=== PATIENT | female | born 1945 | race Caucasian/White ===

== ENCOUNTER 2018-07-22 18:00 | Inpatient (IN) | payer MEDICARE, OTHER, SELFPAY ==
[2018-07-22 18:18] VITALS: BP 175/69; PULSE 80; RESP 18; TEMP 36.9; O2SAT 99
--- NOTE | 2018-07-22 18:21 | DI.RAD.S_ITS ---
PROCEDURE: XR HUMERUS RT 2V INDICATIONS: pain with palpation, swelling. Headache, nausea, right arm swollen from elbow to hand. TECHNIQUE: 2 views of the humerus were acquired. COMPARISON: None. FINDINGS: Bones: No fractures or dislocations. No suspicious bony lesions. Soft tissues: No suspicious soft tissue calcifications. IMPRESSION: No acute osseous abnormality of the right humerus. Dictated by: Lincoln Fraire M.D. on 07/22/2018 at 19:42 Approved by: Lincoln Fraire M.D. on 07/22/2018 at 19:45
--- NOTE | 2018-07-22 18:22 | DI.RAD.S_ITS ---
PROCEDURE: XR WRIST RT MIN 3V INDICATIONS: limited range of motion due to pain, swelling. Headache, nausea, right arm swollen from elbow to hand. TECHNIQUE: 3 views of the wrist were acquired. COMPARISON: None. FINDINGS: Bones: No fractures or dislocations. Moderate degenerative changes of the first carpometacarpal joint and first metacarpophalangeal joint. There are mild degenerative changes of the first interphalangeal joint and second through fifth metacarpophalangeal joints. Soft tissues: There is diffuse soft tissue swelling surrounding the right wrist. IMPRESSION: Diffuse soft tissue swelling of the right wrist, without underlying acute fracture or dislocation. Consider followup radiographs if there is continued clinical concern. Dictated by: Lincoln Fraire M.D. on 07/22/2018 at 19:40 Approved by: Lincoln Fraire M.D. on 07/22/2018 at 19:42
--- NOTE | 2018-07-22 18:23 | PC.NURSE ---
report, right arm swelling for one week, denies injuries. right arm swelling, no redness noted. tenderness humerus, limited range of motion due to pain and swelling, right wrist pain with palpation, limited rom due to pain and swelling , distal pulses present. denies fever and vomiting.
--- NOTE | 2018-07-22 19:02 | DI.US.S_ITS ---
PROCEDURE: US PERIPH VENOUS UP EXTREM RT INDICATIONS: RIGHT ARM EDEMA, PAIN TECHNIQUE: Real-time imaging, as well as color and pulse Doppler interrogation, was performed of the right upper extremity deep veins from the inferior neck to the antecubital fossa. COMPARISON: [facility], PVE UNILATERAL RIGHT, 05/20/2016, 15:02. [facility], ARTERIAL LOW.EXTREM.BILATERAL, 08/13/2012, 14:53. [facility], BREAST RIGHT, 01/02/2011, 9:08. [facility], BREAST RIGHT, 06/20/2010, 13:26. FINDINGS: The internal jugular vein, visualized portions of the subclavian vein, axillary, and brachial veins are free of intraluminal thrombus. Where physically possible, the veins are normally compressible. Color and pulse Doppler demonstrate normal intraluminal flow. IMPRESSION: No ultrasound evidence of deep venous thrombosis of the proximal right upper extremity. Dictated by: Lincoln Fraire M.D. on 07/22/2018 at 21:38 Approved by: Lincoln Fraire M.D. on 07/22/2018 at 21:41
--- NOTE | 2018-07-22 19:07 | ED.EXTPRO ---
HPI - Extremity Problem General Chief complaint: Extremity Problem,Nontraumatic Stated complaint: headache, nausea, rt arm swollen from elbow to moreno Time Seen by Provider: 07/22/18 18:26 Source: patient and family Mode of arrival: ambulatory Limitations: no limitations History of Present Illness HPI Narrative: Patient is a 73-year-old female who presents with right shoulder and wrist pain. It has been ongoing for about 1 week. She is currently on Keflex for a sinusitis problem. She has significant swelling in her right wrist. She denies any fall. She is unable to lift her arm due to pain. She has no chest pain no heart palpitations no shortness of breath. She has not had any sweats fevers chills or shakes. She has not had any recent IV, no recent hospitalization. She has not taken anything for pain. MD Complaint: extremity pain and extremity swelling Onset (ago): week(s) Pain Consistency: constant Location: right and upper extremity Related Data Home Medications Medication Instructions Recorded Confirmed aspirin 81 mg PO QDAY #0 03/11/13 07/22/18 hydrochlorothiazide 50 mg PO QDAY #0 tab 03/11/13 07/22/18 simvastatin 10 mg PO HS #0 tab 03/11/13 07/22/18 fexofenadine 180 mg PO QDAY #0 tab 03/12/13 07/22/18 losartan 50 mg PO QDAY #0 tab 03/12/13 07/22/18 sertraline 50 mg PO QDAY #0 tab 03/12/13 07/22/18 Previous Rx's Medication Instructions Recorded triamcinolone acetonide 0 gm TOPICAL BID #1 tube 08/07/17 potassium chloride ER 10 mEq See Label Instructions PO BID #90 04/14/18 tablet,extended release tab hydroxyzine HCl 0 mg PO Q6HP PRN #60 tab 05/25/18 levetiracetam 750 mg tablet 750 mg PO BID #60 tab 07/03/18 metformin ER 500 mg 500 mg PO QDAY #30 tab 07/03/18 tablet,extended release 24 hr omeprazole 20 mg capsule,delayed 20 mg PO QDAY #30 cap 07/03/18 release cefuroxime axetil 500 mg tablet 500 mg PO Q12H 14 Days #28 tab 07/14/18 Allergies Allergy/AdvReac Type Severity Reaction Status Date / Time fexofenadine [FEXOFENADINE] Allergy Unknown Verified 07/22/18 21:15 hydroxyzine [HYDROXYZINE] Allergy Unknown Verified 07/22/18 21:15 Review of Systems Review of Systems ROS Unobtainable: All systems reviewed & are unremarkable except as noted in HPI and below Constitutional Denies chills, Denies fever(s), Denies lethargy and Denies weakness Cardiovascular Denies chest pain, Denies irregular heart rhythm, Denies lightheadedness, Denies palpitations, Denies dyspnea, Denies dyspnea on exertion and Denies orthopnea Respiratory Denies cough, Denies dyspnea, Denies dyspnea on exertion and Denies wheezing Gastrointestinal Gastrointestinal: Denies abdominal pain, Denies change in bowel habits, Denies diarrhea, Denies nausea and Denies vomiting Genitourinary Denies hematuria, Denies flank pain, Denies urinary incontinence and Denies urinary urgency Musculoskeletal Reports as per HPI and Reports joint swelling Integumentary/Breasts Denies pruritus, Denies erythema, Denies rash and Denies wounds Neurologic Denies weakness Endocrine Denies palpitations Hematologic/Lymphatic Denies easy bruising Allergic/Immunologic Denies wheezing [facility] Medical History Alopecia (Chronic) Anxiety (Chronic) Asthma (Chronic) Back pain (Chronic) Carpal tunnel syndrome (Chronic) Chronic back pain (Chronic) Foot pain (Chronic) Headache (Chronic) Hearing loss (Chronic) History of recurrent ear infection (Chronic) Hypertension (Chronic) Recurrent sinusitis (Chronic) Seasonal allergies (Chronic) Shoulder pain (Chronic) Sleep apnea (Chronic) Vision disorder (Chronic) Chicken pox (Resolved) Measles (Resolved) Mumps (Resolved) Vertigo (Resolved) Family History Child Age: 46 Cancer Heart disease Hypertension High cholesterol Diabetes mellitus Father Stroke Mother Heart disease Hypertension High cholesterol Diabetes mellitus Brother No problems noted. Brother No problems noted. Social History household members: family Smoking Status: Former smoker Exam Initial Vital Signs Initial Vital Signs: Vital Signs Temperature 98.5 F 07/22/18 18:18 Pulse Rate 80 07/22/18 18:18 Respiratory Rate 18 07/22/18 18:18 Blood Pressure 175/69 H 07/22/18 18:18 Pulse Oximetry 99 07/22/18 18:18 Const General: cooperative and acute distress (In pain holding right arm) Nutritional Appearance: average body habitus Orientation: alert, awake and oriented x3 Eyes General: appearance normal, both eyes and all related structures Neck Neck: normal visual inspection and full ROM Chest Chest: normal inspection of the chest Resp Effort & Inspection: normal respiratory effort and able to speak in complete sentences Auscultation: clear to auscultation bilaterally, no rales, no rhonchi and no wheezes Cardio Rate: regular rate Rhythm: regular rhythm Heart Sounds: S1 normal and S2 normal GI Palpation: soft, No firm, No guarding and No tender Percussion: normal to percussion Skin Other: She does have 1 small scab on right wrist area minimal erythema no streaking no gross pus no induration no fluctuation Neuro General: alert, oriented x3, gait normal and no focal motor deficits Speech: speech normal Extrem Right upper extremity: shoulder/upper arm Details: tenderness; no abrasions, no lacerations and no unusual warmth and wrist Details: swelling Location: of the dorsal wrist and of the volar wrist and abrasion; no unusual warmth and no ecchymosis Course Orders Ordered: ED Orders 07/22/18 18:21 XR humerus RT 2V Stat 07/22/18 18:22 XR wrist RT min 3V Stat 07/22/18 19:02 US periph venous up extrem rt Stat 07/22/18 19:20 C-Reactive Protein Quant Stat Complete Blood Count AUTO DIFF Stat Comprehensive Metabolic Panel Stat Erythrocyte Sedimentation Rate Stat Iron Profile (w/ % Saturation) Stat Lactate (Lactic Acid) Stat Procalcitonin Stat 07/22/18 20:02 Packed Cells Stat Type and Screen Stat 07/22/18 20:53 Blood Culture Stat 07/23/18 05:00 BMP [Basic Metabolic Panel] Routine CBC [Complete Blood Count AUTO DIFF] Routine Hemoglobin A1C % Routine Acetaminophen (Tylenol) 650 mg PO Q6HR PRN PRN Reason: As Needed for Fever/Mild Pain Dextrose (D50w) 25 gm IV PRN PRN; Protocol PRN Reason: Hypoglycemia Sodium Chloride (Normal Saline 0.9%) 1,000 mls @ 75 mls/hr IV CONT ELDER Last Admin: 07/22/18 22:35 Dose: 75 mls/hr Insulin Aspart (Novolog Flexpen) 0 unit SUBCUT ACHS ELDER; Protocol Losartan Potassium (Cozaar) 50 mg PO DAILY ELDER Metformin HCl (Glucophage Xr) 500 mg PO 1700 ELDER Oxycodone HCl (Percolone) 5 mg PO Q4HR PRN PRN Reason: Pain, Moderate (4-6) Last Admin: 07/22/18 22:35 Dose: 5 mg Oxycodone HCl (Percolone) 10 mg PO Q4HR PRN PRN Reason: Pain, Severe (7-10) Simvastatin (Zocor) 10 mg PO BEDTIME ELDER Discontinued Medications Acetaminophen (Tylenol) 975 mg PO NOW ONE Stop: 07/22/18 19:05 Last Admin: 07/22/18 19:28 Dose: 975 mg Levofloxacin (Levaquin) 750 mg in 150 mls @ 100 mls/hr IV NOW ONE Stop: 07/22/18 21:58 Last Infusion: 07/22/18 21:18 Dose: 100 mls/hr Admin: 07/22/18 20:39 Dose: 100 mls/hr Permethrin (Elimite) 1 applic TOP NOW ONE Stop: 07/22/18 21:54 Vital Signs - 8 hr 07/22/18 18:18 07/22/18 19:50 07/22/18 20:30 Temperature 98.5 F Pulse Rate 80 88 95 H Respiratory Rate 18 18 Blood Pressure 175/69 H Blood Pressure [Left Arm] 164/75 H 166/71 H Pulse Oximetry 99 94 93 MDM - Extremity (Nontraumatic) Lab Data Result diagrams: 07/22/18 19:20 07/22/18 19:20 Lab Results 07/22/18 07/22/18 07/22/18 Range/Units 19:20 19:20 19:20 WBC 12.6 H (4.5-11.0) X10^3/uL RBC 4.52 (4.0-5.2) X10^6/uL Hgb 6.2 L* (12.0-16.0) g/dL Hct 23.2 L (36-46) % MCV 51.4 L (80-100) fL MCH 13.8 L (26-34) PG MCHC 26.8 L (30-36) % RDW 20.4 H (11.6-14.8) % Plt Count 200 (150-400) X10^3/uL Neut % (Auto) Not Reportable Lymph % (Auto) Not Reportable [place] % (Auto) Not Reportable Eos % (Auto) Not Reportable Baso % (Auto) Not Reportable Lymph # (Auto) Not Reportable [place] # (Auto) Not Reportable Baso # (Auto) Not Reportable Total Counted 100 Seg Neutrophils % 70.0 (38-70) % Lymphocytes % (Manual) 12.0 L (25-45) % Atypical Lymphs % 4.0 H ( - 0) % Monocytes % (Manual) 7.0 (2-11) % Eosinophils % (Manual) 7.0 H (2-4) % Neutrophils # (Manual) 8820 H (8326-8228) /uL RBC Morphology Not Reportable Hypochromasia 3+ H Microcytosis 4+ H Target Cells 1+ H Ovalocytes 1+ H ESR 66 H (0-20) MM/HR Sodium 136 L (137-145) mmol/L Potassium 4.8 (3.4-5.1) mmol/L Chloride 98 (98-107) mmol/L Carbon Dioxide 28 (22-32) mmol/L BUN 17 (7-17) mg/dL Creatinine 0.60 (0.52-1.04) mg/dL Estimated GFR > 60.0 (>60) mL/min BUN/Creatinine Ratio 28.3 H (6-22) Glucose 102 (80-110) mg/dL Lactate (0.7-2.1) mmol/L Calcium 9.4 (8.4-10.2) mg/dL Iron (37-170) ug/dL TIBC (265-497) ug/dL % Saturation (15-50) % Transferrin (206-381) mg/dL Total Bilirubin 0.6 (0.2-1.3) mg/dL AST 19 (14-36) IU/L ALT 14 (9-52) IU/L Alkaline Phosphatase 83 (38-126) U/L C-Reactive Protein 5.6 H (<1.0) mg/dL Total Protein 8.1 (6.3-8.2) g/dL Albumin 4.0 (3.5-5.0) g/dL Globulin 4.1 (1.7-4.1) g/dL Albumin/Globulin Ratio 1.0 (1.0-2.8) Procalcitonin 0.12 (<0.5) ng/mL Blood Type Antibody Screen Crossmatch 07/22/18 07/22/18 07/22/18 Range/Units 19:20 19:20 20:02 WBC (4.5-11.0) X10^3/uL RBC (4.0-5.2) X10^6/uL Hgb (12.0-16.0) g/dL Hct (36-46) % MCV (80-100) fL MCH (26-34) PG MCHC (30-36) % RDW (11.6-14.8) % Plt Count (150-400) X10^3/uL Neut % (Auto) Lymph % (Auto) [place] % (Auto) Eos % (Auto) Baso % (Auto) Lymph # (Auto) [place] # (Auto) Baso # (Auto) Total Counted Seg Neutrophils % (38-70) % Lymphocytes % (Manual) (25-45) % Atypical Lymphs % ( - 0) % Monocytes % (Manual) (2-11) % Eosinophils % (Manual) (2-4) % Neutrophils # (Manual) (3628-6572) /uL RBC Morphology Hypochromasia Microcytosis Target Cells Ovalocytes ESR (0-20) MM/HR Sodium (137-145) mmol/L Potassium (3.4-5.1) mmol/L Chloride (98-107) mmol/L Carbon Dioxide (22-32) mmol/L BUN (7-17) mg/dL Creatinine (0.52-1.04) mg/dL Estimated GFR (>60) mL/min BUN/Creatinine Ratio (6-22) Glucose (80-110) mg/dL Lactate 1.4 (0.7-2.1) mmol/L Calcium (8.4-10.2) mg/dL Iron 22 L (37-170) ug/dL TIBC 411 (265-497) ug/dL % Saturation 5 L (15-50) % Transferrin 374 (206-381) mg/dL Total Bilirubin (0.2-1.3) mg/dL AST (14-36) IU/L ALT (9-52) IU/L Alkaline Phosphatase (38-126) U/L C-Reactive Protein (<1.0) mg/dL Total Protein (6.3-8.2) g/dL Albumin (3.5-5.0) g/dL Globulin (1.7-4.1) g/dL Albumin/Globulin Ratio (1.0-2.8) Procalcitonin (<0.5) ng/mL Blood Type A Positive Antibody Screen Negative Crossmatch See Detail Imaging Data right humerus: Radiologist's impression: PROCEDURE: XR HUMERUS RT 2V INDICATIONS: pain with palpation, swelling. Headache, nausea, right arm swollen from elbow to hand. TECHNIQUE: 2 views of the humerus were acquired. COMPARISON: None. FINDINGS: Bones: No fractures or dislocations. No suspicious bony lesions. Soft tissues: No suspicious soft tissue calcifications. IMPRESSION: No acute osseous abnormality of the right humerus. Dictated by: Lincoln Fraire M.D. on 07/22/2018 at 19:42 right wrist: Radiologist's impression: PROCEDURE: XR WRIST RT MIN 3V INDICATIONS: limited range of motion due to pain, swelling. Headache, nausea, right arm swollen from elbow to hand. TECHNIQUE: 3 views of the wrist were acquired. COMPARISON: None. FINDINGS: Bones: No fractures or dislocations. Moderate degenerative changes of the first carpometacarpal joint and first metacarpophalangeal joint. There are mild degenerative changes of the first interphalangeal joint and second through fifth metacarpophalangeal joints. Soft tissues: There is diffuse soft tissue swelling surrounding the right wrist. IMPRESSION: Diffuse soft tissue swelling of the right wrist, without underlying acute fracture or dislocation. Consider followup radiographs if there is continued clinical concern. Dictated by: Lincoln Fraire M.D. on 07/22/2018 at 19:40 right upper ex dopper: Radiologist's impression: PROCEDURE: US PERIPH VENOUS UP EXTREM RT INDICATIONS: RIGHT ARM EDEMA, PAIN TECHNIQUE: Real-time imaging, as well as color and pulse Doppler interrogation, was performed of the right upper extremity deep veins from the inferior neck to the antecubital fossa. COMPARISON: [facility], PVE UNILATERAL RIGHT, 05/20/2016, 15:02. [facility], ARTERIAL LOW.EXTREM.BILATERAL, 08/13/2012, 14:53. [facility], BREAST RIGHT, 01/02/2011, 9:08. [facility], , BREAST RIGHT, 06/20/2010, 13:26. FINDINGS: The internal jugular vein, visualized portions of the subclavian vein, axillary, and brachial veins are free of intraluminal thrombus. Where physically possible, the veins are normally compressible. Color and pulse Doppler demonstrate normal intraluminal flow. IMPRESSION: No ultrasound evidence of deep venous thrombosis of the proximal right upper extremity. Dictated by: Lincoln Farire M.D. on 07/22/2018 at 21:38 MDM Narrative Medical decision making narrative: The patient does have extreme pain in her right arm worse with movement. She has very minimal erythema of from a very small scab. Possible cellulitis versus arthritis she has obvious swelling of her right wrist. I do not suspect septic joint she is afebrile no leukocytosis lactic acid is normal. She does have elevated ESR and CRP possibly reactive. She was also found to be quite anemic. No obvious source of blood loss. Guaiac was negative. Dr. Ervin updated patient's symptoms and test results. Agrees with admission and blood transfusion. Discharge Plan Departure Patient Disposition: Admitted As Inpatient Clinical Impression: Cellulitis of arm, right, Anemia Discharge Date/Time: 07/22/18 21:19 Interventions: ED Discharge Assessment Last Done: 07/22/18 21:18 Admit Date/Time: 07/22/18 21:06 Admit Provider: Graham Ervin
[2018-07-22] MEDS: ACETAMINOPHEN 325 MG TABLET 975 MG PO (19:28)
[2018-07-22 19:32] LABS: Hematocrit 23.2 % (36-46); Mean Corpuscular HGB Conc 26.8 % (30-36); Mean Corpuscular Hemoglobin 13.8 PG (26-34); Mean Corpuscular Volume 51.4 fL (80-100); Platelet Count 200 X10^3/uL (150-400); Red Blood Cell Count 4.52 X10^6/uL (4.0-5.2); Red Cell Distribution Width 20.4 % (11.6-14.8); White Blood Cell Count 12.6 X10^3/uL (4.5-11.0)
[2018-07-22 19:35] LABS: Hemoglobin 6.2 g/dL (12.0-16.0)
[2018-07-22 19:36] LABS: Add Manual Diff / Slide Review YES
[2018-07-22 19:43] LABS: Neutrophils Absolute Manual 8820 /uL (3000-5900); Total Cells Counted 100
[2018-07-22 19:44] LABS: Hypochromasia 3+; Microcytosis 4+; Ovalocytes 1+; Target Cells 1+
[2018-07-22 19:47] LABS: Alanine Aminotransferase 14 IU/L (9-52); Alkaline Phosphatase 83 U/L (38-126); Aspartate Aminotransferase 19 IU/L (14-36); BUN Creatinine Ratio 28.3 (6-22); Bilirubin Total 0.6 mg/dL (0.2-1.3); Blood Urea Nitrogen 17 mg/dL (7-17); C-Reactive Protein Quant 5.6 mg/dL (<1.0); Calcium 9.4 mg/dL (8.4-10.2); Carbon Dioxide 28 mmol/L (22-32); Chloride 98 mmol/L (98-107); Estimated Glomerular Filt Rate > 60.0 mL/min (>60); Globulin 4.1 g/dL (1.7-4.1); Glucose 102 mg/dL (80-110); HEMOLYSIS < 15 (0-50); Potassium 4.8 mmol/L (3.4-5.1); Sodium 136 mmol/L (137-145); Total Protein 8.1 g/dL (6.3-8.2)
[2018-07-22 19:50] VITALS: BP 164/75; PULSE 88; RESP 18; O2SAT 94
[2018-07-22 19:59] LABS: Lactate (Lactic Acid) 1.4 mmol/L (0.7-2.1); Procalcitonin 0.12 ng/mL (<0.5)
[2018-07-22 20:10] LABS: Erythrocyte Sedimentation Rate 66 MM/HR (0-20)
[2018-07-22 20:30] VITALS: BP 166/71; PULSE 95; O2SAT 93
[2018-07-22] MEDS: levoFLOXacin 750 MG/150 ML PIGGYBACK 100 MG IV (20:39)
[2018-07-22 21:02] LABS: HEMOLYSIS < 15 (0-50); Iron 22 ug/dL (37-170)
[2018-07-22 21:13] LABS: Percent Iron Saturation 5 % (15-50); Total Iron Binding Capacity 411 ug/dL (265-497); Transferrin 374 mg/dL (206-381)
[2018-07-22 22:09] VITALS: BMI 25.8
[2018-07-22 22:21] VITALS: BMI 25.8
[2018-07-22] MEDS: OXYCODONE IR 5 MG TABLET PO (22:35)
[2018-07-22] MEDS: SODIUM CHLORIDE 0.9% 1,000 ML 75 ML IV (22:35)
--- NOTE | 2018-07-22 22:50 | PC.NURSE ---
2130- Admit from emergency. Patient is alert and oriented elderly lady. Patient noted to have head lice. Emergency notified. Dr. Ervin notified and orders recieved. Patient is in contact isolation.
[2018-07-23] VITALS (17 sets, daily range): BP systolic 116–153; BP diastolic 47–89; PULSE 75–96; RESP 16–24; TEMP 36.5–37.3; O2SAT 90–97
[2018-07-23] MEDS: PERMETHRIN 5% CREAM 60 GM 1 APPLIC TOP (00:30)
--- NOTE | 2018-07-23 01:36 | PC.NURSE ---
Pt trans to ICU shower room at approx 0030 via w/c. Gen weakness and RUE weakness noted. Denies dizziness with transfer. NIX treatment for head lice completed; hair combed with NIX comb. Complete shower. Pt tolerated well. Calm and cooperative. Bed linens completely changed. Pt returned to bed. IVF reconnected. Bed alarm placed on. Call light within reach. Contact Isolation remains in effect.
--- NOTE | 2018-07-23 07:59 | PM.HP.1 ---
History of Present Illness Date Patient Seen: 07/23/18 Time Patient Seen: 07:59 Chief complaint: headache, nausea, rt arm swollen from elbow to moreno Narrative: Swollen right arm. Patient admitted through the ER last night. Patient apparently went to the ER discuss she did not feel very well. Denies fever chills has had some headache. She is being currently treated with cefuroxime for sinusitis. She lives with her daughter and son-in-law and grandchildren most of whom are on antibiotics for presumed sinusitis. Patient has noted right arm has slightly swollen and painful at the wrist. Denies any trauma. She does have animals in perhaps there is been some scratches to the right arm. Pain is of the wrist primarily has difficult time moving her fingers and pain in the elbow. Also experience wrist pain when she lifts her arm up. No nausea she did have some diarrhea couple days ago all of which resolved. Denies any melena or hematochezia. No abdominal pain no vomiting. At does not believe she is taking any nonsteroidal anti-inflammatories but she is unclear what she takes. Patient currently is being treated multiple times for head lice. The entire family has had lice. The patient was admitted through the ER for evaluation right arm swelling. Additionally was found to have a decreased hemoglobin at presumed GI bleed and will be transfused and will obtain surgical consult. Patient History Medical History Alopecia (Chronic) Anxiety (Chronic) Asthma (Chronic) Back pain (Chronic) Carpal tunnel syndrome (Chronic) Chronic back pain (Chronic) Foot pain (Chronic) Headache (Chronic) Hearing loss (Chronic) History of recurrent ear infection (Chronic) Hypertension (Chronic) Recurrent sinusitis (Chronic) Seasonal allergies (Chronic) Shoulder pain (Chronic) Sleep apnea (Chronic) Vision disorder (Chronic) Chicken pox (Resolved) Measles (Resolved) Mumps (Resolved) Vertigo (Resolved) Family & Social History Family History: Reviewed 07/23/18 by Graham Ervin MD Social History: household members family Prior Living Arrangements House Safety & Behavioral: Feels Safe in Current Yes Environment Been Physically Hurt or No Threatened By a Person Suicidal Ideation Description None Suicide Plan Description No Plan Tobacco & Substance use: Smoking Status Former smoker Substance Use Type does not use Meds Home Medications Medication Instructions Recorded Confirmed Type aspirin 81 mg PO QDAY #0 03/11/13 07/22/18 History hydrochlorothiazide 50 mg PO QDAY #0 tab 03/11/13 07/22/18 History simvastatin 10 mg PO HS #0 tab 03/11/13 07/22/18 History fexofenadine 180 mg PO QDAY #0 tab 03/12/13 07/22/18 History losartan 50 mg PO QDAY #0 tab 03/12/13 07/22/18 History sertraline 50 mg PO QDAY #0 tab 03/12/13 07/22/18 History triamcinolone acetonide 0 gm TOPICAL BID #1 tube 08/07/17 07/22/18 Rx potassium chloride ER 10 mEq See Label Instructions PO BID #90 04/14/18 07/22/18 Rx tablet,extended release tab hydroxyzine HCl 0 mg PO Q6HP PRN #60 tab 05/25/18 07/22/18 Rx levetiracetam 750 mg tablet 750 mg PO BID #60 tab 07/03/18 07/22/18 Rx metformin ER 500 mg 500 mg PO QDAY #30 tab 07/03/18 07/22/18 Rx tablet,extended release 24 hr omeprazole 20 mg capsule,delayed 20 mg PO QDAY #30 cap 07/03/18 07/22/18 Rx release cefuroxime axetil 500 mg tablet 500 mg PO Q12H 14 Days #28 tab 07/14/18 07/22/18 Rx Allergies Allergy/AdvReac Type Severity Reaction Status Date / Time fexofenadine [FEXOFENADINE] Allergy Unknown Verified 07/22/18 21:15 hydroxyzine [HYDROXYZINE] Allergy Unknown Verified 07/22/18 21:15 Review of Systems Review of Systems All systems reviewed & are unremarkable except as noted in HPI and below Exam Vital Signs (past 8 hours): - 07/23/18 00:30 07/23/18 02:07 07/23/18 02:10 Temperature 99.2 F 99.2 F Pulse Rate 96 H 93 H 93 H Respiratory Rate 16 16 16 Blood Pressure 126/47 L 126/47 L Pulse Oximetry 92 90 L 07/23/18 02:30 07/23/18 02:35 07/23/18 03:30 Temperature 98.7 F Pulse Rate 93 H 96 H Respiratory Rate 16 20 Blood Pressure 145/69 H 145/69 H 152/68 H Pulse Oximetry 91 07/23/18 05:13 07/23/18 05:55 07/23/18 06:15 Temperature 97.8 F 97.7 F 97.7 F Pulse Rate 95 H 92 H 90 Respiratory Rate 18 16 18 Blood Pressure 121/61 116/70 123/65 Pulse Oximetry Oxygen Delivery Method Room Air Oxygen Flow Rate 0 Narrative Exam Narrative: Gen.: Skin: Warm well perfused. No prominent lesions. Nonicteric. HEENT: PERRL., normal EOM, external ears canals TMs normal, nasal mucosa normal and midline septum, oropharynx without lesions. Neck: Trachea midline. Thyroid nontender and not enlarged. Carotids without bruits. No lymphadenopathy Back: No obvious deformity or tenderness. Chest: Clear to P&A. Symmetric. CV: RRR no murmur or gallop. No JVD. Abdomen: No masses bruits tenderness or visceromegaly]. Neuro: Cranial nerves II through XII grossly intact. Sensory and motor exams intact. Gait normal. Mental status: Intact for screening Extremities: No cyanosis clubbing or edema Musculoskeletal: No gross deformities Lymphatics: Negative for lymphadenopathy, supraclavicular axillary or inguinal Patient has poor dentition missing several teeth and has again device. Right arm shows a 2 small superficial abrasions 1 of the top of her wrist 11 the top for her hand. There is no redness there is no warmth the hand is edematous things are edematous and she has no tenderness of the elbow or the forearm she has full range of motion passively of the wrist. Here shows evidence of head lice. Abdominal exam still masses no tenderness Objective Labs Result Diagrams: 07/22/18 19:20 07/22/18 19:20 Labs: Laboratory Results - last 24 hr 07/22/18 07/22/18 07/22/18 19:20 19:20 19:20 WBC 12.6 H RBC 4.52 Hgb 6.2 L* Hct 23.2 L MCV 51.4 L MCH 13.8 L MCHC 26.8 L RDW 20.4 H Plt Count 200 Neut % (Auto) Not Reportable Lymph % (Auto) Not Reportable [place] % (Auto) Not Reportable Eos % (Auto) Not Reportable Baso % (Auto) Not Reportable Lymph # (Auto) Not Reportable [place] # (Auto) Not Reportable Baso # (Auto) Not Reportable Total Counted 100 Seg Neutrophils % 70.0 Lymphocytes % (Manual) 12.0 L Atypical Lymphs % 4.0 H Monocytes % (Manual) 7.0 Eosinophils % (Manual) 7.0 H Neutrophils # (Manual) 8820 H RBC Morphology Not Reportable Hypochromasia 3+ H Microcytosis 4+ H Target Cells 1+ H Ovalocytes 1+ H ESR 66 H Sodium 136 L Potassium 4.8 Chloride 98 Carbon Dioxide 28 BUN 17 Creatinine 0.60 Estimated GFR > 60.0 BUN/Creatinine Ratio 28.3 H Glucose 102 Lactate Calcium 9.4 Iron TIBC % Saturation Transferrin Total Bilirubin 0.6 AST 19 ALT 14 Alkaline Phosphatase 83 C-Reactive Protein 5.6 H Total Protein 8.1 Albumin 4.0 Globulin 4.1 Albumin/Globulin Ratio 1.0 Procalcitonin 0.12 Nasal Screen MRSA (PCR) Blood Type Antibody Screen Crossmatch 07/22/18 07/22/18 07/22/18 19:20 19:20 20:02 WBC RBC Hgb Hct MCV MCH MCHC RDW Plt Count Neut % (Auto) Lymph % (Auto) [place] % (Auto) Eos % (Auto) Baso % (Auto) Lymph # (Auto) [place] # (Auto) Baso # (Auto) Total Counted Seg Neutrophils % Lymphocytes % (Manual) Atypical Lymphs % Monocytes % (Manual) Eosinophils % (Manual) Neutrophils # (Manual) RBC Morphology Hypochromasia Microcytosis Target Cells Ovalocytes ESR Sodium Potassium Chloride Carbon Dioxide BUN Creatinine Estimated GFR BUN/Creatinine Ratio Glucose Lactate 1.4 Calcium Iron 22 L TIBC 411 % Saturation 5 L Transferrin 374 Total Bilirubin AST ALT Alkaline Phosphatase C-Reactive Protein Total Protein Albumin Globulin Albumin/Globulin Ratio Procalcitonin Nasal Screen MRSA (PCR) Blood Type A Positive Antibody Screen Negative Crossmatch See Detail 07/23/18 Unknown WBC RBC Hgb Hct MCV MCH MCHC RDW Plt Count Neut % (Auto) Lymph % (Auto) [place] % (Auto) Eos % (Auto) Baso % (Auto) Lymph # (Auto) [place] # (Auto) Baso # (Auto) Total Counted Seg Neutrophils % Lymphocytes % (Manual) Atypical Lymphs % Monocytes % (Manual) Eosinophils % (Manual) Neutrophils # (Manual) RBC Morphology Hypochromasia Microcytosis Target Cells Ovalocytes ESR Sodium Potassium Chloride Carbon Dioxide BUN Creatinine Estimated GFR BUN/Creatinine Ratio Glucose Lactate Calcium Iron TIBC % Saturation Transferrin Total Bilirubin AST ALT Alkaline Phosphatase C-Reactive Protein Total Protein Albumin Globulin Albumin/Globulin Ratio Procalcitonin Nasal Screen MRSA (PCR) Negative for mrsa Blood Type Antibody Screen Crossmatch labs reviewed as above Assessment & Plan Plan: Assessment/Plan Narrative: 1. Patient was swollen right arm. Ultrasound negative for DVT. She has elevated sed rate elevated CRP. White count normal. Lactate normal. Procalcitonin normal. Unclear etiology unclear diagnosis presumably cellulitis secondary from the scratches. However other than edema there is not lot of clinical findings for same. Keep patient is on big dose of hydrochlorothiazide and may well have developed gout. Uric acid pending. Will continue antibiotics for the time being. 2. Decrease in hemoglobin seem significant. Likely to be GI blood loss that she is iron deficient. Will obtain surgical consult for evaluation for endoscopy. 3. Diabetes mellitus and on medication for same needs updated evaluation. 4. Head lice continues to be a problem. 5. Patient had been cefuroxime for her sinusitis per this to be discontinued again makes diagnosis cellulitis sketchy yet to be determined.
[2018-07-23] MEDS: LOSARTAN 50 MG TABLET PO (09:40)
[2018-07-23 09:58] LABS: Add Manual Diff / Slide Review NO; Basophils Absolute Auto 100 /uL (0-100); Basophils Percent Auto 0.5 % (0-2); Eosinophils Absolute Auto 500 /uL (0-450); Eosinophils Percent Auto 4.7 % (2-4); Hematocrit 26.3 % (36-46); Lymphocytes Absolute Auto 2100 /uL (1100-4500); Lymphocytes Percent Auto 18.2 % (25-40); Mean Corpuscular HGB Conc 30.2 % (30-36); Mean Corpuscular Volume 59.4 fL (80-100); Monocytes Absolute Auto 1300 /uL (0-900); Monocytes Percent Auto 11.1 % (3-14); Neutrophils Absolute Auto 7700 /uL (1500-7000); Neutrophils Percent Auto 65.5 % (50-75); Platelet Count 124 X10^3/uL (150-400); Red Blood Cell Count 4.43 X10^6/uL (4.0-5.2); Red Cell Distribution Width 32.9 % (11.6-14.8); White Blood Cell Count 11.7 X10^3/uL (4.5-11.0)
[2018-07-23 10:06] LABS: INR 1.3 (0.9-1.3); Prothrombin Time 15.3 SECONDS (10.1-12.7)
[2018-07-23 10:20] LABS: Blood Urea Nitrogen 21 mg/dL (7-17); Calcium 8.7 mg/dL (8.4-10.2); Carbon Dioxide 23 mmol/L (22-32); Chloride 103 mmol/L (98-107); Estimated Glomerular Filt Rate > 60.0 mL/min (>60); Glucose 115 mg/dL (80-110); HEMOLYSIS < 15 (0-50); Potassium 4.5 mmol/L (3.4-5.1); Sodium 134 mmol/L (137-145); Uric Acid 2.8 mg/dL (2.5-6.2)
[2018-07-23 10:21] LABS: Hypochromasia 2+; Microcytosis 3+; Ovalocytes 1+
[2018-07-23] MEDS: ACETAMINOPHEN 325 MG TABLET 650 MG PO (10:23)
[2018-07-23 10:25] LABS: Hemoglobin A1C% w Est Avg Glu 5.9 % (4.0-6.0)
--- NOTE | 2018-07-23 12:56 | PC.NURSE ---
Dayshift Note: Pt received laying in bed, on RA, SPO2 94% initially, down to 91% at times when laying in bed. Pt with 2nd unit of PRBCs finishing up on this shift. Pt with significant swelling in R hand, wrist and forearm. Skin is intact, small scabbed over area on dorsal surface of wrist. Area of swelling is erythematous, and only slightly warm. Pt with mild pain at rest, but unable to use RUE without limiting pain. This inhibits pt's mobility, d/t inability to push off of surfaces to stand. Pt is L handed and therefore is able to use L hand for eating and other ADLs. Pt given tylenol with pain improving from 8/10 to 3/10. Pt with BG 117 and 88 for pre-meal breakfast and lunch. Urine is dark elzbieta, adequate volume. Pt continues with clear liquid diet, also on NS at 75 ml/hr. Pt with active lice infestation, given nix treatment and shower on night nurse, live lice seen on pt's sheets. Will continue to monitor, notify MD with changes.
--- NOTE | 2018-07-23 13:22 | CM.DANOTE ---
Addendum entered by TONYA Baker 07/23/18 16:12: DCP/cont Patient's pending GI consult at this time and is in OBS status. Per RN there are concerns regarding her cognition. Attempted assessment with patient and patient was able to verify she resides with her daughter/Lacey and her family. Patient stated she is independent without the use of DME. Patient is able to drive but does not drive. While there patient's daughter/Jaelyn arrived. Patient gave permission to speak with daughter. Jaelyn stated she does not have a good relationship with sister/Lacey. Few reasons listed but none that would affect the care of patient. Jaelyn stated that patient resides with Lacey, Lacey's , their two boys (age 22 and 17) and the 22 years old's son and possible his girlfriend. Jaelyn stated at last admission at [facility] she had concerns about hygiene but admits she has not been to the house since that time ( roughly a year). Asked Jaelyn if she had any concerns regarding patient's care and she said no. Discussed HH at time of discharge should patient be eligible and Jaelyn was agreeable. RN follow up with MD regarding PT/OT eval. Plan: Depending on surg eval and possible PT/OT eval patient is likey to discharge home. CM team to follow to rule out any HH needs. 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 Yes History Provided By Medical Record Has Patient been admitted in last 30 No days? Prior Living Arrangements House Household Members family Is patient alert and oriented? Yes Comment Patient currently on isolation due to head lice. Bed side assessment not completed. Comment Chart review: Patient is admitted for swollen right arm with unclear etiology unclear diagnosis presumably cellulites secondary from the scratches and possible GI bleed. Patient to receive transfusion and is pending surg consult. Patient resides with son/dil/ and grandchildren. All whom have had difficulties with lice in the home. Comment DCP is unclear at this time. CM team to follow up for bedside assessment to better assess discharge needs. Discharge Plan Home Whiteboard Updated in Patient Room with No name and ext. # of Gas Meter Installer Helper Review Status In Process Please Provide Date Initial DC 07/23/18 Assessment Was Performed Next Review Type Continued Stay Review
[2018-07-23] MEDS: PANTOPRAZOLE 40 MG VIAL IV (13:23)
[2018-07-23 15:30] LABS: Add Manual Diff / Slide Review NO; Basophils Absolute Auto 100 /uL (0-100); Eosinophils Absolute Auto 700 /uL (0-450); Eosinophils Percent Auto 5.9 % (2-4); Hematocrit 27.1 % (36-46); Hemoglobin 8.2 g/dL (12.0-16.0); Lymphocytes Absolute Auto 2300 /uL (1100-4500); Lymphocytes Percent Auto 20.2 % (25-40); Mean Corpuscular HGB Conc 30.1 % (30-36); Mean Corpuscular Hemoglobin 17.9 PG (26-34); Mean Corpuscular Volume 59.3 fL (80-100); Monocytes Absolute Auto 1300 /uL (0-900); Monocytes Percent Auto 11.2 % (3-14); Neutrophils Absolute Auto 7000 /uL (1500-7000); Neutrophils Percent Auto 61.7 % (50-75); Platelet Count 125 X10^3/uL (150-400); Red Blood Cell Count 4.58 X10^6/uL (4.0-5.2); Red Cell Distribution Width 32.4 % (11.6-14.8); White Blood Cell Count 11.3 X10^3/uL (4.5-11.0)
[2018-07-23 15:49] LABS: Hypochromasia 3+; Microcytosis 3+; Polychromasia 1+
[2018-07-23] MEDS: METFORMIN XR 500 MG TABLET PO (17:49)
[2018-07-23] MEDS: OXYCODONE IR 5 MG TABLET PO (19:11)
[2018-07-23] MEDS: PEG3350/SOD SULF,BICARB,CL/KCL 4,000 ML SOLUTION 2000 ML PO (21:06)
[2018-07-23] MEDS: levoFLOXacin 750 MG/150 ML PIGGYBACK 100 MG IV (21:08)
[2018-07-23] MEDS: SODIUM CHLORIDE 0.9% 1,000 ML 75 ML IV (21:09)
--- NOTE | 2018-07-23 21:42 | PM.CN ---
History of Present Illness Date Patient Seen: 07/23/18 Time Patient Seen: 20:01 Chief complaint: headache, nausea, rt arm swollen from elbow to moreno Reason for consult: Anemia Requesting provider: Graham Ervin Narrative: The patient is a woman admitted with profound anemia hemoglobin of 6. She says that she occasionally sees blood in his stool but is not of any black bowel movements and no recent large bloody bowel movements. She has been feeling weak and tired. Additionally her right arm is painful and swollen. She lives with family but there seemed to be some issues with hygiene. She does have 2 cats. [facility] Medical History Alopecia (Chronic) Anxiety (Chronic) Asthma (Chronic) Back pain (Chronic) Carpal tunnel syndrome (Chronic) Chronic back pain (Chronic) Foot pain (Chronic) Headache (Chronic) Hearing loss (Chronic) History of recurrent ear infection (Chronic) Hypertension (Chronic) Recurrent sinusitis (Chronic) Seasonal allergies (Chronic) Shoulder pain (Chronic) Sleep apnea (Chronic) Vision disorder (Chronic) Chicken pox (Resolved) Measles (Resolved) Mumps (Resolved) Vertigo (Resolved) Family History Child Age: 46 Cancer Heart disease Hypertension High cholesterol Diabetes mellitus Father Stroke Mother Heart disease Hypertension High cholesterol Diabetes mellitus Brother No problems noted. Brother No problems noted. Social History household members: family Smoking Status: Former smoker Meds Home Medications Medication Instructions Recorded Confirmed Type aspirin 81 mg PO QDAY #0 03/11/13 07/22/18 History hydrochlorothiazide 50 mg PO QDAY #0 tab 03/11/13 07/22/18 History simvastatin 10 mg PO HS #0 tab 03/11/13 07/22/18 History fexofenadine 180 mg PO QDAY #0 tab 03/12/13 07/22/18 History losartan 50 mg PO QDAY #0 tab 03/12/13 07/22/18 History sertraline 50 mg PO QDAY #0 tab 03/12/13 07/22/18 History triamcinolone acetonide 0 gm TOPICAL BID #1 tube 08/07/17 07/22/18 Rx potassium chloride ER 10 mEq See Label Instructions PO BID #90 04/14/18 07/22/18 Rx tablet,extended release tab hydroxyzine HCl 0 mg PO Q6HP PRN #60 tab 05/25/18 07/22/18 Rx levetiracetam 750 mg tablet 750 mg PO BID #60 tab 07/03/18 07/22/18 Rx metformin ER 500 mg 500 mg PO QDAY #30 tab 07/03/18 07/22/18 Rx tablet,extended release 24 hr omeprazole 20 mg capsule,delayed 20 mg PO QDAY #30 cap 07/03/18 07/22/18 Rx release cefuroxime axetil 500 mg tablet 500 mg PO Q12H 14 Days #28 tab 07/14/18 07/22/18 Rx Allergies Allergy/AdvReac Type Severity Reaction Status Date / Time fexofenadine [FEXOFENADINE] Allergy Unknown Verified 07/22/18 21:15 hydroxyzine [HYDROXYZINE] Allergy Unknown Verified 07/22/18 21:15 Review of Systems Review of Systems No chest pain or heart problems he is aware of. Occasionally smoked years ago. No heart problems she is aware of. No black bowel movements no vomiting. No abdominal pain at this time. No seizures or blackouts. Is missing some teeth. Exam Vital Signs (past 8 hours): - 07/23/18 16:00 07/23/18 20:52 Temperature 99.2 F 98.9 F Pulse Rate 77 80 Respiratory Rate 22 20 Blood Pressure 153/89 H 139/71 Pulse Oximetry 94 Oxygen Delivery Method Room Air Oxygen Flow Rate 0 Narrative Exam Narrative: Co operative overweight woman in no apparent distress. Her eyes are nonicteric. Pupils equal round reactive to light. Lungs are clear to auscultation without rales or rhonchi. Heart regular rate and rhythm without murmur or gallop. Abdomen is protuberant soft nontender without mass. No obvious hernias. Objective Labs Result Diagrams: 07/23/18 15:15 07/23/18 09:49 Labs: Laboratory Results - last 24 hr 07/22/18 07/23/18 07/23/18 20:02 09:49 09:49 WBC 11.7 H RBC 4.43 Hgb 8.0 L Hct 26.3 L MCV 59.4 L D MCH 18.0 L MCHC 30.2 D RDW 32.9 H Plt Count 124 L Neut % (Auto) 65.5 Lymph % (Auto) 18.2 L [place] % (Auto) 11.1 Eos % (Auto) 4.7 H Baso % (Auto) 0.5 Neut # (Auto) 7700 H Lymph # (Auto) 2100 [place] # (Auto) 1300 H Eos # (Auto) 500 H Baso # (Auto) 100 RBC Morphology Not Reportable Polychromasia Hypochromasia 2+ H Microcytosis 3+ H Ovalocytes 1+ H PT INR Sodium 134 L Potassium 4.5 Chloride 103 Carbon Dioxide 23 BUN 21 H Creatinine 0.60 Estimated GFR > 60.0 BUN/Creatinine Ratio 35.0 H Glucose 115 H Hemoglobin A1c Uric Acid 2.8 Calcium 8.7 Nasal Screen MRSA (PCR) Blood Type A Positive Antibody Screen Negative Crossmatch See Detail 07/23/18 07/23/18 07/23/18 09:49 09:49 15:15 WBC 11.3 H RBC 4.58 Hgb 8.2 L Hct 27.1 L MCV 59.3 L MCH 17.9 L MCHC 30.1 RDW 32.4 H Plt Count 125 L Neut % (Auto) 61.7 Lymph % (Auto) 20.2 L [place] % (Auto) 11.2 Eos % (Auto) 5.9 H Baso % (Auto) 1.0 Neut # (Auto) 7000 Lymph # (Auto) 2300 [place] # (Auto) 1300 H Eos # (Auto) 700 H Baso # (Auto) 100 RBC Morphology Not Reportable Polychromasia 1+ H Hypochromasia 3+ H Microcytosis 3+ H Ovalocytes PT 15.3 H INR 1.3 Sodium Potassium Chloride Carbon Dioxide BUN Creatinine Estimated GFR BUN/Creatinine Ratio Glucose Hemoglobin A1c 5.9 Uric Acid Calcium Nasal Screen MRSA (PCR) Blood Type Antibody Screen Crossmatch 07/23/18 Unknown WBC RBC Hgb Hct MCV MCH MCHC RDW Plt Count Neut % (Auto) Lymph % (Auto) [place] % (Auto) Eos % (Auto) Baso % (Auto) Neut # (Auto) Lymph # (Auto) [place] # (Auto) Eos # (Auto) Baso # (Auto) RBC Morphology Polychromasia Hypochromasia Microcytosis Ovalocytes PT INR Sodium Potassium Chloride Carbon Dioxide BUN Creatinine Estimated GFR BUN/Creatinine Ratio Glucose Hemoglobin A1c Uric Acid Calcium Nasal Screen MRSA (PCR) Negative for mrsa Blood Type Antibody Screen Crossmatch Assessment & Plan Plan: Assessment/Plan Narrative: Patient has been transfused. I recommended an EGD and colonoscopy. Talked to her about the prep. Risks of bleeding infection perforation. It is possible we could miss something. All questions answered. She wishes to proceed. Scheduled for tomorrow midday.
[2018-07-24] VITALS (10 sets, daily range): BP systolic 114–160; BP diastolic 52–82; PULSE 61–84; RESP 12–24; TEMP 36.2–37.1; O2SAT 93–100
--- NOTE | 2018-07-24 03:34 | PC.NURSE ---
Addendum entered by Dona Saenz R.N. 07/24/18 06:27: Unable to begin the next portion of golytely, pt still working on last nights dose. Taking sips with encouragement. Multiple loose stools overnight. Original Note: Pt continues to drink goLytely, but very slowly. She has not completed the first portion that was started last night. Pt states I just can't do anymore of that. Encouraged to continue and educated on reasons. Pt still taking in very little.
[2018-07-24 05:27] LABS: Blood Urea Nitrogen 12 mg/dL (7-17); Calcium 8.7 mg/dL (8.4-10.2); Carbon Dioxide 25 mmol/L (22-32); Chloride 102 mmol/L (98-107); Estimated Glomerular Filt Rate > 60.0 mL/min (>60); Glucose 91 mg/dL (80-110); HEMOLYSIS < 15 (0-50); Potassium 4.4 mmol/L (3.4-5.1); Sodium 135 mmol/L (137-145)
[2018-07-24 05:31] LABS: Hematocrit 26.9 % (36-46); Hemoglobin 8.4 g/dL (12.0-16.0); Mean Corpuscular HGB Conc 31.2 % (30-36); Mean Corpuscular Hemoglobin 18.4 PG (26-34); Mean Corpuscular Volume 58.8 fL (80-100); Platelet Count 144 X10^3/uL (150-400); Red Blood Cell Count 4.58 X10^6/uL (4.0-5.2); Red Cell Distribution Width 32.4 % (11.6-14.8); White Blood Cell Count 12.2 X10^3/uL (4.5-11.0)
[2018-07-24 05:35] LABS: Add Manual Diff / Slide Review YES
[2018-07-24 06:54] LABS: Neutrophils Absolute Manual 8784 /uL (3000-5900); Total Cells Counted 100
[2018-07-24 06:55] LABS: Hypochromasia 3+; Microcytosis 3+
[2018-07-24 06:57] LABS: Anisocytosis 3+; Ovalocytes 1+
[2018-07-24] MEDS: LOSARTAN 50 MG TABLET PO (09:01)
[2018-07-24] MEDS: PEG3350/SOD SULF,BICARB,CL/KCL 4,000 ML SOLUTION 2000 ML PO (09:01)
[2018-07-24] MEDS: PANTOPRAZOLE 40 MG VIAL IV (09:03)
[2018-07-24] MEDS: ACETAMINOPHEN 325 MG TABLET 650 MG PO (09:05)
--- NOTE | 2018-07-24 10:24 | PT.IPTN ---
Current Diagnoses Cellulitis of right upper limb (07/22/18) Surgery Performed Operation Date: 07/24/18 13:45 <No data on this case meets the specified criteria> Physical Therapy Treatment Note M3 PT-IP Subjective Start: 07/24/18 10:22 Freq: NEEDED Status: Active Protocol: Document 07/24/18 10:22 (Rec: 07/24/18 10:24 [id number]) Subjective Physical Therapy Visit Type Type Administrative Note Visit Start Time 10:20 Notes Per RN, pt is going to have EGD and colonoscopy at 1:45 pm for suspect internal bleeding . Attempt PT this pm.
--- NOTE | 2018-07-24 13:24 | OT.IP.TRT ---
Current Diagnoses Cellulitis of right upper limb (07/22/18) Surgery Performed Operation Date: 07/24/18 14:30 <No data on this case meets the specified criteria> Occupational Therapy Treatment Note M3 OT- IP Subjective and Pain Start: 07/24/18 13:22 Freq: Status: Active Protocol: Document 07/24/18 13:22 [facility] (Rec: 07/24/18 13:24 [facility] [id number]) OT- Subjective Occupational Therapy Visit Type Type Administrative Note Notes Pt having colonoscopy at 1: 45pm today, therefore to check on pt tomorrow for OT eval.
--- NOTE | 2018-07-24 13:27 | ST.IP.CME ---
Current Diagnoses Cellulitis of right upper limb (07/22/18) Past Medical History (Last Reviewed 07/23/18 @ 21:44 by Carlitos Shoemaker MD) Alopecia (Chronic Medical) Anxiety (Chronic Medical) Asthma (Chronic Medical) Back pain (Chronic Medical) Lumbar spine disease Carpal tunnel syndrome (Chronic Medical) Chronic back pain (Chronic Medical) Foot pain (Chronic Medical) Headache (Chronic Medical) Hearing loss (Chronic Medical) History of recurrent ear infection (Chronic Medical) Hypertension (Chronic Medical) Recurrent sinusitis (Chronic Medical) Seasonal allergies (Chronic Medical) Shoulder pain (Chronic Medical) Sleep apnea (Chronic Medical) Vision disorder (Chronic Medical) Chicken pox (Resolved Medical) Measles (Resolved Medical) Mumps (Resolved Medical) Vertigo (Resolved Medical) 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 Grace Reason for Referral Nursing observed coughing and cognitive impairment Educational Status Education Level Highschool Previous Therapy Previous Speech-Language Therapy No Oral Motor Examination Oral Motor Exam Completed Yes Results Left tongue deviation, lower dentures, missing upper teeth in poor condition. Note: patient consumed multiple controlled up sips of thin liquids without signs or symptoms of aspiration. Suspect coughing may be related to some impulsivity. Patient is NPO for colonoscopy ; therefore, no textures were trialed. Recommend supervision during meals with reminders to use slow rate and small bites/sips as needed. Subjective Subjective Patient sitting up in chair in room. Agreed to participate in evaluation. Reports some recent coughing with liquids. No family present in room. - Informal Assessment Receptive Language Normal Yes Formal Assessment Results [place] Cognitive Assessment was completed. Patient scored 12/30 indicating below normal cognitive function. She scored 2/5 on visuospatial, 2/3 on naming, 3/6 on attention, 0/3 on language,1/2 on abstraction, 0/5 on delayed recall and 4/6 on orientation. Patient lives at home with her daughter and grandsons. She does not drive , but says she does some cooking and manages her own medication. She doesn't use a pill box and admitted to sometimes forgetting to take doses. She said her daughter manages finances for the home. She enjoys watching tv and playing with her great grandson. - Cognition Orientation Skill Level Mildly Impaired Attention Skill Level Moderately Impaired Divergent Naming Skill Level Moderately Impaired Auditory Math Skill Level Moderately Impaired Clock Drawing Skill Level Moderately Impaired - Memory Immediate Recall Skill Level Mildly Impaired Word Recall Skill Level Moderately Impaired - Findings Cognitive/Memory Impressions Patient presents with a mild- moderate cognitive impairment. Her baseline level is unknown . Based on performance on cognitive assessment, she exhibits impairments in memory , executive functions, naming, orientation and attention which have a negative affect on her safety. 24 hour supervision is recommended including medication management. Education was provided to the patient regarding use external memory aids such as a pill box. Patient states she has one at home but doesn't use it. Recommendations Recommendations Ongoing patient education and family education when able to. Treatment Goals Short Term Goals Patient and her family will receive ongoing education regarding current cognitive impairments and recommendations for safety at home.
--- NOTE | 2018-07-24 14:09 | PM.PN.1 ---
Subjective Date Patient Seen: 07/24/18 Time Patient Seen: 08:09 Interval history: Patient is lying comfortably in bed this morning. No complaints except for some pain in her right arm. No nausea, vomiting, problems with constipation, cough or shortness of breath. Is happy to have been treated for the lice. Exam Vital Signs (past 8 hours): - 07/24/18 08:00 07/24/18 11:30 Temperature 98.4 F Pulse Rate 84 73 Respiratory Rate 16 24 Blood Pressure 160/80 H 154/81 H Pulse Oximetry 93 95 Oxygen Delivery Method Room Air Oxygen Flow Rate 0 Narrative Exam Narrative: General: Well-developed, well-nourished, female, no acute distress. Heart: Regular rate and rhythm, no murmurs appreciated Lungs: Clear to auscultation bilaterally, no wheezes, rales or rhonchi Abd: BS+, soft, nontender, nondistended, no rebound, no guarding Extremities: Warm and well perfused, no edema Objective Labs Result Diagrams: 07/24/18 04:50 07/24/18 04:50 Labs: Laboratory Results - last 24 hr 07/23/18 07/24/18 07/24/18 15:15 04:50 04:50 WBC 11.3 H 12.2 H RBC 4.58 4.58 Hgb 8.2 L 8.4 L Hct 27.1 L 26.9 L MCV 59.3 L 58.8 L MCH 17.9 L 18.4 L MCHC 30.1 31.2 RDW 32.4 H 32.4 H Plt Count 125 L 144 L Neut % (Auto) 61.7 Not Reportable Lymph % (Auto) 20.2 L Not Reportable [place] % (Auto) 11.2 Not Reportable Eos % (Auto) 5.9 H Not Reportable Baso % (Auto) 1.0 Not Reportable Neut # (Auto) 7000 Lymph # (Auto) 2300 Not Reportable [place] # (Auto) 1300 H Not Reportable Eos # (Auto) 700 H Baso # (Auto) 100 Not Reportable Total Counted 100 Seg Neutrophils % 72.0 H Lymphocytes % (Manual) 14.0 L Monocytes % (Manual) 8.0 Eosinophils % (Manual) 6.0 H Neutrophils # (Manual) 8784 H RBC Morphology Not Reportable See below Polychromasia 1+ H Hypochromasia 3+ H 3+ H Anisocytosis 3+ H Microcytosis 3+ H 3+ H Ovalocytes 1+ H Sodium 135 L Potassium 4.4 Chloride 102 Carbon Dioxide 25 BUN 12 Creatinine 0.60 Estimated GFR > 60.0 BUN/Creatinine Ratio 20.0 Glucose 91 Calcium 8.7 Assessment & Plan Plan: Assessment/Plan Narrative: 1. 73-year-old female with swollen right arm. Ultrasound negative for DVT. She has elevated sed rate elevated CRP. White count elevated. Lactate normal. Procalcitonin normal. Unclear etiology unclear diagnosis presumably cellulitis secondary from the scratches. Has been on big dose of hydrochlorothiazide and may well have developed gout uric acid very low in the 2s. Will continue patient on levofloxacin. 2. Decrease in hemoglobin seems significant. Likely slow loses given her lack of symptoms and iron deficiency. Stable today after transfusion. Colonoscopy scheduled for today. 3. Diabetes mellitus and on medication. Hgba1c 5.9 so well controlled. 4. Head lice continues to be a problem. Has had one treatment of premethrin. Will monitor and possibly retreat tomorrow. 5. Nursing reporting coughing with swallowing. will have speech eval today. DVT prophylaxis: SCD's given acute bleed. Code status: full code Disposition: Dependent on colonoscopy results patient will require another 24-48 hours of care. Care management working on assessing home situation to determine if suitable for discharge. PT/OT evaluation today.
[2018-07-24] MEDS: SODIUM CHLORIDE 0.9% 1,000 ML 75 ML IV (14:20)
--- NOTE | 2018-07-24 14:53 | PC.NURSE ---
Dayshift Note: Pt with uneventful shift. Pt continues with golytely prep, continues to have liquid stools, yellow. Pt with long shower this shift, hair was thoroughly combed through by RECOVERY OPERATOR. Pt with cognitive test with speech pathology, memory deficits were identified. Please see speech pathology note for details. Pt is grossly oriented and appropriate in speech. Pt with mild confusion at times about time and memory deficit. R arm continues to be swollen, but less than yesterday, pain in shoulder, relieved with tylenol. Pt is currently awaiting colonoscopy.
[2018-07-24] MEDS: LIDOCAINE 4% SOLN 50 ML 20 ML TOP (16:07)
[2018-07-24] MEDS: TETRACAINE/BENZOCAINE/BUTAMBEN (CETACAINE) BOTTLE 1 SPRAY TOP (16:08)
--- NOTE | 2018-07-24 16:10 | PM.PREOP ---
Pre-operative Note Interval Note History & Physical reviewed/Exam performed by Physician: Yes Changes to H&P: No ASA Class (for procedural sedation): III
[2018-07-24] MEDS: MIDAZOLAM 5 MG/5 ML VIAL IV (16:46)
[2018-07-24] MEDS: fentaNYL 250 MCG/5 ML INJ IV (16:48)
--- NOTE | 2018-07-24 17:06 | PM.OP.ENDO ---
Operative Date/Time/Diagnoses Date of procedure: 07/24/18 Time of procedure: 17:00 Pre-op diagnosis: Anemia Post-op diagnosis: same (Anemia uncertain cause) Procedure & Clinicians Study performed: EGD and colonoscopy Same procedure as scheduled: Yes Indications: Anemia evaluation Surgeon: Carlitos Shoemaker Procedure Notes Procedure in detail: The patient had topical anesthetic applied to oropharynx. She was placed in left lateral decubitus position and underwent IV sedation directed by the surgeon consisting of fentanyl and Versed. A bite block was inserted and the scope was advanced through it into the esophagus. The esophagus was unremarkable. GE junction was noted at 40 cm from the incisors. The stomach insufflated well. There were no lesions seen in the body, antrum or at the incisura. The pyloric channel was patent. The duodenum was unremarkable to the 4th part. The scope was brought back into the stomach and retroflexed. The proximal stomach had fairly thick rugal folds but no lesions that would be the source of bleeding were seen. The scope was straightened and brought out through the esophagus again. No lesions were seen. The scope was removed and the patient tolerated the procedure well. The patient was repositioned. Digital exam was unremarkable. The scope was inserted and advanced through the rectum into the sigmoid, descending, transverse, and ascending colon. Stiffener was inserted and the patient was repositioned and we advance into the cecum.. The cecum was reached identified by the ileocecal valve and the appendiceal opening. The ileocecal valve was unable to be cannulated. The scope was gradually brought out. No Polyps were found. The scope ultimately was retroflexed in the rectum. The appearance was remarkable for some rather large scars on old hemorrhoidal disease but otherwise no polyps or other lesions were seen. The scope was removed and the patient tolerated the procedure well. The prep was very good. Scope withdrawal time: 8 Sedation minutes: 38 Findings: diverticulosis, internal hemorrhoids and other findings (Prominent rugal folds but no lesion as a source of bleeding. No blood in her upper tract.) Specimen(s): none sent Complications: none Recommendations: Other recommendation (Evaluate anemia) Plan for aftercare: As needed Follow up: as needed Disposition: PACU
--- NOTE | 2018-07-24 17:06 | SUR.PHASEI ---
arrouses easily to verbal stimuli, independently awake at times. dinies pain, swallows on command. Care transferred to [facility]U RN,
[2018-07-24] MEDS: levoFLOXacin 750 MG/150 ML PIGGYBACK 100 MG IV (21:50)
[2018-07-24] MEDS: SIMVASTATIN 10 MG TABLET PO (21:51)
[2018-07-24] MEDS: METFORMIN XR 500 MG TABLET PO (21:52)
[2018-07-25] VITALS (11 sets, daily range): BP systolic 136–187; BP diastolic 63–95; PULSE 67–88; RESP 16–20; TEMP 35.8–36.8; O2SAT 94–100
[2018-07-25] MEDS: SODIUM CHLORIDE 0.9% 1,000 ML 75 ML IV (06:03)
[2018-07-25] MEDS: PANTOPRAZOLE 40 MG VIAL IV (08:54)
[2018-07-25] MEDS: LOSARTAN 50 MG TABLET PO (08:54)
--- NOTE | 2018-07-25 09:58 | PT.IIE ---
Current Diagnoses Cellulitis of right upper limb (07/22/18) Surgery Performed Operation Date: 07/24/18 14:30 Actual Procedures p Esophagogastroduodenoscopy(Not Applicable) - Carlitos Shoemaker MD s Colonoscopy(Not Applicable) - Carlitos Shoemaker MD Medical History (Last Reviewed 07/23/18 @ 21:44 by Carlitos Shoemaker MD) Alopecia (Chronic) Anxiety (Chronic) Asthma (Chronic) Back pain (Chronic) Carpal tunnel syndrome (Chronic) Chronic back pain (Chronic) Foot pain (Chronic) Headache (Chronic) Hearing loss (Chronic) History of recurrent ear infection (Chronic) Hypertension (Chronic) Recurrent sinusitis (Chronic) Seasonal allergies (Chronic) Shoulder pain (Chronic) Sleep apnea (Chronic) Vision disorder (Chronic) Chicken pox (Resolved) Measles (Resolved) Mumps (Resolved) Vertigo (Resolved) Physical Therapy Inpatient Evaluation/Re-Eval M1 PT/OT-IP Prior Functional Status Start: 07/24/18 10:22 Freq: NEEDED Status: Active Protocol: Document 07/25/18 09:58 [facility] ([facility]/18 10:[id number] Review Prior Functional Status Medical History Reviewed Yes Mobility and Gait no AD for gait indoors and short ambulation outdoors Activities of Daily Living and IADL's modified indep. I/ADLs, pt not driving recently but can drive in emergency situations. Social History Household Members family Living Arrangements House Number of Floors (Floors) One Floor Number of Stairs To Enter/Railing? 2 SE no rails Home Environment Standard Height Toilet Tub/Shower Home Equipment Front Wheel Walker Shower Seat without Backrest Additional Social History Comment Pt states someone is always home. She has a walker that was her husbands, she does not use it. Pt presented to ER with c/o JACKSON , nausea and RUE swelling of unknown cause. Pt found to also have head lice. EGD and colonoscopy done on 07/24/18- no source of bleed found ( anemic on admission). Pt is L hand dominant. M2 PT-IP Current Condition Start: 07/24/18 10:22 Freq: NEEDED Status: Active Protocol: Document 07/25/18 09:58 [facility] (Rec: 07/25/18 10:55 [facility] [id number]) Physical Therapy Current Condition Current Condition Evaluation Date 07/25/18 Treatment Diagnosis JACKSON, nausea, RUE swelling, impaired activity tolerance Precautions Other Precautions contact precautions- hair net due lice; R arm swelling and painful M3 PT-IP Subjective Start: 07/24/18 10:22 Freq: NEEDED Status: Active Protocol: Document 07/25/18 09:58 [facility] (Rec: 07/25/18 10:55 [facility] [id number]) Subjective Physical Therapy Visit Type Type Initial Evaluation Visit Start Time 09:30 Visit Stop Time 09:58 Total Visit Minutes 28 Number of EXPRESSIVE MUSIC THERAPIST Visits 0 Physical Therapy Visit Comments Patient Comments pt states that she is having bouts of diarrhea today Patient Goals she wants to go home after d/c M4 PT-IP Mobility and Gait Start: 07/24/18 10:22 Freq: NEEDED Status: Active Protocol: Document 07/25/18 09:58 [facility] (Rec: 07/25/18 10:55 [facility] [id number]) PT-Transfer Assessment Sit to and From Stand Sit to and from Stand Contact Guard Assistance Equipment Transfer Assistive Device None Gait Belt Transfers Transfer Destination Bedside Commode Transfer Technique Stand Step Pivot Transfer Ability Level of Assist Contact Guard Assistance Comments Mobility Comments chair to BSC transfer without AD; gait performed with FWW due to fatigue. Gait Assessment Gait Gait Assistance Required: Standby Assistance Distance (Feet) 100 Assistive Devices Assistive Device Gait Belt Front Wheeled Walker Gait Deviations General Gait Pattern Decreased Stride Length Factors Limiting Gait Function Factors Limiting Gait Function Decreased Activity Tolerance Decreased Strength Poor Balance Stair Climbing Assessment Comments Stair Climbing Comments unable to assess- attempted step up/down from stool but pt reported needing BSC again, returned to room and assisted to BSC SBA. PT-Balance Assessment Sitting Balance and Reactions Static Sitting Balance Ability Good Dynamic Sitting Balance Ability Good Standing Balance and Reactions Static Standing Balance Ability Fair Dynamic Standing Balance Ability Fair Device Used FWW M5 PT-IP Objective Assessments Start: 07/24/18 10:22 Freq: NEEDED Status: Active Protocol: Document 07/25/18 09:58 [facility] (Rec: 07/25/18 10:55 [facility] [id number]) Orientation Orientation/Cognition Level of Alertness Alert Gross Range of Motion Lower Extremity ROM Assessment Within Functional Limits Strength Lower Extremity Strength Hip flexion 3+/5 B Knee flexion and extension 4/5 B M6 PT-IP Treatment Start: 07/24/18 10:22 Freq: NEEDED Status: Active Protocol: Document 07/25/18 09:58 [facility] (Rec: 07/25/18 10:55 [facility] [id number]) Physical Therapy Treatment Education Education Provided Safety M7 PT-IP Assessment and Plan Start: 07/24/18 10:22 Freq: NEEDED Status: Active Protocol: Document 07/25/18 09:58 [facility] (Rec: 07/25/18 10:55 [facility] [id number]) PT Summary Assessment and Plan Potential Rehabilitation Potential Good Status of Condition at Evaluation Stable Summary Impairments Strength Balance Gait Activity Tolerance Assessment Summary Pt initially transferred to BS without an assistive device, but due to fatigue and very short steps with decreased foot clearance, a FWW was used for gait which she was able to tolerate 100 ft without c/o fatigue. Stair/ step up training placed on hold due to pt needing to use the BSC again. Pt did require assistance with pericare after use of initial BSC, as well as the use of the FWW is below her prior level of function. Further clarification will be needed at this time to ensure that the pt will be able to have assistance with mobility and function at home, as she is not cleared to d/c from a mobility stand-point today from physical therapy. If pt is unable to have the assistance required at home, she may benefit from SNF rehabilitation upon d/c. Further assessment is required as pt improves medically. Goals Bed Mobility Goal Independent Transfer Goal Independent Gait Goal Standby Assistance Front Wheel Walker Gait Distance 150 Other Goals up/down 2 steps without rails and CGA Days to Meet Goals 4 Frequency of Treatment Frequency Of Treatment Once a Day Treatment Plan Physical Therapy Treatment Plan Gait Training Therapeutic Exercise Balance Retraining Discharge Planning Neuromuscular Re-ed Other Recommendations and Next Treatment progress gait as tolerated, Focus stair training prior to d/c. Recommendations To Nursing Amount of Assist Needed 1 Person Assist Discharge Recommendations PT Discharge Recommendations Home with Assistance Home Health SNF Rehab Other Discharge Recommendations home with assistance and HH vs . SNF, requires further assessment.
--- NOTE | 2018-07-25 11:18 | CM.DPC ---
Addendum entered by Pretty Ryan R.N. 07/25/18 11:28: Jaelyn, daughter, gave new phone number. It is: [phone]. Will have information updated on her face sheet with change [employer]. Original Note: DCP Cont: Met with daughter, Jaelyn, and CEMETERY LABORER, Tonja, met with her as well. Discussed patient's current care at home. Jaelyn lives in [facility], and reiterated that patient lives with her sister, Lacey. Stated that they live a simple life. Stated, her and her sister really don't get along, her kids live with her, can't seem to hold a job, and my sister isn't very motivated. Asked her if she felt that patient was receiving adequate care in the home, emphasizing on hygiene issues. Stated, the times that I have been in the home, it didn't seem dirty, but I have concerns that the Lice incident has been going on for a while. Jaelyn stated that other individuals in household include her sister's , son, and grandson. Asked Jaelyn if patient was receiving showers. Stated, my sister says that my mom takes her showers, but doesn't wash her hair every day. Asked her about her medications, and she stated that her sister reminds patient to take her medications. Asked her about safety in the home. Jaelyn stated, I think my mom is safe, I just feel that my sister and her can be more motivated, and get a better job. She stated that her sister does take her mother to her doctor appts. Discussed long term as a possibility at discharge, and daughter stated, there's no way she will go to a nursing facility, even if it's temporary. Patient has been able to ambulate with physical therapy. Discussed possibility of home health as an option, including nursing, bath aide, and CEMETERY LABORER. She felt that this would be a good idea. Discussed case with Dr. Laura, who is aware of social challenges. Discussed home health with him as an option, and he went ahead and signed a face to face. Let him know that CEMETERY LABORER was assessing patient in room as well. P: DCP to continue to follow closely. Will be continuing with IV antibiotics for Cellulitis, may change to oral tomorrow. Will need another shampoo/treatment, for her lice. May be here for a couple more days. Home Health can be ordered as well. Pretty Ryan RN/Product Manager
--- NOTE | 2018-07-25 11:36 | PM.PN.1 ---
Subjective Date Patient Seen: 07/25/18 Time Patient Seen: 10:45 Interval history: Patient lying in bed without particular complaints or issues Says her arm does feel somewhat better Does not really have much recollection of the events of yesterday with her endoscopies etc. Endoscopies failed to show any source of GI bleeding either upper or lower endoscopy Exam Vital Signs (past 8 hours): - 07/25/18 04:31 07/25/18 05:00 07/25/18 07:00 Temperature 96.5 F L Pulse Rate 68 Respiratory Rate 20 Blood Pressure 162/79 H Pulse Oximetry 97 99 97 07/25/18 07:52 Temperature 98.3 F Pulse Rate 71 Respiratory Rate 20 Blood Pressure 161/91 H Pulse Oximetry 97 Oxygen Delivery Method Room Air Oxygen Flow Rate 0 Objective Labs Result Diagrams: 07/24/18 04:50 07/24/18 04:50 Assessment & Plan Plan: Assessment/Plan Narrative: 1. Anemia-no evidence of active GI bleeding or source of GI bleeding at all. Patient clearly iron deficient with severe microcytosis and low iron levels. Perhaps this is all dietary and/or lack of absorption. She needs to be on iron replacement therapy which I have initiated this morning. Continue to follow her blood counts for evidence of ongoing blood loss while keeping her here in the hospital. 2. Painful/swollen right arm-unclear whether this is truly an infectious etiology or more of an injury. No evidence of blood clot or circulatory issues. Does seem improved with current therapies. Continue with IV antibiotics for now. Presumed to be cellulitis based on all available evidence even though some of the objective evidence would argue against that. 3. Diabetes-continue with current medications. Most recent hemoglobin A1c was actually fantastic 4. Head lice-I think another treatment today makes sense. This will give her to treatments in a controlled environment here in the hospital which hopefully will be effective in eradicating these tiny critters 5. Speech therapy/physical therapy-patient felt to have more cognitive issues than anything else with speech issues. No evidence of swallowing difficulty per se. No evidence of physical impairment with physical therapy. Working with the care management team to try and arrange for appropriate discharge. Patient would benefit from additional assistance at home specially in evaluation of her home living environment there is some question about that as well. Patient clearly does have some degree of cognitive impairment that would be helpful to have assessment of her home situation as well via home health services when she is ready for discharge Overall I believe patient requires continued hospitalization because of her anemia with lack of source of blood loss still a bit of a mystery as well as her issue with her right arm which is still unclear exactly what is going on there although she is improved as well as assessment of her home environment prior to discharging her back to that environment. It would be inappropriate to discharge her back to an unsafe home environment obviously. Note: Greater than 30 minutes was spent evaluating the patient on the floor, including examining the patient, discussing clinical course with clinical and nursing staff, reviewing clinical course in the computer, preparing documentation and writing orders for continued management of care, discussing status with family as appropriate, reviewing plans for the next 24 hours with both patient/family and nursing staff as appropriate.
[2018-07-25] MEDS: PERMETHRIN 1 APPLIC TOP (12:12)
[2018-07-25] MEDS: FERROUS SULFATE 325 MG TABLET PO (12:12)
--- NOTE | 2018-07-25 13:25 | CM.SWNOTE ---
Social Work Consult Note: Reviewed case w/ Cecy Cheema on 07.23.18; been following along and today joined MARY ALICE Calderón to speak w/dtr Jaelyn together; then met w/pt alone. According to nurse report, pt arrived to [facility] w/lice, scalp looked as though it hadn't been washed in awhile, also mouth looked as though there also had not been cleaning or care for months. Dr Ervin has indicated pt and family have had active lice problem since May 2018 and it has not been eradicated. MARY ALICE Austin asked this PREPARATION ROOM WORKER if pt is approp. for APS report? According to the conversation w/dtr Jaelyn: Her sister Guerda and family live w/pt, which is Guerda, her , and Guerda's two grown children, one w/3 yo son. Jaelyn feels she couldn't be more different than her sister and mother in terms of standards of hygiene, Jaelyn and Guerda often do not get along. Jaelyn drives her mom to Dr tapia occasionally but pt relies on Guerda for most transportation. Jaelyn has been in the home and has no concerns for pt's safety. The house is kept clean and Jaelyn does not suspect drug use from anyone in the house. Jaelyn feels overwhelmed at times re: how to best help her mom. Pt has told Jaelyn she is happy living w/ Guerda and does not want to move. Reviewed SNF vs Home Health? Jaelyn doesn't think pt will agree to SNF but Home Health is a good option. Jaelyn has encouraged her sister to eliminate the lice and risk for lice many times. Jaelyn feels pt going home w/sister Guerda is still a safe option at this time and plans to continue to encourage her mom to shower regularly, get dental f/u junior, and ask Guerda for addtl. help w/medications. Then met w/pt at bedside, explained SW role. Pt states her two dtrs, Jaelyn and Guerda, have joint DPOA. Encouraged pt to consider naming one DPOA and pt states it seems to be working out okay. Pt gives staff permission to speak with anyone who wants to know something. Pt feels its working okay living with her dtr Guerda and feels safe to return there. She denies abuse of any kind. Pt's income, approx. $800 monthly gets lumped w/dtr Guerda's disability check to go towards rent every month. Pt states her biggest concerns is being disgusted with her great grand baby's mom leaving sporadically and the family needing to raise the 3 yo in her absence. Discussed the state of pt's scalp and mouth upon arrival to . Pt denies having a hard time w/ ADLs and/or needing addtl assist w/ bathing stating I shower everyday and I was just about to go to the dentist before I had to come in here. Pt denies all allegations that she hasn't washed her hair or tooth and gums in months. She feels she has what she needs and will consider home health if recommended. Pt states she manages her medications and manages her own finances. After conversation w/pt; it seems she lacks insight into the severity of her presentation to . APS report for suspicion of self neglect is appropriate at this time. Updated RN DC [employer] Kaitlynn. Kaitlynn planning to discuss Home Health (RN/PT/OT/PRACTICING MD ANESTHESIOLOGIST/PREPARATION ROOM WORKER) w/pt and dtr Guerda before pt's DC. Pt doing well w/ PT and walking around the unit w/walker. Submitted APS report via online submission, included information gathered above. P: Likely DC back home w/dtr Guerda and hopefully Home Health. PREPARATION ROOM WORKER will continue to be available to RN DC [employer] in case other questions or concerns arise. TONYA Bergman
--- NOTE | 2018-07-25 14:16 | PC.NURSE ---
pt showered after NIX applied to hair and scalp and left on x7 minutes. Many, many nits noted on hair mainly on left and back of head. pt consented to hair cut plus pt's daughter, Jaelyn consented. pt sitting on chair, drinking coffee. pt has difficulty using right arm. will use left hand to reposition right arm. pt ambulated with walker into santana shower. moderate assist given.
--- NOTE | 2018-07-25 16:58 | OT.IP.EVAL ---
Current Diagnoses Cellulitis of right upper limb (07/22/18) Surgery Performed Operation Date: 07/24/18 14:30 Actual Procedures p Esophagogastroduodenoscopy(Not Applicable) - Carlitos Shoemaker MD s Colonoscopy(Not Applicable) - Carlitos Shoemaker MD Past Medical History (Last Reviewed 07/23/18 @ 21:44 by Carlitos Shoemaker MD) Alopecia (Chronic) Anxiety (Chronic) Asthma (Chronic) Back pain (Chronic) Carpal tunnel syndrome (Chronic) Chronic back pain (Chronic) Foot pain (Chronic) Headache (Chronic) Hearing loss (Chronic) History of recurrent ear infection (Chronic) Hypertension (Chronic) Recurrent sinusitis (Chronic) Seasonal allergies (Chronic) Shoulder pain (Chronic) Sleep apnea (Chronic) Vision disorder (Chronic) Chicken pox (Resolved) Measles (Resolved) Mumps (Resolved) Vertigo (Resolved) Occupational Therapy Inpatient Evaluation/Re-Eval M1 PT/OT-IP Prior Functional Status Start: 07/24/18 10:22 Freq: NEEDED Status: Active Protocol: Document 07/25/18 09:58 [facility] (Rec: 07/25/18 10:55 [facility] [id number]) Medical Review Prior Functional Status Medical History Reviewed Yes Mobility and Gait no AD for gait indoors and short ambulation outdoors Activities of Daily Living and IADL's modified indep. I/ADLs, pt not driving recently but can drive in emergency situations. Social History Household Members family Living Arrangements House Number of Floors (Floors) One Floor Number of Stairs To Enter/Railing? 2 SE no rails Home Environment Standard Height Toilet Tub/Shower Home Equipment Front Wheel Walker Shower Seat without Backrest Additional Social History Comment Pt states someone is always home. She has a walker that was her husbands, she does not use it. Pt presented to ER with c/o JACKSON , nausea and RUE swelling of unknown cause. Pt found to also have head lice. EGD and colonoscopy done on 07/24/18- no source of bleed found ( anemic on admission). Pt is L hand dominant. M1 PT/OT-IP Prior Functional Status Start: 07/24/18 13:22 Freq: NEEDED Status: Active Protocol: Document 07/25/18 16:42 [facility] (Rec: 07/25/18 16:57 [facility] [id number]) Medical Review Prior Functional Status Medical History Reviewed Yes Mobility and Gait no AD for gait indoors and short ambulation outdoors Activities of Daily Living and IADL's modified indep. I/ADLs, pt not driving recently but can drive in emergency situations. Pt states does not eat breakfast and mainly just sandwich for lunch and whatever family eats for dinner. Social History Household Members family Living Arrangements House Number of Floors (Floors) One Floor Number of Stairs To Enter/Railing? 2 SE no rails Home Environment Standard Height Toilet Tub/Shower Home Equipment Front Wheel Walker Shower Seat without Backrest Additional Social History Comment Pt states someone is always home. She has a walker that was her husbands, she does not use it. Pt presented to ER with c/o JACKSON , nausea and RUE swelling of unknown cause. Pt found to also have head lice. EGD and colonoscopy done on 07/24/18- no source of bleed found ( anemic on admission). Pt is L hand dominant. M2 OT-IP Current Condition Start: 07/24/18 13:22 Freq: Status: Active Protocol: Document 07/25/18 16:42 [facility] (Rec: 07/25/18 16:57 [facility] [id number]) Occupational Therapy Current Condition Current Condition Evaluation Date 07/25/18 Treatment Diagnosis Right swollen arm, weakness Diagnosis Onset Date 07/22/18 M3 OT- IP Subjective and Pain Start: 07/24/18 13:22 Freq: Status: Active Protocol: Document 07/25/18 16:42 [facility] (Rec: 07/25/18 16:57 [facility] [id number]) OT- Subjective Occupational Therapy Visit Type Type Initial Evaluation Visit Start Time 14:15 Visit Stop Time 14:40 Total Visit Minutes 25 Occupational Therapy Visit Comments Patient Comments Pt just completed shower with nursing but agreeable to get up with OT for OT eval. OT Pain Assessment Pain When Pain Assessed At Rest Pain Present Pain Present Denied Pain M4 OT- IP ADL's Start: 07/24/18 13:22 Freq: Status: Active Protocol: Document 07/25/18 16:42 [facility] (Rec: 07/25/18 16:57 [facility] [id number]) OT ADL-Grooming General Evaluation Grooming Ability Standby Assistance Comments OT Grooming Comments SBA for FWW use, pt needing cues to keep FWW in front of her. OT ADL-Oral Care General Eval Oral Care Ability Independent OT ADL-Dressing General Eval Lower Body Dressing Ability Independent Comments OT Dressing Comments Pt able to alvarez/doff socks while sitting at edge of chair . OT ADL-Toileting General Evaluation Toileting Ability Standby Assistance Comments OT Toileting Comments SBA for toileting needs, VC to give her toilet paper and reminders to pull up brief before walking back to recliner. M6 OT- IP Functional Cognition Start: 07/24/18 13:22 Freq: Status: Active Protocol: Document 07/25/18 16:42 [facility] (Rec: 07/25/18 16:57 [facility] [id number]) Cognitive Factors Limiting Selfcare Function Cognitive Ability Level of Alertness Alert Patient Orientation Name Place Situation Attention Span Ability Capable of Focused Attention Capable of Sustained Attention Ability to Follow Commands Able to Follow One Step Commands Memory Description Short Term Impaired Safety Awareness Underestimates Need for Assistance Problem Solving Ability Needs Assist to Identify Solutions Cognitive Comments Cognitive Assessment Comments Pt able to follow one step commands. Needing vc for safety to be sure to use LUE to help push up from the recliner, in addition to use RUE to push on her right knee to help come to stand. Pt states to painful for right arm to reach to right armrest to assist to stand to FWW. OT- Vision and Hearing OT- Hearing Assessment OT- Hearing Assessment WFL M7 OT- IP Mobility and Balance Start: 07/24/18 13:22 Freq: Status: Active Protocol: Document 07/25/18 16:42 [facility] (Rec: 07/25/18 16:57 [facility] [id number]) OT-Transfer Assessment Sit to and From Stand Sit to and from Stand Standby Assistance Transfers Transfer Ability Standby Assistance Contact Guard Assistance Technique Transfer Destination Chair Devices Transfer Assistive Devices None Gait Belt Front Wheeled Walker Comments Mobility Comments Pt able to walk with FWW to the sink and vc how to maneuver for tight spaces. Pt needing use of surface for occasional balance for level surface to walk back to the recliner with out FWW and CGA for tight spaces. OT- Balance Assessment Sitting Balance and Reactions Static Sitting Balance Ability Normal Dynamic Sitting Balance Ability Normal Standing Balance and Reactions Static Standing Balance Ability Good Dynamic Standing Balance Ability Fair Comments Other Balance Tests/Deviations/Treatment Pt able to withstand MIN : pertubations while standing. M8 OT- IP Objective Assessments Start: 07/24/18 13:22 Freq: Status: Active Protocol: Document 07/25/18 16:42 [facility] (Rec: 07/25/18 16:57 [facility] [id number]) OT Gross Range of Motion Upper Extremity Range of Motion Assessment Right Impaired ROM Impairments Pt not able to raise RUE at shoulder due to pain and able to do from elbow to distal. LUE grossly WFL. OT Strength Comments Strength Comments LUE 4-/5, RUE NT due to pain. OT- Coordination Assessment Comments Coordination Comments Increased time to use right hand as swollen for grooming set-up. OT Sensation Assessment Comments Summary Comments WFL for light touch. Edema Edema Present Edema Comments MOD swelling dorsal side of right hand. M9 OT- IP Assessment and Plan Start: 07/24/18 13:22 Freq: Status: Active Protocol: Document 07/25/18 16:42 [facility] (Rec: 07/25/18 16:57 [facility] [id number]) OT Summary Assessment and Plan Potential Rehabilitation Potential Good Analytic Complexity at Evaluation Low Summary OT Impairments Range of Motion Strength Balance Functional Cognition Functional Mobility Dressing Toileting Bathing Toilet Transfers Shower Transfers Progress Towards Goals Progressing Toward Goals Assessment Summary Pt low complexity and main barriers are steps, functional cognition, memory and safety awareness. Pt states there is always someone at home to assist with her needs. Pt would benefit from home health at this time to continue to work on safety for ADL's and assessing environmental safety set-up. Goals Grooming Goal Independent Dressing Goal Independent Toileting Goal Standby Assistance Bathing Goal Standby Assistance Toilet Transfer Goal Independent Shower Transfer Goal Standby Assistance Patient/Caregiver Education Goal Caregiver Independent Assisting Patient Days to Meet Goals 3 Frequency of Treatment Frequency Of Treatment Once a Day Treatment Plan OT Treatment Plan ADL Training Functional Cognition Training Functional Mobility Patient/Family Education Discharge Planning Other Treatment Recommendations and Next Shower safety and functional Treatment Focus cognitive assessment. Discharge Recommendations OT Discharge Recommendations Home with 27/01 Assist Home Health Home Equipment Needs [facility]
[2018-07-25] MEDS: METFORMIN XR 500 MG TABLET PO (18:01)
[2018-07-25] MEDS: SIMVASTATIN 10 MG TABLET PO (21:36)
--- NOTE | 2018-07-25 22:30 | PC.NURSE ---
james mock called Dr. Laura to report 2 consecutive high blood pressures. Per Dr. Laura, Call provider if SBP>200.
[2018-07-26] VITALS: O2SAT 98
[2018-07-26 00:30] VITALS: BP 181/92; PULSE 83; RESP 17; TEMP 36.7; O2SAT 98
[2018-07-26] MEDS: OXYCODONE IR 5 MG TABLET PO (00:41)
[2018-07-26 03:22] VITALS: O2SAT 96
[2018-07-26 05:48] LABS: Hematocrit 27.1 % (36-46); Hemoglobin 8.3 g/dL (12.0-16.0)
[2018-07-26 07:00] VITALS: O2SAT 96
[2018-07-26] MEDS: LOSARTAN 50 MG TABLET PO ×2 (08:59→09:44)
[2018-07-26] MEDS: FERROUS SULFATE 325 MG TABLET PO (08:59)
[2018-07-26 09:00] VITALS: BP 153/87; PULSE 86; RESP 18; TEMP 36.8; O2SAT 96
[2018-07-26] MEDS: SODIUM CHLORIDE 0.9% FLUSH 10 ML IV (09:00)
--- NOTE | 2018-07-26 09:47 | PM.DS.1 ---
History of Present Illness Date Patient Seen: 07/26/18 Time Patient Seen: 09:48 Chief complaint: headache, nausea, rt arm swollen from elbow to moreno Narrative: Patient admitted through the ER last night. Patient apparently went to the ER discuss she did not feel very well. Denies fever chills has had some headache. She is being currently treated with cefuroxime for sinusitis. She lives with her daughter and son-in-law and grandchildren most of whom are on antibiotics for presumed sinusitis. Patient has noted right arm has slightly swollen and painful at the wrist. Denies any trauma. She does have animals in perhaps there is been some scratches to the right arm. Pain is of the wrist primarily has difficult time moving her fingers and pain in the elbow. Also experience wrist pain when she lifts her arm up. No nausea she did have some diarrhea couple days ago all of which resolved. Denies any melena or hematochezia. No abdominal pain no vomiting. At does not believe she is taking any nonsteroidal anti-inflammatories but she is unclear what she takes. Patient currently is being treated multiple times for head lice. The entire family has had lice. The patient was admitted through the ER for evaluation right arm swelling. Additionally was found to have a decreased hemoglobin at presumed GI bleed and will be transfused and will obtain surgical consult. {from Dr. Ervin's history and physical dated July 23, 2018} Discharge Providers Date of admission: 07/22/18 21:06 Primary care physician: Graham Ervin MD Consults: 07/24/18 08:54 Consult to Speech Therapy Evaluate & Treat Comment: cough with eating Physician Instructions: Evaluate and treat 07/24/18 08:55 Consult to Occupational Therapy Evaluate & Treat Comment: adls Physician Instructions: Evaluate and treat Consult to Physical Therapy Evaluate & Treat Comment: mobility Physician Instructions: Evaluate and Treat Discharge provider: Owen Laura MD Discharge Date: 07/26/18 Summary Discharge Diagnosis: 1. Iron deficiency anemia 2. Iron deficiency likely secondary to dietary sources 3. Cellulitis right arm 4. Scalp infection with lice 5. Generalized weakness 6. Hypertension 7. Anxiety 9. Alopecia Hospital Course: Patient was admitted to the hospital floor. She was evaluated by General surgery who readily agreed she would benefit from upper and lower endoscopy. This was performed prior to discharge and no source of blood loss was found either in her upper or lower GI tract. She was proven to be iron deficient and therefore felt as though her anemia was due to iron deficiency which given lack of evidence of active bleeding or source of bleeding was felt to be due to poor absorption and/or lack of appropriate dietary iron source. She was placed on oral iron replacement therapy. She did receive 2 units of packed red cells prior to her endoscopic evaluation but showed no evidence of any bleeding and blood counts remained stable following that Patient's right arm was also painful. Was felt as though there was a likely cellulitis there although this was not confirmed with culture etc. Patient seemed to do better with antibiotic therapy. She will continue this and finished a course as an outpatient Patient was also diagnosed with lice on her scalp. This was treated twice with permethrin and hopefully patient will continue with appropriate hygiene maneuvers at home to keep this from recurring Patient was hypertensive during this hospitalization and her dose of losartan was doubled in an effort to better control her hypertension Patient's home situation is challenging clearly. Multiple discussions were held with patient with social work and with nursing staff. In the end it was felt as though the most reasonable option would be to send her home with home health services to include physical therapy visiting nurse and a MEDICAL UNIT SECRETARY for evaluation of resources available. A referral to APS was made by social service staff here based on discussion with patient and family and her clinical presentation upon admission. Further outcomes regarding that to be determined Patient refused any consideration of placement in correction and therefore discharged home with close follow-up by home health services of felt to be the next most appropriate option Status at Discharge Cognitive/behavioral status at discharge: Back to baseline Functional status at discharge: uses cane/walker Overall status at discharge: patient is progressing back to baseline Time Spent with Patient Greater than 30 minutes Exam Vital Signs (past 8 hours): - 07/26/18 03:22 07/26/18 09:00 Temperature 98.2 F Pulse Rate 86 Respiratory Rate 18 Blood Pressure 153/87 H Pulse Oximetry 96 96 Oxygen Delivery Method Room Air Oxygen Flow Rate 0 Objective Labs Result Diagrams: 07/26/18 04:58 07/24/18 04:50 Labs: Laboratory Results - last 24 hr 07/26/18 04:58 Hgb 8.3 L Hct 27.1 L Discharge Plan Discharge Plan Patient Disposition: Home Health Service Discharge Med Rec/Prescriptions Prescriptions: New ferrous sulfate 325 mg (65 mg iron) Tablet 325 mg PO BIDWM Qty: 60 RF: 8 levofloxacin 500 mg Tablet 500 mg PO Q24H Qty: 7 RF: 0 oxycodone 5 mg Tablet 5 mg PO Q4HR PRN (Reason: Pain, Moderate (4-6)) Qty: 14 RF: 0 losartan 100 mg tablet 100 mg PO DAILY Qty: 30 RF: 6 Continue hydrochlorothiazide 50 MG tablet 50 mg PO QDAY Qty: 0 RF: 0 aspirin 81 MG tablet,delayed release (DR/EC) 81 mg PO QDAY Qty: 0 RF: 0 simvastatin 10 MG tablet 10 mg PO HS Qty: 0 RF: 0 fexofenadine 180 MG tablet 180 mg PO QDAY Qty: 0 RF: 0 sertraline 50 MG tablet 50 mg PO QDAY Qty: 0 RF: 0 triamcinolone acetonide 0.1 % cream Topical BID Qty: 1 RF: 5 potassium chloride 10 mEq tablet extended release See Label Instructions PO BID Qty: 90 RF: 3 hydroxyzine HCl 25 mg tablet PO Q6HP PRNQty: 60 RF: 5 omeprazole 20 mg capsule,delayed release(DR/EC) 20 mg PO QDAY Qty: 30 RF: 0 levetiracetam [Keppra] 750 mg tablet 750 mg PO BID Qty: 60 RF: 0 metformin [Glucophage XR] 500 mg tablet extended release 24 hr 500 mg PO QDAY Qty: 30 RF: 0 Discontinued losartan 50 MG tablet 50 mg PO QDAY Qty: 0 RF: 0 cefuroxime axetil 500 mg tablet 500 mg PO Q12H 14 Days Qty: 28 RF: 0 Follow up/Referrals: Graham Ervin MD [Primary Care Provider] - 1 Week Provider Discharge Instructions Diet: Diet as Tolerated Visit Report/Discharge Packet Instructions: DI for Cellulitis -- Adult, Treating Head Lice, DI for Head Lice Visit Report Forms: Stroke Signs & Symptoms Discharge Data Primary Care Provider: Graham Ervin Attending Provider: Graham Ervin Admit Date/Time: 07/22/18 21:06
[2018-07-26 09:53] VITALS: O2SAT 96
--- NOTE | 2018-07-26 10:35 | CM.DPC ---
DCP Cont: Dr. Laura has put in discharge orders for patient. Confirmed with him that she will be getting home health. He stated that she is stable, and there is no other reason for her to be here. Called Lacey at the house, did not answer, so reached out to Jaelyn, other daughter. She stated that he sister may be sleeping, because of her paper route, but will still try and get in touch with her. She confirmed that she and the family have been doing treatments for Lice in the home, and laundry as well. Called [facility], spoke to Lacey. Explained situation to her, and let her know that nursing, O.t, CARE AID would be needed. She stated that they could see her as soon as tomorrow if they have crewman armoured personnel carrier [id number]. Will go ahead and send orders and notes to her. P: Patient is to be discharged home today with home health. Pretty Ryan RN/[employer]
== END 2018-07-26 11:00 | disposition home health service (06) | DRG 812 ==
LOC: ED 20:41 → ICU 07-23 06:45
PROVIDERS: Internal Medicine; Specialist; Admitting Provider Family Medicine; Emergency Provider Emergency Medicine; PCP Family Medicine; Visit Provider Family Medicine
PROC: 0DJ08ZZ Inspection of Upper Intestinal Tract, Via Natural or Artificial Opening Endoscopic (ICD-10-PCS; CPT 43235; principal; 2018-07-24 14:30)
PROC: 0DJD8ZZ Inspection of Lower Intestinal Tract, Via Natural or Artificial Opening Endoscopic (ICD-10-PCS; CPT 45378; 2018-07-24 14:30)
DX: D50.9 Iron deficiency anemia, unspecified (principal); L03.113 Cellulitis of right upper limb; M79.89 Other specified soft tissue disorders; B85.0 Pediculosis due to Pediculus humanus capitis; E11.9 Type 2 diabetes mellitus without complications; Z79.84 Long term (current) use of oral hypoglycemic drugs; Z87.891 Personal history of nicotine dependence; I10 Essential (primary) hypertension; F41.9 Anxiety disorder, unspecified
CPT/HCPCS: 36415; 36430; 36591; 43235; 45378; 73060; 73110; 80048; 80053; 82962; 83036; 83540; 83550; 83605; 84145; 84550; 85014; 85018; 85025; 85610; 85651; 86140; 86850; 86900; 86901; 87040; 87797; 93971; 96125; 96365; 97161; 97165; 99221; 99222; 99232; 99238; 99283; 99284; P9016; C9113; J1956; J2250; J3010

== ENCOUNTER → 2018-09-03 15:45 | Outpatient (CLI) | payer MEDICARE, OTHER, SELFPAY ==
--- NOTE | 2018-09-03 15:48 | DI.RAD.S_ITS ---
PROCEDURE: XR ANKLE LT MIN 3V INDICATIONS: pain TECHNIQUE: 3 views of the ankle were acquired. COMPARISON: None. FINDINGS: Bones: No fractures or dislocations. Ankle mortise is normally aligned. No suspicious bony lesions. Moderate osteoarthritic changes are present involving the intertarsal joints and tarsometatarsal joints. Soft tissues: Small tibiotalar joint effusion. Achilles tendon appears normal. Soft tissue swelling. IMPRESSION: 1. Moderate osteoarthritis. 2. Small tibiotalar joint effusion. Dictated by: Sofia Jones M.D. on 09/03/2018 at 17:31 Approved by: Sofia Jones M.D. on 09/03/2018 at 17:33
--- NOTE | 2018-09-03 15:48 | DI.RAD.S_ITS ---
PROCEDURE: XR WRIST LT MIN 3V INDICATIONS: No known injuries. Pain and swelling. TECHNIQUE: 3 views of the wrist were acquired. COMPARISON: [facility], CR, XR WRIST RT MIN 3V, 07/22/2018, 18:30. FINDINGS: Bones: No fractures or dislocations. No suspicious bony lesions. There is widening of the scapholunate interval suspicious for scapholunate ligamentous disruption. There is severe joint space narrowing, subchondral sclerosis and cyst formation at the radiocarpal joint, triscaphe joint, first carpometacarpal joint. There is proximal migration and malalignment of trapezium and trapezoid. Lucency in the distal radius is likely caused by a subchondral cyst. Scaphoid view: Scaphoid appears intact. Soft tissues: No suspicious soft tissue calcifications. Soft tissue swelling. IMPRESSION: 1. Widening of scapholunate interval suggesting scapholunate ligamentous disruption. 2. Severe degenerative joint disease. Dictated by: Sofia Jones M.D. on 09/03/2018 at 17:23 Approved by: Sofia Jones M.D. on 09/03/2018 at 17:28
--- NOTE | 2018-09-03 15:48 | DI.RAD.S_ITS ---
PROCEDURE: XR SHOULDER RT MIN 2V INDICATIONS: pain TECHNIQUE: 3 views of the shoulder were acquired. COMPARISON: [facility], , SHOULDER MINIMUM 2VIEW RIGHT, 01/18/2014, 14:58. FINDINGS: Bones: No fractures or dislocations. No suspicious bony lesions. Visualized ribs appear intact. Superior migration of the humeral head is new since the exam dated 01/18/2014, suggesting massive rotator tendon cuff tendon tear. There is moderate focal mucosal clear and glenohumeral joint degeneration. Soft tissues: No suspicious soft tissue calcifications. IMPRESSION: 1. Superior migration of humeral head suggesting massive rotator cuff tendon tear. 2. Moderate degenerative changes. Dictated by: Sofia Jones M.D. on 09/03/2018 at 17:28 Approved by: Sofia Jones M.D. on 09/03/2018 at 17:31
[2018-09-03 17:18] LABS: Add Manual Diff / Slide Review NO; Basophils Absolute Auto 0 /uL (0-100); Basophils Percent Auto 0.2 % (0-2); Eosinophils Absolute Auto 0 /uL (0-450); Eosinophils Percent Auto 0.2 % (2-4); Hematocrit 32.4 % (36-46); Hemoglobin 9.9 g/dL (12.0-16.0); Lymphocytes Absolute Auto 600 /uL (1100-4500); Lymphocytes Percent Auto 4.5 % (25-40); Mean Corpuscular HGB Conc 30.7 % (30-36); Mean Corpuscular Hemoglobin 20.7 PG (26-34); Mean Corpuscular Volume 67.3 fL (80-100); Monocytes Absolute Auto 700 /uL (0-900); Monocytes Percent Auto 5.4 % (3-14); Neutrophils Absolute Auto 11100 /uL (1500-7000); Neutrophils Percent Auto 89.7 % (50-75); Platelet Count 224 X10^3/uL (150-400); Red Blood Cell Count 4.81 X10^6/uL (4.0-5.2); Red Cell Distribution Width 30.8 % (11.6-14.8); White Blood Cell Count 12.4 X10^3/uL (4.5-11.0)
[2018-09-03 17:47] LABS: Ferritin 37.9 ng/mL (11.1-264)
[2018-09-03 17:54] LABS: Acanthocytes 1+; Anisocytosis 3+; Hypochromasia 1+; Microcytosis 2+; Ovalocytes 1+; Poikilocytosis 2+; Polychromasia 1+
[2018-09-05 08:19] LABS: Uric Acid 3.6 mg/dL (2.5-6.2)
== END ==
PROVIDERS: PCP Family Medicine; Visit Provider Family Medicine
DX: M19.90 Unspecified osteoarthritis, unspecified site (principal); D64.9 Anemia, unspecified; M25.50 Pain in unspecified joint
CPT/HCPCS: 36415; 73030; 73110; 73610; 82728; 84550; 85025

== ENCOUNTER 2020-03-23 15:31 | Observation (INO) | payer MEDICARE, OTHER, SELFPAY ==
[2020-03-23] VITALS (92 sets, daily range): BP systolic 128–189; BP diastolic 74–90; PULSE 68–114; RESP 18; TEMP 36.3–36.7; O2SAT 83–100; BMI 23.6
--- NOTE | 2020-03-23 16:43 | DI.US.S_ITS ---
PROCEDURE: US PERIPH VENOUS LOW EXTREM LT INDICATIONS: swollen left leg TECHNIQUE: Real-time imaging, as well as color and pulse Doppler interrogation, were performed of the lower extremity deep veins from the inguinal ligament to the popliteal fossa. COMPARISON: None. FINDINGS: The common femoral, femoral and popliteal veins are normally compressible, and free of intraluminal thrombus. Color and pulse Doppler demonstrate normal phasic intraluminal flow. There is normal augmentation response to distal compression maneuver. IMPRESSION: No DVT found left leg. Dictated by: Andrew Aguilar M.D. on 03/23/2020 at 17:32 Approved by: Andrew Aguilar M.D. on 03/23/2020 at 17:32
--- NOTE | 2020-03-23 17:24 | PC.NURSE ---
Pts o2 sat was at 84 with a steady pleth during rounding. Pt was asked to take some deep breaths and her sat increased to 87, then back to 86 with a good pleth. Per MARY ALICE Bruno, the pt was placed on 2L of o2 with no change, then increased to 2.5L where the pts sat increased to 94%. VENKAT rOtiz is aware and speaking with pt.
[2020-03-23 18:34] LABS: Add Manual Diff / Slide Review NO; Basophils Absolute Auto 100 /uL (0-100); Basophils Percent Auto 0.8 % (0-2); Eosinophils Absolute Auto 300 /uL (0-450); Hematocrit 34.1 % (36-46); Hemoglobin 10.9 g/dL (12.0-16.0); Lymphocytes Absolute Auto 1900 /uL (1100-4500); Lymphocytes Percent Auto 26.3 % (25-40); Mean Corpuscular HGB Conc 31.9 % (30-36); Mean Corpuscular Hemoglobin 22.9 PG (26-34); Mean Corpuscular Volume 71.9 fL (80-100); Monocytes Absolute Auto 600 /uL (0-900); Monocytes Percent Auto 8.4 % (3-14); Neutrophils Absolute Auto 4300 /uL (1500-7000); Neutrophils Percent Auto 60.5 % (50-75); Platelet Count 223 X10^3/uL (150-400); Red Blood Cell Count 4.75 X10^6/uL (4.0-5.2); Red Cell Distribution Width 17.6 % (11.6-14.8); White Blood Cell Count 7.1 X10^3/uL (4.5-11.0)
[2020-03-23 18:44] LABS: PTT Partial Thromboplastin Tim 29 SECONDS (26.4-36.2)
[2020-03-23 18:46] LABS: Alanine Aminotransferase 9 IU/L (<35); Albumin 3.7 g/dL (3.5-5.0); Albumin Globulin Ratio 0.9 (1.0-2.8); Alkaline Phosphatase 104 U/L (38-126); Aspartate Aminotransferase 21 IU/L (14-36); BUN Creatinine Ratio 17.7 (6-22); Bilirubin Total 0.4 mg/dL (0.2-1.3); Blood Urea Nitrogen 11 mg/dL (7-17); Calcium 8.6 mg/dL (8.4-10.2); Carbon Dioxide 30 mmol/L (22-32); Chloride 96 mmol/L (98-107); Creatine Kinase 30 U/L (30-135); Estimated Glomerular Filt Rate > 60.0 mL/min (>60); Globulin 4.2 g/dL (1.7-4.1); Glucose 100 mg/dL (80-110); HEMOLYSIS < 15 (0-50); Potassium 4.6 mmol/L (3.4-5.1); Sodium 133 mmol/L (137-145); Total Protein 7.9 g/dL (6.3-8.2)
--- NOTE | 2020-03-23 18:48 | DI.CT.S_ITS ---
PROCEDURE: CT ANGIO CHEST PE PROTOCOL INDICATIONS: sob, low sats TECHNIQUE: After the administration of intravenous contrast, 2 mm thick sections acquired from the pulmonary apices to the posterior costophrenic angles. 3-dimensional maximum intensity projection (MIP) coronal and sagittal reformats were then acquired through the thorax. For radiation dose reduction, the following was used: automated exposure control, adjustment of mA and/or kV according to patient size. COMPARISON: None. FINDINGS: Image quality: Excellent. Pulmonary arteries: Pulmonary arteries are normal in size, and demonstrate no intraluminal filling defects to suggest central pulmonary embolism. Lungs and pleura: Lungs are abnormal with mild patchy alveolar edema and no lung mass or dense consolidation is found.. No pleural effusions or pneumothorax. Central and peripheral airways are patent. Mediastinum: Heart size is normal, without pericardial effusion. No mediastinal or hilar adenopathy. Thoracic aorta is normal in caliber and enhancement. Esophagus is normal in caliber, without hiatal hernia. Bones and chest wall: No suspicious bony lesions. Ribs and thoracic spine appear intact throughout. Thyroid gland contains multiple nodules, right greater than left, some of which are prominently peripherally calcified. Mild impingement on the trachea without significant tracheal airway stenosis.. No axillary or supraclavicular adenopathy. Abdomen: Visualized upper abdominal solid organs appear normal in the early arterial phase of enhancement. IMPRESSION: No pulmonary embolus found. Mild patchy alveolar infiltration which may reflect atypical/viral pneumonia. CHF also can produce this appearance. Heart size is at the upper limits of normal. Multiple moderate and moderately large thyroid nodules a number of which are peripherally calcified. Follow-up by dedicated elective thyroid ultrasound may be warranted. Dictated by: Andrew Aguilar M.D. on 03/23/2020 at 19:20 Approved by: Andrew Aguilar M.D. on 03/23/2020 at 19:23
[2020-03-23 18:58] LABS: NT-proBNP (BNP-Adult 18+) 1940 pg/mL (<125); Troponin I < 0.012 ng/mL (0.01-0.034)
--- NOTE | 2020-03-23 20:18 | ED.EXTPRO ---
HPI - Extremity Problem <Ping OrtizDWIGHTP-BC - Last Filed: 03/23/20 20:36> General Chief complaint: Extremity Problem,Nontraumatic Stated complaint: left leg swelling Time Seen by Provider: 03/23/20 16:33 Source: patient and family Mode of arrival: Wheelchair Limitations: no limitations History of Present Illness HPI Narrative: The patient is a 74-year-old female former smoker with history of type 2 diabetes, stroke and hypertension who presents with a chief complaint of swelling of her left lower leg. Daughter states has been present for approximately 1 and half weeks. No recent surgeries or hospitalizations, though the patient does not walk around much at home. No fevers nausea vomiting or diarrhea. No chest pain or shortness of breath. Patient states that she has an appoint with primary care provider next week. No falls or trauma. Related Data Home Medications Medication Instructions Recorded Confirmed hydrochlorothiazide 50 mg PO QDAY #0 tab 03/11/13 04/30/19 simvastatin 10 mg PO HS #0 tab 03/11/13 04/30/19 fexofenadine 180 mg PO QDAY #0 tab 03/12/13 04/30/19 Previous Rx's Medication Instructions Recorded triamcinolone acetonide 0 gm TOPICAL BID #1 tube 08/07/17 potassium chloride 10 mEq See Rx Instructions PO BID #90 tab 04/14/18 tablet,extended release ferrous sulfate 325 mg PO BIDWM #60 tab 07/26/18 oxycodone 5 mg PO Q4HR PRN #14 tab 07/26/18 aspirin 81 mg tablet,delayed 81 mg PO QDAY #90 tab 07/05/19 release losartan 100 mg tablet See Rx Instructions .ROUTE 07/05/19 .COMPLEX #90 tab omeprazole 20 mg capsule,delayed 20 mg PO DAILY #90 cap 10/11/19 release metformin 500 mg tablet,extended 500 mg PO DAILY #90 tab 12/31/19 release 24 hr levetiracetam 750 mg tablet See Rx Instructions .ROUTE 01/25/20 .COMPLEX #180 tab hydroxyzine HCl 25 mg tablet See Rx Instructions .ROUTE 03/03/20 .COMPLEX #60 tablet sertraline 50 mg tablet 50 mg PO QDAY #90 tab 03/17/20 Allergies Allergy/AdvReac Type Severity Reaction Status Date / Time fexofenadine [FEXOFENADINE] Allergy Unknown Verified 04/30/19 12:20 hydroxyzine [HYDROXYZINE] Allergy Unknown Verified 04/30/19 12:20 Review of Systems <PRISCILLA Epps - Last Filed: 03/23/20 20:36> Review of Systems Narrative: GENERAL: Denies chills, fatigue, malaise, fever, sweats. HEENT: Denies sinus pain, ear pain, sore throat, difficulty swallowing, dizziness. RESPIRATORY: Denies dyspnea, cough, wheezing, hemoptysis, sputum. CARDIOVASCULAR: Denies chest pain, palpitations, orthopnea, edema, GASTROINTESTINAL: Denies nausea, vomiting, abdominal pain, diarrhea, constipation, melena. : Denies dysuria, frequency, incontinence, hematuria, urinary retention. MUSCULOSKELETAL: See HPI SKIN: See HPI NEUROLOGIC: Denies weakness, headache, numbness, change in speech, confusion, seizures, incoordination. PSYCHIATRIC: No concerning psychosocial issues. 12 point review of systems is negative except for those stated above Patient History <PRISCILLA Epps - Last Filed: 03/23/20 20:36> Medical History (Updated 04/30/19 @ 12:49 by NADEGE Jacobs) Alopecia (Chronic) Anxiety (Chronic) Asthma (Chronic) Back pain (Chronic) Carpal tunnel syndrome (Chronic) Chicken pox (Resolved) Chronic back pain (Chronic) Foot pain (Chronic) Headache (Chronic) Hearing loss (Chronic) History of recurrent ear infection (Chronic) Hypertension (Chronic) Measles (Resolved) Mumps (Resolved) Recurrent sinusitis (Chronic) Seasonal allergies (Chronic) Shoulder pain (Chronic) Sleep apnea (Chronic) Vertigo (Resolved) Vision disorder (Chronic) Family History Child Age: 48 Cancer Heart disease Hypertension High cholesterol Diabetes mellitus Father Stroke Mother Heart disease Hypertension High cholesterol Diabetes mellitus Brother No problems noted. Brother No problems noted. Social History household members: family Smoking Status: Former smoker Smoking Status: Former smoker Substance Use Type: does not use Exam <PRISCILLA Epps - Last Filed: 03/23/20 20:36> Narrative Exam Narrative: GENERAL: This is a well-nourished, well-developed patient, in no acute distress with daughter at bedside HEAD: Atraumatic. Normocephalic. No temporal or scalp tenderness. EYES: Pupils equal round and reactive. Extraocular motions intact. No scleral icterus. No injection or drainage. ENT: Nose without bleeding, purulent drainage or septal hematoma. Throat without erythema, tonsillar hypertrophy or exudate. Uvula midline. Airway patent. NECK: Trachea midline. No JVD or lymphadenopathy. Supple, nontender, no meningeal signs. CARDIOVASCULAR: Regular rate and rhythm RESPIRATORY: Coarse to auscultation. Breath sounds equal bilaterally. No wheezes, rales, or rhonchi. Occasional dry cough. No increased respiratory effort. No accessory muscle use. Speaking full sentences. GASTROINTESTINAL: Abdomen soft, non-tender, nondistended. No hepato-splenomegaly, or palpable masses. No guarding. EXTREMITIES: +1 pitting edema bilaterally BACK: Nontender without deformity or crepitance. No flank tenderness. NEURO: AOx3. SKIN: No rash or erythema on visible skin. Venous stasis appearing bilateral lower legs. Initial Vital Signs Initial Vital Signs: Vital Signs Temperature 97.4 F L 03/23/20 15:40 Pulse Rate 87 03/23/20 15:40 Respiratory Rate 18 03/23/20 15:40 Blood Pressure 161/77 H 03/23/20 15:40 Pulse Oximetry 97 03/23/20 15:40 <Edgard Mcmanus DO - Last Filed: 03/23/20 20:43> Initial Vital Signs Initial Vital Signs: Vital Signs Temperature 97.4 F L 03/23/20 15:40 Pulse Rate 87 03/23/20 15:40 Respiratory Rate 18 03/23/20 15:40 Blood Pressure 161/77 H 03/23/20 15:40 Pulse Oximetry 97 03/23/20 15:40 Course <PRISCILLA Epps - Last Filed: 03/23/20 20:36> Orders Ordered: ED Orders 03/23/20 16:43 periph venous low extrem lt Stat 03/23/20 18:28 Complete Blood Count AUTO DIFF Stat Comprehensive Metabolic Panel Stat NT-proBNP (BNP-Adult 18+) Stat Partial Thromboplastin Time Stat Prothrombin Time INR Stat Troponin & CK Cardiac Panel Stat 03/23/20 18:48 CT angio chest PE protocol Stat 03/23/20 20:17 COVID19 -ED/INPAT/OR/L&D Stat 03/24/20 00:30 Troponin & CK Cardiac Panel Stat 03/24/20 04:00 Complete Blood Count AUTO DIFF Stat Comprehensive Metabolic Panel Stat Hemoglobin A1C% w Est Avg Glu Stat 03/24/20 06:30 Troponin & CK Cardiac Panel Stat 03/24/20 08:00 EC echo doppler complete Routine Acetaminophen (Tylenol) 650 mg PO Q6HR PRN PRN Reason: Fever/Mild Pain (1-3) Furosemide (Lasix) 40 mg IV DAILY ELDER Sodium Chloride (Normal Saline 0.9%) 1,000 mls @ 125 mls/hr IV CONT ELDER Last Admin: 03/23/20 20:34 Dose: 125 mls/hr Documented by: SELINA Ondansetron HCl (Zofran) 4 mg IV Q4HR PRN PRN Reason: Nausea And Vomiting Discontinued Medications Furosemide (Lasix) 40 mg IV NOW ONE Stop: 03/23/20 20:18 Last Admin: 03/23/20 20:32 Dose: 40 mg Documented by: SELINA Vital Signs Vital signs: Vital Signs - 8 hr 03/23/20 15:40 03/23/20 17:13 03/23/20 17:14 Temperature 97.4 F L Pulse Rate 87 94 H 94 H Respiratory Rate 18 Blood Pressure 161/77 H 170/90 H Pulse Oximetry 97 86 L 87 L 03/23/20 17:18 03/23/20 17:20 03/23/20 17:22 Temperature Pulse Rate 95 H 92 H 90 Respiratory Rate Blood Pressure Pulse Oximetry 86 L 90 L 96 03/23/20 17:24 03/23/20 17:26 03/23/20 17:28 Temperature Pulse Rate 89 90 91 H Respiratory Rate Blood Pressure Pulse Oximetry 98 98 92 03/23/20 17:30 03/23/20 17:32 03/23/20 17:34 Temperature Pulse Rate 90 93 H 93 H Respiratory Rate Blood Pressure Pulse Oximetry 94 89 L 89 L 03/23/20 17:36 03/23/20 17:38 03/23/20 17:40 Temperature Pulse Rate 96 H 93 H 95 H Respiratory Rate Blood Pressure Pulse Oximetry 96 92 93 03/23/20 17:42 03/23/20 17:44 03/23/20 17:46 Temperature Pulse Rate 97 H 98 H 95 H Respiratory Rate Blood Pressure Pulse Oximetry 92 86 L 87 L 03/23/20 17:48 03/23/20 17:50 03/23/20 17:52 Temperature Pulse Rate 95 H 95 H 94 H Respiratory Rate Blood Pressure Pulse Oximetry 88 L 91 89 L 03/23/20 17:54 03/23/20 17:56 03/23/20 17:58 Temperature Pulse Rate 96 H 97 H 98 H Respiratory Rate Blood Pressure Pulse Oximetry 89 L 88 L 87 L 03/23/20 18:00 03/23/20 18:02 03/23/20 18:04 Temperature Pulse Rate 94 H 92 H 91 H Respiratory Rate Blood Pressure Pulse Oximetry 92 96 97 03/23/20 18:06 03/23/20 18:08 03/23/20 18:10 Temperature Pulse Rate 90 89 88 Respiratory Rate Blood Pressure Pulse Oximetry 97 98 98 03/23/20 18:12 03/23/20 18:14 03/23/20 18:16 Temperature Pulse Rate 90 90 91 H Respiratory Rate Blood Pressure Pulse Oximetry 97 98 99 03/23/20 18:18 03/23/20 18:20 03/23/20 18:22 Temperature Pulse Rate 92 H 93 H 91 H Respiratory Rate Blood Pressure Pulse Oximetry 98 97 97 03/23/20 18:24 03/23/20 18:26 03/23/20 18:28 Temperature Pulse Rate 92 H 90 90 Respiratory Rate Blood Pressure Pulse Oximetry 98 98 99 03/23/20 18:30 03/23/20 18:32 03/23/20 18:34 Temperature Pulse Rate 93 H 92 H 94 H Respiratory Rate Blood Pressure Pulse Oximetry 99 99 98 03/23/20 18:36 03/23/20 18:38 03/23/20 18:40 Temperature Pulse Rate 93 H 89 95 H Respiratory Rate Blood Pressure Pulse Oximetry 98 99 98 03/23/20 18:42 03/23/20 18:44 03/23/20 18:46 Temperature Pulse Rate 91 H 93 H 93 H Respiratory Rate Blood Pressure Pulse Oximetry 100 99 99 03/23/20 18:48 03/23/20 18:50 03/23/20 18:52 Temperature Pulse Rate 95 H 96 H 93 H Respiratory Rate Blood Pressure Pulse Oximetry 98 98 98 03/23/20 19:14 03/23/20 19:16 03/23/20 19:18 Temperature Pulse Rate 99 H 97 H 97 H Respiratory Rate Blood Pressure 189/86 H Pulse Oximetry 99 99 98 03/23/20 19:20 03/23/20 19:25 03/23/20 19:26 Temperature Pulse Rate 114 H 107 H Respiratory Rate Blood Pressure Pulse Oximetry 95 85 L 96 03/23/20 19:28 03/23/20 19:30 03/23/20 19:32 Temperature Pulse Rate 101 H 96 H 94 H Respiratory Rate Blood Pressure Pulse Oximetry 93 97 97 03/23/20 20:00 Temperature Pulse Rate 99 H Respiratory Rate Blood Pressure Pulse Oximetry 90 L <Edgard Mcmanus, - Last Filed: 03/23/20 20:43> Orders Ordered: ED Orders 03/23/20 16:43 periph venous low extrem lt Stat 03/23/20 18:28 Complete Blood Count AUTO DIFF Stat Comprehensive Metabolic Panel Stat NT-proBNP (BNP-Adult 18+) Stat Partial Thromboplastin Time Stat Prothrombin Time INR Stat Troponin & CK Cardiac Panel Stat 03/23/20 18:48 CT angio chest PE protocol Stat 03/23/20 20:17 COVID19 -ED/INPAT/OR/L&D Stat 03/24/20 00:30 Troponin & CK Cardiac Panel Stat 03/24/20 04:00 Complete Blood Count AUTO DIFF Stat Comprehensive Metabolic Panel Stat Hemoglobin A1C% w Est Avg Glu Stat 03/24/20 06:30 Troponin & CK Cardiac Panel Stat 03/24/20 08:00 EC echo doppler complete Routine Acetaminophen (Tylenol) 650 mg PO Q6HR PRN PRN Reason: Fever/Mild Pain (1-3) Furosemide (Lasix) 40 mg IV DAILY ELDER Sodium Chloride (Normal Saline 0.9%) 1,000 mls @ 125 mls/hr IV CONT ELDER Last Admin: 03/23/20 20:34 Dose: 125 mls/hr Documented by: SELINA Ondansetron HCl (Zofran) 4 mg IV Q4HR PRN PRN Reason: Nausea And Vomiting Discontinued Medications Furosemide (Lasix) 40 mg IV NOW ONE Stop: 03/23/20 20:18 Last Admin: 03/23/20 20:32 Dose: 40 mg Documented by: SELINA Vital Signs Vital signs: Vital Signs - 8 hr 03/23/20 15:40 03/23/20 17:13 03/23/20 17:14 Temperature 97.4 F L Pulse Rate 87 94 H 94 H Respiratory Rate 18 Blood Pressure 161/77 H 170/90 H Pulse Oximetry 97 86 L 87 L 03/23/20 17:18 03/23/20 17:20 03/23/20 17:22 Temperature Pulse Rate 95 H 92 H 90 Respiratory Rate Blood Pressure Pulse Oximetry 86 L 90 L 96 03/23/20 17:24 03/23/20 17:26 03/23/20 17:28 Temperature Pulse Rate 89 90 91 H Respiratory Rate Blood Pressure Pulse Oximetry 98 98 92 03/23/20 17:30 03/23/20 17:32 03/23/20 17:34 Temperature Pulse Rate 90 93 H 93 H Respiratory Rate Blood Pressure Pulse Oximetry 94 89 L 89 L 03/23/20 17:36 03/23/20 17:38 03/23/20 17:40 Temperature Pulse Rate 96 H 93 H 95 H Respiratory Rate Blood Pressure Pulse Oximetry 96 92 93 03/23/20 17:42 03/23/20 17:44 03/23/20 17:46 Temperature Pulse Rate 97 H 98 H 95 H Respiratory Rate Blood Pressure Pulse Oximetry 92 86 L 87 L 03/23/20 17:48 03/23/20 17:50 03/23/20 17:52 Temperature Pulse Rate 95 H 95 H 94 H Respiratory Rate Blood Pressure Pulse Oximetry 88 L 91 89 L 03/23/20 17:54 03/23/20 17:56 03/23/20 17:58 Temperature Pulse Rate 96 H 97 H 98 H Respiratory Rate Blood Pressure Pulse Oximetry 89 L 88 L 87 L 03/23/20 18:00 03/23/20 18:02 03/23/20 18:04 Temperature Pulse Rate 94 H 92 H 91 H Respiratory Rate Blood Pressure Pulse Oximetry 92 96 97 03/23/20 18:06 03/23/20 18:08 03/23/20 18:10 Temperature Pulse Rate 90 89 88 Respiratory Rate Blood Pressure Pulse Oximetry 97 98 98 03/23/20 18:12 03/23/20 18:14 03/23/20 18:16 Temperature Pulse Rate 90 90 91 H Respiratory Rate Blood Pressure Pulse Oximetry 97 98 99 03/23/20 18:18 03/23/20 18:20 03/23/20 18:22 Temperature Pulse Rate 92 H 93 H 91 H Respiratory Rate Blood Pressure Pulse Oximetry 98 97 97 03/23/20 18:24 03/23/20 18:26 03/23/20 18:28 Temperature Pulse Rate 92 H 90 90 Respiratory Rate Blood Pressure Pulse Oximetry 98 98 99 03/23/20 18:30 03/23/20 18:32 03/23/20 18:34 Temperature Pulse Rate 93 H 92 H 94 H Respiratory Rate Blood Pressure Pulse Oximetry 99 99 98 03/23/20 18:36 03/23/20 18:38 03/23/20 18:40 Temperature Pulse Rate 93 H 89 95 H Respiratory Rate Blood Pressure Pulse Oximetry 98 99 98 03/23/20 18:42 03/23/20 18:44 03/23/20 18:46 Temperature Pulse Rate 91 H 93 H 93 H Respiratory Rate Blood Pressure Pulse Oximetry 100 99 99 03/23/20 18:48 03/23/20 18:50 03/23/20 18:52 Temperature Pulse Rate 95 H 96 H 93 H Respiratory Rate Blood Pressure Pulse Oximetry 98 98 98 03/23/20 19:14 03/23/20 19:16 03/23/20 19:18 Temperature Pulse Rate 99 H 97 H 97 H Respiratory Rate Blood Pressure 189/86 H Pulse Oximetry 99 99 98 03/23/20 19:20 03/23/20 19:25 03/23/20 19:26 Temperature Pulse Rate 114 H 107 H Respiratory Rate Blood Pressure Pulse Oximetry 95 85 L 96 03/23/20 19:28 03/23/20 19:30 03/23/20 19:32 Temperature Pulse Rate 101 H 96 H 94 H Respiratory Rate Blood Pressure Pulse Oximetry 93 97 97 03/23/20 20:00 Temperature Pulse Rate 99 H Respiratory Rate Blood Pressure Pulse Oximetry 90 L MDM - Extremity (Nontraumatic) <BETTY Epps-BC - Last Filed: 03/23/20 20:36> Lab Data Result diagrams: 03/23/20 18:28 03/23/20 18:28 Labs: Lab Results 03/23/20 03/23/20 03/23/20 Range/Units 18:28 18:28 18:28 WBC 7.1 (4.5-11.0) X10^3/uL RBC 4.75 (4.0-5.2) X10^6/uL Hgb 10.9 L (12.0-16.0) g/dL Hct 34.1 L (36-46) % MCV 71.9 L (80-100) fL MCH 22.9 L (26-34) PG MCHC 31.9 (30-36) % RDW 17.6 H (11.6-14.8) % Plt Count 223 (150-400) X10^3/uL Neut % (Auto) 60.5 (50-75) % Lymph % (Auto) 26.3 (25-40) % [place] % (Auto) 8.4 (3-14) % Eos % (Auto) 4.0 (2-4) % Baso % (Auto) 0.8 (0-2) % Neut # (Auto) 4300 (1101-5259) /uL Lymph # (Auto) 1900 (5777-3599) /uL [place] # (Auto) 600 (0-900) /uL Eos # (Auto) 300 (0-450) /uL Baso # (Auto) 100 (0-100) /uL PT 12.0 (10.1-12.7) SECONDS INR 1.0 (0.9-1.3) APTT 29 (26.4-36.2) SECONDS Sodium 133 L (137-145) mmol/L Potassium 4.6 (3.4-5.1) mmol/L Chloride 96 L (98-107) mmol/L Carbon Dioxide 30 (22-32) mmol/L BUN 11 (7-17) mg/dL Creatinine 0.62 (0.52-1.04) mg/dL Estimated GFR > 60.0 (>60) mL/min BUN/Creatinine Ratio 17.7 (6-22) Glucose 100 (80-110) mg/dL Calcium 8.6 (8.4-10.2) mg/dL Total Bilirubin 0.4 (0.2-1.3) mg/dL AST 21 (14-36) IU/L ALT 9 (<35) IU/L Alkaline Phosphatase 104 (38-126) U/L Total Creatine Kinase 30 (30-135) U/L CK-MB (CK-2) TNP CK-MB (CK-2) Rel Index TNP Troponin I < 0.012 (0.01-0.034) ng/mL NT-Pro-B Natriuret Pep 1940 H (<125) pg/mL Total Protein 7.9 (6.3-8.2) g/dL Albumin 3.7 (3.5-5.0) g/dL Globulin 4.2 H (1.7-4.1) g/dL Albumin/Globulin Ratio 0.9 L (1.0-2.8) Imaging Data CT scan - chest: Radiologist's Impression: [address] [place] [id number] Scan Report Signed Patient: Janette WaldronMR#: [id number] : 7Acct:[id number] Age/Sex: 74 / FDate of Service: 03/23/20 Loc: ED Accession Number: [id number] Procedure: CT angio chest PE protocol Ordering Provider: Ping Ortiz [facility] PROCEDURE: CT ANGIO CHEST PE PROTOCOL INDICATIONS: sob, low sats TECHNIQUE: After the administration of intravenous contrast, 2 mm thick sections acquired from the pulmonary apices to the posterior costophrenic angles. 3-dimensional maximum intensity projection (MIP) coronal and sagittal reformats were then acquired through the thorax. For radiation dose reduction, the following was used: automated exposure control, adjustment of mA and/or kV according to patient size. COMPARISON: None. FINDINGS: Image quality: Excellent. Pulmonary arteries: Pulmonary arteries are normal in size, and demonstrate no intraluminal filling defects to suggest central pulmonary embolism. Lungs and pleura: Lungs are abnormal with mild patchy alveolar edema and no lung mass or dense consolidation is found.. No pleural effusions or pneumothorax. Central and peripheral airways are patent. Mediastinum: Heart size is normal, without pericardial effusion. No mediastinal or hilar adenopathy. Thoracic aorta is normal in caliber and enhancement. Esophagus is normal in caliber, without hiatal hernia. Bones and chest wall: No suspicious bony lesions. Ribs and thoracic spine appear intact throughout. Thyroid gland contains multiple nodules, right greater than left, some of which are prominently peripherally calcified. Mild impingement on the trachea without significant tracheal airway stenosis.. No axillary or supraclavicular adenopathy. Abdomen: Visualized upper abdominal solid organs appear normal in the early arterial phase of enhancement. IMPRESSION: No pulmonary embolus found. Mild patchy alveolar infiltration which may reflect atypical/viral pneumonia. CHF also can produce this appearance. Heart size is at the upper limits of normal. Multiple moderate and moderately large thyroid nodules a number of which are peripherally calcified. Follow-up by dedicated elective thyroid ultrasound may be warranted. Dictated by: Andrew Aguilar M.D. on 03/23/2020 at 19:20 Approved by: Andrew Aguilar M.D. on 03/23/2020 at 19:23 US - DVT: Radiologist's Impression: [address] [place] [address] Ultrasound Report Signed Patient: Janette Waldron#: [id number] : 7Acct:[id number] Age/Sex: 74 / FDate of Service: 03/23/20 Loc: ED Accession Number: [id number] Procedure: US periph venous low extrem lt Ordering Provider: Ping Ortiz PROCEDURE: US PERIPH VENOUS LOW EXTREM LT INDICATIONS: swollen left leg TECHNIQUE: Real-time imaging, as well as color and pulse Doppler interrogation, were performed of the lower extremity deep veins from the inguinal ligament to the popliteal fossa. COMPARISON: None. FINDINGS: The common femoral, femoral and popliteal veins are normally compressible, and free of intraluminal thrombus. Color and pulse Doppler demonstrate normal phasic intraluminal flow. There is normal augmentation response to distal compression maneuver. IMPRESSION: No DVT found left leg. Dictated by: Andrew Aguilar M.D. on 03/23/2020 at 17:32 Approved by: Andrew Aguilar M.D. on 03/23/2020 at 17:32 [facility] Narrative Medical decision making narrative: The patient is a 74-year-old female who presents with a chief complaint of left lower leg swelling. Given the patient's relative immobility, ultrasound was taken to rule out DVT. This came back negative. However the patient became hypoxic while in the emergency department, down to the mid 80s on room air. This persisted with ambulation, encouraging up taking deep breaths. This is CT to rule out PE was obtained. This came back negative for any acute PE. The patient's troponin is negative, however BNP is elevated over 1900 with possibility of some CHF on her CT. Thus I discussed with the patient that I am concerned about her heart. She has no recent echocardiograms, but the combination of elevated BNP and hypoxia is concerning. She was given 40 of IV Lasix, tested for call back. The patient does have oxygen requirements, and thus if she wanted to leave and sign out against medical advice. The patient elected to not be discharged. I spoke with Dr. Vishal delaney, who kindly accepted the patient for admission echocardiogram etcetera. Patient daughter express gratitude. No questions or concerns regarding admission. <Edgard Mcmanus, DO - Last Filed: 03/23/20 20:43> Lab Data Labs: Lab Results 03/23/20 03/23/20 03/23/20 Range/Units 18:28 18:28 18:28 WBC 7.1 (4.5-11.0) X10^3/uL RBC 4.75 (4.0-5.2) X10^6/uL Hgb 10.9 L (12.0-16.0) g/dL Hct 34.1 L (36-46) % MCV 71.9 L (80-100) fL MCH 22.9 L (26-34) PG MCHC 31.9 (30-36) % RDW 17.6 H (11.6-14.8) % Plt Count 223 (150-400) X10^3/uL Neut % (Auto) 60.5 (50-75) % Lymph % (Auto) 26.3 (25-40) % [place] % (Auto) 8.4 (3-14) % Eos % (Auto) 4.0 (2-4) % Baso % (Auto) 0.8 (0-2) % Neut # (Auto) 4300 (9004-4165) /uL Lymph # (Auto) 1900 (3931-8955) /uL [place] # (Auto) 600 (0-900) /uL Eos # (Auto) 300 (0-450) /uL Baso # (Auto) 100 (0-100) /uL PT 12.0 (10.1-12.7) SECONDS INR 1.0 (0.9-1.3) APTT 29 (26.4-36.2) SECONDS Sodium 133 L (137-145) mmol/L Potassium 4.6 (3.4-5.1) mmol/L Chloride 96 L (98-107) mmol/L Carbon Dioxide 30 (22-32) mmol/L BUN 11 (7-17) mg/dL Creatinine 0.62 (0.52-1.04) mg/dL Estimated GFR > 60.0 (>60) mL/min BUN/Creatinine Ratio 17.7 (6-22) Glucose 100 (80-110) mg/dL Calcium 8.6 (8.4-10.2) mg/dL Total Bilirubin 0.4 (0.2-1.3) mg/dL AST 21 (14-36) IU/L ALT 9 (<35) IU/L Alkaline Phosphatase 104 (38-126) U/L Total Creatine Kinase 30 (30-135) U/L CK-MB (CK-2) TNP CK-MB (CK-2) Rel Index TNP Troponin I < 0.012 (0.01-0.034) ng/mL NT-Pro-B Natriuret Pep 1940 H (<125) pg/mL Total Protein 7.9 (6.3-8.2) g/dL Albumin 3.7 (3.5-5.0) g/dL Globulin 4.2 H (1.7-4.1) g/dL Albumin/Globulin Ratio 0.9 L (1.0-2.8) Discharge Plan Departure Admit Date/Time: 03/23/20 20:36 Admit Provider: Graham Ervin <Edgard Mcmanus DO - Last Filed: 03/23/20 20:43> [facility]: Dr Mcmanus Co-Sign Statement: I was available for consultation during this patient's emergency department visit. This chart is signed by myself for administrative purposes only. I did not have direct contact with this patient during this visit. They were seen independently by the [facility].
[2020-03-23] MEDS: FUROSEMIDE 40 MG/4 ML VIAL IV (20:32)
[2020-03-23] MEDS: SODIUM CHLORIDE 0.9% 1,000 ML 125 ML IV (20:34)
[2020-03-23 21:20] LABS: COVID19 -Nasal RAPID Negative (Negative)
[2020-03-24] VITALS (7 sets, daily range): BP systolic 138–164; BP diastolic 62–88; PULSE 81–96; RESP 17–20; TEMP 35.9–36.2; O2SAT 92–98
[2020-03-24 00:45] LABS: Creatine Kinase 30 U/L (30-135)
[2020-03-24 00:58] LABS: Troponin I < 0.012 ng/mL (0.01-0.034)
[2020-03-24 01:14] LABS: Hemoglobin A1C% w Est Avg Glu 6.4 % (4.0-6.0)
[2020-03-24] MEDS: ACETAMINOPHEN 325 MG TABLET 650 MG PO ×3 (03:17→22:43)
[2020-03-24 06:38] LABS: Add Manual Diff / Slide Review NO; Basophils Absolute Auto 100 /uL (0-100); Basophils Percent Auto 0.9 % (0-2); Eosinophils Absolute Auto 300 /uL (0-450); Eosinophils Percent Auto 4.1 % (2-4); Hematocrit 34.3 % (36-46); Hemoglobin 10.8 g/dL (12.0-16.0); Lymphocytes Absolute Auto 1700 /uL (1100-4500); Lymphocytes Percent Auto 25.4 % (25-40); Mean Corpuscular HGB Conc 31.4 % (30-36); Mean Corpuscular Hemoglobin 22.8 PG (26-34); Mean Corpuscular Volume 72.6 fL (80-100); Monocytes Absolute Auto 700 /uL (0-900); Monocytes Percent Auto 10.1 % (3-14); Neutrophils Absolute Auto 4100 /uL (1500-7000); Neutrophils Percent Auto 59.5 % (50-75); Platelet Count 217 X10^3/uL (150-400); Red Blood Cell Count 4.72 X10^6/uL (4.0-5.2); Red Cell Distribution Width 16.7 % (11.6-14.8); White Blood Cell Count 6.9 X10^3/uL (4.5-11.0)
[2020-03-24 06:47] LABS: Alanine Aminotransferase 9 IU/L (<35); Albumin 3.5 g/dL (3.5-5.0); Albumin Globulin Ratio 0.9 (1.0-2.8); Alkaline Phosphatase 103 U/L (38-126); Aspartate Aminotransferase 19 IU/L (14-36); BUN Creatinine Ratio 15.4 (6-22); Bilirubin Total 0.4 mg/dL (0.2-1.3); Blood Urea Nitrogen 12 mg/dL (7-17); Calcium 8.6 mg/dL (8.4-10.2); Carbon Dioxide 33 mmol/L (22-32); Chloride 94 mmol/L (98-107); Creatine Kinase 43 U/L (30-135); Estimated Glomerular Filt Rate > 60.0 mL/min (>60); Globulin 3.8 g/dL (1.7-4.1); Glucose 109 mg/dL (80-110); HEMOLYSIS < 15 (0-50); Potassium 4.1 mmol/L (3.4-5.1); Sodium 133 mmol/L (137-145); Total Protein 7.3 g/dL (6.3-8.2)
[2020-03-24 06:59] LABS: Troponin I < 0.012 ng/mL (0.01-0.034)
--- NOTE | 2020-03-24 07:55 | PC.NURSE ---
Day Shift- Pt A&OX4, OOB to BR this AM with SBA, pt does touch surfaces when ambulating to BR such as handley, doors, BR rails. Pt states she has both a cane and walker at home but usually does not use. Stating she [place] in [place] so its a [place] space. Denies light-headedness or dizziness with ambulation. Shortness of breath with ambulation and slightly SOB with rest better than yesterday. No cough. AE diminished to bilateral lung bases, more so to right lung base. LLE edema non pitting 1+, denies pain. Encouraged elevation while in bed or chair. Pt did settle back into bed and elevated BLE using bed function and pillow. Bed alarm on, call light within reach.
--- NOTE | 2020-03-24 08:00 | DI.ECHO.S_ITS ---
[facility] +---------+ : : [address] : : : : [id number] : : : : Phone: [phone] Echocardiogram Report + + :Name: ANEUDY SINGH Study Date: 03/24/2020 Height: 61 in : :[facility] Weight: 125 lb : : Gender: Female BSA: 1.5 m2 : :: 1945 Age: 75 yrs BP: 139/61 mmHg: :Reason For Study: ELEVATED BNP : : Performed By: Jonnie Candelaria : :Referring: DORINA CURIEL : + + Interpretation Summary 1) Normal left ventricular thickness, size, and systolic function (EF 65-70%). 2) The interventricular septum is flattened, consistent with a right ventricular pressure overload condition. 3) The right ventricle is moderate to severely dilated. Right ventricular systolic function is mild to moderately reduced. 4) No significant valvular abnormalities. 5) The right ventricular systolic pressure is estimated to be at least 50 mmHg based on an estimated right atrial pressure of 3 mm Hg. 6) No prior Echo available for comparison. Procedure: A two-dimensional transthoracic echocardiogram with color flow and Doppler was performed. The study quality was technically adequate. There is no prior echocardiogram noted for this patient. A contrast injection of Definity was performed to improve assessment of LV function. The patient was in normal sinus rhythm during the exam. Left Ventricle: The left ventricle is normal in size. There is normal left ventricular wall thickness. The ejection fraction is estimated to be 65-70%. The interventricular septum is flattened, consistent with a right ventricular pressure overload condition. Right Ventricle: The right ventricle is moderate to severely dilated. Right ventricular systolic function is mild to moderately reduced. Atria: Both atria are mildly dilated. The interatrial septum is intact with no evidence for an atrial septal defect. Mitral Valve: The mitral valve is normal in structure and function. There is no mitral regurgitation noted. Aortic Valve: The aortic valve is trileaflet. The aortic valve opens well. There is trace aortic regurgitation. Tricuspid Valve: The tricuspid valve is normal in structure and function. There is mild tricuspid regurgitation. The right ventricular systolic pressure is estimated to be at least 50 mmHg based on an estimated right atrial pressure of 3 mm Hg. Pulmonic Valve: The pulmonic valve is normal in structure and function. There is no pulmonic valvular regurgitation. Great Vessels: The aortic root is normal size. The dimensions of the ascending aorta are normal. The pulmonary artery is normal size. The IVC is of normal diameter and collapses greater than 50% with a sniff. This suggests a low right atrial pressure of 3 mm Hg. Pericardium/ Pleura There is no pericardial effusion. There is no pleural effusion. MMode/2D Measurements & Calculations LVIDd: 4.0 cm LVOT diam: 2.0 cm LVIDs: 2.6 cm Ao root diam: 3.1 cm FS: 36.2 % asc Aorta Diam: 3.0 cm EPSS: 0.26 cm Ao Arch Diam (Prox Trans): 2.2 cm IVSd: 0.89 cm LVPWd: 0.82 cm LV richard. diameter/BSA (cm/m^2): 2.6 LV sys. diameter/BSA (cm/m^2): 1.7 LA dimension: 3.0 cm RA long axis: 4.4 cm LA A2 area: 19.2 cm2 RA area: 15.9 cm2 LA A4 area: 18.4 cm2 RA vol: 48.7 ml LA length (vol): 5.5 cm RA : 31.5 ml/m2 LA vol: 55.0 ml IVC diam: 1.5 cm LA vol index: 35.5 ml/m2 RVD1 (basal): 4.5 cm RVD2 (mid): 5.1 cm TAPSE: 1.1 cm Doppler Measurements & Calculations Ao V2 max: 132.6 cm/sec LVOT Max Caesar: 89.2 cm/sec Ao V2 mean: 99.0 cm/sec LV V1 max P.2 mmHg Ao max P.0 mmHg LV V1 VTI: 17.7 cm Ao mean P.2 mmHg DAYANA(I,D): 2.2 cm2 Ao V2 VTI: 25.2 cm DAYANA(V,D): 2.1 cm2 sev ratio: 0.70 DAYANA indexed to BSA (cm^2/m^2): 1.4 MV E max caesar: 38.9 cm/sec TR max caesar: 342.5 cm/sec MV A max caesar: 75.7 cm/sec TR max P.9 mmHg MV E/A: 0.51 PA V2 max: 60.6 cm/sec Med Peak E' Caesar: 3.2 cm/sec PA V2 mean: 45.2 cm/sec E/E' med: 12.3 PA mean P.87 mmHg Lat Peak E' Caesar: 5.7 cm/sec PA pr(Accel): 25.9 mmHg E/E' lat: 6.8 E/e' average: 9.6 MV dec time: 0.19 sec SV(REUBENOT): 55.0 ml Reading Physician:01:14 PM
--- NOTE | 2020-03-24 08:51 | P.HP_ITS ---
History of Present Illness History of Present Illness Date Patient Seen: 03/24/20 Time Patient Seen: 08:51 Date of Onset of Symptoms: 03/23/20 Chief complaint: left leg swelling Narrative: Congestive heart failure Patient admitted through the ER last night. Patient presented to the emergency room complaining of left leg pain and swelling. A concern by the patient and family's of may be a blood clot. Her left leg was evaluated with ultrasound found to be negative. Meanwhile the patient is found to be hypoxic with O2 sats in the 80s. Patient was not aware this at the time but 1 was point now she became more wear. She required supplemental oxygen to get oxygen levels above 90. Because the apparent hypoxia and presumed congestive heart failure she was mid for intravenous diuresis as well as further evaluation. He had no fever chills. No cough she herself denies being short of breath but that in retrospect she probably was just got used to it. She has no edema of the left leg as stated. She has had no dizziness. No palpitations no diaphoresis. She was given 40 of Lasix IV in the emergency room last evening and at overnight got significantly better does not require supplemental oxygen now. 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 Other medical K problems include diabetes, depression, iron deficiency, chronic reflux, hyperlipidemia. She is on multiple medications for the above diagnoses. Patient History Medical History (Updated 03/24/20 @ 08:56 by Graham Ervin MD) Alopecia (Chronic) Anxiety (Chronic) Asthma (Chronic) Back pain (Chronic) Carpal tunnel syndrome (Chronic) Chicken pox (Resolved) Chronic back pain (Chronic) Foot pain (Chronic) Headache (Chronic) Hearing loss (Chronic) History of recurrent ear infection (Chronic) Hypertension (Chronic) Measles (Resolved) Mumps (Resolved) Recurrent sinusitis (Chronic) Seasonal allergies (Chronic) Shoulder pain (Chronic) Sleep apnea (Chronic) Vertigo (Resolved) Vision disorder (Chronic) Family & Social History Family History Child Age: 48 Cancer Heart disease Hypertension High cholesterol Diabetes mellitus Father Stroke Mother Heart disease Hypertension High cholesterol Diabetes mellitus Brother No problems noted. Brother No problems noted. Social History: household members family,caregiver Prior Living Arrangements House Safety & Behavioral: Feels Safe in Current Yes Environment Been Physically Hurt or No Threatened By a Person Suicidal Ideation Description None Suicide Plan Description No Plan Tobacco & Substance use: Smoking Status Former smoker alcohol intake former Substance Use Type does not use Meds Home Medications and Allergies Home Medications Medication Instructions Recorded Confirmed Type hydrochlorothiazide 50 mg PO QDAY #0 tab 03/11/13 03/23/20 History simvastatin 10 mg PO HS #0 tab 03/11/13 03/23/20 History triamcinolone acetonide 0 gm TOPICAL BID #1 tube 08/07/17 03/23/20 Rx ferrous sulfate 325 mg PO BIDWM #60 tab 07/26/18 03/23/20 Rx aspirin 81 mg tablet,delayed 81 mg PO QDAY #90 tab 07/05/19 03/23/20 Rx release omeprazole 20 mg capsule,delayed 20 mg PO DAILY #90 cap 10/11/19 03/23/20 Rx release metformin 500 mg tablet,extended 500 mg PO DAILY #90 tab 12/31/19 03/23/20 Rx release 24 hr sertraline 50 mg tablet 50 mg PO QDAY #90 tab 03/17/20 03/23/20 Rx hydroxyzine HCl 50 mg PO DAILY 03/23/20 03/23/20 History levetiracetam 1,500 mg PO DAILY 03/23/20 03/23/20 History losartan 100 mg PO DAILY 03/23/20 03/23/20 History potassium chloride 20 meq PO BID 03/23/20 03/23/20 History Review of Systems Review of Systems ROS: Yes All systems reviewed with the patient and are negative except as otherwise documented Exam Vital Signs (past 8 hours): - 03/24/20 06:00 03/24/20 08:28 Temperature 96.8 F L 97 F L Pulse Rate 96 H 87 Respiratory Rate 20 17 Blood Pressure 164/62 H 139/66 Pulse Oximetry 92 92 Oxygen Delivery Method Room Air Oxygen Flow Rate 2.5 Narrative Exam Narrative: Gen.: Patient initially is sleeping and her hospital bed E the reading easily on room air O2 sats in the 90s appears in no distress. She is easily awakened She is alert oriented x3 when she wakens a period Skin: Warm well perfused. No prominent lesions. Nonicteric. HEENT: PERRL., normal EOM, external ears canals TMs normal, nasal mucosa normal and midline septum, oropharynx without lesions. Neck: Trachea midline. Thyroid nontender and not enlarged. Carotids without bruits. No lymphadenopathy Back: No obvious deformity or tenderness. Chest: Clear to P&A. Symmetric. Chest exam is entirely clear no rales rhonchi or wheezes CV: RRR no murmur or gallop. No JVD. Abdomen: No masses bruits tenderness or visceromegaly. Neuro: Cranial nerves II through XII grossly intact. Sensory and motor exams intact. Gait normal. Mental status: Intact for screening Extremities: No cyanosis clubbing or edema Musculoskeletal: No gross deformities left calf is minimally swollen and minimally tender Lymphatics: Negative for lymphadenopathy, supraclavicular axillary or inguinal Objective Labs Result Diagrams: 03/24/20 06:30 03/24/20 06:30 Labs: Laboratory Results - last 24 hr 03/23/20 03/23/20 03/23/20 18:28 18:28 18:28 WBC 7.1 RBC 4.75 Hgb 10.9 L Hct 34.1 L MCV 71.9 L MCH 22.9 L MCHC 31.9 RDW 17.6 H Plt Count 223 Neut % (Auto) 60.5 Lymph % (Auto) 26.3 [place] % (Auto) 8.4 Eos % (Auto) 4.0 Baso % (Auto) 0.8 Neut # (Auto) 4300 Lymph # (Auto) 1900 [place] # (Auto) 600 Eos # (Auto) 300 Baso # (Auto) 100 PT 12.0 INR 1.0 APTT 29 Sodium 133 L Potassium 4.6 Chloride 96 L Carbon Dioxide 30 BUN 11 Creatinine 0.62 Estimated GFR > 60.0 BUN/Creatinine Ratio 17.7 Glucose 100 Hemoglobin A1c Calcium 8.6 Total Bilirubin 0.4 AST 21 ALT 9 Alkaline Phosphatase 104 Total Creatine Kinase 30 CK-MB (CK-2) TNP CK-MB (CK-2) Rel Index TNP Troponin I < 0.012 NT-Pro-B Natriuret Pep 1940 H Total Protein 7.9 Albumin 3.7 Globulin 4.2 H Albumin/Globulin Ratio 0.9 L COVID-19 PCR 03/23/20 03/23/20 03/24/20 18:28 21:00 00:25 WBC RBC Hgb Hct MCV MCH MCHC RDW Plt Count Neut % (Auto) Lymph % (Auto) [place] % (Auto) Eos % (Auto) Baso % (Auto) Neut # (Auto) Lymph # (Auto) [place] # (Auto) Eos # (Auto) Baso # (Auto) PT INR APTT Sodium Potassium Chloride Carbon Dioxide BUN Creatinine Estimated GFR BUN/Creatinine Ratio Glucose Hemoglobin A1c 6.4 H Calcium Total Bilirubin AST ALT Alkaline Phosphatase Total Creatine Kinase 30 CK-MB (CK-2) TNP CK-MB (CK-2) Rel Index TNP Troponin I < 0.012 NT-Pro-B Natriuret Pep Total Protein Albumin Globulin Albumin/Globulin Ratio COVID-19 PCR Negative 03/24/20 03/24/20 03/24/20 06:30 06:30 06:30 WBC 6.9 RBC 4.72 Hgb 10.8 L Hct 34.3 L MCV 72.6 L MCH 22.8 L MCHC 31.4 RDW 16.7 H Plt Count 217 Neut % (Auto) 59.5 Lymph % (Auto) 25.4 [place] % (Auto) 10.1 Eos % (Auto) 4.1 H Baso % (Auto) 0.9 Neut # (Auto) 4100 Lymph # (Auto) 1700 [place] # (Auto) 700 Eos # (Auto) 300 Baso # (Auto) 100 PT INR APTT Sodium 133 L Potassium 4.1 Chloride 94 L Carbon Dioxide 33 H BUN 12 Creatinine 0.78 Estimated GFR > 60.0 BUN/Creatinine Ratio 15.4 Glucose 109 Hemoglobin A1c Calcium 8.6 Total Bilirubin 0.4 AST 19 ALT 9 Alkaline Phosphatase 103 Total Creatine Kinase 43 CK-MB (CK-2) TNP CK-MB (CK-2) Rel Index TNP Troponin I < 0.012 NT-Pro-B Natriuret Pep Total Protein 7.3 Albumin 3.5 Globulin 3.8 Albumin/Globulin Ratio 0.9 L COVID-19 PCR labs to the emergency room was noted. Troponin levels normal x2, hemoglobin is low but higher than has been in the past. Hemoglobin A1c amazingly is 6.4 Assessment & Plan Assessment and plan (1) Seizure disorder: Status: Acute (2) Hypertensive encephalopathy: Status: Acute (3) Depression: Status: Acute (4) Reflux esophagitis: Status: Acute Assessment & Plan narrative: 1. Acute problem is congestive heart failure. Troponins have been normal. Echocardiogram pending no obvious explanation for the onset of congestive heart failure. Patient responded well to 1 dose of Lasix should get a 2nd dose this morning and then that would be the end of her IV Lasix presumably. Assuming all goes well today she will be discharged tomorrow she is not require supplemental oxygen echocardiogram is pending which may need further evaluation forthcoming. 2. Left leg is a apparently wrist muscle pain. 3. History of hypertension reasonably well controlled. 4. Day history of diabetes so they A1c is 6.4 doing well. 5. History of depression that is stable. 6. History of iron deficiency she is taking iron hemoglobin is still low but she has increased since last time. 7. Chronic dermatitis which she takes hydroxyzine. 8. History of hypertensive posterior reversible encephalopathy syndrome 9. Seizure disorder secondary to 8. 10. Chronic reflux. 11. Hyperlipidemia being treated lab studies pending 12. Chart review shows a POLST form of 2017 that is for full code Quality VTE Deep Vein Thrombosis/Pulmonary Embolism Present on Admission: No
--- NOTE | 2020-03-24 09:12 | PC.NURSE ---
Addendum entered by Carmen Chang R.N. 03/24/20 14:53: Pt voided approx 925mls after Lasix dose this morning. pt's daughter Lacey in to visit pt and update given at bedside. Pt C/O headache and LLE aching, PRN Tylenol given. Addendum entered by Carmen Chang R.N. 03/24/20 09:30: At 0925, pt's daughter Jaelyn called into pt's room, pt requested this RN to give her an update which was done Original Note: Day Shift- Pt's daughter Lacey called and this Rn returned the call at 0910. Okay per pt to give information to Lacey. Update given. Lacey will be visiting pt later today, aware of visitor policy on unit and must wear mask at all times while visiting.
[2020-03-24] MEDS: SODIUM CHLORIDE 0.9% FLUSH 10 ML IV ×2 (09:30→20:06)
[2020-03-24] MEDS: ENOXAPARIN 40 MG/0.4 ML SYRINGE SUBCUT (09:30)
[2020-03-24] MEDS: FUROSEMIDE 40 MG/4 ML VIAL IV (09:30)
--- NOTE | 2020-03-24 09:45 | PT.IIE ---
Current Diagnoses Major depressive disorder, single episode, unspecified (03/23/20) Epilepsy, unspecified, not intractable, without status epilepticus (03/23/20) Hypertensive encephalopathy (03/23/20) Gastro-esophageal reflux disease with esophagitis (03/23/20) Medical History (Last Reviewed 03/24/20 @ 08:54 by Graham Ervin MD) Alopecia (Chronic) Anxiety (Chronic) Asthma (Chronic) Back pain (Chronic) Carpal tunnel syndrome (Chronic) Chicken pox (Resolved) Chronic back pain (Chronic) Foot pain (Chronic) Headache (Chronic) Hearing loss (Chronic) History of recurrent ear infection (Chronic) Hypertension (Chronic) Measles (Resolved) Mumps (Resolved) Recurrent sinusitis (Chronic) Seasonal allergies (Chronic) Shoulder pain (Chronic) Sleep apnea (Chronic) Vertigo (Resolved) Vision disorder (Chronic) Physical Therapy Inpatient Evaluation/Re-Eval M1 PT/OT-IP Prior Functional Status Start: 03/24/20 12:45 Freq: NEEDED Status: Active Protocol: Document 03/24/20 09:45 AB (Rec: 03/24/20 12:58 AB [id number]) Medical Review Prior Functional Status Medical History Reviewed Yes Communication able to make needs known Mobility and Gait stated that she is independent with all mobilities and ambulation without AD Social History Household Members family,caregiver Living Arrangements Apartment/Condo Number of Floors (Floors) One Floor Number of Stairs To Enter/Railing? 2 steps without rails to enter : stated that she lives in [facility] Home Environment Standard Height Toilet,Walk in Shower Home Equipment Front Wheel Walker,Grab Bars Near Toilet M2 PT-IP Current Condition Start: 03/24/20 12:45 Freq: NEEDED Status: Active Protocol: Document 03/24/20 09:45 AB (Rec: 03/24/20 12:58 AB [email or web address]) Physical Therapy Current Condition Current Condition Evaluation Date 03/24/20 Treatment Diagnosis CHF; generalized weakness Onset Date 03/23/20 Precautions Other Precautions O2 sat M3 PT-IP Subjective Start: 03/24/20 12:45 Freq: NEEDED Status: Active Protocol: Document 03/24/20 09:45 AB (Rec: 03/24/20 12:58 AB [email or web address]) Subjective Physical Therapy Visit Type Type Initial Evaluation Visit Start Time 09:45 Visit Stop Time 10:29 Total Visit Minutes 44 Number of HOUSE MANAGER Visits 0 Physical Therapy Visit Comments Patient Comments pt is agreeable to do PT Therapy Pain Assessment Pain Present Pain Present Denied Pain M4 PT-IP Mobility and Gait Start: 03/24/20 12:45 Freq: NEEDED Status: Active Protocol: Document 03/24/20 09:45 AB (Rec: 03/24/20 12:58 AB [id number]) PT-Bed Mobility Assessment Supine to Sit Supine to Sit Standby Assistance PT-Transfer Assessment Sit to and From Stand Sit to and from Stand Standby Assistance,Contact Guard Assistance,1 Person Assistance,Use of Upper Extremities Equipment Transfer Assistive Device Gait Belt,Front Wheeled Walker Orthotic/Prosthetic Devices or Brace: No Transfers Transfer Destination Toilet Transfer Technique ambulated using FWW Transfer Ability Level of Assist Standby Assistance,Contact Guard Assistance,1 Person Assistance,Use of Upper Extremities Comments Mobility Comments completed supine to sit SBA. completed sit to stand SBA to CGA and pt requesting to use the toilet and ambulated to the toilet using FWW SBA to CGA. pt ambulated out of the toilet using FWW SBA towards the sink and was able to complete handwashing and grooming standing SBA. (+) SOB. O2 sat prior to mobilitization 94% after toilet transfers 92% at room air. Pt rested seated on the chair. agreed to ambulate more and completed ~ 30 ft using FWW SBA. O2 sat checked : 82% and cued for deep breathing and O2 sat increased to 88% in ~ 10 sec. attempted up/down step stool with [employer] ENGINEER but pt unable to complete. stated that she usually holds on to her daughter with B hands to get up the stairs. will attempt again next tx session. positioned pt on chair. call light and table placed within reach. Gait Assessment Gait Gait Assistance Required: Standby Assistance Distance (Feet) 30 Able to Maintain Weight Bearing Status Yes During Gait Assistive Devices Assistive Device Gait Belt,Front Wheeled Walker Orthotic/Prosthetic Devices or Brace: No Gait Deviations General Gait Pattern Antalgic,Decreased Stride Length,Decreased Feet Clearance,Step-to Gait Factors Limiting Gait Function Factors Limiting Gait Function Decreased Activity Tolerance, Decreased Strength,Poor Balance,Poor Safety Awareness, Respiratory Distress PT-Balance Assessment Sitting Balance and Reactions Static Sitting Balance Ability Good Dynamic Sitting Balance Ability Good Standing Balance and Reactions Static Standing Balance Ability Fair Dynamic Standing Balance Ability Fair Device Used FWW M5 PT-IP Objective Assessments Start: 03/24/20 12:45 Freq: NEEDED Status: Active Protocol: Document 03/24/20 09:45 AB (Rec: 03/24/20 12:58 AB [id number]) Orientation Orientation/Cognition Level of Alertness Alert Orientation Name,Place,Situation Language Function Ability No Deficits Noted Safety Awareness Decreased Safety Awareness Gross Range of Motion Lower Extremity ROM Assessment Within Functional Limits Strength Lower Extremity Strength Hip 4-/5 Knee 4-/5 Coordination Assessment Gross Coordination Gross Coordination WNL Sensation Assessment Sensation Gross Sensation WNL Muscle Tone Muscle Tone WNL Yes M6 PT-IP Treatment Start: 03/24/20 12:45 Freq: NEEDED Status: Active Protocol: Document 03/24/20 09:45 AB (Rec: 03/24/20 12:58 AB [id number]) Physical Therapy Treatment Education Education Provided Safety M7 PT-IP Assessment and Plan Start: 03/24/20 12:45 Freq: NEEDED Status: Active Protocol: Document 03/24/20 09:45 AB (Rec: 03/24/20 12:58 AB [email or web address]) PT Summary Assessment and Plan Potential Rehabilitation Potential Good Status of Condition at Evaluation Evolving Summary Impairments Pain,ROM,Strength,Balance, Cognition,Bed Mobility, Transfers,Gait,Activity Tolerance Assessment Summary pt requiring SBA to CGA with mobility but presents with decrease activity tolerance with decrease in O2 sat after ambulation. pt plans to go home and her daughter and daughter's family will assist her. pt may benefit from homehealth PT to improve activity tolerance and later on outpt cardiopulmo rehab. Goals Bed Mobility Goal Independent Transfer Goal Independent,Front Wheeled Walker Gait Goal Independent,Front Wheel Walker Gait Distance 100 Other Goals ambualtion without AD SBA ~ 75 ft up/down 2 steps without rails, [employer] ENGINEER min A Days to Meet Goals 5 Frequency of Treatment Frequency Of Treatment Once a Day Treatment Plan Physical Therapy Treatment Plan Bed Mobility Training,Transfer Training,Gait Training, Therapeutic Exercise,Balance Retraining,Discharge Planning, Coordination Retraining Other Recommendations and Next Treatment ambulation, stair climbing, Focus caregiver training Recommendations To Nursing Amount of Assist Needed 1 Person Assist Discharge Recommendations PT Discharge Recommendations Home with Assistance,Home Health Transportation Needs at Discharge Private Vehicle
--- NOTE | 2020-03-24 16:16 | CM.DANOTE ---
Discharge Planning/Care Management DCP: assessment: case received, EMR reviewed and met with pt. Introduced self and role. Pt is a 75 year old female who admitted last night to care of PCP: Dr. Ervin Payer: Medicare and [facility] Admission status: OBS Dr. Ervin anticipates pt will be stable for d/c to her home setting tomorrow pending ECHO results. Pt is currently on supplemental oxygen. Does not use this at home. Pt lives in a very small apartment at the [facility] which does include a kitchette. She reports she and her family (see template below for details) have lived there for more than a year and it works for us. It's really hard to find any housing around here. Pt has had [facility] in the past. She is able to get to her doctor appts she says as Lacey and Bill both drive. She does have a daughter Jaelyn in [facility] who has her own family and works multimedia artist. She says if she needs anything she can rely on Jaelyn to help her. Will follow up tomorrow and assist with any d/c needs that may arise. Pt would likely benefit from a dietary consult if this is available before pt discharges as suspect there are challenges for her and the family in regards to meal prep, dietary knowledge and financial limitations. CM Discharge Assessment Start: 03/24/20 16:12 Freq: Status: Active Protocol: Document 03/24/20 16:13 ITV (Rec: 03/24/20 16:16 ITV [id number]) Discharge Planning Assessment Advance Directives? Yes History Provided By Patient,Medical Record Comment [facility] Household Members family Comment lives with daughter Lacey: [phone] and Lacey's Ashok. Other family members have another room at the [facility] . Type of transporation used prior to Relies on Others admit Comment Bill or Lacey Independent with ADL's Yes Is patient alert and oriented? Yes DME Already Rented / Owned FWW / Walker Comment I mostly use the handley or furniture as our place is really small. Review Status In Process
[2020-03-25 01:21] VITALS: BP 140/62; RESP 20; TEMP 35.9
[2020-03-25 06:37] LABS: Add Manual Diff / Slide Review NO; Basophils Absolute Auto 0 /uL (0-100); Basophils Percent Auto 0.5 % (0-2); Eosinophils Absolute Auto 300 /uL (0-450); Eosinophils Percent Auto 4.1 % (2-4); Hematocrit 35.7 % (36-46); Hemoglobin 11.3 g/dL (12.0-16.0); Lymphocytes Absolute Auto 1900 /uL (1100-4500); Lymphocytes Percent Auto 30.4 % (25-40); Mean Corpuscular HGB Conc 31.7 % (30-36); Mean Corpuscular Hemoglobin 22.8 PG (26-34); Mean Corpuscular Volume 71.8 fL (80-100); Monocytes Absolute Auto 500 /uL (0-900); Monocytes Percent Auto 8.5 % (3-14); Neutrophils Absolute Auto 3500 /uL (1500-7000); Neutrophils Percent Auto 56.5 % (50-75); Platelet Count 222 X10^3/uL (150-400); Red Blood Cell Count 4.98 X10^6/uL (4.0-5.2); Red Cell Distribution Width 17.3 % (11.6-14.8); White Blood Cell Count 6.2 X10^3/uL (4.5-11.0)
[2020-03-25 06:45] LABS: BUN Creatinine Ratio 23.6 (6-22); Blood Urea Nitrogen 17 mg/dL (7-17); Carbon Dioxide 36 mmol/L (22-32); Chloride 90 mmol/L (98-107); Estimated Glomerular Filt Rate > 60.0 mL/min (>60); Glucose 106 mg/dL (80-110); HEMOLYSIS < 15 (0-50); Magnesium 1.6 mg/dL (1.6-2.3); Potassium 3.8 mmol/L (3.4-5.1); Sodium 133 mmol/L (137-145)
[2020-03-25] MEDS: ACETAMINOPHEN 325 MG TABLET 650 MG PO (08:45)
[2020-03-25] MEDS: ENOXAPARIN 40 MG/0.4 ML SYRINGE SUBCUT (08:45)
[2020-03-25] MEDS: FUROSEMIDE 40 MG/4 ML VIAL IV (08:45)
[2020-03-25] MEDS: SODIUM CHLORIDE 0.9% FLUSH 10 ML IV (08:45)
[2020-03-25 09:00] VITALS: BP 138/96; PULSE 83; RESP 19; TEMP 36.3; O2SAT 100
--- NOTE | 2020-03-25 09:28 | P.DS_ITS ---
History of Present Illness History of Present Illness Chief complaint: left leg swelling Discharge Providers Provider Date of admission: 03/23/20 20:36 Discharge Date: 03/25/20 Primary care physician: Graham Ervin MD Consults: 03/24/20 08:32 Consult to Physical Therapy Evaluate & Treat Comment: Physician Instructions: Evaluate and Treat Discharge provider: Rony Hernandez MD Summary Hospital Course Discharge Diagnosis: Acute congestive heart failure with preserved ejection fraction with hypoxia Hypertensive heart disease Seizure disorder Depression Gastroesophageal reflux History of cerebrovascular accident Hyperlipidemia Diabetes type 2 Hospital Course: Patient was brought to the emergency department with concerns about lower extremity edema and venous thromboembolism. During her hospital stay in the emergency room she had workup and evaluation with a negative D BT she was found to be hypoxic. And had a chest x-ray and further laboratory workup which found show that she was fluid overloaded and in heart failure. She was admitted for hospital evaluation and management During hospital stay. Patient was started on IV Lasix. She had immediate improvement of her fluid overload. With diuresis. Improvement of her lower extremity edema. Her oxygen levels went back to normal baseline. She had an echocardiogram done in the hospital which showed no significant valvular pathology but also normal ejection fraction. During her hospital stay she was able to ambulate with assistance she was kera ating her diet. Her shortness of breath was much improved both at rest and with ambulation and back to baseline. She lives at home with the daughter. Exam Vital Signs (past 8 hours): Oxygen Delivery Method Room Air Oxygen Flow Rate 2 Objective Labs Result Diagrams: 03/25/20 05:46 03/25/20 05:46 Labs: Laboratory Results - last 24 hr 03/25/20 03/25/20 03/25/20 05:46 05:46 05:46 WBC 6.2 RBC 4.98 Hgb 11.3 L Hct 35.7 L MCV 71.8 L MCH 22.8 L MCHC 31.7 RDW 17.3 H Plt Count 222 Neut % (Auto) 56.5 Lymph % (Auto) 30.4 Gonzales % (Auto) 8.5 Eos % (Auto) 4.1 H Baso % (Auto) 0.5 Neut # (Auto) 3500 Lymph # (Auto) 1900 Gonzales # (Auto) 500 Eos # (Auto) 300 Baso # (Auto) 0 Sodium 133 L Potassium 3.8 Chloride 90 L Carbon Dioxide 36 H BUN 17 Creatinine 0.72 Estimated GFR > 60.0 BUN/Creatinine Ratio 23.6 H Glucose 106 Calcium 9.0 Magnesium 1.6 Discharge Plan Discharge Plan Discharge Problem: Elevated brain natriuretic peptide (BNP) level, Hypoxia Patient Disposition: Home Discharge orders & Medications Prescriptions: New furosemide [Lasix] 40 mg tablet 40 mg PO DAILY Qty: 20 RF: 0 Continued hydrochlorothiazide 50 MG tablet 50 mg PO QDAY Qty: 0 RF: 0 simvastatin 10 MG tablet 10 mg PO HS Qty: 0 RF: 0 triamcinolone acetonide 0.1 % cream 0 gm Topical BID Qty: 1 RF: 5 aspirin 81 mg tablet,delayed release (DR/EC) 81 mg PO QDAY Qty: 90 RF: 2 omeprazole 20 mg capsule,delayed release(DR/EC) 20 mg PO DAILY Qty: 90 RF: 3 metformin 500 mg tablet extended release 24 hr 500 mg PO DAILY Qty: 90 RF: 1 sertraline 50 mg tablet 50 mg PO QDAY Qty: 90 RF: 0 ferrous sulfate 325 mg (65 mg iron) Tablet 325 mg PO BIDWM Qty: 60 RF: 8 levetiracetam 750 mg tablet 1,500 mg PO DAILY RF: 0 hydroxyzine HCl 25 mg tablet 50 mg PO DAILY RF: 0 losartan 100 mg tablet 100 mg PO DAILY RF: 0 potassium chloride 10 mEq tablet extended release 20 meq PO BID RF: 0 Follow up/Referrals: Graham Ervin MD [Primary Care Provider] - Visit Report/Discharge Packet Instructions: DI for Heart Failure, How to Prevent Falls Visit Report Forms: Patient Portal/API, Stroke Signs & Symptoms Discharge Data Primary Care Provider: Graham Ervin Attending Provider: Graham Ervin Admit Date/Time: 03/23/20 20:36 Quality VTE Deep Vein Thrombosis/Pulmonary Embolism Present on Admission: No
[2020-03-25 10:18] LABS: Bacteria Urine None Seen
[2020-03-25 10:21] LABS: Appearance Urine UA CLEAR; Bilirubin Urine UA NEGATIVE (NEGATIVE); Color Urine UA YELLOW; Glucose Urine UA NEGATIVE (Negative); Ketones Urine UA NEGATIVE (NEGATIVE); Leukocyte Esterase Urine UA 1+ (NEGATIVE); Nitrite Urine UA NEGATIVE (Negative); Occult Blood Urine UA TRACE-INTACT (Negative); Protein Urine UA NEGATIVE (Negative); Urobilinogen Urine UA 0.2 E.U./dL (0.2)
[2020-03-25 10:26] LABS: Culture Indicated Urine Specimen Cultured; RBC Urine 0-1/HPF (0-5/HPF); WBC Urine 1-5/HPF (0-5/HPF)
--- NOTE | 2020-03-25 10:51 | PT.IPTN ---
Current Diagnoses Major depressive disorder, single episode, unspecified (03/23/20) Epilepsy, unspecified, not intractable, without status epilepticus (03/23/20) Hypertensive encephalopathy (03/23/20) Gastro-esophageal reflux disease with esophagitis (03/23/20) Physical Therapy Treatment Note M2 PT-IP Current Condition Start: 03/24/20 12:45 Freq: NEEDED Status: Active Protocol: Document 03/24/20 09:45 AB (Rec: 03/24/20 12:58 AB [id number]) Physical Therapy Current Condition Current Condition Evaluation Date 03/24/20 Treatment Diagnosis CHF; generalized weakness Onset Date 03/23/20 Precautions Other Precautions O2 sat M3 PT-IP Subjective Start: 03/24/20 12:45 Freq: NEEDED Status: Active Protocol: Document 03/25/20 10:12 LJ (Rec: 03/25/20 10:50 LJ [id number]) Subjective Physical Therapy Visit Type Type Treatment Note Visit Start Time 10:12 Visit Stop Time 10:38 Total Visit Minutes 26 Physical Therapy Visit Comments Patient Comments pt is agreeable to do PT Patient Goals wants to go home today Therapy Pain Assessment Pain Present Pain Present Denied Pain M4 PT-IP Mobility and Gait Start: 03/24/20 12:45 Freq: NEEDED Status: Active Protocol: Document 03/25/20 10:12 LJ (Rec: 03/25/20 10:50 LJ [id number]) PT-Bed Mobility Assessment Supine to Sit Supine to Sit Standby Assistance Scooting Scooting to Edge of Bed Standby Assistance Scooting Up and Down in Bed Standby Assistance PT-Transfer Assessment Sit to and From Stand Sit to and from Stand Standby Assistance,Contact Guard Assistance,1 Person Assistance,Use of Upper Extremities Equipment Transfer Assistive Device Gait Belt,Front Wheeled Walker Orthotic/Prosthetic Devices or Brace: No Transfers Transfer Destination Bed Transfer Technique ambulated using FWW Transfer Ability Level of Assist Standby Assistance,Contact Guard Assistance,1 Person Assistance,Use of Upper Extremities Comments Mobility Comments pt completed all bed mobility SBA and sit>stand CGA for safety. Pt ambulated to foot of bed where a platform step was located to simulate home conditions. Pt placed FWW onto platform and stepped up using elbow rest on FWW for support . Pt able to lift herself onto the platform without LOB or heaving herself up. She then stepped down backwards from platform CGA. Platform was moved out of the way and pt ambulated in hallway around nursing station without LOB or SOB. Returned to room and daughter arrived. Spoke with daughter about safety issues and assisting the pt at home. Pt returned to sitting on side of bed in preparation to get dressed. INFORMATION SERVICES MANAGER entered room to assist Gait Assessment Gait Gait Assistance Required: Standby Assistance Distance (Feet) 220 Able to Maintain Weight Bearing Status Yes During Gait Assistive Devices Assistive Device Gait Belt,Front Wheeled Walker Orthotic/Prosthetic Devices or Brace: No Gait Deviations General Gait Pattern Antalgic,Decreased Stride Length,Decreased Feet Clearance,Narrow Based Gait Factors Limiting Gait Function Factors Limiting Gait Function Decreased Activity Tolerance, Decreased Strength,Poor Balance,Poor Safety Awareness Comments Gait Comments Pt ambulated in room and around [facility] without SOB or LOB. Able to navigate around obstacles and walk continuously while carrying on conversation. See mobility section M5 PT-IP Objective Assessments Start: 03/24/20 12:45 Freq: NEEDED Status: Active Protocol: Document 03/24/20 09:45 AB (Rec: 03/24/20 12:58 AB [id number]) Orientation Orientation/Cognition Level of Alertness Alert Orientation Name,Place,Situation Language Function Ability No Deficits Noted Safety Awareness Decreased Safety Awareness Gross Range of Motion Lower Extremity ROM Assessment Within Functional Limits Strength Lower Extremity Strength Hip 4-/5 Knee 4-/5 Coordination Assessment Gross Coordination Gross Coordination WNL Sensation Assessment Sensation Gross Sensation WNL Muscle Tone Muscle Tone WNL Yes M6 PT-IP Treatment Start: 03/24/20 12:45 Freq: NEEDED Status: Active Protocol: Document 03/25/20 10:12 VANDANA (Rec: 03/25/20 10:50 [id number]) Physical Therapy Treatment Education Education Provided Safety M7 PT-IP Assessment and Plan Start: 03/24/20 12:45 Freq: NEEDED Status: Active Protocol: Document 03/25/20 10:12 VANDANA (Rec: 03/25/20 10:50 VANDANA [id number]) PT Summary Assessment and Plan Potential Rehabilitation Potential Good Status of Condition at Evaluation Evolving Summary Impairments Pain,ROM,Strength,Balance, Cognition,Transfers,Gait, Activity Tolerance Assessment Summary Pt requires SBA for mobility and ambulation. Improved activity tolerance this session. Successfully stepped up onto platform step without much effort. Did not demonstrate any SOB with activity. She is safe to DC home with assistance. Goals Bed Mobility Goal Independent Transfer Goal Independent,Front Wheeled Walker Gait Goal Independent,Front Wheel Walker Gait Distance 100 Other Goals ambualtion without AD SBA ~ 75 ft up/down 2 steps without rails, WINCHMAN/CRANE OPERATOR min A Days to Meet Goals 5 Frequency of Treatment Frequency Of Treatment Once a Day Treatment Plan Physical Therapy Treatment Plan Bed Mobility Training,Transfer Training,Gait Training, Therapeutic Exercise,Balance Retraining,Discharge Planning, Coordination Retraining Other Recommendations and Next Treatment ambulation, stair climbing, Focus caregiver training Recommendations To Nursing Amount of Assist Needed 1 Person Assist Discharge Recommendations PT Discharge Recommendations Home with Assistance,Home Health Transportation Needs at Discharge Private Vehicle
--- NOTE | 2020-03-25 11:12 | PC.NURSE ---
Addendum entered by Carmen Chang R.N. 03/25/20 11:40: Called Dr. Hernandez's office and left message with answering service at 1102 to have New prescription for Lasix sent to pt's secondary pharmacy of [facility] in [place] as [place] [facility] is closed over the weekend. Dr. Hernandze called back around 1125 and will send prescription to [facility] in [place]. Pt and her daughter Lacey aware of this. Discharge summary packet reviewed with pt and her daughter Lacey at bedside. aware to call Dr. Ervin's office Friday morning to make follow up appointment. Pt given Heart Failure Guideline handout (Green/yellow/red colored coordinated for when to ask for medical help) also with instructions. No further voiced concerns. Pt left unit at 1140 in no distress via wheelchair with GUNNER'S MATE M escort. Lacey present to drive pt home. Original Note: Day Shift- Night RN reported pt having urinary urgency and frequency, every 45 mins to 1 hour up to BR to void. THis morning urine straw colored, slightly cloudy. Dr. Hernandez made aware around 0930 during rounds. Verbal order for Urine culture rec'd. Urine sample sent to lab. Pt's daughter called at 0904 and brief update given over phone okay by pt. Lacey in to visit pt and spoke wiht PT. Per PT, pt okay to discharge home. pt has all her personal belongings upon discharge.
[2020-03-25] MEDS: POTASSIUM CHLORIDE 20 MEQ/15 ML UDC PO (11:18)
--- NOTE | 2020-03-25 11:20 | CM.DPNOTE ---
DCP: continued. Pt was ok'd for a d/c to home setting by Dr. Hernandez. PT saw pt again while pt's daughter Lacey was here. Pt did well and was cleared for home with family prn support. Clinic followup is planned.
--- NOTE | 2020-04-10 08:10 | PM.DS.1 ---
History of Present Illness History of Present Illness Chief complaint: left leg swelling Narrative: Congestive heart failure Patient admitted through the ER last night. Patient presented to the emergency room complaining of left leg pain and swelling. A concern by the patient and family's of may be a blood clot. Her left leg was evaluated with ultrasound found to be negative. Meanwhile the patient is found to be hypoxic with O2 sats in the 80s. Patient was not aware this at the time but 1 was point now she became more wear. She required supplemental oxygen to get oxygen levels above 90. Because the apparent hypoxia and presumed congestive heart failure she was mid for intravenous diuresis as well as further evaluation. He had no fever chills. No cough she herself denies being short of breath but that in retrospect she probably was just got used to it. She has no edema of the left leg as stated. She has had no dizziness. No palpitations no diaphoresis. She was given 40 of Lasix IV in the emergency room last evening and at overnight got significantly better does not require supplemental oxygen now. 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 Other medical K problems include diabetes, depression, iron deficiency, chronic reflux, hyperlipidemia. She is on multiple medications for the above diagnoses. Discharge Providers Provider Date of admission: 03/23/20 20:36 Discharge Date: 03/25/20 Primary care physician: Graham Ervin MD Consults: 03/24/20 08:32 Consult to Physical Therapy Evaluate & Treat Comment: Physician Instructions: Evaluate and Treat Discharge provider: Graham Ervin MD Exam Vital Signs (past 8 hours): Oxygen Delivery Method Room Air Oxygen Flow Rate 0 Objective Labs Result Diagrams: 03/25/20 05:46 03/25/20 05:46 Discharge Assessment & Plan Assessment and Plan Assessment: Addendum Patient has diastolic congestive heart failure based on normal ejection fraction Discharge Plan Discharge Plan Patient Disposition: Home Discharge orders & Medications Prescriptions: New furosemide [Lasix] 40 mg tablet 40 mg PO DAILY Qty: 20 RF: 0 Continued hydrochlorothiazide 50 MG tablet 50 mg PO QDAY Qty: 0 RF: 0 simvastatin 10 MG tablet 10 mg PO HS Qty: 0 RF: 0 aspirin 81 mg tablet,delayed release (DR/EC) 81 mg PO QDAY Qty: 90 RF: 2 omeprazole 20 mg capsule,delayed release(DR/EC) 20 mg PO DAILY Qty: 90 RF: 3 metformin 500 mg tablet extended release 24 hr 500 mg PO DAILY Qty: 90 RF: 1 levetiracetam 750 mg tablet 1,500 mg PO DAILY RF: 0 hydroxyzine HCl 25 mg tablet 50 mg PO DAILY RF: 0 losartan 100 mg tablet 100 mg PO DAILY RF: 0 potassium chloride 10 mEq tablet extended release 20 meq PO BID RF: 0 No Action sertraline 50 mg tablet 50 mg PO QDAY Qty: 90 RF: 0 ferrous sulfate 325 mg (65 mg iron) tablet 325 mg PO BIDWM Qty: 60 RF: 8 hydrocodone-acetaminophen 5-325 mg Tablet 1 tab PO Q4HR PRN (Reason: Pain, Moderate (4-6)) Qty: 0 RF: 0 magnesium hydroxide 400 mg (170 mg magnesium) tablet,chewable 400 mg PO .qd 30 Days Qty: 50 RF: 0 hydrocodone-acetaminophen 5-325 mg tablet 1 tab PO Q6H PRN (Reason: pain) Qty: 50 RF: 0 Follow up/Referrals: Graham Ervin MD [Primary Care Provider] - Visit Report/Discharge Packet Instructions: DI for Heart Failure, How to Prevent Falls, DI for Prescription Opioid Use, Furosemide (By mouth) Visit Report Forms: Congestive Heart Failure, Patient Portal/API, Stroke Signs & Symptoms Discharge Data Primary Care Provider: Graham Ervin Attending Provider: Graham Ervin Admit Date/Time: 03/23/20 20:36 Discharges patient from system. Discharge Date/Time: 03/25/20 11:40 Quality VTE Deep Vein Thrombosis/Pulmonary Embolism Present on Admission: No
== END 2020-03-25 11:40 | disposition home or self-care (01) ==
LOC: ED 16:33 → AC 20:37
PROVIDERS: Family Medicine; Admitting Provider Family Medicine; Emergency Provider Nurse Practitioner Family; PCP Family Medicine; Referring Provider Nurse Practitioner Family; Visit Provider Family Medicine
DX: I50.9 Heart failure, unspecified (principal); R09.02 Hypoxemia; I11.0 Hypertensive heart disease with heart failure; G40.909 Epilepsy, unspecified, not intractable, without status epilepticus; F32.9 Major depressive disorder, single episode, unspecified; M79.89 Other specified soft tissue disorders; Z87.891 Personal history of nicotine dependence; Z86.73 Personal history of transient ischemic attack (TIA), and cerebral infarction without residual deficits; K21.9 Gastro-esophageal reflux disease without esophagitis; E11.9 Type 2 diabetes mellitus without complications; E78.5 Hyperlipidemia, unspecified; Z11.59 Encounter for screening for other viral diseases
CPT/HCPCS: 36415; 36592; 71275; 80048; 80053; 81001; 82550; 82962; 83036; 83735; 83880; 84484; 85025; 85610; 85730; 87077; 87086; 87186; 87635; 93306; 93971; 94760; 94762; 96361; 96372; 96374; 96376; 97116; 97162; 97530; 99222; 99238; 99284; G0378; J1650; J1940; Q9957; Q9967

== ENCOUNTER 2020-03-31 20:06 | Inpatient (IN) | payer MEDICARE, OTHER, SELFPAY ==
[2020-03-23 22:21] VITALS: BMI 23.6
[2020-03-31] VITALS (11 sets, daily range): BP systolic 109–126; BP diastolic 57–66; PULSE 85–102; RESP 22; TEMP 37; O2SAT 83–94; BMI 28.3
[2020-03-31 23:24] LABS: Add Manual Diff / Slide Review NO; Basophils Absolute Auto 100 /uL (0-100); Basophils Percent Auto 0.6 % (0-2); Eosinophils Absolute Auto 0 /uL (0-450); Eosinophils Percent Auto 0.1 % (2-4); Hematocrit 32.1 % (36-46); Hemoglobin 10.1 g/dL (12.0-16.0); Lymphocytes Absolute Auto 1500 /uL (1100-4500); Lymphocytes Percent Auto 10.9 % (25-40); Mean Corpuscular HGB Conc 31.5 % (30-36); Mean Corpuscular Hemoglobin 22.8 PG (26-34); Mean Corpuscular Volume 72.4 fL (80-100); Monocytes Absolute Auto 1200 /uL (0-900); Monocytes Percent Auto 8.7 % (3-14); Neutrophils Absolute Auto 11300 /uL (1500-7000); Neutrophils Percent Auto 79.7 % (50-75); Platelet Count 196 X10^3/uL (150-400); Red Blood Cell Count 4.43 X10^6/uL (4.0-5.2); Red Cell Distribution Width 17.4 % (11.6-14.8); White Blood Cell Count 14.2 X10^3/uL (4.5-11.0)
[2020-03-31 23:28] LABS: Alanine Aminotransferase 13 IU/L (<35); Albumin 3.6 g/dL (3.5-5.0); Albumin Globulin Ratio 0.9 (1.0-2.8); Alkaline Phosphatase 79 U/L (38-126); Aspartate Aminotransferase 25 IU/L (14-36); BUN Creatinine Ratio 30.1 (6-22); Bilirubin Total 0.9 mg/dL (0.2-1.3); Blood Urea Nitrogen 28 mg/dL (7-17); Calcium 8.7 mg/dL (8.4-10.2); Carbon Dioxide 30 mmol/L (22-32); Chloride 93 mmol/L (98-107); Estimated Glomerular Filt Rate 59.1 mL/min (>60); Globulin 3.9 g/dL (1.7-4.1); Glucose 135 mg/dL (80-110); HEMOLYSIS < 15 (0-50); Potassium 4.3 mmol/L (3.4-5.1); Sodium 130 mmol/L (137-145); Total Protein 7.5 g/dL (6.3-8.2)
--- NOTE | 2020-03-31 23:55 | DI.RAD.S_ITS ---
PROCEDURE: XR LUMBAR SPINE 2-3V INDICATIONS: Fall/pain TECHNIQUE: 3 views of the lumbar spine were acquired. COMPARISON: [facility], CT, ABDOMEN/PELVIS WITH CONTRAST, 06/28/2013, 19:15. [facility], CR, L-SPINE 2-3 VIEWS, 05/03/2011, 10:19. [facility], CT, CT PEL WO CON, 04/01/2020, 3:03. [facility], CT, CT LUMBAR SPINE WO CON, 04/01/2020, 3:03. FINDINGS: Bones: 5 [id number] vertebrae are present. There is normal bony alignment. Stable mild anterior wedge deformities are seen involving the T10, T12, and L2 levels. No acute vertebral body compression fractures. No suspicious bony lesions. Degenerative changes are seen throughout, with endplate irregularity and sclerosis. Facet arthropathy is seen throughout. Soft tissues: Overlying bowel gas pattern is normal. No suspicious soft tissue calcifications. Atherosclerotic calcification is noted. IMPRESSION: No acute plain film abnormality is seen. Remote appearing anterior wedge deformities at T10, T12, and L2. Age-appropriate degenerative changes are seen. Dictated by: Tico Sanders M.D. on 04/01/2020 at 10:15 Approved by: Tico Sanders M.D. on 04/01/2020 at 10:17
--- NOTE | 2020-03-31 23:55 | DI.RAD.S_ITS ---
PROCEDURE: XR PELVIS 1-2V INDICATIONS: Fall/pain TECHNIQUE: 1 view(s) of the pelvis acquired. COMPARISON: [facility], CT, ABDOMEN/PELVIS WITH CONTRAST, 06/28/2013, 19:15. [facility], CT, CT LUMBAR SPINE WO CON, 04/01/2020, 3:03. [facility], CT, CT PEL WO CON, 04/01/2020, 3:03. [facility], CR, XR SACRUM COCCYX MIN 2V, 03/31/2020, 23:47. [facility], CR, XR LUMBAR SPINE 2-3V, 03/31/2020, 23:47. FINDINGS: Bones: There are faintly seen fractures of the right superior and inferior pubic rami. Note is made of osteitis pubis, which is not considered to be frankly abnormal in a woman of this age. Age-appropriate lower lumbar spine degenerative changes are noted. There is moderate superior joint space narrowing seen of both hips, with associated remodeling changes with subchondral sclerosis and osteophyte formation. No suspicious lytic or blastic lesions are seen. Soft tissues: Visualized bowel gas pattern is normal. No suspicious soft tissue calcifications. IMPRESSION: Faintly seen, mildly displaced fractures of the right superior and inferior pubic rami, which are much better seen on the subsequently performed CT examination. Dictated by: Tico Sanders M.D. on 04/01/2020 at 10:17 Approved by: Tico Sanders M.D. on 04/01/2020 at 10:18
--- NOTE | 2020-03-31 23:55 | DI.RAD.S_ITS ---
PROCEDURE: XR SACRUM COCCYX MIN 2V INDICATIONS: Fall/pain TECHNIQUE: 3 views of the sacrum and coccyx acquired. COMPARISON: [facility], CT, ABDOMEN/PELVIS WITH CONTRAST, 06/28/2013, 19:15. [facility], CT, CT LUMBAR SPINE WO CON, 04/01/2020, 3:03. [facility], CT, CT PEL WO CON, 04/01/2020, 3:03. [facility], CR, XR PELVIS 1-2V, 03/31/2020, 23:47. [facility], CR, XR LUMBAR SPINE 2-3V, 03/31/2020, 23:47. FINDINGS: Bones: Evaluation of the sacrum and coccyx is limited by prominent rectal stool. This patient has fractures of the superior and inferior pubic rami on the right, which are much better seen on the subsequently performed CT examination. Degenerative changes are seen throughout, including the visualized lower lumbar spine and the sacroiliac joints. No suspicious lytic or blastic lesions are seen. Soft tissues: Visualized bowel gas pattern is normal. No suspicious soft tissue densities. IMPRESSION: Faint visualization fractures involving the right superior and inferior pubic rami, which are much better seen on the subsequently performed CT examination. Dictated by: Tico Sanders M.D. on 04/01/2020 at 10:19 Approved by: Tico Sanders M.D. on 04/01/2020 at 10:20
--- NOTE | 2020-03-31 23:57 | ED_ITS ---
HPI - Back Pain/Injury General Chief Complaint: Extremity Injury, Lower Stated Complaint: Can't walk/pain Time Seen by Provider: 03/31/20 23:48 Source: patient, family and EMS Limitations: no limitations History of Present Illness HPI Narrative: Patient brought in by ambulance from home. Patient here with daughter. Patient fell Friday morning at home landing on her buttocks. Was able to walk on that day when she had to go to for follow-up with primary care physician after admission here on the for congestive heart failure. Yesterday decreased ambulation. Today very painful to walk. Short steps. Complains of lower back pain pelvis pain. Denies any hip pain. No loss of consciousness. No numbness or tingling to the groin or feet or legs. Limited mobility due to pain. Not weakness. No fever or chills. No urinary complaints. No bowel or bladder incontinence or retention. Related Data Home Medications Medication Instructions Recorded Confirmed hydrochlorothiazide 50 mg PO QDAY #0 tab 03/11/13 03/29/20 simvastatin 10 mg PO HS #0 tab 03/11/13 03/29/20 hydroxyzine HCl 50 mg PO DAILY 03/23/20 03/29/20 levetiracetam 1,500 mg PO DAILY 03/23/20 03/29/20 losartan 100 mg PO DAILY 03/23/20 03/29/20 potassium chloride 20 meq PO BID 03/23/20 03/29/20 Previous Rx's Medication Instructions Recorded triamcinolone acetonide 0 gm TOPICAL BID #1 tube 08/07/17 ferrous sulfate 325 mg PO BIDWM #60 tab 07/26/18 aspirin 81 mg tablet,delayed 81 mg PO QDAY #90 tab 07/05/19 release omeprazole 20 mg capsule,delayed 20 mg PO DAILY #90 cap 10/11/19 release metformin 500 mg tablet,extended 500 mg PO DAILY #90 tab 12/31/19 release 24 hr furosemide [Lasix] 40 mg PO DAILY #20 tab 03/25/20 sertraline 50 mg tablet 50 mg PO QDAY #90 tab 03/31/20 Allergies Allergy/AdvReac Type Severity Reaction Status Date / Time No Known Drug Allergies Allergy Verified 03/31/20 20:08 Review of Systems Review of Systems Narrative: GENERAL: Denies chills, fatigue, malaise, fever, sweats. HEENT: Denies sinus pain, ear pain, sore throat, difficulty swallowing, dizziness. RESPIRATORY: Denies dyspnea, cough, wheezing, hemoptysis, sputum. CARDIOVASCULAR: Denies chest pain, palpitations, orthopnea, edema, GASTROINTESTINAL: Denies nausea, vomiting, abdominal pain, diarrhea, cons tipation, melena. : Denies dysuria, frequency, incontinence, hematuria, urinary retention. MUSCULOSKELETAL: denies weakness, complains of joint pain, or bony pain SKIN: Denies rash, skin lesions NEUROLOGIC: Denies weakness, headache, numbness, change in speech, confusion, seizures, incoordination. PSYCHIATRIC: No concerning psychosocial issues. ROS Unobtainable: All systems reviewed & are unremarkable except as noted in HPI and below Patient History Medical History Alopecia (Chronic) Anxiety (Chronic) Asthma (Chronic) Back pain (Chronic) Carpal tunnel syndrome (Chronic) Chicken pox (Resolved) Chronic back pain (Chronic) Foot pain (Chronic) Headache (Chronic) Hearing loss (Chronic) History of recurrent ear infection (Chronic) Hypertension (Chronic) Measles (Resolved) Mumps (Resolved) Recurrent sinusitis (Chronic) Seasonal allergies (Chronic) Shoulder pain (Chronic) Sleep apnea (Chronic) Vertigo (Resolved) Vision disorder (Chronic) Family History Child Age: 48 Cancer Heart disease Hypertension High cholesterol Diabetes mellitus Father Stroke Mother Heart disease Hypertension High cholesterol Diabetes mellitus Brother No problems noted. Brother No problems noted. Social History household members: family Smoking Status: Former smoker alcohol intake: former Smoking Status: Former smoker Substance Use Type: does not use Exam Narrative Exam Narrative: GENERAL: patient appears stated age. Well-nourished, well- developed patient, in no distress, not toxic, pants are off shoes are off socks are off HEAD: Atraumatic. Normocephalic. EYES: Pupils equal round and reactive. Extraocular motions intact. No scleral icterus. No injection or drainage. ENT: Nose without bleeding, purulent drainage. Throat without erythema, tonsillar hypertrophy or exudate. Airway patent. NECK: Trachea midline. Non tender CARDIOVASCULAR: Regular rate and rhythm without murmurs, gallops, or rubs. RESPIRATORY: Clear to auscultation. Breath sounds equal bilaterally. No wheezes, rales, or rhonchi. GASTROINTESTINAL: Abdomen soft, non-tender, nondistended. EXTREMITIES: No edema or joint tenderness. Straight leg raises bilaterally pain at 30? each. BACK: Able to logroll patient there is midline tenderness at the sacrum. Pelvis stable. No skin injury. No fluctuance midline no erythema NEURO: AOx4. Strong bilateral hip and knee flexion and extension as well as ankle flexion extension. Light touch intact to feet and toes. Strong bilateral patellar reflexes in supine position. Too painful to stand for gait testing SKIN: No rash or erythema of visible areas PSYCH: Not anxious, is cooperative Initial Vital Signs Initial Vital Signs: Vital Signs Temperature 98.6 F 03/31/20 20:08 Pulse Rate 99 H 03/31/20 20:08 Respiratory Rate 22 03/31/20 20:08 Blood Pressure 126/66 03/31/20 20:08 Pulse Oximetry 92 03/31/20 20:08 Course Course Course Narrative: Patient likely has sleep apnea? Has desaturations down to mid 80s but improves with 2 L nasal cannula with sleeping. Decision to Admit Date: 04/01/20 Decision to Admit time: 04:13 Orders Ordered: ED Orders 03/31/20 22:25 C-Reactive Protein Quant Stat CMP [Comprehensive Metabolic Panel] Stat Complete Blood Count AUTO DIFF Stat Erythrocyte Sedimentation Rate Stat 03/31/20 23:55 XR lumbar spine 2-3V Stat XR pelvis 1-2V Stat XR sacrum coccyx min 2V Stat 04/01/20 01:56 CT lumbar spine wo con Stat CT pelvis wo con Stat 04/01/20 04:00 COVID19 -ED/INPAT/OR/L&D Stat 04/01/20 04:19 Consult to Orthopedic Surgery Urgent Morphine Sulfate (Morphine) 2 mg IV Q4HR PRN PRN Reason: Pain, Moderate (4-6) Ondansetron HCl (Zofran) 4 mg IV Q4HR PRN PRN Reason: Nausea And Vomiting Discontinued Medications Morphine Sulfate (Morphine) 4 mg IV NOW ONE Stop: 03/31/20 23:57 Last Admin: 04/01/20 00:02 Dose: 4 mg Documented by: JESUS Ondansetron HCl (Zofran) 4 mg IV NOW ONE Stop: 03/31/20 23:57 Last Admin: 04/01/20 00:02 Dose: 4 mg Documented by: JESUS Reevaluation(s) Reevaluation #1: Spoke with patient and daughter regarding results of CT scan. They agree for admission to the hospital Time: 04:13 Consultations Consultation #1: s/w dr munoz, will admit pt...he will contact ortho in the am Time: 04:14 Vital Signs Vital signs: Vital Signs - 8 hr 04/01/20 00:49 04/01/20 01:00 04/01/20 01:30 Pulse Rate 94 H 89 85 Respiratory Rate Blood Pressure Pulse Oximetry 98 98 96 04/01/20 02:00 04/01/20 02:30 04/01/20 03:18 Pulse Rate 78 75 Respiratory Rate Blood Pressure Pulse Oximetry 98 99 86 L 04/01/20 03:19 04/01/20 03:30 04/01/20 04:00 Pulse Rate 110 H 86 74 Respiratory Rate 18 Blood Pressure 124/60 Pulse Oximetry 91 93 93 04/01/20 04:25 04/01/20 04:26 Pulse Rate 88 Respiratory Rate Blood Pressure 95/55 L Pulse Oximetry 94 MDM - Back Pain/Injury Differential Diagnosis Differential diagnosis: Likely other (Lumbar fracture/pelvic fracture/hip fracture/spinal abscess) Medical Records Attestation: I reviewed the patient's medical records. Lab Data Attestation: I reviewed the patient's lab results. Result diagrams: 03/31/20 22:25 03/31/20 22:25 Labs: Lab Results 03/31/20 03/31/20 03/31/20 Range/Units 22:25 22:25 22:25 WBC 14.2 H (4.5-11.0) X10^3/uL RBC 4.43 (4.0-5.2) X10^6/uL Hgb 10.1 L (12.0-16.0) g/dL Hct 32.1 L (36-46) % MCV 72.4 L (80-100) fL MCH 22.8 L (26-34) PG MCHC 31.5 (30-36) % RDW 17.4 H (11.6-14.8) % Plt Count 196 (150-400) X10^3/uL Neut % (Auto) 79.7 H (50-75) % Lymph % (Auto) 10.9 L (25-40) % [place] % (Auto) 8.7 (3-14) % Eos % (Auto) 0.1 L (2-4) % Baso % (Auto) 0.6 (0-2) % Neut # (Auto) 65596 H (7804-6151) /uL Lymph # (Auto) 1500 (8163-5370) /uL [place] # (Auto) 1200 H (0-900) /uL Eos # (Auto) 0 (0-450) /uL Baso # (Auto) 100 (0-100) /uL ESR 55 H (0-20) MM/HR Sodium 130 L (137-145) mmol/L Potassium 4.3 (3.4-5.1) mmol/L Chloride 93 L (98-107) mmol/L Carbon Dioxide 30 (22-32) mmol/L BUN 28 H (7-17) mg/dL Creatinine 0.93 (0.52-1.04) mg/dL Estimated GFR 59.1 L (>60) mL/min BUN/Creatinine Ratio 30.1 H (6-22) Glucose 135 H (80-110) mg/dL Calcium 8.7 (8.4-10.2) mg/dL Total Bilirubin 0.9 (0.2-1.3) mg/dL AST 25 (14-36) IU/L ALT 13 (<35) IU/L Alkaline Phosphatase 79 (38-126) U/L C-Reactive Protein (<1.0) mg/dL Total Protein 7.5 (6.3-8.2) g/dL Albumin 3.6 (3.5-5.0) g/dL Globulin 3.9 (1.7-4.1) g/dL Albumin/Globulin Ratio 0.9 L (1.0-2.8) COVID-19 PCR (Negative) 03/31/20 04/01/20 Range/Units 22:25 04:00 WBC (4.5-11.0) X10^3/uL RBC (4.0-5.2) X10^6/uL Hgb (12.0-16.0) g/dL Hct (36-46) % MCV (80-100) fL MCH (26-34) PG MCHC (30-36) % RDW (11.6-14.8) % Plt Count (150-400) X10^3/uL Neut % (Auto) (50-75) % Lymph % (Auto) (25-40) % [place] % (Auto) (3-14) % Eos % (Auto) (2-4) % Baso % (Auto) (0-2) % Neut # (Auto) (4152-0865) /uL Lymph # (Auto) (4295-3194) /uL [place] # (Auto) (0-900) /uL Eos # (Auto) (0-450) /uL Baso # (Auto) (0-100) /uL ESR (0-20) MM/HR Sodium (137-145) mmol/L Potassium (3.4-5.1) mmol/L Chloride (98-107) mmol/L Carbon Dioxide (22-32) mmol/L BUN (7-17) mg/dL Creatinine (0.52-1.04) mg/dL Estimated GFR (>60) mL/min BUN/Creatinine Ratio (6-22) Glucose (80-110) mg/dL Calcium (8.4-10.2) mg/dL Total Bilirubin (0.2-1.3) mg/dL AST (14-36) IU/L ALT (<35) IU/L Alkaline Phosphatase (38-126) U/L C-Reactive Protein 8.6 H (<1.0) mg/dL Total Protein (6.3-8.2) g/dL Albumin (3.5-5.0) g/dL Globulin (1.7-4.1) g/dL Albumin/Globulin Ratio (1.0-2.8) COVID-19 PCR Negative (Negative) Imaging Data CT scan lumbar spine: Radiologist's Impression: No acute process CT scan pelvis: Radiologist's Impression: Superior and inferior pubic ramus fractures bilaterally are nondisplaced and minimally displaced. Without additional pelvic fracture or significant hematoma MDM Narrative Medical decision making narrative: At this time laboratory studies leukocytosis ESR CRP nonspecific, appropriate for admission for physical therapy eval and treat. Discharge Plan Departure Patient Disposition: Admitted as Observation Clinical Impression: Multiple pelvic fractures Qualifiers: Encounter type: initial encounter Fracture type: closed Fracture alignment: without disruption of pelvic ring Qualified Code(s): S32.82XA - Multiple fractures of pelvis without disruption of pelvic ring, initial encounter for closed fracture Discharge Date/Time: 04/01/20 04:57 Referrals: Graham Ervin MD [Primary Care Provider] - Admit Date/Time: 04/01/20 04:48 Admit Provider: Vitaly Munoz
[2020-04-01] VITALS (21 sets, daily range): BP systolic 95–124; BP diastolic 54–61; PULSE 66–110; RESP 16–19; TEMP 36.1–37; O2SAT 80–99; BMI 27.7
[2020-04-01] MEDS: ONDANSETRON 4 MG/2 ML INJ IV (00:02)
[2020-04-01] MEDS: MORPHINE 4 MG/ML INJ IV (00:02)
[2020-04-01 00:20] LABS: C-Reactive Protein Quant 8.6 mg/dL (<1.0)
[2020-04-01 00:36] LABS: Erythrocyte Sedimentation Rate 55 MM/HR (0-20)
--- NOTE | 2020-04-01 01:56 | DI.CT.S_ITS ---
PROCEDURE: CT LUMBAR SPINE WO CON INDICATIONS: Fall/pain TECHNIQUE: Noncontrast 3 mm thick sections acquired from the T12 level to the sacrum. Sagittal and coronal reformats were constructed. For radiation dose reduction, the following was used: automated exposure control. COMPARISON: [facility], CT, ABDOMEN/PELVIS WITH CONTRAST, 06/28/2013, 19:15. [facility], MR, L-SPINE WITHOUT CONTRAST, 07/23/2011, 16:04. [facility], MR, L-SPINE WITHOUT CONTRAST, 08/15/2010, 12:57. [facility], CR, XR PELVIS 1-2V, 03/31/2020, 23:47. [facility], CT, CT PEL WO CON, 04/01/2020, 3:03. FINDINGS: Image quality: Excellent. Bones: No acute vertebral body compression fractures. Stable anterior wedge deformities are seen involving T12 and L2, which are not significantly changed compared to 2012. No significant alignment abnormality is seen. No suspicious lytic or blastic bony lesions. Central spinal caliber is of normal overall caliber. No pars defects. T11-T12: Moderate loss of disc height is seen. Vacuum disc phenomenon is seen at this level. Mild generalized disc bulge is seen. Moderate bilateral neural foraminal narrowing is seen. Minimal central canal narrowing is seen. T12-L1: [id number] loss of disc height is seen. Minimal vacuum disc phenomenon is seen posteriorly. Mild generalized disc bulge is seen. No significant neural foraminal or central canal narrowing can be seen. L1-L2: Mild loss of disc height is seen. Loss of disc signal is seen. Vacuum disc phenomenon is seen at this level. Mild to moderate disc bulge is seen. There is moderate bilateral neural foraminal narrowing seen. Mild to moderate central canal narrowing is seen. L2-L3: The disc height is well preserved. Mild generalized disc bulge is seen. Mild facet joint hypertrophy is seen. Mild to moderate bilateral neural foraminal narrowing is seen. Mild central canal narrowing is seen. L3-L4: At least moderate loss of disc height is seen. Moderate disc bulge is seen, with a central disc protrusion. Moderate facet joint hypertrophy is seen. Moderate bilateral neural foraminal narrowing is seen. No significant central canal narrowing is seen. L4-L5: Moderate to severe loss of disc height is seen. Endplate irregularity and sclerosis can be seen. Partial bridging of endplate osteophytes can be seen. Posteriorly projected endplate osteophytes are seen. At least moderate disc bulge is seen. Facet there is moderate to severe left-sided and at least moderate right-sided neural foraminal narrowing seen. Moderate central canal narrowing is seen. L5-S1: Moderate loss of disc height is seen. Endplate irregularity and sclerosis can be seen. Posteriorly projected endplate osteophytes are seen. Bridging endplate osteophytes are seen. Moderate to severe bilateral neural foraminal narrowing is seen. At least moderate central canal narrowing is seen. Soft tissues: No retroperitoneal masses or hematomas. No aneurysm is seen, although the distal abdominal aorta is ectatic, measuring 2.6 cm AP. Atherosclerotic calcification is noted. The left kidney is atrophic. IMPRESSION: No acute fracture can be seen. Remote T12 and L2 compression deformities. Degenerative changes are seen throughout, which are worst at the L4-5 and L5-S1 levels. The degenerative changes have progressed over time. Incidental note is made of: Atrophic left kidney Ectatic distal abdominal aorta, 2.6 cm AP Note: No significant discrepancy from the preliminary report. Dictated by: Tico Sanders M.D. on 04/01/2020 at 8:37 Approved by: Tico Sanders M.D. on 04/01/2020 at 8:45
--- NOTE | 2020-04-01 01:56 | DI.CT.S_ITS ---
PROCEDURE: CT PEL WO CON INDICATIONS: Fall/pain TECHNIQUE: Noncontrast 3 mm axial sections acquired through the bony pelvis, with coronal and sagittal reformatting. COMPARISON: [facility], CT, CT LUMBAR SPINE WO CON, 04/01/2020, 3:03. [facility], CR, XR PELVIS 1-2V, 03/31/2020, 23:47. [facility], CT, ABDOMEN/PELVIS WITH CONTRAST, 06/28/2013, 19:15. FINDINGS: Image quality: Excellent. Bones: There is a longitudinal fracture seen involving the right superior pubic ramus, as on series 4, image 37. There is also a mildly displaced fracture seen involving the right inferior pubic ramus, as on series 2, image 69. There are faintly seen nondisplaced fractures of the left superior and inferior pubic rami. No definite additional fractures are seen. No significant associated soft tissue hematomas are seen. No dislocations. Degenerative changes are seen throughout, particularly involving the lower lumbar spine. No suspicious lytic or blastic lesions are seen. Note is made of osteitis pubis, which is not considered to be frankly abnormal in a woman of this age. Soft tissues: There is an anterior abdominal wall hernia seen involving the right lower quadrant, which contains fat, as on series 3, image 1. A mild periumbilical hernia is seen, containing fat. This patient is status post hysterectomy. No adnexal masses are seen. No dilated loops of small bowel are seen. A normal appendix is incidentally noted. No free air or significant free fluid can be seen. No enlarged lymph nodes are seen. IMPRESSION: Mildly displaced fractures of the right superior pubic ramus and inferior pubic ramus. Faintly seen, minimally displaced fractures of the left superior and inferior pubic rami. Incidental note is made of: Fat containing periumbilical hernia Fat containing right lower quadrant anterior abdominal wall hernia Hysterectomy Note: No significant discrepancy from the preliminary report. Dictated by: Tico Sanders M.D. on 04/01/2020 at 8:45 Approved by: Tico Sanders M.D. on 04/01/2020 at 8:50
[2020-04-01 04:33] LABS: COVID19 -Nasal RAPID Negative (Negative)
--- NOTE | 2020-04-01 04:48 | DS_ITS ---
History of Present Illness History of Present Illness Chief complaint: left leg swelling Narrative: Congestive heart failure Patient admitted through the ER last night. Patient presented to the emergency room complaining of left leg pain and swelling. A concern by the patient and family's of may be a blood clot. Her left leg was evaluated with ultrasound f ound to be negative. Meanwhile the patient is found to be hypoxic with O2 sats in the 80s. Patient was not aware this at the time but 1 was point now she became more wear. She required supplemental oxygen to get oxygen levels above 90. Because the apparent hypoxia and presumed congestive heart failure she was mid for intravenous diuresis as well as further evaluation. He had no fever chills. No cough she herself denies being short of breath but that in retrospect she probably was just got used to it. She has no edema of the left leg as stated. She has had no dizziness. No palpitations no diaphoresis. She was given 40 of Lasix IV in the emergency room last evening and at overnight got significantly better does not require supplemental oxygen now. 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 Other medical K problems include diabetes, depression, iron deficiency, chronic reflux, hyperlipidemia. She is on multiple medications for the above diagnoses. Discharge Providers Provider Date of admission: 03/23/20 20:36 Discharge Date: 03/25/20 Primary care physician: Graham Ervin MD Consults: 03/24/20 08:32 Consult to Physical Therapy Evaluate & Treat Comment: Physician Instructions: Evaluate and Treat Discharge provider: Graham Ervin MD Exam Vital Signs (past 8 hours): Oxygen Delivery Method Room Air Oxygen Flow Rate 0 Objective Labs Result Diagrams: 03/25/20 05:46 03/25/20 05:46 Discharge Assessment & Plan Assessment and Plan Assessment: Addendum Patient has diastolic congestive heart failure based on normal ejection fraction Discharge Plan Discharge Plan Patient Disposition: Home Discharge orders & Medications Prescriptions: New furosemide [Lasix] 40 mg tablet 40 mg PO DAILY Qty: 20 RF: 0 Continued hydrochlorothiazide 50 MG tablet 50 mg PO QDAY Qty: 0 RF: 0 simvastatin 10 MG tablet 10 mg PO HS Qty: 0 RF: 0 aspirin 81 mg tablet,delayed release (DR/EC) 81 mg PO QDAY Qty: 90 RF: 2 omeprazole 20 mg capsule,delayed release(DR/EC) 20 mg PO DAILY Qty: 90 RF: 3 metformin 500 mg tablet extended release 24 hr 500 mg PO DAILY Qty: 90 RF: 1 levetiracetam 750 mg tablet 1,500 mg PO DAILY RF: 0 hydroxyzine HCl 25 mg tablet 50 mg PO DAILY RF: 0 losartan 100 mg tablet 100 mg PO DAILY RF: 0 potassium chloride 10 mEq tablet extended release 20 meq PO BID RF: 0 No Action sertraline 50 mg tablet 50 mg PO QDAY Qty: 90 RF: 0 ferrous sulfate 325 mg (65 mg iron) tablet 325 mg PO BIDWM Qty: 60 RF: 8 hydrocodone-acetaminophen 5-325 mg Tablet 1 tab PO Q4HR PRN (Reason: Pain, Moderate (4-6)) Qty: 0 RF: 0 magnesium hydroxide 400 mg (170 mg magnesium) tablet,chewable 400 mg PO .qd 30 Days Qty: 50 RF: 0 hydrocodone-acetaminophen 5-325 mg tablet 1 tab PO Q6H PRN (Reason: pain) Qty: 50 RF: 0 Follow up/Referrals: Graham Ervin MD [Primary Care Provider] - Visit Report/Discharge Packet Instructions: DI for Heart Failure, How to Prevent Falls, DI for Prescription Opioid Use, Furosemide (By mouth) Visit Report Forms: Congestive Heart Failure, Patient Portal/API, Stroke Signs & Symptoms Discharge Data Primary Care Provider: Graham Ervin Attending Provider: Graham Ervin Admit Date/Time: 03/23/20 20:36 Discharges patient from system. Discharge Date/Time: 03/25/20 11:40 Quality VTE Deep Vein Thrombosis/Pulmonary Embolism Present on Admission: No Signed By:<Electronically signed by Graham Ervin MD>04/10/20 0812
--- NOTE | 2020-04-01 11:23 | P.HP_ITS ---
History of Present Illness History of Present Illness Date Patient Seen: 04/01/20 Time Patient Seen: 11:24 Date of Onset of Symptoms: 04/01/20 Chief complaint: Can't walk/pain Narrative: Patient is a 75-year-old well known to Dr. Ervin who I am cross covering for who presents with inability to walk. Patient apparently Friday morning was coming out of the bathroom and had a fall secondary to a slip. She is not entirely sure what she slipped on but does remember the whole event. She landed flat on her buttock. Had some initial pain but it did seem that bad. Actually was seen by her primary care provider that day and was not feeling too bad. She was following up from hospitalization which she had congestive heart failure. Was discharged on the . Her breathing has been fine since that time. She has had no other significant change. Over the course of the next 2 days she had progressively increased pain any time she moves her legs in her pelvic area. To the point where last night she was unable to move. Did not f eel like she could even get up out of a chair period was brought to the emergency room. French is here in the evaluation showed she had some slight hypoxia which was present at her last admission. She was denying any dyspnea with exertion or chest pain. She does have a little bit of edema but she always has that. CT scan showed superior and inferior pelvic rami fractures nondisplaced and probable small inferior and superior left pubic rami fractures. Due to fact that she was having so much pain she was admitted the hospital Patient has not had any fevers or chills. No chest pain. No dizziness no lightheadedness. She has had no diarrhea. Change or bowel movements. Blood in her stool. Does have a history of anemia. She has no urinary changes. No blood in her urine. No other joint pain. Much more comfortable this morning Patient History Medical History Alopecia (Chronic) Anxiety (Chronic) Asthma (Chronic) Back pain (Chronic) Carpal tunnel syndrome (Chronic) Chicken pox (Resolved) Chronic back pain (Chronic) Foot pain (Chronic) Headache (Chronic) Hearing loss (Chronic) History of recurrent ear infection (Chronic) Hypertension (Chronic) Measles (Resolved) Mumps (Resolved) Recurrent sinusitis (Chronic) Seasonal allergies (Chronic) Shoulder pain (Chronic) Sleep apnea (Chronic) Vertigo (Resolved) Vision disorder (Chronic) Family & Social History Family History Child Age: 48 Cancer Heart disease Hypertension High cholesterol Diabetes mellitus Father Stroke Mother Heart disease Hypertension High cholesterol Diabetes mellitus Brother No problems noted. Brother No problems noted. Social History: household members family Prior Living Arrangements Apartment/Condo Safety & Behavioral: Feels Safe in Current Yes Environment Suicidal Ideation Description None Tobacco & Substance use: Smoking Status Former smoker alcohol intake former Substance Use Type does not use Meds Home Medications and Allergies Home Medications Medication Instructions Recorded Confirmed Type hydrochlorothiazide 50 mg PO QDAY #0 tab 03/11/13 04/01/20 History simvastatin 10 mg PO HS #0 tab 03/11/13 04/01/20 History ferrous sulfate 325 mg PO BIDWM #60 tab 07/26/18 04/01/20 Rx aspirin 81 mg tablet,delayed 81 mg PO QDAY #90 tab 07/05/19 04/01/20 Rx release omeprazole 20 mg capsule,delayed 20 mg PO DAILY #90 cap 10/11/19 04/01/20 Rx release metformin 500 mg tablet,extended 500 mg PO DAILY #90 tab 12/31/19 04/01/20 Rx release 24 hr hydroxyzine HCl 50 mg PO DAILY 03/23/20 04/01/20 History levetiracetam 1,500 mg PO DAILY 03/23/20 04/01/20 History losartan 100 mg PO DAILY 03/23/20 04/01/20 History potassium chloride 20 meq PO BID 03/23/20 04/01/20 History furosemide [Lasix] 40 mg PO DAILY #20 tab 03/25/20 04/01/20 Rx sertraline 50 mg tablet 50 mg PO QDAY #90 tab 03/31/20 04/01/20 Rx Allergies Allergy/AdvReac Type Severity Reaction Status Date / Time No Known Drug Allergies Allergy Verified 03/31/20 20:08 Review of Systems Review of Systems ROS: Yes All systems reviewed with the patient and are negative except as otherwise documented Exam Vital Signs (past 8 hours): - 04/01/20 03:30 04/01/20 04:00 04/01/20 04:25 Temperature Pulse Rate 86 74 88 Respiratory Rate Blood Pressure Pulse Oximetry 93 93 94 04/01/20 04:26 04/01/20 05:15 04/01/20 08:00 Temperature 96.9 F L 97.3 F L Pulse Rate 75 79 Respiratory Rate 16 16 Blood Pressure 95/55 L 120/57 L 100/54 L Pulse Oximetry 95 97 04/01/20 08:02 Temperature Pulse Rate 66 Respiratory Rate 16 Blood Pressure Pulse Oximetry 98 Oxygen Delivery Method Nasal Cannula Oxygen Flow Rate 2 Narrative Exam Narrative: Alert elderly female lying in bed no acute respiratory distress. Mucous membranes moist. Neck supple without adenopathy JVD or bruits. Lungs are clear. Heart regular rate and rhythm without murmurs clicks rubs or gallops. Abdomen is soft positive bowel sounds nontender. She has moderate pain to palpation of the pubic bone with pressure. Hips as long as we do not moving too far have good movement but pain with some movement other than just minor. Pulses are normal. Neurologic exam is unremarkable. Psychologically mildly fatigued but otherwise interactive. Objective Labs Result Diagrams: 03/31/20 22:25 03/31/20 22:25 Labs: Laboratory Results - last 24 hr 03/31/20 03/31/20 03/31/20 22:25 22:25 22:25 WBC 14.2 H RBC 4.43 Hgb 10.1 L Hct 32.1 L MCV 72.4 L MCH 22.8 L MCHC 31.5 RDW 17.4 H Plt Count 196 Neut % (Auto) 79.7 H Lymph % (Auto) 10.9 L [place] % (Auto) 8.7 Eos % (Auto) 0.1 L Baso % (Auto) 0.6 Neut # (Auto) 65329 H Lymph # (Auto) 1500 [place] # (Auto) 1200 H Eos # (Auto) 0 Baso # (Auto) 100 ESR 55 H Sodium 130 L Potassium 4.3 Chloride 93 L Carbon Dioxide 30 BUN 28 H Creatinine 0.93 Estimated GFR 59.1 L BUN/Creatinine Ratio 30.1 H Glucose 135 H Calcium 8.7 Total Bilirubin 0.9 AST 25 ALT 13 Alkaline Phosphatase 79 C-Reactive Protein Total Protein 7.5 Albumin 3.6 Globulin 3.9 Albumin/Globulin Ratio 0.9 L COVID-19 PCR 03/31/20 04/01/20 22:25 04:00 WBC RBC Hgb Hct MCV MCH MCHC RDW Plt Count Neut % (Auto) Lymph % (Auto) [place] % (Auto) Eos % (Auto) Baso % (Auto) Neut # (Auto) Lymph # (Auto) [place] # (Auto) Eos # (Auto) Baso # (Auto) ESR Sodium Potassium Chloride Carbon Dioxide BUN Creatinine Estimated GFR BUN/Creatinine Ratio Glucose Calcium Total Bilirubin AST ALT Alkaline Phosphatase C-Reactive Protein 8.6 H Total Protein Albumin Globulin Albumin/Globulin Ratio COVID-19 PCR Negative Assessment & Plan Assessment & Plan narrative: Bilateral multiple pelvic rami fractures. Clearly patient is in a lot of pain and is not going to be functional home at this time. Discussed with Dr. Diaz who graciously will review her x-rays and give us a management plan. Probably not surgical. The question is how much weight- bearing and what the long-term treatment course will be. Really appreciate his input. At this point will consult OT PT switch to Vicodin for pain control with morphine breakthrough and proceed from there. Given the fact that his bilateral Congestive heart failure. Will continue her Lasix. Echo did not show any significant abnormality. Apparently waiting for thallium treadmill which probably is going to have to be delayed secondary to her pelvic fracture. Will need to be followed as an outpatient with Dr. Ervin. History of seizure disorder no change with treatment at this time. Certainly does not appear to be active. Hypertension. Stable. Type 2 diabetes. Has been historically well controlled. Will continue usual medicines. Minimal treatment and follow. DVT prophylaxis patient at high risk will add Lovenox. GI prophylaxis I do not think we have to put her on a PPI this time and will follow. Code status. Patient requests full code. Disposition. Etiology at this point is unclear. I would really feel this would be a very difficult home care. Clearly pain control and ambulation is the biggest issue with what potentially is a very significant bilateral fractures. Will discuss with orthopedist and follow from there. Quality VTE Deep Vein Thrombosis/Pulmonary Embolism Present on Admission: No
[2020-04-01] MEDS: FUROSEMIDE 40 MG TABLET PO (11:37)
[2020-04-01] MEDS: hydrOXYzine pamoate 25 MG CAPSULE 50 MG PO (11:37)
[2020-04-01] MEDS: LOSARTAN 50 MG TABLET 100 MG PO (11:37)
[2020-04-01] MEDS: ACETAMINOPHEN 325 MG TABLET 650 MG PO ×3 (11:37→23:55)
[2020-04-01] MEDS: HYDROCODONE/ACET 5/325 TABLET 1 TAB PO ×3 (11:37→21:19)
[2020-04-01] MEDS: SERTRALINE 50 MG TABLET PO (11:38)
[2020-04-01] MEDS: PANTOPRAZOLE 20 MG TABLET PO (11:38)
[2020-04-01] MEDS: levETIRAcetam 250 MG TABLET 1500 MG PO (11:38)
[2020-04-01] MEDS: hydroCHLOROthiazide 25 MG TABLET 50 MG PO (11:38)
[2020-04-01] MEDS: ASPIRIN EC 81 MG TABLET PO (11:38)
[2020-04-01] MEDS: METFORMIN XR 500 MG TABLET PO (11:40)
[2020-04-01] MEDS: CALCIUM CARBONATE 500 MG TAB 1000 MG PO (11:40)
--- NOTE | 2020-04-01 11:47 | P.CONS_ITS ---
History of Present Illness Consult details Date Patient Seen: 04/01/20 Time Patient Seen: 11:47 Chief complaint: Can't walk/pain Reason for consult: anterior pelvic ring fractures Narrative: Patient is a 75-year-old female who had a ground level fall that was unwitnessed on Friday evening. Is unsure if this was a mechanical fall or syncopal fall. Either way she was able to ambulate afterwards. She had increasing pain yesterday and found it more more difficult to ambulate. She has needed 2 person assist since yesterday for ambulation. She presented to with inabaility to ambulate. CT scan showed superior and inferior right pelvic rami fractures nondisplaced and probable small inferior and superior left pubic rami fractures. Due to fact that she was having so much pain she was admitted the hospital Meds Home Medications and Allergies Home Medications Medication Instructions Recorded Confirmed Type hydrochlorothiazide 50 mg PO QDAY #0 tab 03/11/13 04/01/20 History simvastatin 10 mg PO HS #0 tab 03/11/13 04/01/20 History ferrous sulfate 325 mg PO BIDWM #60 tab 07/26/18 04/01/20 Rx aspirin 81 mg tablet,delayed 81 mg PO QDAY #90 tab 07/05/19 04/01/20 Rx release omeprazole 20 mg capsule,delayed 20 mg PO DAILY #90 cap 10/11/19 04/01/20 Rx release metformin 500 mg tablet,extended 500 mg PO DAILY #90 tab 12/31/19 04/01/20 Rx release 24 hr hydroxyzine HCl 50 mg PO DAILY 03/23/20 04/01/20 History levetiracetam 1,500 mg PO DAILY 03/23/20 04/01/20 History losartan 100 mg PO DAILY 03/23/20 04/01/20 History potassium chloride 20 meq PO BID 03/23/20 04/01/20 History furosemide [Lasix] 40 mg PO DAILY #20 tab 03/25/20 04/01/20 Rx sertraline 50 mg tablet 50 mg PO QDAY #90 tab 03/31/20 04/01/20 Rx Allergies Allergy/AdvReac Type Severity Reaction Status Date / Time No Known Drug Allergies Allergy Verified 03/31/20 20:08 Exam Vital Signs (past 8 hours): - 04/01/20 04:00 04/01/20 04:25 04/01/20 04:26 Temperature Pulse Rate 74 88 Respiratory Rate Blood Pressure 95/55 L Pulse Oximetry 93 94 04/01/20 05:15 04/01/20 08:00 04/01/20 08:02 Temperature 96.9 F L 97.3 F L Pulse Rate 75 79 66 Respiratory Rate 16 16 16 Blood Pressure 120/57 L 100/54 L Pulse Oximetry 95 97 98 04/01/20 11:09 04/01/20 11:37 Temperature Pulse Rate 66 Respiratory Rate Blood Pressure 100/54 L Pulse Oximetry 98 Oxygen Delivery Method Room Air Oxygen Flow Rate 2 Narrative Exam Narrative: NV intact in BLE, pain with compression of pelvis, no TTP to the posterior pelvis/sacrum. Able to wiggle ankles and toes, no skin breaks over pelvis Objective Labs Result Diagrams: 03/31/20 22:25 03/31/20 22:25 Labs: Laboratory Results - last 24 hr 03/31/20 03/31/20 03/31/20 22:25 22:25 22:25 WBC 14.2 H RBC 4.43 Hgb 10.1 L Hct 32.1 L MCV 72.4 L MCH 22.8 L MCHC 31.5 RDW 17.4 H Plt Count 196 Neut % (Auto) 79.7 H Lymph % (Auto) 10.9 L [place] % (Auto) 8.7 Eos % (Auto) 0.1 L Baso % (Auto) 0.6 Neut # (Auto) 27939 H Lymph # (Auto) 1500 [place] # (Auto) 1200 H Eos # (Auto) 0 Baso # (Auto) 100 ESR 55 H Sodium 130 L Potassium 4.3 Chloride 93 L Carbon Dioxide 30 BUN 28 H Creatinine 0.93 Estimated GFR 59.1 L BUN/Creatinine Ratio 30.1 H Glucose 135 H Calcium 8.7 Total Bilirubin 0.9 AST 25 ALT 13 Alkaline Phosphatase 79 C-Reactive Protein Total Protein 7.5 Albumin 3.6 Globulin 3.9 Albumin/Globulin Ratio 0.9 L COVID-19 PCR 03/31/20 04/01/20 22:25 04:00 WBC RBC Hgb Hct MCV MCH MCHC RDW Plt Count Neut % (Auto) Lymph % (Auto) [place] % (Auto) Eos % (Auto) Baso % (Auto) Neut # (Auto) Lymph # (Auto) [place] # (Auto) Eos # (Auto) Baso # (Auto) ESR Sodium Potassium Chloride Carbon Dioxide BUN Creatinine Estimated GFR BUN/Creatinine Ratio Glucose Calcium Total Bilirubin AST ALT Alkaline Phosphatase C-Reactive Protein 8.6 H Total Protein Albumin Globulin Albumin/Globulin Ratio COVID-19 PCR Negative Assessment & Plan Assessment & Plan narrative: Patient is a 75-year-old female with multiple med ical comorbidities. She had a ground level fall on Friday which appears to be due to slipping on an object. She had immediate onset of pain but was able a ambulate afterward. She is able ambulate the next several days until yesterday when she had increasing pain with ambulation at times. She was seen at on hospital subsequent CT scan demonstrated bilateral superior and inferior pubic rami fractures. I do not appreciate any involvement of the posterior ring or the acetabulum. This represents a stable pelvic ring injury. - WBAT with FWW - mobilize - pain control Time Spent With Patient Time with patient: less than 15 minutes
[2020-04-01] MEDS: ENOXAPARIN 40 MG/0.4 ML SYRINGE SUBCUT (11:52)
--- NOTE | 2020-04-01 12:55 | CM.DANOTE ---
Addendum entered by Celsa Allison LPN 04/01/20 14:04: Lacey's cell: [phone] Original Note: Discharge Planning/Care Management DCP: assessment: case received, EMR reviewed and READMIT noted: Pt was here a week ago: 03/23 to 03/25 with a d/c to home and clinic followup. Pt did not want HH and daughter Lacey was planning to provide very close supervision. Met now with pt and Lacey, at bedside. Introduced self and role. Pt is a 75 year old female who admitted early this morning 0448 to care of [facility] clinic physician team. PCP: Dr. Ervin: FMA Admission status: in review per UR RN Raulito. He reports he has sent this on to EHR review and has discussed same with Dr. Calderon. Payer: Medicare and [employer]. will follow closely for admission status determination as this will play a large part in pt's options for d/c dispositions. Pt is hard of hearing and seems a bit forgetful. Lacey helps fill in the details for their living situation and the recent fall. Pt lives in the [facility] with her daughter Lacey and son in law Ashok and have been there for about a year and a half. One bedroom plus kitchette. 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 The 3 of them are used to being up much of the night with pt going to bed typically at 4:00 and then up in the afternoon. The family share the bed with Ashok sleeping as he can and then pt and Lacey sharing the bed, in part so that she can watch over her mother and assist her when she gets up. Lacey reports this time her mother did get up and did not rouse Lacey and she found her mother had slipped while on the way to the bathroom. Dr. Calderon has ordered PT/OT and orthopedic consult. Dr. Diaz has now seen pt and recommends mobilizing and FWW with WBAT. Dr. Calderon would like to see pt recover in a snf setting but is aware that this option is dependent on admission status and she may have to d/c home with family and HH services. Discussed this with Lacey as she said she thought the ER told her that her mother would be in the hospital for several day. She agrees that HH would be helpful: agency choice list discussed: referral is now in to [facility] with anticipation of RN/OT/PT/INFRASTRU[employer] ARCH[employer]. Will not do more with this until have clearer idea of therapy recommendations and admission status confirmation. Pt has reported in past visits that she has looked into medicaid assist but with her income she does not qualify. CM Discharge Assessment Start: 04/01/20 12:45 Freq: Status: Active Protocol: Document 04/01/20 12:46 ITV (Rec: 04/01/20 12:55 ITV [id number]) Discharge Planning Assessment Advance Directives? Yes History Provided By Patient,Family Member,Medical Record Has Patient been admitted in last 30 Yes days? Comment Pt and her family have been living at the [facility] for over a year. Household Members family Comment I mostly use the handley or furniture as our place is really small. Patient/Family Preference Home with Home Health? Referrals Initiated Home Health
--- NOTE | 2020-04-01 13:20 | PT.IIE ---
Medical History (Last Reviewed 04/01/20 @ 11:50 by Salo Diaz MD) Alopecia (Chronic) Anxiety (Chronic) Asthma (Chronic) Back pain (Chronic) Carpal tunnel syndrome (Chronic) Chicken pox (Resolved) Chronic back pain (Chronic) Foot pain (Chronic) Headache (Chronic) Hearing loss (Chronic) History of recurrent ear infection (Chronic) Hypertension (Chronic) Measles (Resolved) Mumps (Resolved) Recurrent sinusitis (Chronic) Seasonal allergies (Chronic) Shoulder pain (Chronic) Sleep apnea (Chronic) Vertigo (Resolved) Vision disorder (Chronic) Physical Therapy Inpatient Evaluation/Re-Eval M1 PT/OT-IP Prior Functional Status Start: 04/01/20 14:30 Freq: NEEDED Status: Active Protocol: Document 04/01/20 13:20 AB (Rec: 04/01/20 14:42 AB [id number]) Medical Review Prior Functional Status Medical History Reviewed Yes Communication able to make needs known Mobility and Gait pt was just admitted to the hospital 03/23 for CHF and d/c' d home 03/25. pt was independent without AD prior to 03/23 hospital admission but when discharged was needing to use a FWW for mobility but still modified independent. Social History Household Members family Living Arrangements Apartment/Condo Number of Floors (Floors) One Floor Number of Stairs To Enter/Railing? pt stated that she lives at [facility] has 2 platform steps to enter Home Environment Standard Height Toilet,Walk in Shower Home Equipment Front Wheel Walker,Grab Bars Near Toilet M2 PT-IP Current Condition Start: 04/01/20 14:30 Freq: NEEDED Status: Active Protocol: Document 04/01/20 13:20 AB (Rec: 04/01/20 14:42 AB [id number]) Physical Therapy Current Condition Current Condition Evaluation Date 04/01/20 Treatment Diagnosis s/p fall s/p bilateral sup/inf puc rami fx; difficulty in walking Onset Date Weight Bearing Status Weight Bearing Status Weight Bear as Tolerated Allowed Weight Bearing Amount (enter % WBAT BLE or #) (%) M3 PT-IP Subjective Start: 04/01/20 14:30 Freq: NEEDED Status: Active Protocol: Document 04/01/20 13:20 AB (Rec: 04/01/20 14:42 AB [email or web address]) Subjective Physical Therapy Visit Type Type Initial Evaluation Visit Start Time 13:20 Visit Stop Time 14:07 Total Visit Minutes 47 Number of BALLPOINT PEN CARTRIDGE TESTER Visits 0 Physical Therapy Visit Comments Patient Comments pt is agreeable to do PT Therapy Pain Assessment Pain When Pain Assessed During Mobility Location Lower Back Scale Used pain scale not stated Pain Behaviors Facial Grimacing,Guarding, Holding Area,Wincing Pain Management Techniques Apply Cold,Distraction,Re- positioning,Timing of Activity with Medications M4 PT-IP Mobility and Gait Start: 04/01/20 14:30 Freq: NEEDED Status: Active Protocol: Document 04/01/20 13:20 AB (Rec: 04/01/20 14:42 AB [email or web address]) PT-Bed Mobility Assessment Rolling Type of Rolling Log Rolling Level of Assist Maximal Assistance,1 Person Assistance Supine to Sit Supine to Sit Maximum Assistance,2 Person Assistance,Bedrails Scooting Scooting to Edge of Bed Dependent PT-Transfer Assessment Sit to and From Stand Sit to and from Stand Moderate Assistance,Maximum Assistance,2 Person Assistance ,Use of Upper Extremities Equipment Transfer Assistive Device Gait Belt,Front Wheeled Walker Orthotic/Prosthetic Devices or Brace: No Transfers Transfer Destination Chair Transfer Technique Stand Step Pivot Transfer Ability Level of Assist Moderate Assistance,1 Person Assistance,Use of Upper Extremities Comments Mobility Comments completed supine to sit log roll max A x 2 and max cues. pt was able to sit on EOB with initial min A. required max A for scooting and postioning to EOB but able to sit SBA after repositioning. completed sit to stand mod x 2 to max A x 2 . completed step transfer using FWW mod A and cues. required assist with weight shifting. pt refused further mobility/ ambulation afterwards. positioned on chair. call light and table placed within reach. informed nurse that pt will need a chair alarm. Gait Assessment Comments Gait Comments able to take steps during transfer PT-Balance Assessment Sitting Balance and Reactions Static Sitting Balance Ability Good Dynamic Sitting Balance Ability Fair Standing Balance and Reactions Static Standing Balance Ability Poor Dynamic Standing Balance Ability Poor Device Used FWW M5 PT-IP Objective Assessments Start: 04/01/20 14:30 Freq: NEEDED Status: Active Protocol: Document 04/01/20 13:20 AB (Rec: 04/01/20 14:42 AB [id number]) Orientation Orientation/Cognition Level of Alertness Alert Orientation Name,Place,Situation Safety Awareness Decreased Safety Awareness Memory Description Short Term Impaired Gross Range of Motion Lower Extremity ROM Assessment Within Functional Limits Strength Lower Extremity Strength Assessment Bilaterally Impaired Comments Strength Comments RLE: hip flexion: 3-/5 knee: 3+/5 LLE: 3+/5 Sensation Assessment Sensation Gross Sensation WNL Muscle Tone Muscle Tone WNL Yes M6 PT-IP Treatment Start: 04/01/20 14:30 Freq: NEEDED Status: Active Protocol: Document 04/01/20 13:20 AB (Rec: 04/01/20 14:42 AB [email or web address]) Physical Therapy Treatment Education Education Provided Safety M7 PT-IP Assessment and Plan Start: 04/01/20 14:30 Freq: NEEDED Status: Active Protocol: Document 04/01/20 13:20 AB (Rec: 04/01/20 14:42 AB [email or web address]) PT Summary Assessment and Plan Potential Rehabilitation Potential Good Status of Condition at Evaluation Evolving Summary Impairments Pain,ROM,Strength,Balance, Coordination,Sensation,Tone, Cognition,Bed Mobility, Transfers,Gait,Activity Tolerance Assessment Summary pt with c/o increase pain during mobility limting function and currently requiring max A x 2 and max cues and unable to ambulate using FWW and only able to take a few steps during transfers. pt will require SNF rehab to improve strength and independence. Goals Bed Mobility Goal Standby Assistance Transfer Goal Standby Assistance,Crutches Gait Goal Standby Assistance,Front Wheel Walker Gait Distance 150 Other Goals up/down 2 platform steps using FWW SBA Days to Meet Goals 5 Frequency of Treatment Frequency Of Treatment Once a Day Treatment Plan Physical Therapy Treatment Plan Bed Mobility Training,Transfer Training,Gait Training, Therapeutic Exercise,Balance Retraining,Discharge Planning, Hot or Cold Pack,Neuromuscular Re-ed,Coordination Retraining Recommendations To Nursing Amount of Assist Needed 2 Person Assist Discharge Recommendations PT Discharge Recommendations SNF Rehab Transportation Needs at Discharge Wheelchair/Cabulance
--- NOTE | 2020-04-01 14:07 | OT.IP.EVAL ---
Past Medical History (Last Reviewed 04/01/20 @ 11:50 by Salo Diaz MD) Alopecia (Chronic) Anxiety (Chronic) Asthma (Chronic) Back pain (Chronic) Carpal tunnel syndrome (Chronic) Chicken pox (Resolved) Chronic back pain (Chronic) Foot pain (Chronic) Headache (Chronic) Hearing loss (Chronic) History of recurrent ear infection (Chronic) Hypertension (Chronic) Measles (Resolved) Mumps (Resolved) Recurrent sinusitis (Chronic) Seasonal allergies (Chronic) Shoulder pain (Chronic) Sleep apnea (Chronic) Vertigo (Resolved) Vision disorder (Chronic) Occupational Therapy Inpatient Evaluation/Re-Eval M1 PT/OT-IP Prior Functional Status Start: 04/01/20 14:30 Freq: NEEDED Status: Active Protocol: Document 04/01/20 15:07 CGR (Rec: 04/01/20 15:27 CGR [email or web address]) Medical Review Prior Functional Status Medical History Reviewed Yes Communication able to make needs known Mobility and Gait pt was just admitted to the hospital 03/23 for CHF and d/c' d home 03/25. pt was independent without AD prior to 03/23 hospital admission but when discharged was needing to use a FWW for mobility but still modified independent. Activities of Daily Living and IADL's Pt states that prior to recent admit on 03/23 pt was Ind for most ADLs but that she had difficulty with LB dressing. Social History Household Members family Living Arrangements Apartment/Condo Number of Floors (Floors) One Floor Number of Stairs To Enter/Railing? pt stated that she lives at [facility] has 2 platform steps to enter Home Environment Standard Height Toilet,Walk in Shower Home Equipment Front Wheel Walker,Grab Bars Near Toilet Employment Status Retired M2 OT-IP Current Condition Start: 04/01/20 15:07 Freq: Status: Active Protocol: Document 04/01/20 15:07 CGR (Rec: 04/01/20 15:27 CGR [email or web address]) Occupational Therapy Current Condition Current Condition Evaluation Date 04/01/20 Treatment Diagnosis GLF with B multiple pelvic rami fx. Diagnosis Onset Date 04/01/20 Weight Bearing Status Weight Bearing Status Weight Bear as Tolerated M3 OT- IP Subjective and Pain Start: 04/01/20 15:07 Freq: Status: Active Protocol: Document 04/01/20 15:07 CGR (Rec: 04/01/20 15:27 CGR [email or web address]) OT- Subjective Occupational Therapy Visit Type Type Initial Evaluation Visit Start Time 13:32 Visit Stop Time 14:07 Total Visit Minutes 35 Notes Co-eval with P.T. Occupational Therapy Visit Comments Patient Comments I can't do this right now OT Pain Assessment Pain When Pain Assessed During Mobility Pain Present Pain Present Pain Reported Location Lower Back Scale Used did not rate Management Techniques Distraction,Modification of Treatment,Re-positioning, Timing of Activity with Medications M4 OT- IP ADL's Start: 04/01/20 15:07 Freq: Status: Active Protocol: Document 04/01/20 15:07 CGR (Rec: 04/01/20 15:27 CGR [email or web address]) OT CBT-[id number] Comments OT Self-Feeding Comments not meal time OT ADL-Grooming Comments OT Grooming Comments pt declined OT ADL-Oral Care Comments Oral Care Comments pt declined, pt without teeth. OT ADL-Dressing General Eval Lower Body Dressing Ability Maximum Assistance Areas Needing Assistance Socks Comments OT Dressing Comments supine in bed. OT ADL-Toileting Comments OT Toileting Comments pt declined need OT ADL-Bathing Comments OT Bathing Comments not performed M5 OT- IP IADL's Start: 04/01/20 15:07 Freq: Status: Active Protocol: Document 04/01/20 15:07 CGR (Rec: 04/01/20 15:27 CGR [email or web address]) OT-Instrumental Activities of Daily Living Deficits IADL Deficits Identified Deficits Home Safety Awareness Awareness of Need for Assistance at Home Decreased Awareness Ability to Problem Solve Emergency Able to Problem Solve Situations M6 OT- IP Functional Cognition Start: 04/01/20 15:07 Freq: Status: Active Protocol: Document 04/01/20 15:07 CGR (Rec: 04/01/20 15:27 CGR [email or web address]) Cognitive Factors Limiting Selfcare Function Cognitive Ability Level of Alertness Alert Patient Orientation Name,Age,Birthday,Month,Date, Year,Day of Week,Place, Situation Attention Span Ability Capable of Focused Attention, Capable of Sustained Attention Ability to Follow Commands Able to Follow Multi-Step Commands OT- Vision and Hearing OT- Hearing Assessment OT- Hearing Assessment Hearing Impaired OT- Vision Assessment Visual Acuity WFL Visual Attentiveness WFL Occular Pursuits WFL Visual Convergence WFL M7 OT- IP Mobility and Balance Start: 04/01/20 15:07 Freq: Status: Active Protocol: Document 04/01/20 15:07 CGR (Rec: 04/01/20 15:27 CGR [email or web address]) OT- Bed Mobility Assessment Rolling Type of Rolling Log Rolling,Roll to Left Level of Assistance Maximum Assistance,2 Person Assistance Supine to Sit Supine to Sit Assist Maximum Assistance,2 Person Assistance Scooting Scooting to Edge of Bed Maximum Assistance,1 Person Assistance OT-Transfer Assessment Sit to and From Stand Sit to and from Stand Moderate Assistance,Maximum Assistance,2 Person Assistance Transfers Transfer Ability Moderate Assistance,1 Person Assistance Technique Transfer Destination Bed,Chair Transfer Technique Stand Step Pivot Devices Transfer Assistive Devices Gait Belt,Front Wheeled Walker Comments Mobility Comments Pt ambulated from bed to cahir with ~3 steps and mod a with assist for safe use of the walker. OT- Gait Assessment Comments Gait Ability Comments not performed OT- Balance Assessment Sitting Balance and Reactions Static Sitting Balance Ability Good Dynamic Sitting Balance Ability Fair M8 OT- IP Objective Assessments Start: 04/01/20 15:07 Freq: Status: Active Protocol: Document 04/01/20 15:07 CGR (Rec: 04/01/20 15:27 CGR [email or web address]) OT Gross Range of Motion Upper Extremity Range of Motion Assessment Right Impaired ROM Impairments R shld impairments noted d/t pain. Pt tolerated Rshld rom 0 -90 but increased pain beyond 90. OT Strength Upper Extremity Strength Assessment Right Impaired Comments Strength Comments grossly 4/5 to the LUE, RUE not tested d/t shld pain. OT- Coordination Assessment Upper Extremity Finger to Nose Test Within Functional Limits Finger Tapping Test Within Functional Limits OT-Muscle Tone Assessment Muscle Tone WNL Yes OT Sensation Assessment Edema Edema Absent M9 OT- IP Assessment and Plan Start: 04/01/20 15:07 Freq: Status: Active Protocol: Document 04/01/20 15:07 CGR (Rec: 04/01/20 15:27 CGR [email or web address]) OT Summary Assessment and Plan Potential Rehabilitation Potential Good Analytic Complexity at Evaluation Moderate Summary OT Impairments Pain,Range of Motion,Balance, Functional Cognition, Functional Mobility,Dressing, Toileting,Bathing,Toilet Transfers,Shower Transfers, Activity Tolerance Progress Towards Goals Slow Progress due to Pain Assessment Summary Pt presents as a moderate complexity evaluation s/p fall with multiple pelvic rami fx. Pt is WBAT and was able to tolerate transfer to chair in this session but c/o pain with all movement. Pt will benefit from continue therapy services. Recommend d/c to SNF at this time as pt is requiring mod to max a for transfers. Goals Grooming Goal Independent Dressing Goal Independent Toileting Goal Independent Bathing Goal Independent Toilet Transfer Goal Independent Shower Transfer Goal Independent Days to Meet Goals 10 Frequency of Treatment Frequency Of Treatment Once a Day Treatment Plan OT Treatment Plan ADL Training,Functional Cognition Training,Functional Mobility,Patient/Family Education,Discharge Planning Other Treatment Recommendations and Next ADLs standing if able to Treatment Focus tolerate. Discharge Recommendations OT Discharge Recommendations SNF Rehab Transportation Needs at Discharge Private Vehicle
--- NOTE | 2020-04-01 14:37 | PC.NURSE ---
Patient in some pain this afternoon after working w/ PT and OT. Patient was given 1 [place] 5/325 at 1130am. Patient has been up to the chair w/ PT, and evaluated by RT, RT put her on 4 liters NC.
[2020-04-01] MEDS: FERROUS SULFATE 325 MG TABLET PO (17:36)
[2020-04-01] MEDS: SODIUM CHLORIDE 0.9% FLUSH 10 ML IV (21:18)
[2020-04-01] MEDS: SIMVASTATIN 10 MG TABLET PO (21:18)
[2020-04-01] MEDS: POTASSIUM CHLORIDE 10 MEQ TAB 20 MEQ PO (21:18)
[2020-04-01] MEDS: DOCUSATE 100 MG CAPSULE PO (21:18)
[2020-04-02] VITALS (16 sets, daily range): BP systolic 85–121; BP diastolic 47–89; PULSE 68–97; RESP 15–18; TEMP 36.1–36.8; O2SAT 92–96
[2020-04-02] MEDS: SODIUM CHLORIDE 0.9% FLUSH 10 ML IV ×4 (03:52→19:50)
[2020-04-02] MEDS: ONDANSETRON 4 MG/2 ML INJ IV ×2 (03:52→19:50)
[2020-04-02] MEDS: HYDROCODONE/ACET 5/325 TABLET 1 TAB PO ×3 (04:27→17:48)
[2020-04-02] MEDS: DOCUSATE 100 MG CAPSULE PO ×2 (09:31→19:50)
[2020-04-02] MEDS: ENOXAPARIN 40 MG/0.4 ML SYRINGE SUBCUT (09:31)
[2020-04-02] MEDS: levETIRAcetam 250 MG TABLET 1500 MG PO (09:32)
[2020-04-02] MEDS: FERROUS SULFATE 325 MG TABLET PO ×2 (09:32→17:47)
[2020-04-02] MEDS: PANTOPRAZOLE 20 MG TABLET PO (09:33)
[2020-04-02] MEDS: METFORMIN XR 500 MG TABLET PO (09:33)
[2020-04-02] MEDS: SERTRALINE 50 MG TABLET PO (09:33)
[2020-04-02] MEDS: ASPIRIN EC 81 MG TABLET PO (09:33)
[2020-04-02] MEDS: POTASSIUM CHLORIDE 10 MEQ TAB 20 MEQ PO (09:33)
--- NOTE | 2020-04-02 09:40 | DI.RAD.S_ITS ---
PROCEDURE: XR CHEST 2V INDICATIONS: hypoxia TECHNIQUE: 2 views of the chest were acquired. COMPARISON: [facility], CT, CT ANGIO CHEST PE PROTOCOL, 03/23/2020, 18:51. [facility], CR, CHEST 1 VIEW, 12/19/2016, 14:46. FINDINGS: Surgical changes and devices: None. Lungs and pleura: Generalized interstitial prominence is seen. Lung volumes are low. No focal infiltrates are seen. No pneumothorax is seen. No large pleural effusion. Mediastinum: Mediastinal contours are normal. Heart size is normal. Bones and chest wall: No suspicious bony abnormalities. Degenerative changes are seen, particularly involving the right shoulder. Soft tissues appear unremarkable. IMPRESSION: Generalized interstitial prominence is seen. Please consider pulmonary edema. Low lung volumes. Dictated by: Tico Sanders M.D. on 04/02/2020 at 9:43 Approved by: Tico Sanders M.D. on 04/02/2020 at 9:45
--- NOTE | 2020-04-02 09:46 | P.PN_ITS ---
Subjective Subjective Date Patient Seen: 04/02/20 Time Patient Seen: 09:46 Interval history: Patient feeling a little better this morning. Still having a lot of pain. Requiring 1-2 person assist. No other significant change. She is having no chest pain or shortness of breath has not had a cough. Has been requiring oxygen. Otherwise no other changes are complaint. Exam Vital Signs (past 8 hours): - 04/02/20 03:45 04/02/20 07:38 04/02/20 07:45 Temperature 97.0 F L 97.0 F L Pulse Rate 97 H 70 73 Respiratory Rate 16 16 15 Blood Pressure 115/54 L 106/49 L Pulse Oximetry 92 96 96 04/02/20 09:12 Temperature Pulse Rate 76 Respiratory Rate Blood Pressure 102/55 L Pulse Oximetry Oxygen Delivery Method Nasal Cannula Oxygen Flow Rate 1.5 Narrative Exam Narrative: Alert elderly female sitting in chair in no acute distress. Mucous membranes moist. Neck supple without adenopathy JVD or bruits. Lungs are clear. Heart regular rate and rhythm without murmurs clicks rubs or gallops. Abdomen is soft positive bowel sounds nontender. Still has quite a bit of tenderness in the pelvic area. A lot of pain with any flexion of hips. Neurovascular exam of the lower extremities are normal. She is much more alert today still is confused. Does know she is in the hospital. Does not other date or the year. Objective Labs Result Diagrams: 03/31/20 22:25 03/31/20 22:25 Assessment & Plan Assessment & Plan narrative: Bilateral multiple pelvic rami fractures. Appreciate Ortho input. No surgical evaluation. Biggest issue is going to be pain control and functional status. PT feel so far that she is going to need 2 person assist and possible placement. Pain control is okay as long as she is not moving. Will have to see how things go. Today we are going to see how mobilization goes continue with oral pain control and see if works and re- evaluate in a.m.. Possibly home with home health tomorrow depending on how things go. Congestive heart failure continue her Lasix. At this point she seems to be doing well. I do not think this contributed to her hypoxia. Hypoxia etiology is unclear will obtain chest x-ray. Doubt infection. Doubt secondary to congestive heart failure but will see what that shows. May have been from decreased activity over the course of the last 3 or 4 days and improve as we mobilized but will consult respiratory therapy for evaluation. History of hypertension. Mildly hypotensive. Will decrease losartan. Hydrochlorothiazide and re-evaluate. Will see what the next 24 hours brings were adjustments Mild confusion. Whether this is secondary to her pain meds or her baseline I am not sure. At this point will continue to follow on allow usual PMD to assess tomorrow hopefully History of type 2 diabetes. Stable. DVT prophylaxis continue Lovenox GI prophylaxis not requiring prophylaxis at this time. Code status full code. Disposition left to see what this 24 hour brings period depending on her pain control and her ability to ambulate assessment load vein tomorrow for possible discharge home with home health or placement. Discussed with patient she understands Quality VTE Deep Vein Thrombosis/Pulmonary Embolism Present on Admission: No
--- NOTE | 2020-04-02 11:25 | PC.NURSE ---
Addendum entered by Barrington Nguyen R.N. 04/02/20 11:41: DR. BAUM UPDATED ON BP'S AND RESULTS OF CXR. ORDER TO STOP LOSARTAN, GIVE 20MG IV LASIX NOW AND 20MG IV LASIX AT 6PM. ORDER BNP. Original Note: PATIENT 1-2P ASSIST TO GET UP TO RECLINER THIS AM. PATIENT HAS SOME CONFUSION THIS MORNING. DOES NOT KNOW THE MONTH OR YR. 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 TO RN AND HAZARDOUS WASTE TECHNICIAN. RE-ORIENTED TO HOSPITAL. DOESN'T KNOW IF MT ADI OR IMER. MD AT BEDSIDE THIS AM, NOTIFIED OF SAME. ALSO NOTIFIED OF MILD HYPOTENSION AND EVAL OF BP MEDS/DIURETICS, MD MADE ADJUSTMENTS. ALSO NOTIFIED THAT RT HAS HAD TROUBLE WEANING PATIENT OFF OF O2. MD ORDERED CXR. AT 1100 THIS INTERNAL COMBUSTION ENGINE ASSEMBLER WAS GOING TO GIVE PATIENT'S SCHEDULED LOSARTAN AND LASIX, HOWEVER BP ON LEFT 85/47 HR 68 AND ON RIGHT 89/51 HR 70. PATIENT IS ASYMPTOMATIC. PAGED AT 1120. AWAITING RESPONSE. RECHECK BP AT 1125 ON LEFT 94/51.
--- NOTE | 2020-04-02 12:05 | PT.IPTN ---
Physical Therapy Treatment Note M2 PT-IP Current Condition Start: 04/01/20 14:30 Freq: NEEDED Status: Active Protocol: Document 04/01/20 13:20 AB (Rec: 04/01/20 14:42 AB [id number]) Physical Therapy Current Condition Current Condition Evaluation Date 04/01/20 Treatment Diagnosis s/p fall s/p bilateral sup/inf puc rami fx; difficulty in walking Onset Date Weight Bearing Status Weight Bearing Status Weight Bear as Tolerated Allowed Weight Bearing Amount (enter % WBAT BLE or #) (%) M3 PT-IP Subjective Start: 04/01/20 14:30 Freq: NEEDED Status: Active Protocol: Document 04/02/20 11:47 CLB (Rec: 04/02/20 12:23 CLB [id number]) Subjective Physical Therapy Visit Type Type Treatment Note Visit Start Time 11:47 Visit Stop Time 12:05 Total Visit Minutes 18 Notes RN present to assist with BP and transfer. Number of [employer] REDEVELOPMENT SITE MANAGER Visits 1 Physical Therapy Visit Comments Patient Comments pt is agreeable to do PT Therapy Pain Assessment Pain When Pain Assessed During Mobility Pain Present Pain Present Pain Reported Location Lower Back Scale Used pain scale not stated Pain Behaviors Facial Grimacing,Wincing Pain Management Techniques Apply Cold,Distraction,Re- positioning,Timing of Activity with Medications M4 PT-IP Mobility and Gait Start: 04/01/20 14:30 Freq: NEEDED Status: Active Protocol: Document 04/02/20 11:47 CLB (Rec: 04/02/20 12:23 CLB [id number]) PT-Bed Mobility Assessment Supine to Sit Supine to Sit Maximum Assistance,2 Person Assistance,Bedrails Scooting Scooting Up and Down in Bed Dependent PT-Transfer Assessment Sit to and From Stand Sit to and from Stand Moderate Assistance,2 Person Assistance,Use of Upper Extremities Equipment Transfer Assistive Device Gait Belt,Front Wheeled Walker Orthotic/Prosthetic Devices or Brace: No Transfers Transfer Destination Bed Transfer Technique ambulated with FWW Transfer Ability Level of Assist Moderate Assistance,1 Person Assistance,Use of Upper Extremities Comments Mobility Comments Pt required total assist getting to scoot forward in chair.BP in sitting 98/54. Pt stood requiring Mod A x2. BP in standing 117/65. Once pt was up pt ambulate around bed requiring CGA using step through gait pattern and she was able to manage FWW, pt requires several standing rest breaks, cues for PLB and increased time for ambulation. Pt sat on bed CGA with cues for hand placement for safety. Pt required Max A x2 for sit- supine and was dependent for getting to HOB. Left pt in bed with alarm on and all needs within reach, RN present. Gait Assessment Gait Gait Assistance Required: Contact Guard Assist,1 Person Assist Distance (Feet) 10 Able to Maintain Weight Bearing Status Yes During Gait Assistive Devices Assistive Device Gait Belt,Front Wheeled Walker Orthotic/Prosthetic Devices or Brace: No Gait Deviations General Gait Pattern Antalgic,Decreased Stride Length,Decreased Feet Clearance,Flexed Trunk Factors Limiting Gait Function Factors Limiting Gait Function Decreased Activity Tolerance, Decreased Strength,Limited Range of Motion,Pain,Poor Balance,Respiratory Distress Comments Gait Comments see mobility section M5 PT-IP Objective Assessments Start: 04/01/20 14:30 Freq: NEEDED Status: Active Protocol: Document 04/01/20 13:20 AB (Rec: 04/01/20 14:42 AB [id number]) Orientation Orientation/Cognition Level of Alertness Alert Orientation Name,Place,Situation Safety Awareness Decreased Safety Awareness Memory Description Short Term Impaired Gross Range of Motion Lower Extremity ROM Assessment Within Functional Limits Strength Lower Extremity Strength Assessment Bilaterally Impaired Comments Strength Comments RLE: hip flexion: 3-/5 knee: 3+/5 LLE: 3+/5 Sensation Assessment Sensation Gross Sensation WNL Muscle Tone Muscle Tone WNL Yes M6 PT-IP Treatment Start: 04/01/20 14:30 Freq: NEEDED Status: Active Protocol: Document 04/01/20 13:20 AB (Rec: 04/01/20 14:42 AB [email or web address]) Physical Therapy Treatment Education Education Provided Safety M7 PT-IP Assessment and Plan Start: 04/01/20 14:30 Freq: NEEDED Status: Active Protocol: Document 04/02/20 11:47 CLB (Rec: 04/02/20 12:23 CLB [id number]) PT Summary Assessment and Plan Potential Rehabilitation Potential Good Status of Condition at Evaluation Evolving Summary Impairments Pain,ROM,Strength,Balance, Coordination,Sensation,Tone, Cognition,Bed Mobility, Transfers,Gait,Activity Tolerance Assessment Summary Pt continues to c/o increased pain during mobility but was able to ambulate ~10ft around bed. Pt requires Mod A x2 for sit-stand, CGA for gait with increased time and standing rest breaks. Pt requires Max A x2 for bed mobility. Pt will require SNF rehab to improve strength and independence. Goals Bed Mobility Goal Standby Assistance Transfer Goal Standby Assistance,Crutches Gait Goal Standby Assistance,Front Wheel Walker Gait Distance 150 Other Goals up/down 2 platform steps using FWW SBA Days to Meet Goals 5 Frequency of Treatment Frequency Of Treatment Once a Day Treatment Plan Physical Therapy Treatment Plan Bed Mobility Training,Transfer Training,Gait Training, Therapeutic Exercise,Balance Retraining,Discharge Planning, Hot or Cold Pack,Neuromuscular Re-ed,Coordination Retraining Recommendations To Nursing Amount of Assist Needed 2 Person Assist Discharge Recommendations PT Discharge Recommendations SNF Rehab Transportation Needs at Discharge Wheelchair/Cabulance
[2020-04-02] MEDS: FUROSEMIDE 20 MG/2 ML VIAL IV (12:08)
--- NOTE | 2020-04-02 12:54 | CM.DPC ---
DCP continued: EMR reviewed: Cm/Rn met with Dr. Calderon and he agrees with that D/C plan to home with HH since patient didn't meet for INPT criteria. CM/RN called [facility] and they have the patients HH referral. Zechariah/Rn sent over [facility] for their review. Only thing they will need at D/C will be signed D/C summary sent to [facility] when it is ready. Laura Frazier RN
[2020-04-02 14:34] LABS: NT-proBNP (BNP-Adult 18+) 21000 pg/mL (<125)
--- NOTE | 2020-04-02 16:09 | PC.NURSE ---
Addendum entered by Priscilla Bowling R.N. 04/02/20 21:01: Pt profoundly hard of hearing. Demonstrates short term memory loss as repeats self often and asks repeated questions of staff. Two person assist to transfer and mobilize with pt c/o pain. Gait is unsteady and pt requires verbal cueing to mobilize and transfer to commode/chair/bed. Walker use and gait belt use. Medicated for pain and c/o nausea and generalized upset stomach. Denies passing flatus. Abdomen is soft, but pt states poor appetite. Multiple food and beverage choices offered including glycerna. IV lasix infused slowly via pump. 02 2L per nc sats 93%. Pt desats to 86-88% on room air. Requires repeated instruction to keep cannula in nares. Original Note: Dr. Calderon in house and made aware of pt's BNP [id number]. New orders for increase of lasix dose to 40 mg @ 1800 entered as per verbal order.
[2020-04-02] MEDS: ACETAMINOPHEN 325 MG TABLET 650 MG PO ×2 (17:48→23:44)
[2020-04-02] MEDS: FUROSEMIDE 40 MG/4 ML VIAL IV (18:16)
[2020-04-02] MEDS: CALCIUM CARBONATE 500 MG TAB 1000 MG PO (19:50)
[2020-04-03] VITALS (10 sets, daily range): BP systolic 100–147; BP diastolic 51–71; PULSE 77–95; RESP 14–24; TEMP 36.1–36.7; O2SAT 89–96
[2020-04-03] MEDS: ACETAMINOPHEN 325 MG TABLET 650 MG PO ×4 (05:43→23:31)
--- NOTE | 2020-04-03 08:32 | P.PN_ITS ---
Subjective Subjective Date Patient Seen: 04/03/20 Time Patient Seen: 08:32 Interval history: Pelvic fracture Patient here because the pelvic fracture. She is still having fair amount of pain but currently is reasonably comfortable in bed. Doing some mobility but limited. Apparently physical therapy working with patient. Second problem is her congestive heart failure. This is documented abnormal chest x-ray and a markedly elevated BNP. Patient had does have short of breath. The diagnosis of congestive heart failure is relatively recent with no obvious e tiology. Perhaps is related to her longstanding diabetes. At any rate she denies any major shortness of breath at this time but she is resting quietly. Is not been determine whether not she requires supplemental oxygen to maintain adequate oxygen saturation. Exam Vital Signs (past 8 hours): - 04/03/20 00:40 04/03/20 04:53 Temperature 98.1 F 97.7 F Pulse Rate 90 87 Respiratory Rate 18 20 Blood Pressure 100/51 L 127/70 Pulse Oximetry 94 93 Oxygen Delivery Method Nasal Cannula Oxygen Flow Rate 2 Narrative Exam Narrative: Patient is resting quietly in hospital bed with nasal prongs on appears in no distress O2 sats according to the monitor are in the mid 90s. Lungs show decreased breath sounds throughout does not take a deep breath. Cardiac exam regular rhythm no murmur gallop. Abdominal exam is Objective Labs Result Diagrams: 03/31/20 22:25 03/31/20 22:25 Labs: Laboratory Results - last 24 hr 04/02/20 14:07 NT-Pro-B Natriuret Pep [id number] H no lab from this morning Assessment & Plan Assessment & Plan narrative: 1. Pelvic fracture that appears to be stable fractures as per orthopedics. Patient received physical therapy and will require fair amount of assistance upon discharge. It is unclear whether not patient will go to a nursing home facility or go home with home health yet to be determined. 2. Her congestive heart failure somewhat problematic in no obvious etiology. We will be more aggressive with diuresis today as she will be here. 3. Will reassess her maintenance meds and perhaps adjust them accordingly probably be here least 2 more days Quality VTE Deep Vein Thrombosis/Pulmonary Embolism Present on Admission: No
[2020-04-03] MEDS: DOCUSATE 100 MG CAPSULE PO ×2 (09:00→20:38)
[2020-04-03] MEDS: PANTOPRAZOLE 20 MG TABLET PO (09:00)
[2020-04-03] MEDS: FERROUS SULFATE 325 MG TABLET PO ×2 (09:00→17:20)
[2020-04-03] MEDS: ASPIRIN EC 81 MG TABLET PO (09:01)
[2020-04-03] MEDS: POTASSIUM CHLORIDE 10 MEQ TAB 20 MEQ PO ×2 (09:02→20:38)
[2020-04-03] MEDS: SERTRALINE 50 MG TABLET PO (09:03)
[2020-04-03] MEDS: levETIRAcetam 250 MG TABLET 1500 MG PO (09:03)
[2020-04-03] MEDS: ENOXAPARIN 40 MG/0.4 ML SYRINGE SUBCUT (09:09)
[2020-04-03] MEDS: FUROSEMIDE 40 MG/4 ML VIAL IV ×3 (09:10→23:32)
[2020-04-03] MEDS: METFORMIN XR 500 MG TABLET PO (09:11)
[2020-04-03] MEDS: SODIUM CHLORIDE 0.9% FLUSH 10 ML IV ×2 (09:11→20:38)
--- NOTE | 2020-04-03 10:45 | PC.NURSE ---
Day shift note: Patient in bed resting, alert and oriented x 3, however forgetful and requires frequent reassurance and guidance. [employer]. Received patient on O2 at 2L via NC, sats noted to fluctuate between 88-94%. No SOB noted. Dr. Ervin made aware regarding the O2 requirement, order changed from PO Lasix to IV route. Will continue to monitor closely I & Os. Poor appetite this am, encouraged small portions. High fall risk precautions maintained.
--- NOTE | 2020-04-03 11:29 | CM.DPC ---
DCP/continued: Reviewed chart. Spoke with Dr Ervin this AM. He reports that he would like patient to go to SNF if eligible? EHR reviewing for status. Patient initially admitted inpatient status on 04-01-20. This would make patient eligible for SNF tomorrow 04-04-20 if inpatient status determined. Met with patient and daughter/Lacey at bedside. Patient prefers to d/c home with daughter but agreeable to short SNF stay. Current recommendation from therapy is SNF. Patient and daughter would prefer facility in [place] if needed. Placed call to Nai at [facility], she will review for admit. Nai aware that patient currently pending inpatient status? If patient remains OBS status daughter and patient agreeable to return home with HH. Daughter doing caregiver training today and plans to obtain DME at [facility]. HH has been arranged through [facility] if patient discharges home. Anticipate d/c in the next 24-48hrs. P: Home with HH through [facility] and daughter vs. SNF at [facility]. Current d/c plan depends on status. TONYA Barksdale
--- NOTE | 2020-04-03 11:32 | PT.IPTN ---
Physical Therapy Treatment Note M2 PT-IP Current Condition Start: 04/01/20 14:30 Freq: NEEDED Status: Active Protocol: Document 04/01/20 13:20 AB (Rec: 04/01/20 14:42 AB [id number]) Physical Therapy Current Condition Current Condition Evaluation Date 04/01/20 Treatment Diagnosis s/p fall s/p bilateral sup/inf puc rami fx; difficulty in walking Onset Date Weight Bearing Status Weight Bearing Status Weight Bear as Tolerated Allowed Weight Bearing Amount (enter % WBAT BLE or #) (%) M3 PT-IP Subjective Start: 04/01/20 14:30 Freq: NEEDED Status: Active Protocol: Document 04/03/20 10:55 CLB (Rec: 04/03/20 12:36 CLB [email or web address]) Subjective Physical Therapy Visit Type Type Treatment Note Visit Start Time 10:55 Visit Stop Time 11:32 Total Visit Minutes 37 Notes Daughter Lacey present for CG training 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 Physical Therapy Visit Comments Patient Comments pt is agreeable to do PT Therapy Pain Assessment Pain When Pain Assessed During Mobility Pain Present Pain Present Pain Reported M4 PT-IP Mobility and Gait Start: 04/01/20 14:30 Freq: NEEDED Status: Active Protocol: Document 04/03/20 10:55 CLB (Rec: 04/03/20 12:36 CLB [email or web address]) PT-Bed Mobility Assessment Supine to Sit Supine to Sit Moderate Assistance,1 Person Assistance,Head of Bed Elevated Scooting Scooting to Edge of Bed Maximum Assistance PT-Transfer Assessment Sit to and From Stand Sit to and from Stand Minimal Assistance,1 Person Assistance,Use of Upper Extremities Equipment Transfer Assistive Device Gait Belt,Front Wheeled Walker Orthotic/Prosthetic Devices or Brace: No Transfers Transfer Destination Chair,Bedside Commode Transfer Technique ambulated with FWW Transfer Ability Level of Assist Minimal Assistance,1 Person Assistance,Use of Upper Extremities Comments Mobility Comments Pt in bed upon arrival requesting to use BSC. Pt requiring Mod A x1 for sup-sit and Max A to scoot to EOB. Pt then stood Min A and performed stand step pivot to BSC. Pt daughter able to assist pt with doff/alvarez brief and pericare. Pt stood from BSC Min A of daughter and ambulated ~10ft w/FWW while daughter provided CGA. Pt required cues for staying inside walker. Pt daughter able to give pt appropriate cues. Pt required Min A to sit on chair with cues for hand placement to slow descent. Pt daughter assisted pt with doffing/donning clean gown. Pt was left in chair with all needs within reach and daughter Lacey present. Gait Assessment Gait Gait Assistance Required: Contact Guard Assist,1 Person Assist Distance (Feet) 10 Able to Maintain Weight Bearing Status Yes During Gait Assistive Devices Assistive Device Gait Belt,Front Wheeled Walker Orthotic/Prosthetic Devices or Brace: No Gait Deviations General Gait Pattern Antalgic,Decreased Stride Length,Decreased Feet Clearance,Flexed Trunk Factors Limiting Gait Function Factors Limiting Gait Function Decreased Activity Tolerance, Decreased Strength,Limited Range of Motion,Pain,Poor Balance,Respiratory Distress Comments Gait Comments see mobility section Stair Climbing Assessment Comments Stair Climbing Comments will have steps if going to motel with daughter. M5 PT-IP Objective Assessments Start: 04/01/20 14:30 Freq: NEEDED Status: Active Protocol: Document 04/01/20 13:20 AB (Rec: 04/01/20 14:42 AB [id number]) Orientation Orientation/Cognition Level of Alertness Alert Orientation Name,Place,Situation Safety Awareness Decreased Safety Awareness Memory Description Short Term Impaired Gross Range of Motion Lower Extremity ROM Assessment Within Functional Limits Strength Lower Extremity Strength Assessment Bilaterally Impaired Comments Strength Comments RLE: hip flexion: 3-/5 knee: 3+/5 LLE: 3+/5 Sensation Assessment Sensation Gross Sensation WNL Muscle Tone Muscle Tone WNL Yes M6 PT-IP Treatment Start: 04/01/20 14:30 Freq: NEEDED Status: Active Protocol: Document 04/01/20 13:20 AB (Rec: 04/01/20 14:42 AB [id number]) Physical Therapy Treatment Education Education Provided Safety M7 PT-IP Assessment and Plan Start: 04/01/20 14:30 Freq: NEEDED Status: Active Protocol: Document 04/03/20 10:55 CLB (Rec: 04/03/20 12:36 CLB [email or web address]) PT Summary Assessment and Plan Potential Rehabilitation Potential Good Status of Condition at Evaluation Evolving Summary Impairments Pain,ROM,Strength,Balance, Coordination,Sensation,Tone, Cognition,Bed Mobility, Transfers,Gait,Activity Tolerance Assessment Summary Pt requires Mod A for bed mobility, Min A for sit to stand and CGA for gait. Pt able to ambulate ~10ft before needing to sit due to increased pain that is unbearable. Pt's daughter is able to assist pt with all mobility as she has been providing care before hospital stay. However, pt would benefit from SNF rehab to improve strength for increased activity tolerance and functional mobility. Goals Bed Mobility Goal Standby Assistance Transfer Goal Standby Assistance,Crutches Gait Goal Standby Assistance,Front Wheel Walker Gait Distance 150 Other Goals up/down 2 platform steps using FWW SBA Days to Meet Goals 5 Frequency of Treatment Frequency Of Treatment Once a Day Treatment Plan Physical Therapy Treatment Plan Bed Mobility Training,Transfer Training,Gait Training, Therapeutic Exercise,Balance Retraining,Discharge Planning, Hot or Cold Pack,Neuromuscular Re-ed,Coordination Retraining Other Recommendations and Next Treatment stairs if going home, gait, Focus bed mobility Recommendations To Nursing Amount of Assist Needed 2 Person Assist Discharge Recommendations PT Discharge Recommendations Home with 27/01 Assist,Home Health,SNF Rehab Transportation Needs at Discharge Private Vehicle,Wheelchair/ Cabulance
[2020-04-03] MEDS: HYDROCODONE/ACET 5/325 TABLET 1 TAB PO ×2 (12:07→23:31)
--- NOTE | 2020-04-03 14:39 | OT.IP.TRT ---
Occupational Therapy Treatment Note M2 OT-IP Current Condition Start: 04/01/20 15:07 Freq: Status: Active Protocol: Document 04/01/20 15:07 CGR (Rec: 04/01/20 15:27 CGR [email or web address]) Occupational Therapy Current Condition Current Condition Evaluation Date 04/01/20 Treatment Diagnosis GLF with B multiple pelvic rami fx. Diagnosis Onset Date 04/01/20 Weight Bearing Status Weight Bearing Status Weight Bear as Tolerated M3 OT- IP Subjective and Pain Start: 04/01/20 15:07 Freq: Status: Active Protocol: Document 04/03/20 14:54 [facility] (Rec: 04/03/20 15:06 [facility] [id number]) OT- Subjective Occupational Therapy Visit Type Type Treatment Note Visit Start Time 08:36 Visit Stop Time 14:39 Total Visit Minutes 55 Notes Pt seen in the AM and then in the PM as wanting to sponge off in the PM. Occupational Therapy Visit Comments Patient Comments Pt forgetful and did not recall that her daughter was here in the morning. Patient/Caregiver Goals Pt would like to go home but open to going to skilled rehab . OT Pain Assessment Pain When Pain Assessed At Rest Pain Present Pain Present Pain Reported Location Bilateral Hip Intensity 8 Scale Used Numeric (0 - 10) M4 OT- IP ADL's Start: 04/01/20 15:07 Freq: Status: Active Protocol: Document 04/03/20 14:54 [facility] (Rec: 04/03/20 15:06 [facility] [id number]) OT [id number] Comments OT Self-Feeding Comments not meal time OT ADL-Grooming Comments OT Grooming Comments pt declined OT ADL-Dressing General Eval Lower Body Dressing Ability Maximum Assistance Areas Needing Assistance Underpants/Brief,Socks Comments OT Dressing Comments Assist to alvarez/doff socks and assist to get brief over her feet and up over her hips. OT ADL-Toileting General Evaluation Toileting Ability Maximum Assistance Areas Needing Assistance Manage Clothing,Perform Perineal Hygiene Comments OT Toileting Comments Pt having trouble and needing assist to wipe while standing. OT ADL-Bathing Bathing Type Bathing Type Sponge Bath General Evaluation Bathing Ability Moderate Assistance Areas Needing Assistance Wash/Dry Back,Wash/Dry Perineal Area,Wash/Dry Lower Extremities Comments OT Bathing Comments Pt able to assist while sitting on the edge of the bed her face, chest, arms, and top of her legs. M5 OT- IP IADL's Start: 04/01/20 15:07 Freq: Status: Active Protocol: Document 04/01/20 15:07 CGR (Rec: 04/01/20 15:27 CGR [email or web address]) OT-Instrumental Activities of Daily Living Deficits IADL Deficits Identified Deficits Home Safety Awareness Awareness of Need for Assistance at Home Decreased Awareness Ability to Problem Solve Emergency Able to Problem Solve Situations M6 OT- IP Functional Cognition Start: 04/01/20 15:07 Freq: Status: Active Protocol: Document 04/03/20 14:54 [facility] (Rec: 04/03/20 15:06 [facility] [id number]) Cognitive Factors Limiting Selfcare Function Cognitive Ability Level of Alertness Alert,Confusional State Patient Orientation Name,Age,Birthday,Month,Date, Year,Day of Week,Place, Situation Attention Span Ability Capable of Focused Attention, Capable of Sustained Attention Ability to Follow Commands Able to Follow One Step Commands with Increased Time, Able to Follow One Step Commands with Repetition Memory Description Short Term Impaired Cognitive Comments Cognitive Assessment Comments Pt now remembering that her daughter was here this morning and not remembering the conversation with case management. Pt having difficulty to remember to keep the O2 in her nose at all times and her O2 reading drops on when O2 tubing out to 84%. M7 OT- IP Mobility and Balance Start: 04/01/20 15:07 Freq: Status: Active Protocol: Document 04/03/20 14:54 [facility] (Rec: 04/03/20 15:06 [facility] [id number]) OT- Bed Mobility Assessment Rolling Type of Rolling Roll to Left Level of Assistance Moderate Assistance Supine to Sit Supine to Sit Assist Moderate Assistance,1 Person Assistance,Bedrails Sit to Supine Sit to Supine Assist Moderate Assistance,1 Person Assistance Scooting Scooting to Edge of Bed Moderate Assistance,1 Person Assistance OT-Transfer Assessment Sit to and From Stand Sit to and from Stand Minimal Assistance,1 Person Assistance Transfers Transfer Ability Minimal Assistance,1 Person Assistance Technique Transfer Destination Bed,Toilet Transfer Technique Stand Step Pivot Devices Transfer Assistive Devices Gait Belt,Front Wheeled Walker Comments Mobility Comments Much improved with bed mobility and coming up to stand and not needing RADAMES and more assist for lower surfaces. Pt mainly just tolerated transfer to and from the bed to [facility]. OT- Balance Assessment Sitting Balance and Reactions Static Sitting Balance Ability Good Dynamic Sitting Balance Ability Fair Standing Balance and Reactions Static Standing Balance Ability Poor M8 OT- IP Objective Assessments Start: 04/01/20 15:07 Freq: Status: Active Protocol: Document 04/01/20 15:07 CGR (Rec: 04/01/20 15:27 CGR [email or web address]) OT Gross Range of Motion Upper Extremity Range of Motion Assessment Right Impaired ROM Impairments R shld impairments noted d/t pain. Pt tolerated Rshld rom 0 -90 but increased pain beyond 90. OT Strength Upper Extremity Strength Assessment Right Impaired Comments Strength Comments grossly 4/5 to the LUE, RUE not tested d/t shld pain. OT- Coordination Assessment Upper Extremity Finger to Nose Test Within Functional Limits Finger Tapping Test Within Functional Limits OT-Muscle Tone Assessment Muscle Tone WNL Yes OT Sensation Assessment Edema Edema Absent M9 OT- IP Assessment and Plan Start: 04/01/20 15:07 Freq: Status: Active Protocol: Document 04/03/20 14:54 [facility] (Rec: 04/03/20 15:06 [facility] [id number]) OT Summary Assessment and Plan Potential Rehabilitation Potential Good Analytic Complexity at Evaluation Moderate Summary OT Impairments Pain,Range of Motion,Balance, Functional Cognition, Functional Mobility,Dressing, Toileting,Bathing,Toilet Transfers,Shower Transfers, Activity Tolerance Progress Towards Goals Slow Progress due to Pain,Slow Progress due to Activity Tolerance,Slow Progress due to Cognition Assessment Summary Pt main barriers are decreased activity tolerance and needing MODA for bed mobility needs and MOD/MAX A for LB dressing and toileting needs. Pt on RA O2 drops to 84% however once back on 1.5l O2 reading are 94%. Pt continues to need reminders to keep her O2 in at all times. Pt's daughter present this AM with PANEL MAKER and looking to get FWW, bed rail and BSC if going home . Pt would benefit from short skilled rehab to get back to prior level of function, which includes not use of O2. Pt's daughter states just prior to coming to the hospital was having to assist pt more for LB , dressing, toileting and bathing needs. Goals Grooming Goal Independent Dressing Goal Independent Toileting Goal Independent Bathing Goal Independent Toilet Transfer Goal Independent Shower Transfer Goal Independent Days to Meet Goals 9 Frequency of Treatment Frequency Of Treatment Once a Day Treatment Plan OT Treatment Plan ADL Training,Functional Cognition Training,Functional Mobility,Patient/Family Education,Discharge Planning Other Treatment Recommendations and Next Go over use of LB dressing Treatment Focus equipment. Discharge Recommendations OT Discharge Recommendations SNF Rehab Transportation Needs at Discharge Private Vehicle
--- NOTE | 2020-04-03 14:53 | CM.DANOTE ---
DCP/Assessment: Reviewed chart. Patient deemed inpatient appropriate since 04-01-20. Received call from December at [facility] and she reports that they can accept tomorrow. Placed call to Dr. Ervin to provide hime with update. Dr. Ervin reports if patient remains medically stable he will discharge her in AM on 04-04-20. Placed call to daughter/Lacey to provide update. Patient and daughter aware and agreeable to d/c plan. P: Anticipate d/c to [facility] tomorrow. Will notify [facility] when and if patient discharges to SNF tomorrow. TONYA Barksdale
[2020-04-03] MEDS: SIMVASTATIN 10 MG TABLET PO (20:38)
--- NOTE | 2020-04-03 22:57 | PC.NURSE ---
Evening note: Janette is oriented to self, situation & hospital setting, can be forgetful to events/specifics. Very [place]. Takes off 2L O2 NC often, pulse oximeter alarming frequently, RA oxygen dropping sometimes as low to 80% before nurse can reapply NC. Pt yells sometimes keep that off and it bugs me but eventually agrees to wear O2. Can get agitated at times, which seems to be because she cannot hear what staff are saying. Pt very weak, 1 moderate assist pivot to BSC. Medicated with Tylenol & hydrocodone for 10/10 pain to hips/legs. Repositioned q2 hours for comfort, alarm active & fall precautions in place.
[2020-04-04 05:00] VITALS: BP 112/70; PULSE 95; RESP 18; TEMP 36.6; O2SAT 92
[2020-04-04] MEDS: HYDROCODONE/ACET 5/325 TABLET 1 TAB PO ×2 (05:04→11:22)
[2020-04-04 07:20] LABS: BUN Creatinine Ratio 53.7 (6-22); Blood Urea Nitrogen 51 mg/dL (7-17); Calcium 9.3 mg/dL (8.4-10.2); Carbon Dioxide 36 mmol/L (22-32); Chloride 90 mmol/L (98-107); Estimated Glomerular Filt Rate 57.7 mL/min (>60); Glucose 126 mg/dL (80-110); HEMOLYSIS < 15 (0-50); Magnesium 1.3 mg/dL (1.6-2.3); Sodium 134 mmol/L (137-145)
[2020-04-04 07:30] VITALS: PULSE 88; RESP 18; O2SAT 94
[2020-04-04 08:00] VITALS: BP 119/64; PULSE 85; RESP 22; TEMP 36.6; O2SAT 96
--- NOTE | 2020-04-04 08:36 | P.DS_ITS ---
History of Present Illness History of Present Illness Chief complaint: Can't walk/pain Discharge Providers Provider Date of admission: 04/01/20 04:48 Discharge Date: 04/04/20 Primary care physician: Graham Ervin MD Consults: 04/01/20 04:19 Consult to Orthopedic Surgery Urgent Comment: Consulting Provider: Salo Diaz Reason for consultation: pelvic fracture Has provider been notified: No 04/01/20 11:09 Consult to Physician Routine Comment: Consulting Provider: Salo Diaz Reason for consultation: pelvic fractures Has provider been notified: Yes 04/01/20 11:15 Consult to Occupational Therapy Evaluate & Treat Comment: Physician Instructions: Evaluate and treat Consult to Physical Therapy Evaluate & Treat Comment: Physician Instructions: Evaluate and Treat 04/03/20 08:31 Consult to Respiratory Therapy Evaluate & Treat Comment: Question home O2 Physician Instructions: Evaluate and treat Discharge provider: Graham Ervin MD Summary Hospital Course Discharge Diagnosis: 1. Stable pelvic fracture. 2. Congestive heart failure acute on chronic. 3. Diabetes mellitus. 4. History of hypertension stable. 5. History of seizure disorder stable. 6. History depression stable. 7. History of hyperlipidemia stable 8. New onset decreased magnesium on replacement Hospital Course: Patient was admitted for evaluation of pelvic fracture. She was seen in consultation by orthopedic surgeons who felt that the pelvic fractures were stable and that required physical therapy and gradual weight- bearing. Patient is seen with physical therapy here and required 2 person assist as well as walker. Patient was minimally ambulatory secondary to pain. Additionally she was found to be hypoxic on admission and had a lab and x-rays consistent with the congestive heart failure. She was treated with Lasix i nitially intravenously and then on discharge placed on p.o. Lasix. She diuresed. Her BUN increased significantly as result of her diuresis. She was discharged to a SNF for physical therapy for pelvic fracture and mobility. And anticipate she will being there for probably a month. She does require oxygen 1 liter/minute on discharge as per recommendation by respiratory therapy Status at Discharge Cognitive/behavioral status at discharge: at baseline, oriented Functional status at discharge: uses cane/walker Overall status at discharge: patient is not back to baseline Exam Vital Signs (past 8 hours): - 04/04/20 05:00 04/04/20 07:30 Temperature 97.9 F Pulse Rate 95 H 88 Respiratory Rate 18 18 Blood Pressure 112/70 Pulse Oximetry 92 94 Oxygen Delivery Method Nasal Cannula Oxygen Flow Rate 1 Objective Labs Result Diagrams: 03/31/20 22:25 04/04/20 06:36 Labs: Laboratory Results - last 24 hr 04/04/20 06:36 Sodium 134 L Potassium 4.0 Chloride 90 L Carbon Dioxide 36 H BUN 51 H Creatinine 0.95 Estimated GFR 57.7 L BUN/Creatinine Ratio 53.7 H Glucose 126 H Calcium 9.3 Magnesium 1.3 L Discharge Plan Discharge Plan Patient Disposition: SNF Transfer to: [facility] Under care of provider: staff Consult as needed: Dental, Hearing, Mental health, Podiatry and Vision Discharge comment: PT/OT. serum mg 1 week, chem bG ac and hs Discharge orders & Medications Prescriptions: New hydrocodone-acetaminophen 5-325 mg Tablet 1 tab PO Q4HR PRN (Reason: Pain, Moderate (4-6)) Qty: 0 RF: 0 magnesium hydroxide 400 mg (170 mg magnesium) tablet,chewable 400 mg PO .qd 30 Days Qty: 50 RF: 0 hydrocodone-acetaminophen 5-325 mg tablet 1 tab PO Q6H PRN (Reason: pain) Qty: 50 RF: 0 Continued hydrochlorothiazide 50 MG tablet 50 mg PO QDAY Qty: 0 RF: 0 simvastatin 10 MG tablet 10 mg PO HS Qty: 0 RF: 0 aspirin 81 mg tablet,delayed release (DR/EC) 81 mg PO QDAY Qty: 90 RF: 2 omeprazole 20 mg capsule,delayed release(DR/EC) 20 mg PO DAILY Qty: 90 RF: 3 metformin 500 mg tablet extended release 24 hr 500 mg PO DAILY Qty: 90 RF: 1 sertraline 50 mg tablet 50 mg PO QDAY Qty: 90 RF: 0 ferrous sulfate 325 mg (65 mg iron) tablet 325 mg PO BIDWM Qty: 60 RF: 8 levetiracetam 750 mg tablet 1,500 mg PO DAILY RF: 0 hydroxyzine HCl 25 mg tablet 50 mg PO DAILY RF: 0 losartan 100 mg tablet 100 mg PO DAILY RF: 0 potassium chloride 10 mEq tablet extended release 20 meq PO BID RF: 0 furosemide [Lasix] 40 mg tablet 40 mg PO DAILY Qty: 20 RF: 0 Follow up/Referrals: Graham Ervin MD [Primary Care Provider] - Discharge Health Status Multidrug resistant organism: No MDRO Precautions: [place] Diet/Activity/Treatments Diet: Diet as Tolerated Liquid consistency: Normal/Thin Food texture: Regular Oxygen: 1 l/m nasal O2 [facility] Rehab type: Physical therapy and Occupational therapy Restrictions to mobility: pain due to pelvic frx Discharge Data Primary Care Provider: Graham Ervin VTE Deep Vein Thrombosis/Pulmonary Embolism Present on Admission: No
[2020-04-04] MEDS: FERROUS SULFATE 325 MG TABLET PO (08:48)
[2020-04-04] MEDS: DOCUSATE 100 MG CAPSULE PO (08:48)
[2020-04-04] MEDS: FUROSEMIDE 40 MG/4 ML VIAL IV (08:48)
[2020-04-04] MEDS: ASPIRIN EC 81 MG TABLET PO (08:48)
[2020-04-04] MEDS: ENOXAPARIN 40 MG/0.4 ML SYRINGE SUBCUT (08:48)
[2020-04-04] MEDS: levETIRAcetam 250 MG TABLET 1500 MG PO (08:49)
[2020-04-04] MEDS: SODIUM CHLORIDE 0.9% FLUSH 10 ML IV (08:49)
[2020-04-04] MEDS: SERTRALINE 50 MG TABLET PO (08:49)
[2020-04-04] MEDS: POTASSIUM CHLORIDE 10 MEQ TAB 20 MEQ PO (08:49)
[2020-04-04] MEDS: PANTOPRAZOLE 20 MG TABLET PO (08:50)
[2020-04-04] MEDS: METFORMIN XR 500 MG TABLET PO (08:50)
[2020-04-04 10:10] LABS: COVID19 -Nasal RAPID Negative (Negative)
[2020-04-04] MEDS: ACETAMINOPHEN 325 MG TABLET 650 MG PO (11:22)
--- NOTE | 2020-04-04 11:50 | PT.IPTN ---
Current Diagnoses Heart failure, unspecified (04/01/20) Physical Therapy Treatment Note M2 PT-IP Current Condition Start: 04/01/20 14:30 Freq: NEEDED Status: Active Protocol: Document 04/01/20 13:20 AB (Rec: 04/01/20 14:42 AB [id number]) Physical Therapy Current Condition Current Condition Evaluation Date 04/01/20 Treatment Diagnosis s/p fall s/p bilateral sup/inf puc rami fx; difficulty in walking Onset Date Weight Bearing Status Weight Bearing Status Weight Bear as Tolerated Allowed Weight Bearing Amount (enter % WBAT BLE or #) (%) M3 PT-IP Subjective Start: 04/01/20 14:30 Freq: NEEDED Status: Active Protocol: Document 04/04/20 11:26 CLB (Rec: 04/04/20 13:22 CLB [id number]) Subjective Physical Therapy Visit Type Type Treatment Note Visit Start Time 11:26 Visit Stop Time 11:50 Total Visit Minutes 24 Notes Co-treat with OT. Daughter Jaelyn present. 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 Therapy Pain Assessment Pain When Pain Assessed During Mobility Pain Present Pain Present Pain Reported Location Bilateral Hip Scale Used scale not stated M4 PT-IP Mobility and Gait Start: 04/01/20 14:30 Freq: NEEDED Status: Active Protocol: Document 04/04/20 11:26 CLB (Rec: 04/04/20 13:22 CLB [id number]) PT-Bed Mobility Assessment Supine to Sit Supine to Sit Moderate Assistance,1 Person Assistance,Head of Bed Elevated Scooting Scooting to Edge of Bed Maximum Assistance PT-Transfer Assessment Sit to and From Stand Sit to and from Stand Minimal Assistance,1 Person Assistance,2 Person Assistance ,Use of Upper Extremities Equipment Transfer Assistive Device Gait Belt,Front Wheeled Walker Orthotic/Prosthetic Devices or Brace: No Transfers Transfer Destination Chair,Bedside Commode Transfer Technique ambulated with FWW Transfer Ability Level of Assist Minimal Assistance,1 Person Assistance,Use of Upper Extremities Comments Mobility Comments Pt in bed and wanting to get to shower. Pt required Mod A supine to sit with HOB elevated and Max A to scoot to EOB. Pt stood Min A and ambulate ~3ft before needing to sit to rest. Pt was then wheeled in chair to opening of BR door and ambulated into shower requiring Min A and assist with walker management, daughter assisted with O2 line. Left pt in shower on BSC with OT. Gait Assessment Gait Gait Assistance Required: Minimum Assistance,1 Person Assist Distance (Feet) 10 Able to Maintain Weight Bearing Status Yes During Gait Assistive Devices Assistive Device Gait Belt,Front Wheeled Walker Gait Deviations General Gait Pattern Antalgic,Decreased Stride Length,Decreased Feet Clearance,Flexed Trunk Factors Limiting Gait Function Factors Limiting Gait Function Decreased Activity Tolerance, Decreased Strength,Limited Range of Motion,Pain,Poor Balance,Respiratory Distress Comments Gait Comments see mobility section M5 PT-IP Objective Assessments Start: 04/01/20 14:30 Freq: NEEDED Status: Active Protocol: Document 04/01/20 13:20 AB (Rec: 04/01/20 14:42 AB [id number]) Orientation Orientation/Cognition Level of Alertness Alert Orientation Name,Place,Situation Safety Awareness Decreased Safety Awareness Memory Description Short Term Impaired Gross Range of Motion Lower Extremity ROM Assessment Within Functional Limits Strength Lower Extremity Strength Assessment Bilaterally Impaired Comments Strength Comments RLE: hip flexion: 3-/5 knee: 3+/5 LLE: 3+/5 Sensation Assessment Sensation Gross Sensation WNL Muscle Tone Muscle Tone WNL Yes M6 PT-IP Treatment Start: 04/01/20 14:30 Freq: NEEDED Status: Active Protocol: Document 04/01/20 13:20 AB (Rec: 04/01/20 14:42 AB [id number]) Physical Therapy Treatment Education Education Provided Safety M7 PT-IP Assessment and Plan Start: 04/01/20 14:30 Freq: NEEDED Status: Active Protocol: Document 04/04/20 11:26 CLB (Rec: 04/04/20 13:22 CLB [id number]) PT Summary Assessment and Plan Potential Rehabilitation Potential Good Status of Condition at Evaluation Evolving Summary Impairments Pain,ROM,Strength,Balance, Coordination,Sensation,Tone, Cognition,Bed Mobility, Transfers,Gait,Activity Tolerance Assessment Summary Pt continues to require Mod- Max A for bed mobilty and Min A for sit<>stand and gait. Pt requires increased time and seated rest break during gait . Pt SpO2 on 1L 95% during activity. Pt will benefit from SNF rehab to increase activity tolerance for functional mobility. Goals Bed Mobility Goal Standby Assistance Transfer Goal Standby Assistance,Crutches Gait Goal Standby Assistance,Front Wheel Walker Gait Distance 150 Other Goals up/down 2 platform steps using FWW SBA Days to Meet Goals 5 Frequency of Treatment Frequency Of Treatment Once a Day Treatment Plan Physical Therapy Treatment Plan Bed Mobility Training,Transfer Training,Gait Training, Therapeutic Exercise,Balance Retraining,Discharge Planning, Hot or Cold Pack,Neuromuscular Re-ed,Coordination Retraining Recommendations To Nursing Amount of Assist Needed 2 Person Assist Discharge Recommendations PT Discharge Recommendations Home with 27/01 Assist,Home Health,SNF Rehab Transportation Needs at Discharge Wheelchair/Cabulance
--- NOTE | 2020-04-04 12:03 | PC.NURSE ---
Addendum entered by Marie Cox R.N. 04/04/20 13:07: Off floor discharged to [facility] in stable condition via WC on O2 at 1L via NC. Daughter Maura at side Original Note: Day shift note: Patient awake, alert, and oriented. Calm and cooperative, very KAW. Had large BM this shift. Continue on O2 at 2L via NC, sat 91-94%. No SOB or difficulty breathing noted at rest or with activity. Daughter Maura at bedside providing supportive care. Requires constant reassurance and prompting with mobility. Report given to receiving RN in [facility].
--- NOTE | 2020-04-04 12:20 | OT.IP.TRT ---
Current Diagnoses Heart failure, unspecified (04/01/20) Occupational Therapy Treatment Note M2 OT-IP Current Condition Start: 04/01/20 15:07 Freq: Status: Active Protocol: Document 04/01/20 15:07 CGR (Rec: 04/01/20 15:27 CGR [id number]) Occupational Therapy Current Condition Current Condition Evaluation Date 04/01/20 Treatment Diagnosis GLF with B multiple pelvic rami fx. Diagnosis Onset Date 04/01/20 Weight Bearing Status Weight Bearing Status Weight Bear as Tolerated M3 OT- IP Subjective and Pain Start: 04/01/20 15:07 Freq: Status: Active Protocol: Document 04/04/20 12:42 [facility] (Rec: 04/04/20 12:58 [facility] [id number]) OT- Subjective Occupational Therapy Visit Type Type Treatment Note Visit Start Time 11:30 Visit Stop Time 12:20 Total Visit Minutes 50 Occupational Therapy Visit Comments Patient Comments Pt wanting to shower, CHEMICAL ENGINEERING TECHNOLOGIST present at the beginning of the session to assist to get pt into the shower with FWW. Patient/Caregiver Goals Pt would like to go home but okay with going to skilled rehab . OT Pain Assessment Pain When Pain Assessed During Mobility Pain Present Pain Present Pain Reported M4 OT- IP ADL's Start: 04/01/20 15:07 Freq: Status: Active Protocol: Document 04/04/20 12:42 [facility] (Rec: 04/04/20 12:58 [facility] [id number]) OT [id number] Comments OT Self-Feeding Comments not meal time OT ADL-Grooming Comments OT Grooming Comments pt declined OT ADL-Dressing General Eval Lower Body Dressing Ability Maximum Assistance Areas Needing Assistance Underpants/Brief,Socks Comments OT Dressing Comments Assist to alvarez/doff socks and assist to get brief over her feet and up over her hips. OT ADL-Bathing Bathing Type Bathing Type Shower General Evaluation Bathing Ability Maximal Assistance Areas Needing Assistance Wash/Dry Back,Wash/Dry Perineal Area,Wash/Dry Lower Extremities Comments OT Bathing Comments Pt more distracted today and needing vc to stay on task for the shower. Pt able to assist mainly just to wash her face, chest, and needing cues to help wash underneath her armpits. Pt refused to wash her hair. M5 OT- IP IADL's Start: 04/01/20 15:07 Freq: Status: Active Protocol: Document 04/01/20 15:07 CGR (Rec: 04/01/20 15:27 CGR [email or web address]) OT-Instrumental Activities of Daily Living Deficits IADL Deficits Identified Deficits Home Safety Awareness Awareness of Need for Assistance at Home Decreased Awareness Ability to Problem Solve Emergency Able to Problem Solve Situations M6 OT- IP Functional Cognition Start: 04/01/20 15:07 Freq: Status: Active Protocol: Document 04/04/20 12:42 [facility] (Rec: 04/04/20 12:58 [facility] [id number]) Cognitive Factors Limiting Selfcare Function Cognitive Ability Level of Alertness Alert,Confusional State Patient Orientation Name,Age,Birthday,Month,Date, Year,Day of Week,Place, Situation Attention Span Ability Capable of Focused Attention, Capable of Sustained Attention Ability to Follow Commands Able to Follow One Step Commands with Increased Time, Able to Follow One Step Commands with Repetition Memory Description Short Term Impaired Cognitive Comments Cognitive Assessment Comments Pt needing vc for safety for hand placement to push up from the surface sitting from. VC to help her sequence through the task of showering. Pt not able to recall therapist from yesterday or remember that her daughter was in the room after her shower. M7 OT- IP Mobility and Balance Start: 04/01/20 15:07 Freq: Status: Active Protocol: Document 04/04/20 12:42 [facility] (Rec: 04/04/20 12:58 [facility] [email or web address]) OT-Transfer Assessment Sit to and From Stand Sit to and from Stand Minimal Assistance,Maximum Assistance,1 Person Assistance ,2 Person Assistance Transfers Transfer Ability Minimal Assistance,Maximum Assistance,1 Person Assistance ,2 Person Assistance Technique Transfer Destination Bed,Chair,Shower Stall Devices Transfer Assistive Devices Gait Belt,Front Wheeled Walker Comments Mobility Comments RADAMES x2 with FWW to get into the shower, assist to guide the FWW and steady pt. On the way out of the shower pt needing MAX A X 1 to stand , assist to move the FWW and steady pt to get to the recliner placed at the doorway . OT- Balance Assessment Sitting Balance and Reactions Static Sitting Balance Ability Good Dynamic Sitting Balance Ability Fair Standing Balance and Reactions Static Standing Balance Ability Poor M8 OT- IP Objective Assessments Start: 04/01/20 15:07 Freq: Status: Active Protocol: Document 04/01/20 15:07 CGR (Rec: 04/01/20 15:27 CGR [email or web address]) OT Gross Range of Motion Upper Extremity Range of Motion Assessment Right Impaired ROM Impairments R shld impairments noted d/t pain. Pt tolerated Rshld rom 0 -90 but increased pain beyond 90. OT Strength Upper Extremity Strength Assessment Right Impaired Comments Strength Comments grossly 4/5 to the LUE, RUE not tested d/t shld pain. OT- Coordination Assessment Upper Extremity Finger to Nose Test Within Functional Limits Finger Tapping Test Within Functional Limits OT-Muscle Tone Assessment Muscle Tone WNL Yes OT Sensation Assessment Edema Edema Absent M9 OT- IP Assessment and Plan Start: 04/01/20 15:07 Freq: Status: Active Protocol: Document 04/04/20 12:42 [facility] (Rec: 04/04/20 12:58 [facility] [id number]) OT Summary Assessment and Plan Potential Rehabilitation Potential Good Analytic Complexity at Evaluation Moderate Summary OT Impairments Pain,Range of Motion,Balance, Functional Cognition, Functional Mobility,Dressing, Toileting,Bathing,Toilet Transfers,Shower Transfers, Activity Tolerance Progress Towards Goals Progressing Toward Goals Assessment Summary Pt able to tolerate a shower and able to walk into the shower from the doorway with OT/PT assist today. Pt still having decreased STM and not remembering to keep her O2 on. Pt looking to go to skilled rehab today. Goals Grooming Goal Independent Dressing Goal Minimal Assistance Toileting Goal Minimal Assistance Bathing Goal Moderate Assistance Toilet Transfer Goal Independent Shower Transfer Goal Independent Days to Meet Goals 8 Frequency of Treatment Frequency Of Treatment Once a Day Treatment Plan OT Treatment Plan ADL Training,Functional Cognition Training,Functional Mobility,Patient/Family Education,Discharge Planning Discharge Recommendations OT Discharge Recommendations SNF Rehab Transportation Needs at Discharge Wheelchair/Cabulance
--- NOTE | 2020-04-04 14:26 | CM.DPC ---
Addendum entered by Belén Frazier 04/04/20 14:33: [facility] to [facility] provided to daughter to contact for Meals on Wheels. KJS Original Note: DCP/continued: Reviewed chart. Spoke with Dr. Ervin this AM. Patient medically stable for d/c to SNF today. Placed call to Nai at [facility]. New COVID test required. Spoke with charge aide/Louis and rapid test ordered and confirmed negative. Placed call to patient's daughter/Lacey she is aware that patient will be discharged to [facility] today. Per December medicinal plant picker scheduled for 1:00pm. RN updated. Orders, and PASRR faxed to [facility]. P: [facility] today. TONYA Barksdale
== END 2020-04-04 13:00 | DRG 292 ==
LOC: ED 04-01 04:09 → AC 04-01 10:53
PROVIDERS: Admitting Provider Family Medicine; Emergency Provider Emergency Medicine; PCP Family Medicine; Referring Provider Family Medicine; Visit Provider Family Medicine
DX: I11.0 Hypertensive heart disease with heart failure (principal); S32.82XA Multiple fractures of pelvis without disruption of pelvic ring, initial encounter for closed fracture; I50.33 Acute on chronic diastolic (congestive) heart failure; G40.909 Epilepsy, unspecified, not intractable, without status epilepticus; R09.02 Hypoxemia; E83.42 Hypomagnesemia; E11.9 Type 2 diabetes mellitus without complications; G43.909 Migraine, unspecified, not intractable, without status migrainosus; F32.9 Major depressive disorder, single episode, unspecified; Z87.891 Personal history of nicotine dependence; W01.0XXA Fall on same level from slipping, tripping and stumbling without subsequent striking against object, initial encounter
CPT/HCPCS: 36415; 71046; 72100; 72131; 72170; 72192; 72220; 80048; 80053; 82962; 83735; 83880; 85025; 85651; 86140; 87635; 94762; 96374; 96375; 97116; 97162; 97166; 97530; 97535; 99284; J1650; J1940; J2270; J2405

== ENCOUNTER 2020-06-12 13:53 | Inpatient (IN) | payer MEDICARE, OTHER, SELFPAY ==
[2020-04-01 05:15] VITALS: BMI 27.7
[2020-06-12] VITALS (18 sets, daily range): BP systolic 73–121; BP diastolic 49–76; PULSE 86–99; RESP 13–32; TEMP 36.3–36.9; O2SAT 88–100; BMI 24.0
[2020-06-12 14:47] LABS: COVID19 -Nasal RAPID Negative (Negative)
--- NOTE | 2020-06-12 15:10 | ED_ITS ---
HPI - Dizziness General Chief Complaint: Dizziness Stated Complaint: Lightheaded Time Seen by Provider: 06/12/20 14:30 Source: patient and EMS Mode of arrival: EMS Limitations: no limitations History of Present Illness HPI Narrative: This is a 75-year-old female who comes to the emergency department with complaint of lightheadedness. She was at home in the shower when she felt quite lightheaded. They got her out of the shower with the property management assistant of her home health aide and checked her blood pressure which was noted to be in the 90 range. Since then she states she feels fine she did have 1 episode of nausea and vomited earlier this morning after drinking milk. Her daughter states it looks like the milk she had just drink. She denies any chest pressure or pain, no shortness of breath. No abdominal pain. No issues with bowel movements, no issues with urination, no frequency dysuria urgency. She has not had any new swelling in her extremities that she is aware of. She does take an anti seizure medication, medication for dyslipidemia, hypertension as well as metformin and she takes a baby aspirin daily. She has had a hysterectomy, bilateral carpal tunnel and knee repair. Patient's primary care has been Dr. Ervin. Related Data Home Medications Medication Instructions Recorded Confirmed hydrochlorothiazide 50 mg PO QDAY #0 tab 03/11/13 04/01/20 simvastatin 10 mg PO HS #0 tab 03/11/13 04/01/20 hydroxyzine HCl 50 mg PO DAILY 03/23/20 04/01/20 levetiracetam 1,500 mg PO DAILY 03/23/20 04/01/20 potassium chloride 20 meq PO BID 03/23/20 04/01/20 Previous Rx's Medication Instructions Recorded aspirin 81 mg tablet,delayed 81 mg PO QDAY #90 tab 07/05/19 release omeprazole 20 mg capsule,delayed 20 mg PO DAILY #90 cap 10/11/19 release metformin 500 mg tablet,extended 500 mg PO DAILY #90 tab 12/31/19 release 24 hr furosemide [Lasix] 40 mg PO DAILY #20 tab 03/25/20 sertraline 50 mg tablet 50 mg PO QDAY #90 tab 03/31/20 ferrous sulfate 325 mg (65 mg 325 mg PO BIDWM #60 tab 04/02/20 iron) tablet hydrocodone-acetaminophen 1 tab PO Q4HR PRN #0 tab 04/04/20 hydrocodone-acetaminophen 1 tab PO Q6H PRN #50 tab 04/04/20 losartan 100 mg tablet See Rx Instructions .ROUTE 06/08/20 .COMPLEX #90 tablet Allergies Allergy/AdvReac Type Severity Reaction Status Date / Time No Known Drug Allergies Allergy Verified 03/31/20 20:08 Review of Systems Review of Systems ROS Unobtainable: All systems reviewed & are unremarkable except as noted in HPI and below Patient History Medical History (Updated 06/12/20 @ 19:01 by Ping Lundberg DO) Alopecia Anxiety Asthma Back pain Carpal tunnel syndrome Chicken pox Chronic back pain Foot pain Headache Hearing loss History of recurrent ear infection Hypertension Measles Mumps Recurrent sinusitis Seasonal allergies Shoulder pain Sleep apnea Vertigo Vision disorder Family History Child Age: 48 Cancer Heart disease Hypertension High cholesterol Diabetes mellitus Father Stroke Mother Heart disease Hypertension High cholesterol Diabetes mellitus Brother No problems noted. Brother No problems noted. Social History household members: family Smoking Status: Former smoker alcohol intake: former Smoking Status: Former smoker alcohol intake frequency: 0-2 drinks per day Substance Use Type: does not use Exam Narrative Exam Narrative: GEN: well nourished, elderly. Female, alert and oriented x 3, patient appears to be in no acute distress. HEENT: Atraumatic, pupils are equal round reactive to light, extraocular move ments are intact, nares are clear, TMs are clear with no fluid, there is no conjunctival pallor. Throat is clear without any exudates, erythema, tonsillar enlargement or uvular deviation HEART: Regular rate and rhythm without murmur, clicks, rubs. Pulses are equal in upper and lower extremities. No JVD noted. No edema bilateral upper lower extremities. LUNGS:Lungs clear to auscultation, no wheezes, rales, crackles, chest moves symmetrically, no tachypnea accessory muscle use. ABD:bowel sounds normal, soft, non-tender, no guarding, rebound, rigidity, no masses noted, no hepatosplenomegaly :No CVA tenderness MSCL: Non-tender, NEURO:CN 2-12 intact, sensation normal. SKIN: No rash, erythema or skin changes appreciated. Initial Vital Signs Initial Vital Signs: Vital Signs Temperature 98.1 F 06/12/20 13:59 Pulse Rate 97 H 06/12/20 13:59 Respiratory Rate 20 06/12/20 13:59 Blood Pressure 92/51 L 06/12/20 13:59 Pulse Oximetry 95 06/12/20 13:59 Course Orders Ordered: ED Orders 06/12/20 14:00 COVID19 Stat 06/12/20 14:20 Complete Blood Count AUTO DIFF Stat Comprehensive Metabolic Panel Stat D Dimer Stat Lactate (Lactic Acid) Stat Lipase Stat Partial Thromboplastin Time Stat Procalcitonin Stat Prothrombin Time INR Stat Troponin I Stat 06/12/20 15:08 XR chest 1V Stat 06/12/20 15:10 NT-proBNP (BNP-Adult 18+) Stat 06/12/20 15:56 CT angio chest PE protocol Stat 06/12/20 16:32 Urine Culture Stat Urine Microscopic Stat 06/12/20 17:15 COVID19 Stat 06/12/20 18:24 Blood Culture Stat Hydrocodone Bitart/Acetaminophen (Hydrocodone/Acet 5/325 Tablet) 1 tab PO Q6H PRN PRN Reason: pain Dextrose (Dextrose 50 % In Water 25 Gm/50 Ml Syringe) 25 gm IV PRN PRN PRN Reason: Hypoglycemia Enoxaparin Sodium (Enoxaparin 40 Mg/0.4 Ml Syringe) 40 mg SUBCUT DAILY ELDER Potassium Chloride 40 meq/ (Sodium Chloride) 520 mls @ 130 mls/hr IV NOW ONE Stop: 06/12/20 21:06 Sodium Chloride (Normal Saline 0.9%) 1,000 mls @ 100 mls/hr IV CONT ELDER Insulin Aspart (Insulin Aspart 100 Unit/Ml Insuln Pen) 0 unit SUBCUT ACHS ELDER; Protocol Levetiracetam (Levetiracetam 250 Mg Tablet) 1,500 mg PO DAILY ELDER Naloxone HCl (Naloxone 0.4 Mg/Ml Vial) 0.2 mg IV Q2MIN PRN PRN Reason: Opiate Reversal Sertraline HCl (Sertraline 50 Mg Tablet) 50 mg PO DAILY ELDER Discontinued Medications Sodium Chloride (Normal Saline 0.9%) 1,000 mls @ 1,000 mls/hr IV BOLUS ONE Stop: 06/12/20 16:04 Last Admin: 06/12/20 15:38 Dose: 1,000 mls/hr Documented by: SONIA Ceftriaxone Sodium/Dextrose (Rocephin) 1 gm in 50 mls @ 100 mls/hr IV NOW ONE Stop: 06/12/20 17:30 Last Admin: 06/12/20 17:21 Dose: 100 mls/hr Documented by: SONIA Potassium Chloride (Potassium Chloride 20 Meq/15 Ml Udc) 40 meq PO NOW ONE Stop: 06/12/20 15:32 Last Admin: 06/12/20 15:37 Dose: 40 meq Documented by: SONIA Consultations Consultation #1: Dr. Ervin, accepts for observation, plan for fluids, Rocephin, potassium replacement and O2. Time: 17:07 Vital Signs Vital signs: Vital Signs - 8 hr 06/12/20 13:59 06/12/20 14:01 06/12/20 14:30 Temperature 98.1 F Pulse Rate 97 H 99 H 97 H Respiratory Rate 20 19 31 H Blood Pressure 92/51 L Pulse Oximetry 95 94 92 06/12/20 15:00 06/12/20 15:23 06/12/20 15:30 Temperature Pulse Rate 93 H 98 H 91 H Respiratory Rate 28 H 22 25 H Blood Pressure 115/58 L 98/53 L Pulse Oximetry 88 L 97 96 06/12/20 16:00 06/12/20 16:04 06/12/20 16:53 Temperature Pulse Rate 91 H 91 H 91 H Respiratory Rate 20 32 H Blood Pressure 73/49 L 102/55 L 100/56 L Pulse Oximetry 97 99 97 06/12/20 17:00 Temperature Pulse Rate 95 H Respiratory Rate Blood Pressure 106/61 Pulse Oximetry 97 MDM - Dizziness Lab Data Attestation: I reviewed the patient's lab results. Result diagrams: 06/12/20 14:20 06/12/20 14:20 Labs: Lab Results 06/12/20 06/12/20 06/12/20 Range/Units 14:00 14:20 14:20 WBC (4.5-11.0) X10^3/uL RBC (4.0-5.2) X10^6/uL Hgb (12.0-16.0) g/dL Hct (36-46) % MCV (80-100) fL MCH (26-34) PG MCHC (30-36) % RDW (11.6-14.8) % Plt Count (150-400) X10^3/uL Neut % (Auto) (50-75) % Lymph % (Auto) (25-40) % Bradford % (Auto) (3-14) % Eos % (Auto) (2-4) % Baso % (Auto) (0-2) % Neut # (Auto) (8214-4462) /uL Lymph # (Auto) (0716-7724) /uL Bradford # (Auto) (0-900) /uL Eos # (Auto) (0-450) /uL Baso # (Auto) (0-100) /uL PT 13.8 H (10.1-12.7) SECONDS INR 1.2 (0.9-1.3) APTT 22 L D (26.4-36.2) SECONDS D-Dimer 326 H (<230) ng/mL Sodium (137-145) mmol/L Potassium (3.4-5.1) mmol/L Chloride (98-107) mmol/L Carbon Dioxide (22-32) mmol/L BUN (7-17) mg/dL Creatinine (0.52-1.04) mg/dL Estimated GFR (>60) mL/min BUN/Creatinine Ratio (6-22) Glucose (80-110) mg/dL Lactate (0.7-2.1) mmol/L Calcium (8.4-10.2) mg/dL Total Bilirubin (0.2-1.3) mg/dL AST (14-36) IU/L ALT (<35) IU/L Alkaline Phosphatase (38-126) U/L Troponin I (0.01-0.034) ng/mL NT-Pro-B Natriuret Pep (<125) pg/mL Total Protein (6.3-8.2) g/dL Albumin (3.5-5.0) g/dL Globulin (1.7-4.1) g/dL Albumin/Globulin Ratio (1.0-2.8) Lipase (23-300) U/L Procalcitonin 0.11 (<0.5) ng/mL Urine RBC (0-5/HPF) Urine WBC (0-5/HPF) Urine Bacteria (None) Ur Culture Indicated? COVID-19 PCR Negative (Negative) 06/12/20 06/12/20 06/12/20 Range/Units 14:20 14:20 14:20 WBC 10.5 (4.5-11.0) X10^3/uL RBC 4.36 (4.0-5.2) X10^6/uL Hgb 10.6 L (12.0-16.0) g/dL Hct 33.0 L (36-46) % MCV 75.7 L (80-100) fL MCH 24.4 L (26-34) PG MCHC 32.2 (30-36) % RDW 16.9 H (11.6-14.8) % Plt Count 397 (150-400) X10^3/uL Neut % (Auto) 81.9 H (50-75) % Lymph % (Auto) 12.6 L (25-40) % Bradford % (Auto) 4.6 (3-14) % Eos % (Auto) 0.4 L (2-4) % Baso % (Auto) 0.5 (0-2) % Neut # (Auto) 8600 H (2449-2885) /uL Lymph # (Auto) 1300 (3225-9465) /uL Bradford # (Auto) 500 (0-900) /uL Eos # (Auto) 0 (0-450) /uL Baso # (Auto) 100 (0-100) /uL PT (10.1-12.7) SECONDS INR (0.9-1.3) APTT (26.4-36.2) SECONDS D-Dimer (<230) ng/mL Sodium 128 L (137-145) mmol/L Potassium 2.8 L (3.4-5.1) mmol/L Chloride 85 L (98-107) mmol/L Carbon Dioxide 37 H (22-32) mmol/L BUN 19 H (7-17) mg/dL Creatinine 0.81 (0.52-1.04) mg/dL Estimated GFR > 60.0 (>60) mL/min BUN/Creatinine Ratio 23.5 H (6-22) Glucose 167 H (80-110) mg/dL Lactate 2.7 H (0.7-2.1) mmol/L Calcium 9.0 (8.4-10.2) mg/dL Total Bilirubin 0.6 (0.2-1.3) mg/dL AST 27 (14-36) IU/L ALT 12 (<35) IU/L Alkaline Phosphatase 105 (38-126) U/L Troponin I (0.01-0.034) ng/mL NT-Pro-B Natriuret Pep (<125) pg/mL Total Protein 7.9 (6.3-8.2) g/dL Albumin 3.8 (3.5-5.0) g/dL Globulin 4.1 (1.7-4.1) g/dL Albumin/Globulin Ratio 0.9 L (1.0-2.8) Lipase 78 (23-300) U/L Procalcitonin (<0.5) ng/mL Urine RBC (0-5/HPF) Urine WBC (0-5/HPF) Urine Bacteria (None) Ur Culture Indicated? COVID-19 PCR (Negative) 06/12/20 06/12/20 06/12/20 Range/Units 14:20 15:10 16:32 WBC (4.5-11.0) X10^3/uL RBC (4.0-5.2) X10^6/uL Hgb (12.0-16.0) g/dL Hct (36-46) % MCV (80-100) fL MCH (26-34) PG MCHC (30-36) % RDW (11.6-14.8) % Plt Count (150-400) X10^3/uL Neut % (Auto) (50-75) % Lymph % (Auto) (25-40) % Bradford % (Auto) (3-14) % Eos % (Auto) (2-4) % Baso % (Auto) (0-2) % Neut # (Auto) (5904-3580) /uL Lymph # (Auto) (7045-4357) /uL Bradford # (Auto) (0-900) /uL Eos # (Auto) (0-450) /uL Baso # (Auto) (0-100) /uL PT (10.1-12.7) SECONDS INR (0.9-1.3) APTT (26.4-36.2) SECONDS D-Dimer (<230) ng/mL Sodium (137-145) mmol/L Potassium (3.4-5.1) mmol/L Chloride (98-107) mmol/L Carbon Dioxide (22-32) mmol/L BUN (7-17) mg/dL Creatinine (0.52-1.04) mg/dL Estimated GFR (>60) mL/min BUN/Creatinine Ratio (6-22) Glucose (80-110) mg/dL Lactate (0.7-2.1) mmol/L Calcium (8.4-10.2) mg/dL Total Bilirubin (0.2-1.3) mg/dL AST (14-36) IU/L ALT (<35) IU/L Alkaline Phosphatase (38-126) U/L Troponin I 0.015 (0.01-0.034) ng/mL NT-Pro-B Natriuret Pep 1200 H (<125) pg/mL Total Protein (6.3-8.2) g/dL Albumin (3.5-5.0) g/dL Globulin (1.7-4.1) g/dL Albumin/Globulin Ratio (1.0-2.8) Lipase (23-300) U/L Procalcitonin (<0.5) ng/mL Urine RBC 1-5/hpf (0-5/HPF) Urine WBC 10-30/hpf H (0-5/HPF) Urine Bacteria Many (>30) H (None) Ur Culture Indicated? Specimen cultured COVID-19 PCR (Negative) Urine Dip Bedside Urine Glucose Negative Bedside Urine Bilirubin - Negative Bedside Urine Ketone - Negative Urine Specific Gordon 1.020 Bedside Urine Occult Blood - Negative Bedside Urine pH 6.0 Bedside Urine Protein - Negative Bedside Urine Urobilinogen - Negative Bedside Urine Nitrite + Positive Bedside Urine Leukocytes + 70 Esterase Imaging Data Chest x-ray: Radiologist's Impression: [address] [id number] ReportSigned Patient: Janette Waldron AMR#: [id number]: 1945cct:[id number]/Sex: 75 / FDate of Service: 06/12/20Loc: EDAccession Number: [id number] Procedure: XR chest 1V Ordering Provider: Ping Lundberg D.O. PROCEDURE: XR CHEST 1V INDICATIONS: lightheaded, low bp, low O2 TECHNIQUE: One view of the chest was acquired. COMPARISON: [facility], CT, CT ANGIO CHEST PE PROTOCOL, 03/23/2020, 18:51. [facility], CR, XR CHEST 2V, 04/02/2020, 9:54. FINDINGS: Surgical changes and devices: None. Lungs and pleura: Chronic interstitial prominence is again seen.. No definite focal infiltrate.. No pleural effusions or pneumothorax. Mediastinum: Tortuous thoracic aorta is noted. Heart size is mildly enlarged. Bones and chest wall: No suspicious bony lesions. Overlying soft tissues appear unremarkable. IMPRESSION: Chronic appearing interstitial prominence. Tortuous thoracic aorta. No definite focal infiltrate. No pleural effusion or pneumothorax. Dictated by: Ramesh Koch M.D. on 06/12/2020 at 14:35 Approved by: Ramesh Koch M.D. on 06/12/2020 at 14:44 CT scan - chest: Radiologist's Impression: [address] [id number] Scan ReportSigned Patient: Janette Waldron AMR#: [id number]: 7Acct:[id number]/Sex: 75 / FDate of Service: 06/12/20Loc: EDAccession Number: [id number] Procedure: CT angio chest PE protocol Ordering Provider: Ping Lundberg D.O. PROCEDURE: CT ANGIO CHEST PE PROTOCOL INDICATIONS: lightheaded, low bp, low o2 TECHNIQUE: After the administration of intravenous contrast, 2 mm thick sections acquired from the pulmonary apices to the posterior costophrenic angles. 3-dimensional maximum intensity projection (MIP) coronal and sagittal reformats were then acquired through the thorax. For radiation dose reduction, the following was used: automated exposure control, adjustment of mA and/or kV according to patient size. COMPARISON: [facility], CT, CT ANGIO CHEST PE PROTOCOL, 03/23/2020, 18:51. FINDINGS: Image quality: Excellent. Pulmonary arteries: Pulmonary arteries are prominent in size and measures up to 3.7 centimeters in diameter just proximal to bifurcation. Pulmonary arteries demonstrate no intraluminal filling defects to suggest central pulmonary embolism. Lungs and pleura: No acute airspace opacities. Dependent atelectasis and scarring in posterior aspect of bilateral lung bases are seen. 9 x 8 millimeter oval nodular density is seen in posterior medial aspect of left lung base series 5, image 189. 5 millimeter oval nodular density in left lung base is also seen series 5, image 185. No pleural effusions or pneumothorax. Central and peripheral airways are patent. Mediastinum: Heart size is normal, without pericardial effusion. No mediastinal or hilar adenopathy. Thoracic aorta is normal in caliber and enhancement. Esophagus is normal in caliber, without hiatal hernia. Bones and chest wall: No suspicious bony lesions. Ribs and thoracic spine appear intact throughout. Thyroid gland is enlarged with suggestion of bilateral partially calcified thyroid nodules unchanged in size and appearance from previous study.. No axillary or supraclavicular adenopathy. Abdomen: Visualized upper abdominal solid organs appear normal in the early arterial phase of enhancement. IMPRESSION: 1. No evidence of pulmonary emboli. Prominent pulmonary artery size concerning for pulmonary vascular hypertension. No thoracic aortic aneurysm or dissection. 2. Bibasilar scarring/atelectasis. No acute airspace opacity. No pleural effusion or pneumothorax. Airway is patent. 3. Incidentally noted of subcentimeter solid appearing nodules in posterior medial aspect of left lung base as above, CT chest follow-up in 3-6 months is recommended for evaluation of stability. 4. No gross mediastinal or hilar lymphadenopathy. 5. Suggestion of multinodular goiter unchanged from prior study. Dictated by: Ramesh Koch M.D. on 06/12/2020 at 15:23 Approved by: Ramesh Koch M.D. on 06/12/2020 at 15:33 ECG Data Attestation: I personally reviewed and interpreted this ECG as follows: Prior ECG tracings: available for review Interpretation: Sinus rhythm with incomplete right bundle branch, patient has a rate of 96, IL 130, QRS of 102 and QTC of 533. Patient does appear to have some ST abnormality in 2 3 AVF as well as some depression in lateral leads. Patient has prior EKG from 12/19/2016 which has similar RBBB changes but ST depression is not appreciated. [facility] Narrative Medical decision making narrative: Complaint of lightheadedness and hypotension at home, patient here BP is still low and she is hypoxic in the 89-88% range on room air which is new for her. Other than feeling lightheaded patient denies any other current symptoms. She is a known diabetic with hypertension, dysli pidemia anti seizure medications. Her urinalysis shows changes consistent with UTI which explain her hypotension she also has some ST changes that appear new from [address] years prior. She does not have any chest pain or shortness of breath, her chest x-ray is negative, her troponin is negative, CTA is negative for pulmonary emboli and she does not have any pulmonary edema on imaging. Her BMP slightly elevated but still significantly lower than on prior visits. She does not have an elevated white count procalcitonin is negative in her anemia appears at baseline. Electrolyte abnormalities including hyponatremia, hypokalemia, hypochloremia. Her renal function appears at baseline and her lac reed today is elevated at 2.7. Patient's hypotension and EKG changes could be secondary to her electrolyte abnormalities but still would not really explain her hypoxia. Patient's was swabbed for COVID which is negative and she does not appear to have any obvious pneumonia or infectious changes on her CT she does not have a prior history of tobacco abuse except for occasional social use per patient and family. Patients PCP is [facility], he requests ABG and accepts for observation. Covid repeated with more sensitive PCR test. Discharge Plan Departure Patient Disposition: Admitted as Observation Clinical Impression: Hyponatremia, Hypokalemia, Acute UTI, Hypotension Admit Date/Time: 06/12/20 17:14 Admit Provider: Graham Ervin
[2020-06-12 15:21] LABS: INR 1.2 (0.9-1.3); Prothrombin Time 13.8 SECONDS (10.1-12.7)
[2020-06-12 15:24] LABS: Add Manual Diff / Slide Review NO; Basophils Absolute Auto 100 /uL (0-100); Eosinophils Absolute Auto 0 /uL (0-450); Eosinophils Percent Auto 0.4 % (2-4); Monocytes Absolute Auto 500 /uL (0-900); PTT Partial Thromboplastin Tim 22 SECONDS (26.4-36.2)
[2020-06-12 15:25] LABS: Alanine Aminotransferase 12 IU/L (<35); Albumin 3.8 g/dL (3.5-5.0); Albumin Globulin Ratio 0.9 (1.0-2.8); Alkaline Phosphatase 105 U/L (38-126); Aspartate Aminotransferase 27 IU/L (14-36); BUN Creatinine Ratio 23.5 (6-22); Bilirubin Total 0.6 mg/dL (0.2-1.3); Blood Urea Nitrogen 19 mg/dL (7-17); Carbon Dioxide 37 mmol/L (22-32); Chloride 85 mmol/L (98-107); Estimated Glomerular Filt Rate > 60.0 mL/min (>60); Globulin 4.1 g/dL (1.7-4.1); Glucose 167 mg/dL (80-110); HEMOLYSIS < 15 (0-50); Lactate (Lactic Acid) 2.7 mmol/L (0.7-2.1); Lipase 78 U/L (23-300); Potassium 2.8 mmol/L (3.4-5.1); Sodium 128 mmol/L (137-145); Total Protein 7.9 g/dL (6.3-8.2)
[2020-06-12 15:30] LABS: D Dimer 326 ng/mL (<230)
[2020-06-12 15:36] LABS: Troponin I 0.015 ng/mL (0.01-0.034)
[2020-06-12] MEDS: POTASSIUM CHLORIDE 20 MEQ/15 ML UDC 40 MEQ PO (15:37)
[2020-06-12] MEDS: SODIUM CHLORIDE 0.9% 1,000 ML 1000 ML IV (15:38)
[2020-06-12 15:48] LABS: Basophils Percent Auto 0.5 % (0-2); Hemoglobin 10.6 g/dL (12.0-16.0); Lymphocytes Absolute Auto 1300 /uL (1100-4500); Lymphocytes Percent Auto 12.6 % (25-40); Mean Corpuscular HGB Conc 32.2 % (30-36); Mean Corpuscular Hemoglobin 24.4 PG (26-34); Mean Corpuscular Volume 75.7 fL (80-100); Monocytes Percent Auto 4.6 % (3-14); Neutrophils Absolute Auto 8600 /uL (1500-7000); Neutrophils Percent Auto 81.9 % (50-75); Platelet Count 397 X10^3/uL (150-400); Red Blood Cell Count 4.36 X10^6/uL (4.0-5.2); Red Cell Distribution Width 16.9 % (11.6-14.8); White Blood Cell Count 10.5 X10^3/uL (4.5-11.0)
[2020-06-12 15:50] LABS: Procalcitonin 0.11 ng/mL (<0.5)
--- NOTE | 2020-06-12 15:56 | DI.CT.S_ITS ---
PROCEDURE: CT ANGIO CHEST PE PROTOCOL INDICATIONS: lightheaded, low bp, low o2 TECHNIQUE: After the administration of intravenous contrast, 2 mm thick sections acquired from the pulmonary apices to the posterior costophrenic angles. 3-dimensional maximum intensity projection (MIP) coronal and sagittal reformats were then acquired through the thorax. For radiation dose reduction, the following was used: automated exposure control, adjustment of mA and/or kV according to patient size. COMPARISON: [facility], CT, CT ANGIO CHEST PE PROTOCOL, 03/23/2020, 18:51. FINDINGS: Image quality: Excellent. Pulmonary arteries: Pulmonary arteries are prominent in size and measures up to 3.7 centimeters in diameter just proximal to bifurcation. Pulmonary arteries demonstrate no intraluminal filling defects to suggest central pulmonary embolism. Lungs and pleura: No acute airspace opacities. Dependent atelectasis and scarring in posterior aspect of bilateral lung bases are seen. 9 x 8 millimeter oval nodular density is seen in posterior medial aspect of left lung base series 5, image 189. 5 millimeter oval nodular density in left lung base is also seen series 5, image 185. No pleural effusions or pneumothorax. Central and peripheral airways are patent. Mediastinum: Heart size is normal, without pericardial effusion. No mediastinal or hilar adenopathy. Thoracic aorta is normal in caliber and enhancement. Esophagus is normal in caliber, without hiatal hernia. Bones and chest wall: No suspicious bony lesions. Ribs and thoracic spine appear intact throughout. Thyroid gland is enlarged with suggestion of bilateral partially calcified thyroid nodules unchanged in size and appearance from previous study.. No axillary or supraclavicular adenopathy. Abdomen: Visualized upper abdominal solid organs appear normal in the early arterial phase of enhancement. IMPRESSION: 1. No evidence of pulmonary emboli. Prominent pulmonary artery size concerning for pulmonary vascular hypertension. No thoracic aortic aneurysm or dissection. 2. Bibasilar scarring/atelectasis. No acute airspace opacity. No pleural effusion or pneumothorax. Airway is patent. 3. Incidentally noted of subcentimeter solid appearing nodules in posterior medial aspect of left lung base as above, CT chest follow-up in 3-6 months is recommended for evaluation of stability. 4. No gross mediastinal or hilar lymphadenopathy. 5. Suggestion of multinodular goiter unchanged from prior study. Dictated by: Ramesh Koch M.D. on 06/12/2020 at 15:23 Approved by: Ramesh Koch M.D. on 06/12/2020 at 15:33
[2020-06-12 16:17] LABS: NT-proBNP (BNP-Adult 18+) 1200 pg/mL (<125)
[2020-06-12 17:00] LABS: RBC Urine 1-5/HPF (0-5/HPF); WBC Urine 10-30/HPF (0-5/HPF)
[2020-06-12 17:01] LABS: Bacteria Urine Many (>30); Culture Indicated Urine Specimen Cultured
[2020-06-12 17:13] LABS: Reflexed Lactate in 2 Hours Y
[2020-06-12] MEDS: CEFTRIAXONE 1 GM/50 ML FROZ.PIGGY IV (17:21)
--- NOTE | 2020-06-12 17:46 | P.HP_ITS ---
History of Present Illness History of Present Illness Date Patient Seen: 06/12/20 Time Patient Seen: 17:46 Date of Onset of Symptoms: 06/12/20 Chief complaint: Lightheaded Narrative: Lightheadedness. Patient was admitted to this afternoon through the emergency room. She was brought here by paramedics. Story is this morning she felt her usual self. Later on this have perhaps after lunch she has taking sharp. She had her caregiver with her at the time. As she became sore lightheaded felt the unsteady. She required help to get out of the shower. Apparently she also felt somewhat weak and lightheaded at the time. Of daughter and the caregiver was unable to get a obtainable blood pressure. And apparently heart rate was low. Patient again does felt weak and unsteady with no pain. As stated earlier this morning she felt totally normal yesterday she was well. She had no fever chills no dysuria pyuria hematuria no diarrhea no vomiting no nausea a no abdominal pain. She has been on multiple medications not have been seen in clinic for awhile. Medication list is pending daughter is going to go and get her medications but the medication list is as per the chart most of which will be held until we have further details. A prior diagnoses include CHF, hypertension, chronic pain, history of seizure disorder, hypertension, diabetes mellitus, depression, and hyperlipidemia. Patient History Medical History Alopecia Anxiety Asthma Back pain Carpal tunnel syndrome Chicken pox Chronic back pain Foot pain Headache Hearing loss History of recurrent ear infection Hypertension Measles Mumps Recurrent sinusitis Seasonal allergies Shoulder pain Sleep apnea Vertigo Vision disorder Family & Social History Family History Child Age: 48 Cancer Heart disease Hypertension High cholesterol Diabetes mellitus Father Stroke Mother Heart disease Hypertension High cholesterol Diabetes mellitus Brother No problems noted. Brother No problems noted. Social History: household members family Safety & Behavioral: Feels Safe in Current Yes Environment Been Physically Hurt or No Threatened By a Person Tobacco & Substance use: Smoking Status Former smoker alcohol intake former alcohol intake frequency 0-2 drinks per day Substance Use Type does not use Meds Home Medications and Allergies Home Medications Medication Instructions Recorded Confirmed Type hydrochlorothiazide 50 mg PO QDAY #0 tab 03/11/13 04/01/20 History simvastatin 10 mg PO HS #0 tab 03/11/13 04/01/20 History aspirin 81 mg tablet,delayed 81 mg PO QDAY #90 tab 07/05/19 04/01/20 Rx release omeprazole 20 mg capsule,delayed 20 mg PO DAILY #90 cap 10/11/19 04/01/20 Rx release metformin 500 mg tablet,extended 500 mg PO DAILY #90 tab 12/31/19 04/01/20 Rx release 24 hr hydroxyzine HCl 50 mg PO DAILY 03/23/20 04/01/20 History levetiracetam 1,500 mg PO DAILY 03/23/20 04/01/20 History potassium chloride 20 meq PO BID 03/23/20 04/01/20 History furosemide [Lasix] 40 mg PO DAILY #20 tab 03/25/20 04/01/20 Rx sertraline 50 mg tablet 50 mg PO QDAY #90 tab 03/31/20 04/01/20 Rx ferrous sulfate 325 mg (65 mg 325 mg PO BIDWM #60 tab 04/02/20 Rx iron) tablet hydrocodone-acetaminophen 1 tab PO Q4HR PRN #0 tab 04/04/20 Rx hydrocodone-acetaminophen 1 tab PO Q6H PRN #50 tab 04/04/20 Rx losartan 100 mg tablet See Rx Instructions .ROUTE 06/08/20 Rx .COMPLEX #90 tablet Allergies Allergy/AdvReac Type Severity Reaction Status Date / Time No Known Drug Allergies Allergy Verified 03/31/20 20:08 Review of Systems Review of Systems ROS: Yes All systems reviewed with the patient and are negative except as otherw ise documented Exam Vital Signs (past 8 hours): - 06/12/20 13:59 06/12/20 14:01 06/12/20 14:30 Temperature 98.1 F Pulse Rate 97 H 99 H 97 H Respiratory Rate 20 19 31 H Blood Pressure 92/51 L Pulse Oximetry 95 94 92 06/12/20 15:00 06/12/20 15:23 06/12/20 15:30 Temperature Pulse Rate 93 H 98 H 91 H Respiratory Rate 28 H 22 25 H Blood Pressure 115/58 L 98/53 L Pulse Oximetry 88 L 97 96 06/12/20 16:00 06/12/20 16:04 06/12/20 16:53 Temperature Pulse Rate 91 H 91 H 91 H Respiratory Rate 20 32 H Blood Pressure 73/49 L 102/55 L 100/56 L Pulse Oximetry 97 99 97 06/12/20 17:00 06/12/20 17:30 Temperature Pulse Rate 95 H 86 Respiratory Rate Blood Pressure 106/61 106/60 Pulse Oximetry 97 100 Oxygen Delivery Method Room Air Narrative Exam Narrative: Gen.: [] The patient is examined she is in [facility] as the the virus mask on. And talk to not anything blanket and she appears in no distress. She is conversant as per usual and a are she is alert and oriented. Lungs are entirely clear although she does not take a deep breath Skin: [Warm well perfused. No prominent lesions. Nonicteric]. HEENT: PERRL., [normal EOM, external ears canals TMs normal, nasal mucosa normal and midline septum, oropharynx without lesions.] Neck: [Trachea midline. Thyroid nontender and not enlarged. Carotids without bruits. No lymphadenopathy] Back: [No obvious deformity or tenderness]. Chest: [Clear to P&A. Symmetric]. CV: [RRR no murmur or gallop. No JVD]. Abdomen: [No masses bruits tenderness or visceromegaly]. Neuro: [Cranial nerves II through XII grossly intact. Sensory and motor exams intact. Gait normal.] Mental status: [Intact for screening] Extremities: [No cyanosis clubbing or edema] Musculoskeletal: [No gross deformities] Lymphatics: [Negative for lymphadenopathy, supraclavicular axillary or inguinal] She has no calf tenderness and no edema Objective Labs Result Diagrams: 06/12/20 14:20 06/12/20 14:20 Labs: Laboratory Results - last 24 hr 06/12/20 06/12/20 06/12/20 14:00 14:20 14:20 WBC RBC Hgb Hct MCV MCH MCHC RDW Plt Count Neut % (Auto) Lymph % (Auto) [place] % (Auto) Eos % (Auto) Baso % (Auto) Neut # (Auto) Lymph # (Auto) [place] # (Auto) Eos # (Auto) Baso # (Auto) PT 13.8 H INR 1.2 APTT 22 L D D-Dimer 326 H Sodium Potassium Chloride Carbon Dioxide BUN Creatinine Estimated GFR BUN/Creatinine Ratio Glucose Lactate Calcium Total Bilirubin AST ALT Alkaline Phosphatase Troponin I NT-Pro-B Natriuret Pep Total Protein Albumin Globulin Albumin/Globulin Ratio Lipase Procalcitonin 0.11 Urine RBC Urine WBC Urine Bacteria Ur Culture Indicated? COVID-19 PCR Negative 06/12/20 06/12/20 06/12/20 14:20 14:20 14:20 WBC 10.5 RBC 4.36 Hgb 10.6 L Hct 33.0 L MCV 75.7 L MCH 24.4 L MCHC 32.2 RDW 16.9 H Plt Count 397 Neut % (Auto) 81.9 H Lymph % (Auto) 12.6 L [place] % (Auto) 4.6 Eos % (Auto) 0.4 L Baso % (Auto) 0.5 Neut # (Auto) 8600 H Lymph # (Auto) 1300 [place] # (Auto) 500 Eos # (Auto) 0 Baso # (Auto) 100 PT INR APTT D-Dimer Sodium 128 L Potassium 2.8 L Chloride 85 L Carbon Dioxide 37 H BUN 19 H Creatinine 0.81 Estimated GFR > 60.0 BUN/Creatinine Ratio 23.5 H Glucose 167 H Lactate 2.7 H Calcium 9.0 Total Bilirubin 0.6 AST 27 ALT 12 Alkaline Phosphatase 105 Troponin I NT-Pro-B Natriuret Pep Total Protein 7.9 Albumin 3.8 Globulin 4.1 Albumin/Globulin Ratio 0.9 L Lipase 78 Procalcitonin Urine RBC Urine WBC Urine Bacteria Ur Culture Indicated? COVID-19 PCR 06/12/20 06/12/20 06/12/20 14:20 15:10 16:32 WBC RBC Hgb Hct MCV MCH MCHC RDW Plt Count Neut % (Auto) Lymph % (Auto) [place] % (Auto) Eos % (Auto) Baso % (Auto) Neut # (Auto) Lymph # (Auto) [place] # (Auto) Eos # (Auto) Baso # (Auto) PT INR APTT D-Dimer Sodium Potassium Chloride Carbon Dioxide BUN Creatinine Estimated GFR BUN/Creatinine Ratio Glucose Lactate Calcium Total Bilirubin AST ALT Alkaline Phosphatase Troponin I 0.015 NT-Pro-B Natriuret Pep 1200 H Total Protein Albumin Globulin Albumin/Globulin Ratio Lipase Procalcitonin Urine RBC 1-5/hpf Urine WBC 10-30/hpf H Urine Bacteria Many (>30) H Ur Culture Indicated? Specimen cultured COVID-19 PCR Labs reviewed of significance she is hypokalemic, hyponatremic, BNP is lower than her usual, abnormal urinalysis consistent with urinary tract infection lactate was 2.7 troponins were normal Chest CT a shows no pulmonary embolism and no signs of pneumonia. Perhaps there may be some slight evidence of pulmonary vascular congestion but minimally so Assessment & Plan Assessment & Plan narrative: 1. Patient clinically appears to be dehydrated. Other BUN is normal. But she has a significant amount of a electrolyte imbalance for no apparent reason. Most most likely these are result of her medications and the compliance has been a challenge for ever. She will have be given normal saline as well as some potassium replacement. Additionally she medication will be withheld. 2. Apparent urinary tract infection will be is receiving ceftriaxone. 3. History of seizure disorder will continue her medication for same 4. History of depression will continue medications same. Her antihypertensive meds will be held for the time being. Daughter is going to go back home and bring records and medications whether swelling get a accurate date. 5. Negative COVID 7. Diabetes mellitus will get an updated A1c and continue on with the sliding scale for the time being have withheld her maintenance medication for the time being pending update a medication list as well as monitoring her sugars here in the hospital. 6.
[2020-06-12 18:12] LABS: COVID19 -Nasal RAPID Negative (Negative)
--- NOTE | 2020-06-12 18:41 | PC.NURSE ---
performance PICC paged. Patient to be transfered upstairs with out IV access. Coordinate and ED provider aware.
--- NOTE | 2020-06-12 18:45 | PC.NURSE ---
call received from [facility] PICC, will arrive and meet patianastacia in room 218 in approx 2 hours at 2044.
[2020-06-12 18:46] LABS: Lactate 2HR (Lactic Acid Rflx) 1.4 mmol/L (0.7-2.1)
[2020-06-12] MEDS: POTASSIUM CHLORIDE 40 MEQ in SODIUM CHLORIDE 0.9% 500 ML 130 ML IV (21:43)
[2020-06-12] MEDS: SODIUM CHLORIDE 0.9% 1,000 ML 100 ML IV (21:43)
[2020-06-13] VITALS (9 sets, daily range): BP systolic 104–139; BP diastolic 61–80; PULSE 88–97; RESP 14–20; TEMP 35.9–36.8; O2SAT 86–100
[2020-06-13 05:39] LABS: BUN Creatinine Ratio 22.7 (6-22); Blood Urea Nitrogen 15 mg/dL (7-17); Calcium 7.8 mg/dL (8.4-10.2); Carbon Dioxide 34 mmol/L (22-32); Chloride 94 mmol/L (98-107); Estimated Glomerular Filt Rate > 60.0 mL/min (>60); Glucose 93 mg/dL (80-110); HEMOLYSIS < 15 (0-50); Hemoglobin A1C% w Est Avg Glu 5.9 % (4.0-6.0); Sodium 130 mmol/L (137-145)
[2020-06-13] MEDS: levETIRAcetam 250 MG TABLET 1500 MG PO (09:29)
[2020-06-13] MEDS: SERTRALINE 50 MG TABLET PO (09:29)
[2020-06-13] MEDS: ENOXAPARIN 40 MG/0.4 ML SYRINGE SUBCUT (09:30)
[2020-06-13] MEDS: POTASSIUM CHLORIDE 40 MEQ in SODIUM CHLORIDE 0.9% 500 ML 130 ML IV ×2 (09:31→14:18)
[2020-06-13 10:00] LABS: Fractionated Inspired Oxygen 28; HCO3 ABG 32 mmol/L (22-26); Oxygen Saturation ABG 97 % (95-100); PCO2 ABG 42.9 mmHg (35-45); PO2 ABG 85 mmHg (80-100); TCO2 ABG 33 mmol/L (21-31); pH ABG 7.47 (7.35-7.45)
--- NOTE | 2020-06-13 13:03 | CM.DANOTE ---
Addendum entered by Celsa Allison LPN 06/13/20 13:23: Have called [facility] to alert her to possible need (pt would like this agency again if she needs it) and [facility] will send brief clinical packet to them today in case of need at d/c. Original Note: Discharge Planning/Care Management DCP: assessment: case received, EMR reviewed and met with pt. Introduced self and role. Pt is a 75 year old female who admitted last evening to care of Dr. Ervin. PCP: per pt: Dr. Ervin Payer: Medicare and for Life Admission status: INPT: confirmed by [facility] MARY ALICE Cabezas. pt was last here in March and did d/c to [facility] and then after returning home [facility] followed for a few visits. Pt confirms she and her family still reside at the [facility] in a small apartment (they have been there for a couple of years). Daughter Lacey is her primary care provider and she and her Bill watch out for pt 27/01. Pt confirms she now uses a [facility] and that this is very helpful. Pt wishes her care to be discussed with Lacey who is expected later today. A call now to Lacey: [phone] confirms above. She will be here later this afternoon. P: at this time POC is newly in process.: if pt returns home anticipate that [facility] would again be helpful. Pt says she had a good experience at [facility] so if snf is needed she may be open to that open to that setting. DCP team will be following. CM Discharge Assessment Start: 06/13/20 12:59 Freq: Status: Active Protocol: Document 06/13/20 12:59 ITV (Rec: 06/13/20 13:03 ITV [id number]) Discharge Planning Assessment Advance Directives? Yes History Provided By Patient,Family Member,Medical Record Has Patient been admitted in last 30 No days? Prior Living Arrangements Apartment/Condo Comment lives in small apartment at the [facility] in [place] Household Members family Comment daughter Lacey [phone]: pt's designated visitor/advocate for this stay . Type of transporation used prior to Relies on Others admit Is patient alert and oriented? Yes DME Already Rented / Owned [facility] / [facility] Review Status In Process
--- NOTE | 2020-06-13 13:20 | P.PN_ITS ---
Subjective Subjective Date Patient Seen: 06/13/20 Time Patient Seen: 09:20 Interval history: Weakness. Patient feeling much better. Spine so she can go home. She has not been ambulatory appetite is reasonable she virtually has no complaints now her weakness and dizziness that she had on admission as per resolved. She has been found to have urinary tract infection based on the urine and she is being treated for same. Exam Vital Signs (past 8 hours): - 06/13/20 07:55 06/13/20 09:00 06/13/20 11:05 Temperature 96.7 F L 97.5 F L Pulse Rate 88 88 89 Respiratory Rate 14 16 16 Blood Pressure 139/70 104/61 Pulse Oximetry 96 96 94 Oxygen Delivery Method Room Air Oxygen Flow Rate 0 Narrative Exam Narrative: She is sitting up at bedside chair a having had breakfast and she appears in no distress does not appear short of breath denies any chest pain or shortness of breath Lungs are clear heart regular rhythm no murmur gallop. Abdominal exam is benign Objective Labs Result Diagrams: 06/12/20 14:20 06/13/20 05:16 Labs: Laboratory Results - last 24 hr 06/12/20 06/12/20 06/12/20 14:00 14:20 14:20 WBC RBC Hgb Hct MCV MCH MCHC RDW Plt Count Neut % (Auto) Lymph % (Auto) [place] % (Auto) Eos % (Auto) Baso % (Auto) Neut # (Auto) Lymph # (Auto) [place] # (Auto) Eos # (Auto) Baso # (Auto) PT 13.8 H INR 1.2 APTT 22 L D D-Dimer 326 H ABG pH ABG pCO2 ABG pO2 ABG HCO3 ABG Total CO2 ABG O2 Saturation ABG Base Excess FiO2 Sodium Potassium Chloride Carbon Dioxide BUN Creatinine Estimated GFR BUN/Creatinine Ratio Glucose Hemoglobin A1c Lactate Calcium Total Bilirubin AST ALT Alkaline Phosphatase Troponin I NT-Pro-B Natriuret Pep Total Protein Albumin Globulin Albumin/Globulin Ratio Lipase Procalcitonin 0.11 Urine RBC Urine WBC Urine Bacteria Ur Culture Indicated? COVID-19 PCR Negative 06/12/20 06/12/20 06/12/20 14:20 14:20 14:20 WBC 10.5 RBC 4.36 Hgb 10.6 L Hct 33.0 L MCV 75.7 L MCH 24.4 L MCHC 32.2 RDW 16.9 H Plt Count 397 Neut % (Auto) 81.9 H Lymph % (Auto) 12.6 L [place] % (Auto) 4.6 Eos % (Auto) 0.4 L Baso % (Auto) 0.5 Neut # (Auto) 8600 H Lymph # (Auto) 1300 [place] # (Auto) 500 Eos # (Auto) 0 Baso # (Auto) 100 PT INR APTT D-Dimer ABG pH ABG pCO2 ABG pO2 ABG HCO3 ABG Total CO2 ABG O2 Saturation ABG Base Excess FiO2 Sodium 128 L Potassium 2.8 L Chloride 85 L Carbon Dioxide 37 H BUN 19 H Creatinine 0.81 Estimated GFR > 60.0 BUN/Creatinine Ratio 23.5 H Glucose 167 H Hemoglobin A1c Lactate 2.7 H Calcium 9.0 Total Bilirubin 0.6 AST 27 ALT 12 Alkaline Phosphatase 105 Troponin I NT-Pro-B Natriuret Pep Total Protein 7.9 Albumin 3.8 Globulin 4.1 Albumin/Globulin Ratio 0.9 L Lipase 78 Procalcitonin Urine RBC Urine WBC Urine Bacteria Ur Culture Indicated? COVID-19 PCR 06/12/20 06/12/20 06/12/20 14:20 15:10 16:32 WBC RBC Hgb Hct MCV MCH MCHC RDW Plt Count Neut % (Auto) Lymph % (Auto) [place] % (Auto) Eos % (Auto) Baso % (Auto) Neut # (Auto) Lymph # (Auto) [place] # (Auto) Eos # (Auto) Baso # (Auto) PT INR APTT D-Dimer ABG pH ABG pCO2 ABG pO2 ABG HCO3 ABG Total CO2 ABG O2 Saturation ABG Base Excess FiO2 Sodium Potassium Chloride Carbon Dioxide BUN Creatinine Estimated GFR BUN/Creatinine Ratio Glucose Hemoglobin A1c Lactate Calcium Total Bilirubin AST ALT Alkaline Phosphatase Troponin I 0.015 NT-Pro-B Natriuret Pep 1200 H Total Protein Albumin Globulin Albumin/Globulin Ratio Lipase Procalcitonin Urine RBC 1-5/hpf Urine WBC 10-30/hpf H Urine Bacteria Many (>30) H Ur Culture Indicated? Specimen cultured COVID-19 PCR 06/12/20 06/12/20 06/12/20 17:15 18:24 18:24 WBC RBC Hgb Hct MCV MCH MCHC RDW Plt Count Neut % (Auto) Lymph % (Auto) [place] % (Auto) Eos % (Auto) Baso % (Auto) Neut # (Auto) Lymph # (Auto) [place] # (Auto) Eos # (Auto) Baso # (Auto) PT INR APTT D-Dimer ABG pH 7.47 H ABG pCO2 42.9 ABG pO2 85 ABG HCO3 32 H ABG Total CO2 33 H ABG O2 Saturation 97 ABG Base Excess 8.0 H FiO2 28 Sodium Potassium Chloride Carbon Dioxide BUN Creatinine Estimated GFR BUN/Creatinine Ratio Glucose Hemoglobin A1c Lactate 1.4 Calcium Total Bilirubin AST ALT Alkaline Phosphatase Troponin I NT-Pro-B Natriuret Pep Total Protein Albumin Globulin Albumin/Globulin Ratio Lipase Procalcitonin Urine RBC Urine WBC Urine Bacteria Ur Culture Indicated? COVID-19 PCR Negative 06/13/20 06/13/20 05:16 05:16 WBC RBC Hgb Hct MCV MCH MCHC RDW Plt Count Neut % (Auto) Lymph % (Auto) [place] % (Auto) Eos % (Auto) Baso % (Auto) Neut # (Auto) Lymph # (Auto) [place] # (Auto) Eos # (Auto) Baso # (Auto) PT INR APTT D-Dimer ABG pH ABG pCO2 ABG pO2 ABG HCO3 ABG Total CO2 ABG O2 Saturation ABG Base Excess FiO2 Sodium 130 L Potassium 3.0 L Chloride 94 L Carbon Dioxide 34 H BUN 15 Creatinine 0.66 Estimated GFR > 60.0 BUN/Creatinine Ratio 22.7 H Glucose 93 Hemoglobin A1c 5.9 Lactate Calcium 7.8 L Total Bilirubin AST ALT Alkaline Phosphatase Troponin I NT-Pro-B Natriuret Pep Total Protein Albumin Globulin Albumin/Globulin Ratio Lipase Procalcitonin Urine RBC Urine WBC Urine Bacteria Ur Culture Indicated? COVID-19 PCR Labs reviewed a potassium still low will give her some added potassium intravenously. Additionally urine cultures positive she is on a ceftriaxone so that she did manage single see what the sensitivities are. [facility] Medical History (Updated 06/12/20 @ 19:01 by Ping Lundberg DO) Alopecia Anxiety Asthma Back pain Carpal tunnel syndrome Chicken pox Chronic back pain Foot pain Headache Hearing loss History of recurrent ear infection Hypertension Measles Mumps Recurrent sinusitis Seasonal allergies Shoulder pain Sleep apnea Vertigo Vision disorder Family History Child Age: 48 Cancer Heart disease Hypertension High cholesterol Diabetes mellitus Father Stroke Mother Heart disease Hypertension High cholesterol Diabetes mellitus Brother No problems noted. Brother No problems noted. Social History household members: family Smoking Status: Former smoker alcohol intake: former Assessment & Plan Assessment & Plan narrative: 1. Hypokalemia better but not resolved increasing amount of intravenous potassium 2. Hyponatremia better. 3. Her vital signs appear stable. 4. Chem BGs are stable 5. Discharge planning medications we come somewhat problematic yet to be determined will event up near on oral antibiotic as well as presumably some antihypertensive but probably not any diuretic based on her past experience with diuresis dehydration and electrolyte imbalance probably be here tell
--- NOTE | 2020-06-13 13:50 | CM.DPNOTE ---
Faxed clinicals for referral to [facility] per Celsa. Kia Mckeon CM Asst.
[2020-06-13 15:04] LABS: BUN Creatinine Ratio 32.8 (6-22); Blood Urea Nitrogen 19 mg/dL (7-17); Chloride 93 mmol/L (98-107); Estimated Glomerular Filt Rate > 60.0 mL/min (>60); Glucose 102 mg/dL (80-110); Sodium 130 mmol/L (137-145)
[2020-06-13 15:05] LABS: Calcium 7.8 mg/dL (8.4-10.2)
[2020-06-13 15:09] LABS: Carbon Dioxide 36 mmol/L (22-32); HEMOLYSIS 18 (0-50)
[2020-06-13] MEDS: SODIUM CHLORIDE 0.9% 1,000 ML 50 ML IV (23:14)
[2020-06-14] VITALS (7 sets, daily range): BP systolic 134–153; BP diastolic 51–73; PULSE 78–88; RESP 13–20; TEMP 36.3–36.6; O2SAT 94–100
[2020-06-14 05:20] LABS: Blood Urea Nitrogen 15 mg/dL (7-17); Carbon Dioxide 36 mmol/L (22-32); Chloride 96 mmol/L (98-107); Estimated Glomerular Filt Rate > 60.0 mL/min (>60); Glucose 99 mg/dL (80-110); HEMOLYSIS < 15 (0-50); Potassium 4.1 mmol/L (3.4-5.1); Sodium 133 mmol/L (137-145)
--- NOTE | 2020-06-14 09:03 | PM.PN.1 ---
Subjective Subjective Date Patient Seen: 06/14/20 Time Patient Seen: 09:03 Interval history: Weakness Overall basically status quo. Pretty much back to normal. She does have some nausea currently. Has not been ambulatory has no dizziness is normal urine stool. Anticipating being discharged tomorrow. Exam Vital Signs (past 8 hours): - 06/14/20 03:40 06/14/20 05:14 06/14/20 07:30 Temperature 97.5 F L 97.4 F L Pulse Rate 78 88 Respiratory Rate 16 13 Blood Pressure 134/51 L 153/73 H Pulse Oximetry 97 97 100 Oxygen Delivery Method Nasal Cannula Oxygen Flow Rate 2 Narrative Exam Narrative: Appears usual pleasant self She can hear. Lungs are clear heart regular rhythm gallop Abdomen is benign nontender Objective Labs Result Diagrams: 06/12/20 14:20 06/14/20 04:56 Labs: Laboratory Results - last 24 hr 06/12/20 06/13/20 06/14/20 18:24 14:20 04:56 ABG pH 7.47 H ABG pCO2 42.9 ABG pO2 85 ABG HCO3 32 H ABG Total CO2 33 H ABG O2 Saturation 97 ABG Base Excess 8.0 H FiO2 28 Sodium 130 L 133 L Potassium 4.0 4.1 Chloride 93 L 96 L Carbon Dioxide 36 H 36 H BUN 19 H 15 Creatinine 0.58 0.50 L Estimated GFR > 60.0 > 60.0 BUN/Creatinine Ratio 32.8 H 30.0 H Glucose 102 99 Calcium 7.8 L 8.0 L electrolytes have normalized. Her urine cultures positive for E coli sensitive to Bactrim will discontinue antibiotics have put her on Bactrim displaying be discharged the same. [facility] Medical History (Updated 06/12/20 @ 19:01 by Ping Lundberg DO) Alopecia Anxiety Asthma Back pain Carpal tunnel syndrome Chicken pox Chronic back pain Foot pain Headache Hearing loss History of recurrent ear infection Hypertension Measles Mumps Recurrent sinusitis Seasonal allergies Shoulder pain Sleep apnea Vertigo Vision disorder Family History Child Age: 48 Cancer Heart disease Hypertension High cholesterol Diabetes mellitus Father Stroke Mother Heart disease Hypertension High cholesterol Diabetes mellitus Brother No problems noted. Brother No problems noted. Social History household members: family Smoking Status: Former smoker alcohol intake: former Assessment & Plan Assessment & Plan narrative: 1. Generalized weakness a resolved. It seemed to be related to electrolyte imbalance and perhaps dehydration rechallenge now will become what medication discharge drawn. She was on it and hypertension as well as diuretics and apparently is needed none of those here in the hospital. She will probably insulin needs something for hypertension but she will be off the diuretic for the time being 2. Diabetes managed also has been challenges she has had no medications for same and her blood sugars have been low. Her A1c is 5.9 recently implying a a good control medications so will probably resume her usual when she discharges but the more to come. 3. Nausea unclear. 4. Chronic pain is being treated with her hydrocodone. History of seizure disorder being treated with her Keppra. Depression being treated with sertraline.
[2020-06-14] MEDS: SERTRALINE 50 MG TABLET PO (09:31)
[2020-06-14] MEDS: ENOXAPARIN 40 MG/0.4 ML SYRINGE SUBCUT (09:31)
[2020-06-14] MEDS: levETIRAcetam 250 MG TABLET 1500 MG PO (09:31)
[2020-06-14] MEDS: TRIMETH/SULFA 160/800 (DS) TABLET 1 TAB PO ×2 (10:13→20:59)
--- NOTE | 2020-06-14 10:52 | CM.DPC ---
Addendum entered by TONYA Quinn 06/14/20 13:25: ADD: Per PT, recommending home with HH. SW met bedside with pt again and discussed HH recommendation and pt is agreeable. SW provided the HH Choice List and preference is [facility] as she recently utilized their services. JOHANA Adam faxed clinical referral and SW called [facility] to provide new referral and likely d/c tomorrow if stable. [facility] will review and call back just to confirm no issues and can open pt to service at d/c. F2F completed but MD already rounded this morning and will likely not be back until the morning. Plan: SW to follow for [facility] review and for MD to sign the F2F towards plan of likely d/c tomorrow home to mot with family if stable. TONYA Quinn Original Note: DCP Cont: Per MD, pt seems to be improving but not stable for d/c yet today but likely tomorrow if remains stable. Per RN, pt has not really ambulated besides from bed to chair in room. PT ordered and pending to determine if pt back to baseline. SW met bedside with pt and explained role and she was sitting in chair and states she is feeling better and maybe a little weaker than baseline. Pt confirms that she does not typically ambulate long distances but is able to manage in their motel room from chair to bathroom to bed etc.. Pt confirms after her last d/c from [facility] to SNF at [facility] a month or two ago she went to motel room with [facility] RN for about 4 weeks but not currently open with HH. SW inquired if pt feels HH or other needed at d/c and pt states she doesn't feel HH really needed at d/c or that PT eval necessary at this time and SW discussed that PT may be helpful in confirming she is back to baseline for safe return home and pt agreeable. Plan: SW to follow closely for PT eval and recommendations to determine home is safe option and r/o HH for likely d/c tomorrow Thurs. TONYA Quinn
--- NOTE | 2020-06-14 11:12 | PT.IIE ---
Current Diagnoses Hypo-osmolality and hyponatremia (06/12/20) Medical History (Last Reviewed 06/12/20 @ 17:48 by Grhaam Ervin MD) Alopecia Anxiety Asthma Back pain Carpal tunnel syndrome Chicken pox Chronic back pain Foot pain Headache Hearing loss History of recurrent ear infection Hypertension Measles Mumps Recurrent sinusitis Seasonal allergies Shoulder pain Sleep apnea Vertigo Vision disorder Physical Therapy Inpatient Evaluation/Re-Eval M1 PT/OT-IP Prior Functional Status Start: 06/14/20 10:13 Freq: NEEDED Status: Active Protocol: Document 06/14/20 10:46 (Rec: 06/14/20 11:12 [id number]) Medical Review Prior Functional Status Medical History Reviewed Yes Diet/Fluid Consistency Regular Communication no deficits noted. but [place] Mobility and Gait pt stated that she was using a SPC at baseline at home and community but she is mostly home bound. Activities of Daily Living and IADL's Dtr CGA. min A for car transfer, occasionally for dressing, and hair drying after shower. Dtr does cooking and family does house cleaning Prior Functional Level (Other details) pt admitted to twice in March d/t a GLF and was d/ c [facility] followed by HH. Social History Household Members family Living Arrangements Apartment/Condo Number of Floors (Floors) One Floor Number of Stairs To Enter/Railing? 2 PF steps Home Environment Standard Height Toilet Home Equipment Front Wheel Walker,Straight Cane,Grab Bars Near Toilet Employment Status Retired Additional Social History Comment Pt lives with dtr , son in law and 21yo grandson in [facility] since a few years ago. She stated they are mostly home who can assist 27/01. [facility] at [facility]. M2 PT-IP Current Condition Start: 06/14/20 10:13 Freq: NEEDED Status: Active Protocol: Document 06/14/20 10:46 (Rec: 06/14/20 11:12 [id number]) Physical Therapy Current Condition Current Condition Evaluation Date 06/14/20 Treatment Diagnosis UTI, electrolyte imbalance and lightheadiness. Onset Date few days ago Weight Bearing Status Weight Bearing Status Weight Bear as Tolerated M3 PT-IP Subjective Start: 06/14/20 10:13 Freq: NEEDED Status: Active Protocol: Document 06/14/20 10:46 (Rec: 06/14/20 11:12 [id number]) Subjective Physical Therapy Visit Type Type Initial Evaluation Visit Start Time 10:29 Visit Stop Time 10:48 Total Visit Minutes 19 Number of CLUBHOUSE ATTENDANT Visits 0 Physical Therapy Visit Comments Patient Comments Im feeling better today. Therapy Pain Assessment Pain Present Pain Present Denied Pain M4 PT-IP Mobility and Gait Start: 06/14/20 10:13 Freq: NEEDED Status: Active Protocol: Document 06/14/20 10:46 (Rec: 06/14/20 11:12 [id number]) PT-Transfer Assessment Sit to and From Stand Sit to and from Stand Contact Guard Assistance,Use of Upper Extremities Equipment Transfer Assistive Device Gait Belt Orthotic/Prosthetic Devices or Brace: No Transfers Transfer Destination Chair Transfer Technique Stand Step Pivot Transfer Ability Level of Assist Contact Guard Assistance,Use of Upper Extremities Comments Mobility Comments Pt was in chair upon PT arrival. AxOx4 and able to provide accurate social hx. She agreed to mobilize with PT . BP 148/72 in sitting. Pt then scooted forward at EOB and use BUE to push off from chair to stand up CGA. She then used FWW to mobilize from her room to [address]. She slowly amb with semi-step over gait pattern but overall she was steady and LOB noted. She did request to return after amb 40 ft d/t increased fatigue. This PT provided SPC to pt for gait training but pt declined who stated she does not feel safe to use it at this point. She walked back to her room and transferred herself to chair with good decends by UE support on chair armrests. Pt denies discomfort/ pain. BP at 146/75 in sitting. Call light placed within reach. Chair alam activated Gait Assessment Gait Gait Assistance Required: Contact Guard Assist Distance (Feet) 80 Able to Maintain Weight Bearing Status Yes During Gait Assistive Devices Assistive Device Gait Belt,Front Wheeled Walker Orthotic/Prosthetic Devices or Brace: No Gait Deviations General Gait Pattern Decreased Stride Length, Decreased Feet Clearance Factors Limiting Gait Function Factors Limiting Gait Function Decreased Activity Tolerance, Decreased Strength,Poor Balance Comments Gait Comments see mobility comments. Stair Climbing Assessment Comments Stair Climbing Comments did not assess d/t fatigue PT-Balance Assessment Sitting Balance and Reactions Static Sitting Balance Ability Normal Dynamic Sitting Balance Ability Normal Standing Balance and Reactions Static Standing Balance Ability Good Dynamic Standing Balance Ability Fair Device Used FWW M5 PT-IP Objective Assessments Start: 06/14/20 10:13 Freq: NEEDED Status: Active Protocol: Document 06/14/20 10:46 (Rec: 06/14/20 11:12 [id number]) Orientation Orientation/Cognition Level of Alertness Alert Orientation Name,Age,Birthday,Month,Date, Year,Day of Week,Place, Situation Language Function Ability No Deficits Noted Safety Awareness Understands Safety Issues Memory Description No Deficits Noted Gross Range of Motion Upper Extremity ROM Assessment Within Functional Limits Lower Extremity ROM Assessment Within Functional Limits Strength Upper Extremity Strength Assessment Within Functional Limits Lower Extremity Strength Assessment Bilaterally Impaired Comments Strength Comments BLE = 4-/5 grossly Coordination Assessment Gross Coordination Gross Coordination WNL Sensation Assessment Sensation Gross Sensation WNL Muscle Tone Muscle Tone WNL Yes M6 PT-IP Treatment Start: 06/14/20 10:13 Freq: NEEDED Status: Active Protocol: Document 06/14/20 10:46 (Rec: 06/14/20 11:12 [id number]) Physical Therapy Treatment Education Education Provided Safety M7 PT-IP Assessment and Plan Start: 06/14/20 10:13 Freq: NEEDED Status: Active Protocol: Document 06/14/20 10:46 (Rec: 06/14/20 11:12 [id number]) PT Summary Assessment and Plan Potential Rehabilitation Potential Excellent Status of Condition at Evaluation Evolving Summary Impairments Strength,Balance,Bed Mobility, Transfers,Gait,Activity Tolerance Assessment Summary This is a low complexity for this 75 yo female admitted to d/t UTI, electrolyte imbalance and lightheadiness. Pt was admitted here in March for GLF and was d/c to SNF followed by . PLOF= mod indepeendent with SPC at all times and ADLs and ADLs with no to min assistance by dtr and family. Upon assessment, pt has to use FWW for ambulation and CGA for all mobility. She does show weakness and poor endurance who is unable to use SPC for mobility at this point. I believe pt will be able to d/c home with HH and family assistance once she is medically stable. Goals Bed Mobility Goal Standby Assistance Transfer Goal Standby Assistance,Cane,Front Wheeled Walker Gait Goal Standby Assistance,Cane,Front Wheel Walker Gait Distance 150 Other Goals 2PF steps with SPC/ FWW Frequency of Treatment Frequency Of Treatment Once a Day Treatment Plan Physical Therapy Treatment Plan Bed Mobility Training,Transfer Training,Gait Training, Therapeutic Exercise,Balance Retraining,Discharge Planning Other Recommendations and Next Treatment mobility as babatunde Focus check vital signs use SPC if she can Recommendations To Nursing Amount of Assist Needed 1 Person Assist Discharge Recommendations PT Discharge Recommendations Home with Assistance,Home Health Transportation Needs at Discharge Private Vehicle
--- NOTE | 2020-06-14 13:41 | CM.DPNOTE ---
Faxed FS & clinicals for referral to [facility] on 06/14/20 per Senait. Kia Mckeon CM Asst.
[2020-06-14] MEDS: SODIUM CHLORIDE 0.9% 1,000 ML 50 ML IV (21:00)
[2020-06-15 00:05] VITALS: BP 157/80; PULSE 101; RESP 18; TEMP 36.7; O2SAT 96
--- NOTE | 2020-06-15 03:23 | PC.NURSE ---
Pt. C/O nausea, no emesis now noted. Dr. Hernandez notified order received to give Zofran 4 mg. PO. SL X 1now.
--- NOTE | 2020-06-15 03:27 | PC.NURSE ---
Waiting for order to get verified, prior to administer Zofran Odt.
[2020-06-15] MEDS: ONDANSETRON 4 MG ODT SL (03:53)
[2020-06-15 06:30] LABS: BUN Creatinine Ratio 14.6 (6-22); Blood Urea Nitrogen 7 mg/dL (7-17); Calcium 8.1 mg/dL (8.4-10.2); Carbon Dioxide 30 mmol/L (22-32); Chloride 101 mmol/L (98-107); Estimated Glomerular Filt Rate > 60.0 mL/min (>60); Glucose 110 mg/dL (80-110); HEMOLYSIS < 15 (0-50); Potassium 4.6 mmol/L (3.4-5.1); Sodium 130 mmol/L (137-145)
[2020-06-15 07:45] VITALS: BP 131/82; PULSE 105; RESP 20
--- NOTE | 2020-06-15 09:07 | P.DS_ITS ---
History of Present Illness History of Present Illness Chief complaint: Lightheaded Narrative: Lightheadedness. Patient was admitted to this afternoon through the emergency room. She was brought here by paramedics. Story is this morning she felt her usual self. Later on this have perhaps after lunch she has taking sharp. She had her caregiver with her at the time. As she became sore lightheaded felt the unsteady. She required help to get out of the shower. Apparently she also felt somewhat weak and lightheaded at the time. Of daughter and the caregiver was unable to get a obtainable blood pressure. And apparently heart rate was low. Patient again does felt weak and unsteady with no pain. As stated earlier this morning she felt totally normal yesterday she was well. She had no fever chills no dysuria pyuria hematuria no diarrhea no vomiting no nausea a no abdominal pain. She has been on multiple medications not have been seen in clinic for awhile. Medication list is pending daughter is going to go and get her medications but the medication list is as per the chart most of which will be held until we have further details. A prior diagnoses include CHF, hypertension, chronic pain, history of seizure disorder, hypertension, diabetes mellitus, depression, and hyperlipidemia. Discharge Providers Provider Date of admission: 06/12/20 17:14 Discharge Date: 06/15/20 Primary care physician: John Montiel MD Consults: 06/14/20 10:10 Consult to Physical Therapy Evaluate & Treat Comment: Physician Instructions: Evaluate and Treat Discharge provider: Graham Ervin MD Summary Hospital Course Discharge Diagnosis: 1. Dehydration. 2. Hyponatremia. 3. Hypokalemia 4. UTI. 5. Diabetes mellitus well controlled. 6. Hypertension well controlled. 7. Depression stable Hospital Course: Patient admitted because of dehydration and electrolyte imbal ance. She was weak and unsteady. She sees IV saline as well as IV potassium and her symptoms resolved. Potassium remained normal. Sodium remained about 130 which apparently is her baseline. She also was found to have urinary tract infection she was given Septra for this and it may have caused some nauseous on discharge she will be placed on Cipro. Additionally she has been on multiple medication for high blood pressure she will be discharged on losartan 25 mg twice a day. Her Her diabetes was did not require any treatment all she was here as she will be discharged on no medication for diabetes she presumably will need to have resumption of her metformin as an outpatient yet to be determined prior to healthcare provider. She was seen in the office in a couple weeks Status at Discharge Cognitive/behavioral status at discharge: at baseline, oriented Functional status at discharge: independent ambulation Overall status at discharge: patient is progressing back to baseline Exam Vital Signs (past 8 hours): Oxygen Delivery Method Room Air Oxygen Flow Rate 0 Objective Labs Result Diagrams: 06/12/20 14:20 06/15/20 06:00 Labs: Laboratory Results - last 24 hr 06/15/20 06/15/20 06:00 06:00 Sodium 130 L Potassium 4.6 Chloride 101 Carbon Dioxide 30 BUN 7 Creatinine 0.48 L Estimated GFR > 60.0 BUN/Creatinine Ratio 14.6 Glucose Cancelled 110 Calcium 8.1 L FOR[facility]LY [facility], 1928–1983 Medical History (Updated 06/12/20 @ 19:01 by Ping Lundberg DO) Alopecia Anxiety Asthma Back pain Carpal tunnel syndrome Chicken pox Chronic back pain Foot pain Headache Hearing loss History of recurrent ear infection Hypertension Measles Mumps Recurrent sinusitis Seasonal allergies Shoulder pain Sleep apnea Vertigo Vision disorder Family History Child Age: 48 Cancer Heart disease Hypertension High cholesterol Diabetes mellitus Father Stroke Mother Heart disease Hypertension High cholesterol Diabetes mellitus Brother No problems noted. Brother No problems noted. Social History household members: family Smoking Status: Former smoker alcohol intake: former Discharge Plan Discharge Plan Patient Disposition: Home Provider Discharge Comment: Home health. PT, OT, med management, that they. Discharge orders & Medications Prescriptions: New ciprofloxacin HCl [Cipro] 250 mg tablet 250 mg PO BID Qty: 14 RF: 0 losartan 25 mg tablet 25 mg PO BID Qty: 180 RF: 3 Continued aspirin 81 mg tablet,delayed release (DR/EC) 81 mg PO QDAY Qty: 90 RF: 2 sertraline 50 mg tablet 50 mg PO QDAY Qty: 90 RF: 0 ferrous sulfate 325 mg (65 mg iron) tablet 325 mg PO BIDWM Qty: 60 RF: 8 hydrocodone-acetaminophen 5-325 mg Tablet 1 tab PO Q4HR PRN (Reason: Pain, Moderate (4-6)) Qty: 100 RF: 0 simvastatin 10 MG tablet 10 mg PO HS Qty: 100 RF: 0 levetiracetam 750 mg tablet 1,500 mg PO DAILY Qty: 100 RF: 0 Discontinued hydrochlorothiazide 50 MG tablet 50 mg PO QDAY Qty: 0 RF: 0 omeprazole 20 mg capsule,delayed release(DR/EC) 20 mg PO DAILY Qty: 90 RF: 3 metformin 500 mg tablet extended release 24 hr 500 mg PO DAILY Qty: 90 RF: 1 losartan 100 mg tablet See Rx Instructions .ROUTE .COMPLEX Qty: 90 RF: 1 hydroxyzine HCl 25 mg tablet 50 mg PO DAILY RF: 0 potassium chloride 10 mEq tablet extended release 20 meq PO BID RF: 0 furosemide [Lasix] 40 mg tablet 40 mg PO DAILY Qty: 20 RF: 0 hydrocodone-acetaminophen 5-325 mg tablet 1 tab PO Q6H PRN (Reason: pain) Qty: 50 RF: 0 Follow up/Referrals: John Montiel MD [Primary Care Provider] - Discharge Health Status Multidrug resistant organism: No MDRO Diet/Activity/Treatments Diet: Diet as Tolerated Discharge Data Primary Care Provider: John Montiel
[2020-06-15] MEDS: TRIMETH/SULFA 160/800 (DS) TABLET 1 TAB PO (09:30)
[2020-06-15] MEDS: SERTRALINE 50 MG TABLET PO (09:30)
[2020-06-15] MEDS: ENOXAPARIN 40 MG/0.4 ML SYRINGE SUBCUT (09:30)
[2020-06-15] MEDS: levETIRAcetam 250 MG TABLET 1500 MG PO (09:30)
--- NOTE | 2020-06-15 11:13 | CM.DPC ---
Addendum entered by Pretty Ryan R.N. 06/15/20 11:47: Ordered a walker for patient per P.T. Original Note: DCP Cont: Dr. Ervin signed face to face for patient. It is noted that patient has been getting [facility], P.T, nursing. Went ahead and did a new face to face, for nursing, IRONER MACHINE for resources, O.T., bath aide. Patient lives with daughter in a motel here in [place]. Tayler, from [employer] called and stated, there were some home concerns. One was that daughter did not provide DME from last hospitalization where she had hip fracture. Other concerns that were if patient was able to sleep in a bed, secondary to the amount of people living in the motel. Went ahead and transferred Tayler to patient's room. Daughter, Lacey, was in the room, and initially answered the phone call. Lacey indicated, I take good care of my mom, if she wants to sleep in, I let her. She also indicated that it has been hard for patient to use a walker in their motel, a cane has worked better. Lacey stated, my sister wanted to put her in a home after she left [facility], but I wouldn't let her do it. Called Fariha at [facility], and let her know that patient is being discharged. Faxed face to face, and DC summary. P.T. will work with patient to go over possible equipment for home. Patient iswanting to go home with her daughter, she feels that she is getting good care there. Will have Kia, , fax over notes for Tayler. P: Patient is discharging home today with [facility]. Pretty Ryan RN/[place]
--- NOTE | 2020-06-15 11:39 | PT.IPTN ---
Current Diagnoses Hypo-osmolality and hyponatremia (06/12/20) Physical Therapy Treatment Note M2 PT-IP Current Condition Start: 06/14/20 10:13 Freq: NEEDED Status: Active Protocol: Document 06/14/20 10:46 HH (Rec: 06/14/20 11:12 HH [id number]) Physical Therapy Current Condition Current Condition Evaluation Date 06/14/20 Treatment Diagnosis UTI, electrolyte imbalance and lightheadiness. Onset Date few days ago Weight Bearing Status Weight Bearing Status Weight Bear as Tolerated M3 PT-IP Subjective Start: 06/14/20 10:13 Freq: NEEDED Status: Active Protocol: Document 06/15/20 11:07 KS (Rec: 06/15/20 12:44 KS [id number]) Subjective Physical Therapy Visit Type Type Treatment Note Visit Start Time 11:07 Visit Stop Time 11:39 Total Visit Minutes 32 Notes Pts daughter present for caregiver training. Number of COUNT ROOM CLERK Visits 1 M4 PT-IP Mobility and Gait Start: 06/14/20 10:13 Freq: NEEDED Status: Active Protocol: Document 06/15/20 11:07 KS (Rec: 06/15/20 12:44 KS [id number]) PT-Bed Mobility Assessment Supine to Sit Supine to Sit Standby Assistance,1 Person Assistance Sit to Supine Sit to Supine Standby Assistance,1 Person Assistance Scooting Scooting to Edge of Bed Contact Guard Assistance PT-Transfer Assessment Sit to and From Stand Sit to and from Stand Contact Guard Assistance,1 Person Assistance,Use of Upper Extremities Equipment Transfer Assistive Device Gait Belt,Straight Cane,Front Wheeled Walker Orthotic/Prosthetic Devices or Brace: No Transfers Transfer Destination Bed Transfer Technique pt ambulated w/ FWW Transfer Ability Level of Assist Contact Guard Assistance,Use of Upper Extremities Comments Mobility Comments Pt in bed upon arrival from therapy. SBA for sup<>sit w/ HOB flat and CGA for scooting to EOB. CGA and cues for sit<> stand w/ SPC. Pt then ambulated ~10 ft w/ SPC but relied on bed frame for additional support. Solis then ambulated additional 20 ft w/ FWW and CGA and demonstrated improved balance. Pt ascended/ descended 2x platform step w/ FWW and Min A provided first by this COUNT ROOM CLERK, and by kietther on second attempt. Pt returned to bed SBA and left in bed w/ all needs in reach. Gait Assessment Gait Gait Assistance Required: Contact Guard Assist,1 Person Assist Distance (Feet) 30 Able to Maintain Weight Bearing Status Yes During Gait Assistive Devices Assistive Device Gait Belt,Front Wheeled Walker Orthotic/Prosthetic Devices or Brace: No Gait Deviations General Gait Pattern Decreased Stride Length, Decreased Feet Clearance, Flexed Trunk Factors Limiting Gait Function Factors Limiting Gait Function Decreased Activity Tolerance, Decreased Strength,Poor Balance Comments Gait Comments see mobility comments. FWW dispensed for home use. Stair Climbing Assessment Evaluation Level of Assist On Stairs Minimal Assistance,1 Person Assistance Devices Stair Climbing Assistive Devices Front Wheel Walker Technique/Endurance Stair Climbing Direction Ascend and Descend Stair Climbing Technique Step to Step Number of Steps Climbed 1 Stair Climbing Set # Repetitions (reps) 2 Comments Stair Climbing Comments Pt ascended/descended 1 platform step x2 w/ FWW and Min A. Pts daughter was able to provide appropriate assist and cues to pt. PT-Balance Assessment Sitting Balance and Reactions Static Sitting Balance Ability Normal Dynamic Sitting Balance Ability Normal Standing Balance and Reactions Static Standing Balance Ability Good Dynamic Standing Balance Ability Fair Device Used FWW M5 PT-IP Objective Assessments Start: 06/14/20 10:13 Freq: NEEDED Status: Active Protocol: Document 06/14/20 10:46 HH (Rec: 06/14/20 11:12 HH [id number]) Orientation Orientation/Cognition Level of Alertness Alert Orientation Name,Age,Birthday,Month,Date, Year,Day of Week,Place, Situation Language Function Ability No Deficits Noted Safety Awareness Understands Safety Issues Memory Description No Deficits Noted Gross Range of Motion Upper Extremity ROM Assessment Within Functional Limits Lower Extremity ROM Assessment Within Functional Limits Strength Upper Extremity Strength Assessment Within Functional Limits Lower Extremity Strength Assessment Bilaterally Impaired Comments Strength Comments BLE = 4-/5 grossly Coordination Assessment Gross Coordination Gross Coordination WNL Sensation Assessment Sensation Gross Sensation WNL Muscle Tone Muscle Tone WNL Yes M6 PT-IP Treatment Start: 06/14/20 10:13 Freq: NEEDED Status: Active Protocol: Document 06/15/20 11:07 KS (Rec: 06/15/20 12:44 KS [id number]) Physical Therapy Treatment Education Education Provided Safety Other Treatments Other Treatment Performed Dispensed FWW for at home use, educated pt and family on why FWW is safer for pt to use for ambulation. Pt states she will use FWW at home from now on. M7 PT-IP Assessment and Plan Start: 06/14/20 10:13 Freq: NEEDED Status: Active Protocol: Document 06/15/20 11:07 KS (Rec: 06/15/20 12:44 KS [id number]) PT Summary Assessment and Plan Potential Rehabilitation Potential Excellent Status of Condition at Evaluation Evolving Summary Impairments Strength,Balance,Bed Mobility, Transfers,Gait,Activity Tolerance Assessment Summary Pt SBA to CGA for bed mobility and transfers, CGA for ambulation w/ FWW and Min A for platform step w/ FWW. Pt ambulated ~10 ft w/ SPC but was unsteady and using furniture for additional support. She had improved gait and steadiness w/ FWW. Pts daughter was able to provide pt w/ appropriate cues and assistance during treatment. Dispensed FWW for pt at home use, d/t unsafe w/ SPC at this time. Pt will benefit from HHPT to improve strength and functional mobility. Goals Bed Mobility Goal Standby Assistance Transfer Goal Standby Assistance,Cane,Front Wheeled Walker Gait Goal Standby Assistance,Cane,Front Wheel Walker Gait Distance 150 Other Goals 2PF steps with SPC/ FWW Frequency of Treatment Frequency Of Treatment Once a Day Treatment Plan Physical Therapy Treatment Plan Bed Mobility Training,Transfer Training,Gait Training, Therapeutic Exercise,Balance Retraining,Discharge Planning Other Recommendations and Next Treatment mobility as babatunde Focus check vital signs use SPC if she can Recommendations To Nursing Amount of Assist Needed 1 Person Assist Discharge Recommendations PT Discharge Recommendations Home with Assistance,Home Health Transportation Needs at Discharge Private Vehicle
--- NOTE | 2020-06-15 11:50 | CM.DPNOTE ---
Faxed last 2 PN to [facility] on [facility]/15/20 per Kaitlynn. Kia Mckeon CM Asst.
--- NOTE | 2020-06-15 12:41 | PC.NURSE ---
DISCHARGE: PATIENT AND DTR PRESENT FOR DC HOME PAPERWORK, BOTH CONFIRM UNDERSTANDING OF DC HOME INSTRUCTIONS. MEDICATIONS FOR HOME REVIEWED IN DETAIL, THEY WILL HAVE [facility] DELIVER THE SCRIPTS PER THEIR PREFERENCE. THEY CONFIRM UNDERSTANDING OF DOSE AND MED CHANGES APPROPRIATE. THEY CONFIRM UNDERSTANDING OF F/U APPT SCHEDULED. PHYSICAL THERAPY ISSUED A WALKER. PICC LINE DC'D INTACT. PATIENT FINISHING LUNCH AND READY TO DC HOME.
--- NOTE | 2020-06-21 12:47 | PM.DS.1 ---
History of Present Illness History of Present Illness Chief complaint: Lightheaded Narrative: Lightheadedness. Patient was admitted to this afternoon through the emergency room. She was brought here by paramedics. Story is this morning she felt her usual self. Later on this have perhaps after lunch she has taking sharp. She had her caregiver with her at the time. As she became sore lightheaded felt the unsteady. She required help to get out of the shower. Apparently she also felt somewhat weak and lightheaded at the time. Of daughter and the caregiver was unable to get a obtainable blood pressure. And apparently heart rate was low. Patient again does felt weak and unsteady with no pain. As stated earlier this morning she felt totally normal yesterday she was well. She had no fever chills no dysuria pyuria hematuria no diarrhea no vomiting no nausea a no abdominal pain. She has been on multiple medications not have been seen in clinic for awhile. Medication list is pending daughter is going to go and get her medications but the medication list is as per the chart most of which will be held until we have further details. A prior diagnoses include CHF, hypertension, chronic pain, history of seizure disorder, hypertension, diabetes mellitus, depression, and hyperlipidemia. 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 06/15/20 11:43 Consult to Home Health Routine Comment: Reason For Exam: FWW for home use Discharge provider: Graham Ervin MD Exam Vital Signs (past 8 hours): Oxygen Delivery Method Room Air Oxygen Flow Rate 0 Objective Labs Result Diagrams: 06/12/20 14:20 06/15/20 06:00 [facility] Medical History Alopecia Anxiety Asthma Back pain Carpal tunnel syndrome Chicken pox Chronic back pain Foot pain Headache Hearing loss History of recurrent ear infection Hypertension Measles Mumps Recurrent sinusitis Right ventricular hypertrophy Seasonal allergies Shoulder pain Sleep apnea Vertigo Vision disorder Surgical History H/O: hysterectomy History of bilateral knee replacement Family History Child Age: 48 Cancer Heart disease Hypertension High cholesterol Diabetes mellitus Father Stroke Mother Heart disease Hypertension High cholesterol Diabetes mellitus Brother No problems noted. Brother No problems noted. Social History household members: family Smoking Status: Former smoker alcohol intake: former Discharge Plan Discharge Plan Patient Disposition: Home Provider Discharge Comment: Home health. PT, OT, med management, that they. Discharge orders & Medications Prescriptions: New ciprofloxacin HCl [Cipro] 250 mg tablet 250 mg PO BID Qty: 14 RF: 0 losartan 25 mg tablet 25 mg PO BID Qty: 180 RF: 3 Continued aspirin 81 mg tablet,delayed release (DR/EC) 81 mg PO QDAY Qty: 90 RF: 2 sertraline 50 mg tablet 50 mg PO QDAY Qty: 90 RF: 0 ferrous sulfate 325 mg (65 mg iron) tablet 325 mg PO BIDWM Qty: 60 RF: 8 hydrocodone-acetaminophen 5-325 mg Tablet 1 tab PO Q4HR PRN (Reason: Pain, Moderate (4-6)) Qty: 100 RF: 0 simvastatin 10 MG tablet 10 mg PO HS Qty: 100 RF: 0 levetiracetam 750 mg tablet 1,500 mg PO DAILY Qty: 100 RF: 0 Discontinued hydrochlorothiazide 50 MG tablet 50 mg PO QDAY Qty: 0 RF: 0 omeprazole 20 mg capsule,delayed release(DR/EC) 20 mg PO DAILY Qty: 90 RF: 3 metformin 500 mg tablet extended release 24 hr 500 mg PO DAILY Qty: 90 RF: 1 losartan 100 mg tablet See Rx Instructions .ROUTE .COMPLEX Qty: 90 RF: 1 hydroxyzine HCl 25 mg tablet 50 mg PO DAILY RF: 0 potassium chloride 10 mEq tablet extended release 20 meq PO BID RF: 0 furosemide [Lasix] 40 mg tablet 40 mg PO DAILY Qty: 20 RF: 0 hydrocodone-acetaminophen 5-325 mg tablet 1 tab PO Q6H PRN (Reason: pain) Qty: 50 RF: 0 No Action promethazine 12.5 mg tablet 12.5 mg PO Q6H PRN (Reason: nausea and vomiting) Qty: 20 RF: 0 Follow up/Referrals: John Conroy MD [Primary Care Provider] - 06/22/20 1:30 pm (appt:06/22 @ 1:30 check in 15 minutes prior to your scheduled appointment time with dr conroy) Discharge Health Status Multidrug resistant organism: No MDRO Diet/Activity/Treatments Diet: Diet as Tolerated Visit Report/Discharge Packet Instructions: DI for Dehydration -- Adult, DI for Urinary Tract Infection (UTI), DI for Hypokalemia, DI for Hyponatremia, DI for Prescription Opioid Use Discharge Data Primary Care Provider: John Conroy
== END 2020-06-15 13:00 | disposition home or self-care (01) | DRG 641 ==
LOC: ED 17:07 → AC 06-13 10:12
PROVIDERS: Admitting Provider Family Medicine; Emergency Provider Emergency Medicine; PCP Family Medicine; Referring Provider Emergency Medicine; Visit Provider Family Medicine
DX: E87.6 Hypokalemia (principal); N39.0 Urinary tract infection, site not specified; Z16.11 Resistance to penicillins; E87.1 Hypo-osmolality and hyponatremia; E86.0 Dehydration; I11.0 Hypertensive heart disease with heart failure; I50.9 Heart failure, unspecified; R09.02 Hypoxemia; B96.20 Unspecified Escherichia coli [E. coli] as the cause of diseases classified elsewhere
CPT/HCPCS: 36415; 36592; 36600; 71045; 71275; 80048; 80053; 81003; 81015; 82805; 82962; 83036; 83605; 83690; 83880; 84145; 84484; 85025; 85379; 85610; 85730; 87040; 87077; 87086; 87186; 87635; 93005; 94762; 96361; 96365; 97116; 97161; 97530; 99283; 99284; J1642; J1650; J3480; Q9967

== ENCOUNTER 2020-06-17 11:31 | Inpatient (IN) | payer MEDICARE, OTHER, SELFPAY ==
[2020-06-12 19:12] VITALS: BMI 24.0
[2020-06-17] VITALS (51 sets, daily range): BP systolic 58–136; BP diastolic 39–90; PULSE 89–138; RESP 0–48; TEMP 35.8–36.8; O2SAT 88–100; BMI 24.5
--- NOTE | 2020-06-17 | PATH_ITS ---
[facility] Accession Number: [id number] . 01 Material submitted: . small bowel - SMALL BOWEL . 01 Clinical history: . NAUSEA/VOMITING . 02 Diagnosis: Small Bowel, Segmental Resection: 1. Marked active serositis with fibrous connective tissue, suggestive of adhesions. 2. Patchy superficial mucosal necrosis, including involvement at one of two mucosal margins. 3. Lamina propria edema. 4. Negative for thrombosis, vasculitis, or chronic enteritis. 5. Negative for dysplasia or malignancy. [facility] 06/23/2020 1544 Local . 02 Electronically signed: . Lilo Rock MD, Pathologist NPI- [id number] . 01 Gross description: . Received in formalin, labeled with the patient's name and small bowel, is an unoriented segment of small bowel with staple lines at both ends, one end arbitrarily inked blue, measuring 7.5 cm length by 5.0 cm circumference, covered with purple-martino dull serosa with scattered fine adhesions. Opening the bowel reveals normally folded pink-martino lightly edematous mucosa, no mass or lesions identified, no dusky areas identified, wall thickness up to 0.2 cm. Crowd Controller sections are submitted. . Summary of sections: A1. Staple line resection margin, shave, one piece. A2. Staple line resection margin, inked blue, shave, one piece. A3. Crowd Controller full-thickness, three pieces. ([id number]) /MRV 06/20/2020 1447 Local . 02 Pathologist provided ICD-10: K55.019 . 02 CPT . 059900 Performed at: [address], [place], [place] [id number] MD Raulito Mendoza MD Phone: [phone] Performed at: 02 [facility] [address] [place] [address] [id number] MD Lilo Rock MD Phone: [phone]
[2020-06-17 11:54] LABS: Add Manual Diff / Slide Review NO; Basophils Absolute Auto 100 /uL (0-100); Basophils Percent Auto 0.4 % (0-2); Eosinophils Absolute Auto 0 /uL (0-450); Eosinophils Percent Auto 0.1 % (2-4); Hematocrit 32.6 % (36-46); Hemoglobin 10.6 g/dL (12.0-16.0); Lymphocytes Absolute Auto 1200 /uL (1100-4500); Lymphocytes Percent Auto 7.6 % (25-40); Mean Corpuscular HGB Conc 32.5 % (30-36); Mean Corpuscular Hemoglobin 24.7 PG (26-34); Mean Corpuscular Volume 75.9 fL (80-100); Monocytes Absolute Auto 700 /uL (0-900); Monocytes Percent Auto 4.2 % (3-14); Neutrophils Absolute Auto 13900 /uL (1500-7000); Neutrophils Percent Auto 87.7 % (50-75); Platelet Count 306 X10^3/uL (150-400); Red Cell Distribution Width 17.4 % (11.6-14.8); White Blood Cell Count 15.8 X10^3/uL (4.5-11.0)
[2020-06-17] MEDS: ONDANSETRON 4 MG/2 ML INJ IV (11:55)
[2020-06-17 12:10] LABS: INR 1.3 (0.9-1.3)
[2020-06-17 12:12] LABS: Alanine Aminotransferase 13 IU/L (<35); Albumin 3.5 g/dL (3.5-5.0); Alkaline Phosphatase 95 U/L (38-126); Aspartate Aminotransferase 24 IU/L (14-36); BUN Creatinine Ratio 21.1 (6-22); Bilirubin Total 0.5 mg/dL (0.2-1.3); Blood Urea Nitrogen 12 mg/dL (7-17); Carbon Dioxide 30 mmol/L (22-32); Chloride 96 mmol/L (98-107); Estimated Glomerular Filt Rate > 60.0 mL/min (>60); Globulin 3.4 g/dL (1.7-4.1); Glucose 158 mg/dL (80-110); HEMOLYSIS 26 (0-50); Magnesium 1.5 mg/dL (1.6-2.3); Potassium 3.7 mmol/L (3.4-5.1); Sodium 133 mmol/L (137-145); Total Protein 6.9 g/dL (6.3-8.2)
--- NOTE | 2020-06-17 12:29 | DI.RAD.S_ITS ---
PROCEDURE: XR CHEST 1V INDICATIONS: hypoxic, copd TECHNIQUE: One view of the chest was acquired. COMPARISON: [facility], CT, CT ANGIO CHEST PE PROTOCOL, 06/12/2020, 16:08. [facility], CR, XR CHEST 1V, 06/12/2020, 15:17. [facility], CR, XR CHEST 2V, 04/02/2020, 9:54. FINDINGS: Surgical changes and devices: None. Lungs and pleura: Lungs are clear. No pleural effusions or pneumothorax. Mediastinum: Mediastinal contours appear unchanged. Calcified right thyroid nodule. Heart size is normal. Bones and chest wall: No suspicious bony lesions. Overlying soft tissues appear unremarkable. IMPRESSION: No acute cardiopulmonary abnormality identified. Dictated by: Shay Loco M.D. on 06/17/2020 at 11:58 Approved by: Shay Loco M.D. on 06/17/2020 at 12:01
--- NOTE | 2020-06-17 12:32 | ED_ITS ---
HPI - Nausea/Vomiting/Diarrhea <Ping Ortiz, LAUNCH OPERATOR-BC - Last Filed: 06/17/20 20:32> General Chief complaint: Nausea/Vomiting/Diarrhea Stated complaint: Nausea/vomiting Time Seen by Provider: 06/17/20 11:32 Source: patient and family Mode of arrival: EMS Limitations: no limitations History of Present Illness HPI Narrative: The patient is a 75-year-old female former smoker with history of COPD, electrolyte imbalance, acute CHF who presents with a chief complaint of persistent nausea and vomiting. She was admitted at this facility, discharged on the with electrolyte imbalance of hyponatremia, hypokalemia and acute urinary tract infection. She was also noted to be hypoxic and hypotensive during her emergency department visit, was subsequently admitted. Blood pressures during that time decreased to 73/49. She was admitted from the to , discharged was several prescriptions including ciprofloxacin for her urinary tract infection. She states that she was unable to take her antibiotics since she was discharged due to nausea and vomiting. She called her primary care provider on-call, who called in Phenergan for her. However she was unable to keep the Phenergan down, and states that she has been vomiting multiple times per day since her discharge. Who during her emergency department visit on the , she had a CT that was negative for pulmonary embolism, tested negative for COVID. She does complain of abdominal pain. She states that is generalized. She denies any fevers muscle aches or chills. Her daughter notes that every time she comes to the emergency department her oxygen levels are in the high 80s, she is placed on oxygen and discharged without oxygen. Patient reportedly arrived by EMS prior to my arrival, daughter met her in the emergency department today. Related Data Previous Rx's Medication Instructions Recorded aspirin 81 mg tablet,delayed 81 mg PO QDAY #90 tab 07/05/19 release sertraline 50 mg tablet 50 mg PO QDAY #90 tab 03/31/20 ferrous sulfate 325 mg (65 mg 325 mg PO BIDWM #60 tab 04/02/20 iron) tablet ciprofloxacin HCl [Cipro] 250 mg PO BID #14 tab 06/15/20 hydrocodone-acetaminophen 1 tab PO Q4HR PRN #100 tab 06/15/20 levetiracetam 1,500 mg PO DAILY #100 tab 06/15/20 losartan 25 mg PO BID #180 tab 06/15/20 promethazine 12.5 mg tablet 12.5 mg PO Q6H PRN #20 tab 06/15/20 simvastatin 10 mg PO HS #100 tab 06/15/20 Allergies Allergy/AdvReac Type Severity Reaction Status Date / Time No Known Drug Allergies Allergy Verified 06/17/20 11:40 Review of Systems <PRISCILLA Epps - Last Filed: 06/17/20 20:32> Review of Systems Narrative: GENERAL: See HPI HEENT: Denies sinus pain, ear pain, sore throat, difficulty swallowing, dizziness. RESPIRATORY: Denies dyspnea, cough, wheezing, hemoptysis, sputum. CARDIOVASCULAR: Denies chest pain, palpitations, orthopnea, edema, GASTROINTESTINAL: See HPI : See HPI MUSCULOSKELETAL: denies weakness, joint pain, or bony pain SKIN: Denies rash, skin lesions, or other NEUROLOGIC: Denies weakness, headache, numbness, change in speech, confusion, seizures, incoordination. PSYCHIATRIC: No concerning psychosocial issues. 12 point review of systems is negative except for those stated above Patient History <PRISCILLA Epps - Last Filed: 06/17/20 20:32> Medical History Alopecia Anxiety Asthma Back pain Carpal tunnel syndrome Chicken pox Chronic back pain Foot pain Headache Hearing loss History of recurrent ear infection Hypertension Measles Mumps Recurrent sinusitis Right ventricular hypertrophy Seasonal allergies Shoulder pain Sleep apnea Vertigo Vision disorder Surgical History H/O: hysterectomy History of bilateral knee replacement Family History Child Age: 48 Cancer Heart disease Hypertension High cholesterol Diabetes mellitus Father Stroke Mother Heart disease Hypertension High cholesterol Diabetes mellitus Brother No problems noted. Brother No problems noted. Social History household members: family Smoking Status: Former smoker alcohol intake: former Smoking Status: Former smoker alcohol intake frequency: 0-2 drinks per day Substance Use Type: does not use Exam <PRISCILLA Epps - Last Filed: 06/17/20 20:32> Narrative Exam Narrative: GENERAL: This is a well-nourished, well-developed patient, appears slightly uncomfortable HEAD: Atraumatic. Normocephalic. No temporal or scalp tenderness. EYES: Pupils equal round and reactive. Extraocular motions intact. No scleral icterus. No injection or drainage. ENT: Nose without bleeding, purulent drainage or septal hematoma. Throat without erythema, tonsillar hypertrophy or exudate. Uvula midline. Airway patent. Dry mucous membranes noted. NECK: Trachea midline. No JVD or lymphadenopathy. Supple, nontender, no meningeal signs. CARDIOVASCULAR: Regular rate and rhythm RESPIRATORY: Decreased and coarse bilaterally to auscultation. Breath sounds equal bilaterally. No wheezes, rales, or rhonchi. No cough. No increased respiratory effort. No accessory muscle use. Speaking full sentences. GASTROINTESTINAL: Abdomen soft, diffusely tender to palpation with slight guarding, nondistended. Active bowel sounds all 4 quadrants EXTREMITIES: No clubbing, cyanosis, or edema. No joint tenderness, effusion, or edema noted. BACK: Nontender without deformity or crepitance. No CVA tenderness bilaterally. NEURO: AOx3. SKIN: No rash or erythema on visible skin. Initial Vital Signs Initial Vital Signs: Vital Signs Temperature 97.8 F 06/17/20 11:35 Pulse Rate 105 H 06/17/20 11:35 Respiratory Rate 18 06/17/20 11:35 Blood Pressure 114/67 06/17/20 11:35 Pulse Oximetry 88 L 06/17/20 11:35 <Marci Harrington MD - Last Filed: 06/18/20 07:36> Initial Vital Signs Initial Vital Signs: Vital Signs Temperature 97.8 F 06/17/20 11:35 Pulse Rate 105 H 06/17/20 11:35 Respiratory Rate 18 06/17/20 11:35 Blood Pressure 114/67 06/17/20 11:35 Pulse Oximetry 88 L 06/17/20 11:35 <Marci Harrington MD - Last Filed: 06/18/20 07:36> Central Line Placement Right IJ: Time Out Performed: Yes Patient Placed on Monitor/Pulse Ox: Yes Prep: mask, gown and gloves Central Line Prep: Chlorhexidine scrub Local Anesthetic: lidocaine 1% Amount of anesthesia used (mL): 5 Ultrasound Used for Placement: Yes Central Line Lumen Inserted: triple Post Procedure: sutured in place (catheter device used), all ports aspirated, flushed, capped and sterile dressing applied Post Procedure X-Ray: tip of catheter in good position Patient Tolerated Procedure: Well Complications: none Additional Comments: Significant difficulty due to severe dehydration and inability to camp the adventitial layers of the vessel and then thread the needle actually into the lumen of the internal jugular. Scores <PRISCILLA Epps - Last Filed: 06/17/20 20:32> GCS Uri coma scale eye opening: Spontaneous Uri coma scale verbal response: Orientated [place] coma scale motor response: Obey commands [place] coma scale total score: 15 Course <PRISCILLA Epps - Last Filed: 06/17/20 20:32> Orders Ordered: ED Orders 06/17/20 11:42 Complete Blood Count AUTO DIFF Stat Comprehensive Metabolic Panel Stat Lactate (Lactic Acid) Stat Lipase Stat Magnesium Stat NT-proBNP (BNP-Adult 18+) Stat Procalcitonin Stat Prothrombin Time INR Stat Troponin & CK Cardiac Panel Stat 06/17/20 12:29 XR chest 1V Stat 06/17/20 12:40 COVID19 Stat 06/17/20 13:28 CT abdomen pelvis w con Stat 06/17/20 16:15 Ictotest Urine Stat Urinalysis and Microscopic Stat 06/17/20 18:17 XR chest 1V Stat 06/17/20 18:22 Blood Culture Stat Lactate (Lactic Acid) Stat Discontinued Medications Sodium Chloride (Normal Saline 0.9%) 500 mls @ 1,000 mls/hr IV BOLUS ONE Stop: 06/17/20 14:03 Last Infusion: 06/17/20 15:00 Dose: 0 mls/hr Documented by: Admin: 06/17/20 14:07 Dose: 1,000 mls/hr Documented by: RENEA Piperacillin/Tazobactam/Dextrose (Zosyn) 3.375 gm in 50 mls @ 100 mls/hr IV NOW ONE Stop: 06/17/20 18:10 Last Infusion: 06/17/20 18:58 Dose: 0 mls/hr Documented by: Admin: 06/17/20 18:34 Dose: 100 mls/hr Documented by: EMERY Sodium Chloride (Normal Saline 0.9%) 1,000 mls @ 1,000 mls/hr IV BOLUS ONE Stop: 06/17/20 19:29 Last Infusion: 06/17/20 18:57 Dose: 0 mls/hr Documented by: Admin: 06/17/20 18:35 Dose: 1,000 mls/hr Documented by: EMERY Metoclopramide HCl (Metoclopramide 10 Mg/2 Ml Inj) 10 mg IV NOW ONE Stop: 06/17/20 12:54 Last Admin: 06/17/20 14:07 Dose: 10 mg Documented by: RENEA Morphine Sulfate (Morphine 2 Mg/Ml Inj) 2 mg IV NOW ONE Stop: 06/17/20 15:16 Last Admin: 06/17/20 15:21 Dose: 2 mg Documented by: RENEA Morphine Sulfate (Morphine 4 Mg/Ml Inj) 4 mg IM NOW ONE Stop: 06/17/20 16:58 Last Admin: 06/17/20 17:16 Dose: 4 mg Documented by: RENEA Ondansetron HCl (Ondansetron 4 Mg/2 Ml Inj) 4 mg IV NOW ONE Stop: 06/17/20 11:48 Last Admin: 06/17/20 11:55 Dose: 4 mg Documented by: RNEEA Ondansetron HCl (Ondansetron 4 Mg/2 Ml Inj) 4 mg IV NOW ONE Stop: 06/17/20 12:54 Last Admin: 06/17/20 14:07 Dose: Not Given Documented by: RENEA Consultations Consultation #1: Discussed CT results with Dr Harrington, plan to speak with shani frankel. Spoke with Dr Felix from surgery, regarding the patient's CT including the possibility of extraluminal gas etcetera. He states he is happy to follow along with the patient when she becomes inpatient. Antibiotics should be geared towards urinary tract infection rather than any possible GI infection at this time. 15:00 Consultation #2: HR noted by nursing to be elavated. Unable to obtain IV, several sticks by nursing. [facility] had already been contacted, Dr. Harrington to do a central line given patient's heart rate. 16:30 Consultation #3: Patient prepped for central line by nursing. Premedicated with IM morphine. Discussed possibility of re-scan abdomen given heart rate, lower BP. Will hold and give fluids and pain meds per Dr Harrington. Time: 17:15 Vital Signs Vital signs: Vital Signs - 8 hr 06/17/20 12:30 06/17/20 13:00 06/17/20 13:29 Pulse Rate 104 H 102 H 117 H Respiratory Rate Blood Pressure 118/68 129/87 Pulse Oximetry 95 97 98 06/17/20 13:30 06/17/20 16:30 06/17/20 16:31 Pulse Rate 115 H 129 H 131 H Respiratory Rate Blood Pressure 136/90 95/65 Pulse Oximetry 98 92 96 06/17/20 16:36 06/17/20 17:00 06/17/20 17:01 Pulse Rate 132 H 130 H 132 H Respiratory Rate 33 H 30 H Blood Pressure 102/67 94/51 L Pulse Oximetry 94 97 97 06/17/20 17:03 06/17/20 17:19 06/17/20 17:30 Pulse Rate 130 H 133 H 133 H Respiratory Rate 35 H 48 H Blood Pressure 92/59 L 90/61 Pulse Oximetry 100 99 100 06/17/20 17:31 06/17/20 18:00 06/17/20 18:30 Pulse Rate 132 H 130 H 138 H Respiratory Rate 26 H 31 H 29 H Blood Pressure 84/60 L 102/66 76/53 L Pulse Oximetry 100 100 98 06/17/20 18:35 06/17/20 18:40 06/17/20 18:45 Pulse Rate 125 H 122 H 119 H Respiratory Rate 28 H 31 H 28 H Blood Pressure 91/65 98/62 98/65 Pulse Oximetry 97 98 98 <Marci Harrington MD - Last Filed: 06/18/20 07:36> Course Course Narrative: 75-year-old woman with increasing abdominal pain, recurrent nausea and vomiting. At 4:20 a.m. her heart rate jumped significantly. Your going to call this time of onset of sepsis. We have had extraordinary diff iculty in getting IV access. She has had a couple of peripheral lines that are no longer functional. We called for a PICC line which she has required with prior hospitalizations and the PICC line team was not available until 8:00 p.m. tonight. As her condition continued to deteriorate central line was placed by ER provider. Significant difficulties due to severe dehydration. Once IV access is obtained fluids and antibiotics will be initiated. Will watch closely to see if pressors need to be started. She has been seen by General surgery and he is anticipating a taking her to the operating room. Orders Ordered: ED Orders 06/17/20 11:42 Complete Blood Count AUTO DIFF Stat Comprehensive Metabolic Panel Stat Lactate (Lactic Acid) Stat Lipase Stat Magnesium Stat NT-proBNP (BNP-Adult 18+) Stat Procalcitonin Stat Prothrombin Time INR Stat Troponin & CK Cardiac Panel Stat 06/17/20 12:29 XR chest 1V Stat 06/17/20 12:40 COVID19 Stat 06/17/20 13:28 CT abdomen pelvis w con Stat 06/17/20 16:15 Ictotest Urine Stat Urinalysis and Microscopic Stat 06/17/20 18:17 XR chest 1V Stat 06/17/20 18:22 Blood Culture Stat Lactate (Lactic Acid) Stat Discontinued Medications Sodium Chloride (Normal Saline 0.9%) 500 mls @ 1,000 mls/hr IV BOLUS ONE Stop: 06/17/20 14:03 Last Infusion: 06/17/20 15:00 Dose: 0 mls/hr Documented by: Admin: 06/17/20 14:07 Dose: 1,000 mls/hr Documented by: RENEA Piperacillin/Tazobactam/Dextrose (Zosyn) 3.375 gm in 50 mls @ 100 mls/hr IV NOW ONE Stop: 06/17/20 18:10 Last Infusion: 06/17/20 18:58 Dose: 0 mls/hr Documented by: Admin: 06/17/20 18:34 Dose: 100 mls/hr Documented by: EMERY Sodium Chloride (Normal Saline 0.9%) 1,000 mls @ 1,000 mls/hr IV BOLUS ONE Stop: 06/17/20 19:29 Last Infusion: 06/17/20 18:57 Dose: 0 mls/hr Documented by: Admin: 06/17/20 18:35 Dose: 1,000 mls/hr Documented by: EMERY Metoclopramide HCl (Metoclopramide 10 Mg/2 Ml Inj) 10 mg IV NOW ONE Stop: 06/17/20 12:54 Last Admin: 06/17/20 14:07 Dose: 10 mg Documented by: RENEA Morphine Sulfate (Morphine 2 Mg/Ml Inj) 2 mg IV NOW ONE Stop: 06/17/20 15:16 Last Admin: 06/17/20 15:21 Dose: 2 mg Documented by: RENEA Morphine Sulfate (Morphine 4 Mg/Ml Inj) 4 mg IM NOW ONE Stop: 06/17/20 16:58 Last Admin: 06/17/20 17:16 Dose: 4 mg Documented by: RENEA Ondansetron HCl (Ondansetron 4 Mg/2 Ml Inj) 4 mg IV NOW ONE Stop: 06/17/20 11:48 Last Admin: 06/17/20 11:55 Dose: 4 mg Documented by: RENEA Ondansetron HCl (Ondansetron 4 Mg/2 Ml Inj) 4 mg IV NOW ONE Stop: 06/17/20 12:54 Last Admin: 06/17/20 14:07 Dose: Not Given Documented by: RENEA Vital Signs Vital signs: Vital Signs - 8 hr 06/17/20 12:30 06/17/20 13:00 06/17/20 13:29 Pulse Rate 104 H 102 H 117 H Respiratory Rate Blood Pressure 118/68 129/87 Pulse Oximetry 95 97 98 06/17/20 13:30 06/17/20 16:30 06/17/20 16:31 Pulse Rate 115 H 129 H 131 H Respiratory Rate Blood Pressure 136/90 95/65 Pulse Oximetry 98 92 96 06/17/20 16:36 06/17/20 17:00 06/17/20 17:01 Pulse Rate 132 H 130 H 132 H Respiratory Rate 33 H 30 H Blood Pressure 102/67 94/51 L Pulse Oximetry 94 97 97 06/17/20 17:03 06/17/20 17:19 06/17/20 17:30 Pulse Rate 130 H 133 H 133 H Respiratory Rate 35 H 48 H Blood Pressure 92/59 L 90/61 Pulse Oximetry 100 99 100 06/17/20 17:31 06/17/20 18:00 06/17/20 18:30 Pulse Rate 132 H 130 H 138 H Respiratory Rate 26 H 31 H 29 H Blood Pressure 84/60 L 102/66 76/53 L Pulse Oximetry 100 100 98 06/17/20 18:35 06/17/20 18:40 06/17/20 18:45 Pulse Rate 125 H 122 H 119 H Respiratory Rate 28 H 31 H 28 H Blood Pressure 91/65 98/62 98/65 Pulse Oximetry 97 98 98 MDM - Nausea/Vomiting/Diarrhea <BETTY Epps- - Last Filed: 06/17/20 20:32> Lab Data Attestation: I reviewed the patient's lab results. Result diagrams: 06/18/20 04:46 06/18/20 04:46 Labs: Lab Results 06/17/20 06/17/20 06/17/20 Range/Units 11:42 11:42 11:42 WBC 15.8 H (4.5-11.0) X10^3/uL RBC 4.30 (4.0-5.2) X10^6/uL Hgb 10.6 L (12.0-16.0) g/dL Hct 32.6 L (36-46) % MCV 75.9 L (80-100) fL MCH 24.7 L (26-34) PG MCHC 32.5 (30-36) % RDW 17.4 H (11.6-14.8) % Plt Count 306 (150-400) X10^3/uL Neut % (Auto) 87.7 H (50-75) % Lymph % (Auto) 7.6 L (25-40) % Lucas % (Auto) 4.2 (3-14) % Eos % (Auto) 0.1 L (2-4) % Baso % (Auto) 0.4 (0-2) % Neut # (Auto) 11168 H (2423-0101) /uL Lymph # (Auto) 1200 (3108-5432) /uL Lucas # (Auto) 700 (0-900) /uL Eos # (Auto) 0 (0-450) /uL Baso # (Auto) 100 (0-100) /uL PT 15.0 H (10.1-12.7) SECONDS INR 1.3 (0.9-1.3) Sodium 133 L (137-145) mmol/L Potassium 3.7 (3.4-5.1) mmol/L Chloride 96 L (98-107) mmol/L Carbon Dioxide 30 (22-32) mmol/L BUN 12 (7-17) mg/dL Creatinine 0.57 (0.52-1.04) mg/dL Estimated GFR > 60.0 (>60) mL/min BUN/Creatinine Ratio 21.1 (6-22) Glucose 158 H (80-110) mg/dL Lactate (0.7-2.1) mmol/L Calcium 9.0 (8.4-10.2) mg/dL Magnesium 1.5 L (1.6-2.3) mg/dL Total Bilirubin 0.5 (0.2-1.3) mg/dL AST 24 (14-36) IU/L ALT 13 (<35) IU/L Alkaline Phosphatase 95 (38-126) U/L Total Creatine Kinase (30-135) U/L CK-MB (CK-2) CK-MB (CK-2) Rel Index Troponin I (0.01-0.034) ng/mL NT-Pro-B Natriuret Pep (<125) pg/mL Total Protein 6.9 (6.3-8.2) g/dL Albumin 3.5 (3.5-5.0) g/dL Globulin 3.4 (1.7-4.1) g/dL Albumin/Globulin Ratio 1.0 (1.0-2.8) Lipase (23-300) U/L Procalcitonin (<0.5) ng/mL Urine Color Urine Appearance Urine pH (4.5-8.0) Ur Specific [place] (1.000-1.035) Urine Protein (Negative) Urine Glucose (UA) (Negative) g/dL Urine Ketones (NEGATIVE) Urine Occult Blood (Negative) Urine Nitrate (Negative) Urine Bilirubin (NEGATIVE) Ur Bilirubin Confirm (Negative) Urine Urobilinogen (0.2) E.U./dL Ur Leukocyte Esterase (NEGATIVE) Urine RBC (0-5/HPF) Urine WBC (0-5/HPF) Urine Bacteria (None) Ur Culture Indicated? COVID-19 PCR (Negative) 06/17/20 06/17/20 06/17/20 Range/Units 11:42 11:42 11:42 WBC (4.5-11.0) X10^3/uL RBC (4.0-5.2) X10^6/uL Hgb (12.0-16.0) g/dL Hct (36-46) % MCV (80-100) fL MCH (26-34) PG MCHC (30-36) % RDW (11.6-14.8) % Plt Count (150-400) X10^3/uL Neut % (Auto) (50-75) % Lymph % (Auto) (25-40) % Lucas % (Auto) (3-14) % Eos % (Auto) (2-4) % Baso % (Auto) (0-2) % Neut # (Auto) (6227-4625) /uL Lymph # (Auto) (1041-3282) /uL Lucas # (Auto) (0-900) /uL Eos # (Auto) (0-450) /uL Baso # (Auto) (0-100) /uL PT (10.1-12.7) SECONDS INR (0.9-1.3) Sodium (137-145) mmol/L Potassium (3.4-5.1) mmol/L Chloride (98-107) mmol/L Carbon Dioxide (22-32) mmol/L BUN (7-17) mg/dL Creatinine (0.52-1.04) mg/dL Estimated GFR (>60) mL/min BUN/Creatinine Ratio (6-22) Glucose (80-110) mg/dL Lactate 1.6 (0.7-2.1) mmol/L Calcium (8.4-10.2) mg/dL Magnesium (1.6-2.3) mg/dL Total Bilirubin (0.2-1.3) mg/dL AST (14-36) IU/L ALT (<35) IU/L Alkaline Phosphatase (38-126) U/L Total Creatine Kinase (30-135) U/L CK-MB (CK-2) CK-MB (CK-2) Rel Index Troponin I (0.01-0.034) ng/mL NT-Pro-B Natriuret Pep 97644 H (<125) pg/mL Total Protein (6.3-8.2) g/dL Albumin (3.5-5.0) g/dL Globulin (1.7-4.1) g/dL Albumin/Globulin Ratio (1.0-2.8) Lipase (23-300) U/L Procalcitonin 0.05 (<0.5) ng/mL Urine Color Urine Appearance Urine pH (4.5-8.0) Ur Specific [place] (1.000-1.035) Urine Protein (Negative) Urine Glucose (UA) (Negative) g/dL Urine Ketones (NEGATIVE) Urine Occult Blood (Negative) Urine Nitrate (Negative) Urine Bilirubin (NEGATIVE) Ur Bilirubin Confirm (Negative) Urine Urobilinogen (0.2) E.U./dL Ur Leukocyte Esterase (NEGATIVE) Urine RBC (0-5/HPF) Urine WBC (0-5/HPF) Urine Bacteria (None) Ur Culture Indicated? COVID-19 PCR (Negative) 06/17/20 06/17/20 06/17/20 Range/Units 11:42 11:42 12:40 WBC (4.5-11.0) X10^3/uL RBC (4.0-5.2) X10^6/uL Hgb (12.0-16.0) g/dL Hct (36-46) % MCV (80-100) fL MCH (26-34) PG MCHC (30-36) % RDW (11.6-14.8) % Plt Count (150-400) X10^3/uL Neut % (Auto) (50-75) % Lymph % (Auto) (25-40) % Lucas % (Auto) (3-14) % Eos % (Auto) (2-4) % Baso % (Auto) (0-2) % Neut # (Auto) (5232-9247) /uL Lymph # (Auto) (8050-9596) /uL Lucas # (Auto) (0-900) /uL Eos # (Auto) (0-450) /uL Baso # (Auto) (0-100) /uL PT (10.1-12.7) SECONDS INR (0.9-1.3) Sodium (137-145) mmol/L Potassium (3.4-5.1) mmol/L Chloride (98-107) mmol/L Carbon Dioxide (22-32) mmol/L BUN (7-17) mg/dL Creatinine (0.52-1.04) mg/dL Estimated GFR (>60) mL/min BUN/Creatinine Ratio (6-22) Glucose (80-110) mg/dL Lactate (0.7-2.1) mmol/L Calcium (8.4-10.2) mg/dL Magnesium (1.6-2.3) mg/dL Total Bilirubin (0.2-1.3) mg/dL AST (14-36) IU/L ALT (<35) IU/L Alkaline Phosphatase (38-126) U/L Total Creatine Kinase 37 (30-135) U/L CK-MB (CK-2) TNP CK-MB (CK-2) Rel Index TNP Troponin I 0.117 H (0.01-0.034) ng/mL NT-Pro-B Natriuret Pep (<125) pg/mL Total Protein (6.3-8.2) g/dL Albumin (3.5-5.0) g/dL Globulin (1.7-4.1) g/dL Albumin/Globulin Ratio (1.0-2.8) Lipase 66 (23-300) U/L Procalcitonin (<0.5) ng/mL Urine Color Urine Appearance Urine pH (4.5-8.0) Ur Specific [place] (1.000-1.035) Urine Protein (Negative) Urine Glucose (UA) (Negative) g/dL Urine Ketones (NEGATIVE) Urine Occult Blood (Negative) Urine Nitrate (Negative) Urine Bilirubin (NEGATIVE) Ur Bilirubin Confirm (Negative) Urine Urobilinogen (0.2) E.U./dL Ur Leukocyte Esterase (NEGATIVE) Urine RBC (0-5/HPF) Urine WBC (0-5/HPF) Urine Bacteria (None) Ur Culture Indicated? COVID-19 PCR Negative (Negative) 06/17/20 06/17/20 Range/Units 16:15 18:22 WBC (4.5-11.0) X10^3/uL RBC (4.0-5.2) X10^6/uL Hgb (12.0-16.0) g/dL Hct (36-46) % MCV (80-100) fL MCH (26-34) PG MCHC (30-36) % RDW (11.6-14.8) % Plt Count (150-400) X10^3/uL Neut % (Auto) (50-75) % Lymph % (Auto) (25-40) % Lucas % (Auto) (3-14) % Eos % (Auto) (2-4) % Baso % (Auto) (0-2) % Neut # (Auto) (1022-5645) /uL Lymph # (Auto) (7813-8954) /uL Lucas # (Auto) (0-900) /uL Eos # (Auto) (0-450) /uL Baso # (Auto) (0-100) /uL PT (10.1-12.7) SECONDS INR (0.9-1.3) Sodium (137-145) mmol/L Potassium (3.4-5.1) mmol/L Chloride (98-107) mmol/L Carbon Dioxide (22-32) mmol/L BUN (7-17) mg/dL Creatinine (0.52-1.04) mg/dL Estimated GFR (>60) mL/min BUN/Creatinine Ratio (6-22) Glucose (80-110) mg/dL Lactate 4.1 H* (0.7-2.1) mmol/L Calcium (8.4-10.2) mg/dL Magnesium (1.6-2.3) mg/dL Total Bilirubin (0.2-1.3) mg/dL AST (14-36) IU/L ALT (<35) IU/L Alkaline Phosphatase (38-126) U/L Total Creatine Kinase (30-135) U/L CK-MB (CK-2) CK-MB (CK-2) Rel Index Troponin I (0.01-0.034) ng/mL NT-Pro-B Natriuret Pep (<125) pg/mL Total Protein (6.3-8.2) g/dL Albumin (3.5-5.0) g/dL Globulin (1.7-4.1) g/dL Albumin/Globulin Ratio (1.0-2.8) Lipase (23-300) U/L Procalcitonin (<0.5) ng/mL Urine Color Yellow Urine Appearance Clear Urine pH 7.0 (4.5-8.0) Ur Specific Acton <=1.005 (1.000-1.035) Urine Protein 2+ H (Negative) Urine Glucose (UA) Negative (Negative) g/dL Urine Ketones Trace H (NEGATIVE) Urine Occult Blood Trace-lysed (Negative) Urine Nitrate Negative (Negative) Urine Bilirubin 1+ H (NEGATIVE) Ur Bilirubin Confirm Negative (Negative) Urine Urobilinogen 0.2 (0.2) E.U./dL Ur Leukocyte Esterase Negative (NEGATIVE) Urine RBC None seen (0-5/HPF) Urine WBC None seen (0-5/HPF) Urine Bacteria None seen (None) Ur Culture Indicated? Cult not indicated COVID-19 PCR (Negative) Imaging Data Chest x-ray: Radiologist's Impression: [address] [place] [id number] ReportSigned Patient: Janette Waldron [facility]#: [id number]: 1945cct:[id number]/Sex: 75 / FDate of Service: 06/17/20Loc: EDAccession Number: [id number] Procedure: XR chest 1V Ordering Provider: Ping OrtizP-BC PROCEDURE: XR CHEST 1V INDICATIONS: hypoxic, copd TECHNIQUE: One view of the chest was acquired. COMPARISON: [facility], CT, CT ANGIO CHEST PE PROTOCOL, 06/12/2020, 16:08. [facility], CR, XR CHEST 1V, 06/12/2020, 15:17. [facility], CR, XR CHEST 2V, 04/02/2020, 9:54. FINDINGS: Surgical changes and devices: None. Lungs and pleura: Lungs are clear. No pleural effusions or pneumothorax. Mediastinum: Mediastinal contours appear unchanged. Calcified right thyroid nodule. Heart size is normal. Bones and chest wall: No suspicious bony lesions. Overlying soft tissues appear unremarkable. IMPRESSION: No acute cardiopulmonary abnormality identified. Dictated by: Shay Loco M.D. on 06/17/2020 at 11:58 Approved by: Shay Loco M.D. on 06/17/2020 at 12:01 CT scan - abdomen/pelvis: Radiologist's Impression: [address] [place] [id number] Scan ReportSigned Patient: Janette Waldron AMR#: [id number]: 7Acct:[id number]/Sex: 75 / FDate of Service: 06/17/20Loc: EDAccession Number: [id number] Procedure: CT abdomen pelvis w con Ordering Provider: Ping OrtizP-BC PROCEDURE: CT ABDOMEN PELVIS W CON INDICATIONS: pain, n/v TECHNIQUE: After the administration of intravenous contrast, 5 mm thick sections acquired from the diaphragm to the symphysis. 5 mm coronal and sagittal reformats were acquired. For radiation dose reduction, the following was used: automated exposure control, adjustment of mA and/or kV according to patient size. COMPARISON: [facility], CT, CT PEL WO CON, 04/01/2020, 3:03. [facility], CT, CT ANGIO CHEST PE PROTOCOL, 06/12/2020, 16:08. [facility], CT, ABDOMEN/PELVIS WITH CONTRAST, 06/28/2013, 19:15. FINDINGS: Image quality: Excellent. ABDOMEN: Lung bases: Left lower lobe pulmonary nodule measuring 0.9 cm, (3/8), pre viously 0.8 cm in 2013 suggesting a benign etiology. Heart size is normal. Trace pericardial fluid, not significantly changed. Fluid in the esophagus. Solid organs: Liver is normal in size and enhancement. Gallbladder is not significantly distended. No calcified gallstones. . Biliary system is non dilated. Pancreas enhances normally. Spleen is normal in size and enhancement. No adrenal nodules. Left kidney is atrophic compared to the right. The kidneys demonstrate cortical thinning and irregularity due to scarring. Punctate calcification at the inferior pole of the left kidney. A few tiny cysts which are too small to further characterize. Peritoneum and bowel: Thickening and enhancement of the ileum, (2/55), and jejunum and duodenum, (2/50, 32). Small foci of gas near the ligament of Treitz may be within the wall or extraluminal, (2/35, 38). Stomach is mildly distended and fluid-filled. There is thickening of the greater curvature at the fundus. No gross pneumo peritoneum. Moderate volume of ascites most pronounced in the pelvis and right and left upper quadrant. Colon is not distended. The appendix is not visualized. Nodes and vessels: No retroperitoneal or mesenteric adenopathy by size criteria. Infrarenal abdominal aorta measures 2.3 cm and is ectatic. Moderate calcified atherosclerotic plaque. Miscellaneous: Right abdomen ventral fat containing hernia. The hernia neck measures 2.3 cm, (2/36). Smaller periumbilical fat containing hernia. PELVIS: Genitourinary: Bladder wall thickness is normal. Uterus is absent. Miscellaneous: Suspect small bilateral femoral hernias. No definite inguinal hernia. No adenopathy. Bones: Prior bilateral superior and inferior pubic rami fractures. No suspicious bony lesions. Stable T12 and L2 compression fractures. IMPRESSION: 1. Abnormal thickening and enhancement of several loops of small bowel particularly the jejunum and ileum. Findings most compatible with a small bowel enteritis. A few foci of gas adjacent to the proximal jejunum are concerning for air within the small bowel wall or possible micro rupture with extraluminal gas. There is moderate ascites but no loculated fluid collection to suggest abscess. 2. Stomach is distended. Gastric thickening of the greater curvature fundus. 3. Additional chronic findings as described above. Dictated by: Shay Loco M.D. on 06/17/2020 at 13:13 Approved by: Shay Loco M.D. on 06/17/2020 at 13:35 ECG Data Attestation: I personally reviewed and interpreted this ECG as follows: Interpretation: Sinus tachycardia. Ventricular rate 131. P.r. interval 128. QRS 88. Viewed by Dr. Harrington. Similar to prior tracking as per Dr. Henderson, confirmed on cardio observer helper MDM Narrative Medical decision making narrative: The patient is a 75-year-old female who presents with a chief complaint of nausea vomiting since her recent discharge from this facility. She has not been taking her antibiotics for urinary tract infection as she was unable to keep them down. Basic lab work was obtained, she has leukocytosis to 15.8. Her lactate was not elevated at 1.6 and her procalcitonin was negative at 0.05. However given her tenderness to abdominal palpation, obtained a CT abdomen pelvis, which showed abnormal thickening and enhancement of several small bowel loops....compatible with small bowel enteritis with a few foci of gas adjacent to the proximal jejunum concerning for air within the small bowel wall or possible micro rupture with the extra luminal gas, moderate ascites no loculated fluid collection. I spoke with Dr. Felix from general surgery regarding the patient's CT findings at 3:00 p.m. plan at this point was to admit to medicine with surgery to follow up, given elevated BNP, possibility of concurrent UTI. Patient lost IV access with multiple nursing states attempted at 3:45 p.m.. Thus [facility] PICC was contacted to come place a line for this patient. Patient was straight cathed for urine at 4:15 p.m.. It was noted at 16:20 by nursing that the patient's heart rate increased from 90s to low 100s to 130s, indicating onset time of sepsis.. At that point the patient did not have a peripheral IV due to severe difficulty with access, was awaiting PICC team, so I spoke with Dr. Harrington regarding the patient she stated that she is willing to do a central line. Patient was prepped for central line, Dr Felix down to see patient and elected to take her to surgery at that point. Patient had been NPO since last night, had received very little IV fluid in emergency department due to lack of IV access. Cultures drawn when central line inserted, troponin added on to previous lab work per Dr Felix's instructions. IV fluids and Zosyn started when central access obtained. Repeat lactate drawn at time of central line placement shown to be elevated at 4.1. Heart rate decreased to 120, BP systolic increased to over 90 with IV fluids. Patient was transferred to OR staff at 7:00 p.m.. I did speak with Dr. Cruz, on-call for Dr. Ervin regarding the patient's status. <Marci Harrington MD - Last Filed: 06/18/20 07:36> Medical Records Attestation: I reviewed the patient's medical records. Lab Data Attestation: I reviewed the patient's lab results. Labs: Lab Results 06/17/20 06/17/20 06/17/20 Range/Units 11:42 11:42 11:42 WBC 15.8 H (4.5-11.0) X10^3/uL RBC 4.30 (4.0-5.2) X10^6/uL Hgb 10.6 L (12.0-16.0) g/dL Hct 32.6 L (36-46) % MCV 75.9 L (80-100) fL MCH 24.7 L (26-34) PG MCHC 32.5 (30-36) % RDW 17.4 H (11.6-14.8) % Plt Count 306 (150-400) X10^3/uL Neut % (Auto) 87.7 H (50-75) % Lymph % (Auto) 7.6 L (25-40) % Lucas % (Auto) 4.2 (3-14) % Eos % (Auto) 0.1 L (2-4) % Baso % (Auto) 0.4 (0-2) % Neut # (Auto) 66466 H (5713-7477) /uL Lymph # (Auto) 1200 (9487-3442) /uL Lucas # (Auto) 700 (0-900) /uL Eos # (Auto) 0 (0-450) /uL Baso # (Auto) 100 (0-100) /uL PT 15.0 H (10.1-12.7) SECONDS INR 1.3 (0.9-1.3) Sodium 133 L (137-145) mmol/L Potassium 3.7 (3.4-5.1) mmol/L Chloride 96 L (98-107) mmol/L Carbon Dioxide 30 (22-32) mmol/L BUN 12 (7-17) mg/dL Creatinine 0.57 (0.52-1.04) mg/dL Estimated GFR > 60.0 (>60) mL/min BUN/Creatinine Ratio 21.1 (6-22) Glucose 158 H (80-110) mg/dL Lactate (0.7-2.1) mmol/L Calcium 9.0 (8.4-10.2) mg/dL Magnesium 1.5 L (1.6-2.3) mg/dL Total Bilirubin 0.5 (0.2-1.3) mg/dL AST 24 (14-36) IU/L ALT 13 (<35) IU/L Alkaline Phosphatase 95 (38-126) U/L Total Creatine Kinase (30-135) U/L CK-MB (CK-2) CK-MB (CK-2) Rel Index Troponin I (0.01-0.034) ng/mL NT-Pro-B Natriuret Pep (<125) pg/mL Total Protein 6.9 (6.3-8.2) g/dL Albumin 3.5 (3.5-5.0) g/dL Globulin 3.4 (1.7-4.1) g/dL Albumin/Globulin Ratio 1.0 (1.0-2.8) Lipase (23-300) U/L Procalcitonin (<0.5) ng/mL Urine Color Urine Appearance Urine pH (4.5-8.0) Ur Specific Acton (1.000-1.035) Urine Protein (Negative) Urine Glucose (UA) (Negative) g/dL Urine Ketones (NEGATIVE) Urine Occult Blood (Negative) Urine Nitrate (Negative) Urine Bilirubin (NEGATIVE) Ur Bilirubin Confirm (Negative) Urine Urobilinogen (0.2) E.U./dL Ur Leukocyte Esterase (NEGATIVE) Urine RBC (0-5/HPF) Urine WBC (0-5/HPF) Urine Bacteria (None) Ur Culture Indicated? COVID-19 PCR (Negative) 06/17/20 06/17/20 06/17/20 Range/Units 11:42 11:42 11:42 WBC (4.5-11.0) X10^3/uL RBC (4.0-5.2) X10^6/uL Hgb (12.0-16.0) g/dL Hct (36-46) % MCV (80-100) fL MCH (26-34) PG MCHC (30-36) % RDW (11.6-14.8) % Plt Count (150-400) X10^3/uL Neut % (Auto) (50-75) % Lymph % (Auto) (25-40) % Lucas % (Auto) (3-14) % Eos % (Auto) (2-4) % Baso % (Auto) (0-2) % Neut # (Auto) (8269-0961) /uL Lymph # (Auto) (9449-1955) /uL Lucas # (Auto) (0-900) /uL Eos # (Auto) (0-450) /uL Baso # (Auto) (0-100) /uL PT (10.1-12.7) SECONDS INR (0.9-1.3) Sodium (137-145) mmol/L Potassium (3.4-5.1) mmol/L Chloride (98-107) mmol/L Carbon Dioxide (22-32) mmol/L BUN (7-17) mg/dL Creatinine (0.52-1.04) mg/dL Estimated GFR (>60) mL/min BUN/Creatinine Ratio (6-22) Glucose (80-110) mg/dL Lactate 1.6 (0.7-2.1) mmol/L Calcium (8.4-10.2) mg/dL Magnesium (1.6-2.3) mg/dL Total Bilirubin (0.2-1.3) mg/dL AST (14-36) IU/L ALT (<35) IU/L Alkaline Phosphatase (38-126) U/L Total Creatine Kinase (30-135) U/L CK-MB (CK-2) CK-MB (CK-2) Rel Index Troponin I (0.01-0.034) ng/mL NT-Pro-B Natriuret Pep 96593 H (<125) pg/mL Total Protein (6.3-8.2) g/dL Albumin (3.5-5.0) g/dL Globulin (1.7-4.1) g/dL Albumin/Globulin Ratio (1.0-2.8) Lipase (23-300) U/L Procalcitonin 0.05 (<0.5) ng/mL Urine Color Urine Appearance Urine pH (4.5-8.0) Ur Specific Acton (1.000-1.035) Urine Protein (Negative) Urine Glucose (UA) (Negative) g/dL Urine Ketones (NEGATIVE) Urine Occult Blood (Negative) Urine Nitrate (Negative) Urine Bilirubin (NEGATIVE) Ur Bilirubin Confirm (Negative) Urine Urobilinogen (0.2) E.U./dL Ur Leukocyte Esterase (NEGATIVE) Urine RBC (0-5/HPF) Urine WBC (0-5/HPF) Urine Bacteria (None) Ur Culture Indicated? COVID-19 PCR (Negative) 06/17/20 06/17/20 06/17/20 Range/Units 11:42 11:42 12:40 WBC (4.5-11.0) X10^3/uL RBC (4.0-5.2) X10^6/uL Hgb (12.0-16.0) g/dL Hct (36-46) % MCV (80-100) fL MCH (26-34) PG MCHC (30-36) % RDW (11.6-14.8) % Plt Count (150-400) X10^3/uL Neut % (Auto) (50-75) % Lymph % (Auto) (25-40) % Lucas % (Auto) (3-14) % Eos % (Auto) (2-4) % Baso % (Auto) (0-2) % Neut # (Auto) (2362-6245) /uL Lymph # (Auto) (6626-0173) /uL Lucas # (Auto) (0-900) /uL Eos # (Auto) (0-450) /uL Baso # (Auto) (0-100) /uL PT (10.1-12.7) SECONDS INR (0.9-1.3) Sodium (137-145) mmol/L Potassium (3.4-5.1) mmol/L Chloride (98-107) mmol/L Carbon Dioxide (22-32) mmol/L BUN (7-17) mg/dL Creatinine (0.52-1.04) mg/dL Estimated GFR (>60) mL/min BUN/Creatinine Ratio (6-22) Glucose (80-110) mg/dL Lactate (0.7-2.1) mmol/L Calcium (8.4-10.2) mg/dL Magnesium (1.6-2.3) mg/dL Total Bilirubin (0.2-1.3) mg/dL AST (14-36) IU/L ALT (<35) IU/L Alkaline Phosphatase (38-126) U/L Total Creatine Kinase 37 (30-135) U/L CK-MB (CK-2) TNP CK-MB (CK-2) Rel Index TNP Troponin I 0.117 H (0.01-0.034) ng/mL NT-Pro-B Natriuret Pep (<125) pg/mL Total Protein (6.3-8.2) g/dL Albumin (3.5-5.0) g/dL Globulin (1.7-4.1) g/dL Albumin/Globulin Ratio (1.0-2.8) Lipase 66 (23-300) U/L Procalcitonin (<0.5) ng/mL Urine Color Urine Appearance Urine pH (4.5-8.0) Ur Specific Acton (1.000-1.035) Urine Protein (Negative) Urine Glucose (UA) (Negative) g/dL Urine Ketones (NEGATIVE) Urine Occult Blood (Negative) Urine Nitrate (Negative) Urine Bilirubin (NEGATIVE) Ur Bilirubin Confirm (Negative) Urine Urobilinogen (0.2) E.U./dL Ur Leukocyte Esterase (NEGATIVE) Urine RBC (0-5/HPF) Urine WBC (0-5/HPF) Urine Bacteria (None) Ur Culture Indicated? COVID-19 PCR Negative (Negative) 06/17/20 06/17/20 Range/Units 16:15 18:22 WBC (4.5-11.0) X10^3/uL RBC (4.0-5.2) X10^6/uL Hgb (12.0-16.0) g/dL Hct (36-46) % MCV (80-100) fL MCH (26-34) PG MCHC (30-36) % RDW (11.6-14.8) % Plt Count (150-400) X10^3/uL Neut % (Auto) (50-75) % Lymph % (Auto) (25-40) % Lucas % (Auto) (3-14) % Eos % (Auto) (2-4) % Baso % (Auto) (0-2) % Neut # (Auto) (0179-1273) /uL Lymph # (Auto) (6137-3509) /uL Lucas # (Auto) (0-900) /uL Eos # (Auto) (0-450) /uL Baso # (Auto) (0-100) /uL PT (10.1-12.7) SECONDS INR (0.9-1.3) Sodium (137-145) mmol/L Potassium (3.4-5.1) mmol/L Chloride (98-107) mmol/L Carbon Dioxide (22-32) mmol/L BUN (7-17) mg/dL Creatinine (0.52-1.04) mg/dL Estimated GFR (>60) mL/min BUN/Creatinine Ratio (6-22) Glucose (80-110) mg/dL Lactate 4.1 H* (0.7-2.1) mmol/L Calcium (8.4-10.2) mg/dL Magnesium (1.6-2.3) mg/dL Total Bilirubin (0.2-1.3) mg/dL AST (14-36) IU/L ALT (<35) IU/L Alkaline Phosphatase (38-126) U/L Total Creatine Kinase (30-135) U/L CK-MB (CK-2) CK-MB (CK-2) Rel Index Troponin I (0.01-0.034) ng/mL NT-Pro-B Natriuret Pep (<125) pg/mL Total Protein (6.3-8.2) g/dL Albumin (3.5-5.0) g/dL Globulin (1.7-4.1) g/dL Albumin/Globulin Ratio (1.0-2.8) Lipase (23-300) U/L Procalcitonin (<0.5) ng/mL Urine Color Yellow Urine Appearance Clear Urine pH 7.0 (4.5-8.0) Ur Specific Acton <=1.005 (1.000-1.035) Urine Protein 2+ H (Negative) Urine Glucose (UA) Negative (Negative) g/dL Urine Ketones Trace H (NEGATIVE) Urine Occult Blood Trace-lysed (Negative) Urine Nitrate Negative (Negative) Urine Bilirubin 1+ H (NEGATIVE) Ur Bilirubin Confirm Negative (Negative) Urine Urobilinogen 0.2 (0.2) E.U./dL Ur Leukocyte Esterase Negative (NEGATIVE) Urine RBC None seen (0-5/HPF) Urine WBC None seen (0-5/HPF) Urine Bacteria None seen (None) Ur Culture Indicated? Cult not indicated COVID-19 PCR (Negative) MDM Narrative Medical decision making narrative: 75-year-old woman presented after recent hospital discharge with nausea vomiting and abdominal pain which had been consistent with her prior admission. Was initially seen by me and felt to be stable and care was handed over to Ms Forrest. Initially tenuous IV access was obtained lab work was initiated gentle IV hydration narcotics for pain control and antiemetics were administered. Eventually that IV access was lost and patient was relatively stable with initial lab work reviewed. In the past pic line had always been required. The PICC line team was called but was not immediately available. At 4:30 p.m. in the afternoon there was a definite decline in her overall clinical status with increased heart rate and decreasing blood pressure. Surgical consultation had been obtained earlier based on abnormal CT scans. Dr. Felix was available in the department to examine her and concluded that she did need an operation based on deteriorating clinical findings. Concerns for sepsis were raised initially however lab work and stable vital signs did not suggest actual sepsis. By 430 in the afternoon she clearly is now meeting criteria for sepsis, and appropriate alterations an increase in level of clinical care were initiated. Rather than waiting for PICC team, central line was placed with significant difficulty. Patient was extraordinarily dehydrated and central line placement took almost 45 minutes. Once access was obtained, lactic acid was repeated and aggressive fluid rehydration as well as antibiotics were initiated. Patient remained alert, cognitively appropriate and maintaining her airway throughout this period of deterioration. Patient did respond nicely to fluid resuscitation and blood p ressure was maintained in the 100/60 range after fluid resuscitation with heart rate coming down into the 100-110 range. She was transferred to the operating room for exploratory laparotomy. Discharge Plan Departure Patient Disposition: Admitted As Inpatient Clinical Impression: Tachycardia, Acute dehydration Abdominal pain Qualifiers: Abdominal location: generalized Qualified Code(s): R10.84 - Generalized abdominal pain Leukocytosis Qualifiers: Leukocytosis type: unspecified Qualified Code(s): D72.829 - Elevated white blood cell count, unspecified Sepsis Qualifiers: Sepsis type: sepsis due to unspecified organism Sepsis acute organ dysfunction status: unspecified Qualified Code(s): A41.9 - Sepsis, unspecified organism Admit Date/Time: 06/17/20 18:49 Admit Provider: Vince Felix
[2020-06-17 12:43] LABS: Lactate (Lactic Acid) 1.6 mmol/L (0.7-2.1)
[2020-06-17 12:53] LABS: Lipase 66 U/L (23-300)
[2020-06-17 13:01] LABS: COVID19 -Nasal RAPID Negative (Negative)
[2020-06-17 13:03] LABS: NT-proBNP (BNP-Adult 18+) 25700 pg/mL (<125)
[2020-06-17 13:09] LABS: Procalcitonin 0.05 ng/mL (<0.5)
--- NOTE | 2020-06-17 13:28 | DI.CT.S_ITS ---
PROCEDURE: CT ABDOMEN PELVIS W CON INDICATIONS: pain, n/v TECHNIQUE: After the administration of intravenous contrast, 5 mm thick sections acquired from the diaphragm to the symphysis. 5 mm coronal and sagittal reformats were acquired. For radiation dose reduction, the following was used: automated exposure control, adjustment of mA and/or kV according to patient size. COMPARISON: [facility], CT, CT PEL WO CON, 04/01/2020, 3:03. [facility], CT, CT ANGIO CHEST PE PROTOCOL, 06/12/2020, 16:08. [facility], CT, ABDOMEN/PELVIS WITH CONTRAST, 06/28/2013, 19:15. FINDINGS: Image quality: Excellent. ABDOMEN: Lung bases: Left lower lobe pulmonary nodule measuring 0.9 cm, (3/8), previously 0.8 cm in 2013 suggesting a benign etiology. Heart size is normal. Trace pericardial fluid, not significantly changed. Fluid in the esophagus. Solid organs: Liver is normal in size and enhancement. Gallbladder is not significantly distended. No calcified gallstones. . Biliary system is non dilated. Pancreas enhances normally. Spleen is normal in size and enhancement. No adrenal nodules. Left kidney is atrophic compared to the right. The kidneys demonstrate cortical thinning and irregularity due to scarring. Punctate calcification at the inferior pole of the left kidney. A few tiny cysts which are too small to further characterize. Peritoneum and bowel: Thickening and enhancement of the ileum, (2/55), and jejunum and duodenum, (2/50, 32). Small foci of gas near the ligament of Treitz may be within the wall or extraluminal, (2/35, 38). Stomach is mildly distended and fluid-filled. There is thickening of the greater curvature at the fundus. No gross pneumoperitoneum. Moderate volume of ascites most pronounced in the pelvis and right and left upper quadrant. Colon is not distended. The appendix is not visualized. Nodes and vessels: No retroperitoneal or mesenteric adenopathy by size criteria. Infrarenal abdominal aorta measures 2.3 cm and is ectatic. Moderate calcified atherosclerotic plaque. Miscellaneous: Right abdomen ventral fat containing hernia. The hernia neck measures 2.3 cm, (2/36). Smaller periumbilical fat containing hernia. PELVIS: Genitourinary: Bladder wall thickness is normal. Uterus is absent. Miscellaneous: Suspect small bilateral femoral hernias. No definite inguinal hernia. No adenopathy. Bones: Prior bilateral superior and inferior pubic rami fractures. No suspicious bony lesions. Stable T12 and L2 compression fractures. IMPRESSION: 1. Abnormal thickening and enhancement of several loops of small bowel particularly the jejunum and ileum. Findings most compatible with a small bowel enteritis. A few foci of gas adjacent to the proximal jejunum are concerning for air within the small bowel wall or possible micro rupture with extraluminal gas. There is moderate ascites but no loculated fluid collection to suggest abscess. 2. Stomach is distended. Gastric thickening of the greater curvature fundus. 3. Additional chronic findings as described above. Dictated by: Shay Loco M.D. on 06/17/2020 at 13:13 Approved by: Shay Loco M.D. on 06/17/2020 at 13:35
[2020-06-17] MEDS: SODIUM CHLORIDE 0.9% 500 ML 1000 ML IV (14:07)
[2020-06-17] MEDS: METOCLOPRAMIDE 10 MG/2 ML INJ IV (14:07)
[2020-06-17] MEDS: MORPHINE 2 MG/ML INJ IV (15:21)
[2020-06-17 16:38] LABS: Bacteria Urine None Seen; RBC Urine None Seen (0-5/HPF); WBC Urine None Seen (0-5/HPF)
--- NOTE | 2020-06-17 16:41 | PC.NURSE ---
HR noted to be 132. Pt arrived with HR 99-105. Ping Ortiz NP made aware.
[2020-06-17 16:45] LABS: Appearance Urine UA CLEAR; Bilirubin Urine UA 1+ (NEGATIVE); Color Urine UA YELLOW; Glucose Urine UA NEGATIVE (Negative); Ketones Urine UA TRACE (NEGATIVE); Leukocyte Esterase Urine UA NEGATIVE (NEGATIVE); Nitrite Urine UA NEGATIVE (Negative); Occult Blood Urine UA TRACE-LYSED (Negative); Protein Urine UA 2+ (Negative); Specific Gravity Urine UA <=1.005 (1.000-1.035); Urobilinogen Urine UA 0.2 E.U./dL (0.2)
[2020-06-17] MEDS: MORPHINE 4 MG/ML INJ IM (17:16)
--- NOTE | 2020-06-17 17:17 | PC.NURSE ---
Pt prepped for Central line. HR remains 132 on registered nurse cardiac, EKG obtained. BP 90/62. Medicated for pain before central line insertion. AAOx3. NAD denies CP/ SOB.
[2020-06-17 18:00] LABS: Culture Indicated Urine Cult Not Indicated; Ictotest Urine Negative (Negative)
--- NOTE | 2020-06-17 18:17 | DI.RAD.S_ITS ---
PROCEDURE: XR CHEST 1V INDICATIONS: central line placement TECHNIQUE: One view of the chest was acquired. COMPARISON: [facility], CR, XR CHEST 1V, 06/17/2020, 12:34. FINDINGS: Surgical changes and devices: Right internal jugular central venous catheter. Scattered subsegmental atelectasis and/or scarring. No focal consolidation. No pleural effusions or pneumothorax. Mediastinum: Mediastinal contours appear normal. Heart size is normal. Bones and chest wall: No suspicious bony lesions. Overlying soft tissues appear unremarkable. IMPRESSION: Right internal jugular central venous catheter with the tip projecting in the lower SVC. No pneumothorax Dictated by: Steven Gonzalez M.D. on 06/17/2020 at 18:52 Approved by: Steven Gonzalez M.D. on 06/17/2020 at 18:53
--- NOTE | 2020-06-17 18:20 | P.CONS_ITS ---
History of Present Illness Consult details Date Patient Seen: 06/17/20 Time Patient Seen: 18:20 Chief complaint: Nausea/vomiting Narrative: 75-year-old woman seen in consultation for abdominal pain in the emergency room. She was recently in hospital this past week for treatment of a urinary tract infection. She says the 3 days ago she developed abdominal pain with nausea and vomiting. She was discharged home and then developed abdominal pain which is worsened prompting her visit today. CT abdomen pelvis demonstrates multiple loops of thickened small bowel moderate abdominal ascites and several foci of air unable to tell determine if this is intra peritoneal or pneumatosis intestinalis. In the emergency room pulse 130, respirations 48, blood pressure 80s /40. White blood cell count 16 hematocrit 33 creatinine 0.6, lactate 1.6, BNP 26,000. History of CHF, DM, HTN, Hysterectomy. Meds Home Medications and Allergies Home Medications Medication Instructions Recorded Confirmed Type aspirin 81 mg tablet,delayed 81 mg PO QDAY #90 tab 07/05/19 06/12/20 Rx release sertraline 50 mg tablet 50 mg PO QDAY #90 tab 03/31/20 06/12/20 Rx ferrous sulfate 325 mg (65 mg 325 mg PO BIDWM #60 tab 04/02/20 06/12/20 Rx iron) tablet ciprofloxacin HCl [Cipro] 250 mg PO BID #14 tab 06/15/20 Rx hydrocodone-acetaminophen 1 tab PO Q4HR PRN #100 tab 06/15/20 Rx levetiracetam 1,500 mg PO DAILY #100 tab 06/15/20 06/12/20 Rx losartan 25 mg PO BID #180 tab 06/15/20 Rx promethazine 12.5 mg tablet 12.5 mg PO Q6H PRN #20 tab 06/15/20 Rx simvastatin 10 mg PO HS #100 tab 06/15/20 06/12/20 Rx Allergies Allergy/AdvReac Type Severity Reaction Status Date / Time No Known Drug Allergies Allergy Verified 06/17/20 11:40 Review of Systems Review of Systems Narrative: A 10 point review of systems is negative except as noted in the HPI Exam Vital Signs (past 8 hours): - 06/17/20 11:35 06/17/20 11:41 06/17/20 12:00 Temperature 97.8 F Pulse Rate 105 H 99 H Respiratory Rate 18 Blood Pressure 114/67 132/63 Pulse Oximetry 88 L 99 96 06/17/20 12:30 06/17/20 13:00 06/17/20 13:29 Temperature Pulse Rate 104 H 102 H 117 H Respiratory Rate Blood Pressure 118/68 129/87 Pulse Oximetry 95 97 98 06/17/20 13:30 06/17/20 16:30 06/17/20 16:31 Temperature Pulse Rate 115 H 129 H 131 H Respiratory Rate Blood Pressure 136/90 95/65 Pulse Oximetry 98 92 96 06/17/20 16:36 06/17/20 17:00 06/17/20 17:01 Temperature Pulse Rate 132 H 130 H 132 H Respiratory Rate 33 H 30 H Blood Pressure 102/67 94/51 L Pulse Oximetry 94 97 97 06/17/20 17:03 06/17/20 17:19 Temperature Pulse Rate 130 H 133 H Respiratory Rate 35 H 48 H Blood Pressure 92/59 L 90/61 Pulse Oximetry 100 99 Oxygen Delivery Method Room Air Narrative Exam Narrative: General elderly woman alert appears extremely uncomfortable Chest labored respiration Heart sinus tachycardia Abdomen mid abdominal peritonitis Extremities warm Objective Labs Result Diagrams: 06/17/20 11:42 06/17/20 11:42 Labs: Laboratory Results - last 24 hr 06/17/20 06/17/20 06/17/20 11:42 11:42 11:42 WBC 15.8 H RBC 4.30 Hgb 10.6 L Hct 32.6 L MCV 75.9 L MCH 24.7 L MCHC 32.5 RDW 17.4 H Plt Count 306 Neut % (Auto) 87.7 H Lymph % (Auto) 7.[address] [place] % (Auto) 4.2 Eos % (Auto) 0.1 L Baso % (Auto) 0.4 Neut # (Auto) 99334 H Lymph # (Auto) 1200 [place] # (Auto) 700 Eos # (Auto) 0 Baso # (Auto) 100 PT 15.0 H INR 1.3 Sodium 133 L Potassium 3.7 Chloride 96 L Carbon Dioxide 30 BUN 12 Creatinine 0.57 Estimated GFR > 60.0 BUN/Creatinine Ratio 21.1 Glucose 158 H Lactate Calcium 9.0 Magnesium 1.5 L Total Bilirubin 0.5 AST 24 ALT 13 Alkaline Phosphatase 95 NT-Pro-B Natriuret Pep Total Protein 6.9 Albumin 3.5 Globulin 3.4 Albumin/Globulin Ratio 1.0 Lipase Procalcitonin Urine Color Urine Appearance Urine pH Ur Specific [place] Urine Protein Urine Glucose (UA) Urine Ketones Urine Occult Blood Urine Nitrate Urine Bilirubin Ur Bilirubin Confirm Urine Urobilinogen Ur Leukocyte Esterase Urine RBC Urine WBC Urine Bacteria Ur Culture Indicated? COVID-19 PCR 06/17/20 06/17/20 06/17/20 11:42 11:42 11:42 WBC RBC Hgb Hct MCV MCH MCHC RDW Plt Count Neut % (Auto) Lymph % (Auto) [place] % (Auto) Eos % (Auto) Baso % (Auto) Neut # (Auto) Lymph # (Auto) [place] # (Auto) Eos # (Auto) Baso # (Auto) PT INR Sodium Potassium Chloride Carbon Dioxide BUN Creatinine Estimated GFR BUN/Creatinine Ratio Glucose Lactate 1.6 Calcium Magnesium Total Bilirubin AST ALT Alkaline Phosphatase NT-Pro-B Natriuret Pep 98547 H Total Protein Albumin Globulin Albumin/Globulin Ratio Lipase Procalcitonin 0.05 Urine Color Urine Appearance Urine pH Ur Specific [place] Urine Protein Urine Glucose (UA) Urine Ketones Urine Occult Blood Urine Nitrate Urine Bilirubin Ur Bilirubin Confirm Urine Urobilinogen Ur Leukocyte Esterase Urine RBC Urine WBC Urine Bacteria Ur Culture Indicated? COVID-19 PCR 06/17/20 06/17/20 06/17/20 11:42 12:40 16:15 WBC RBC Hgb Hct MCV MCH MCHC RDW Plt Count Neut % (Auto) Lymph % (Auto) [place] % (Auto) Eos % (Auto) Baso % (Auto) Neut # (Auto) Lymph # (Auto) [place] # (Auto) Eos # (Auto) Baso # (Auto) PT INR Sodium Potassium Chloride Carbon Dioxide BUN Creatinine Estimated GFR BUN/Creatinine Ratio Glucose Lactate Calcium Magnesium Total Bilirubin AST ALT Alkaline Phosphatase NT-Pro-B Natriuret Pep Total Protein Albumin Globulin Albumin/Globulin Ratio Lipase 66 Procalcitonin Urine Color Yellow Urine Appearance Clear Urine pH 7.0 Ur Specific [place] <=1.005 Urine Protein 2+ H Urine Glucose (UA) Negative Urine Ketones Trace H Urine Occult Blood Trace-lysed Urine Nitrate Negative Urine Bilirubin 1+ H Ur Bilirubin Confirm Negative Urine Urobilinogen 0.2 Ur Leukocyte Esterase Negative Urine RBC None seen Urine WBC None seen Urine Bacteria None seen Ur Culture Indicated? Cult not indicated COVID-19 PCR Negative Assessment & Plan Assessment & Plan narrative: 75-year-old female with congestive heart failure diabetes and acute peritonitis. I carefully reviewed her CT abdomen pelvis it is significant for moderate ascites thickened loops of small bowel and foci which are either intraperitoneal or pneumatosis intestinalis. The findings are suggestive of intestinal perforation. This is an extremely difficult case given her extensive comorbidities. It is possible that the abdominal ascites is secondary to congestive heart failure and that thickened loops of bowel are secondary to enteritis however the peritonitis the foci of air and the shock state argue against this. Also there was no ascities [address] when her BNP was 20,000. I think the most prudent course of action would be to go to the OR now for a diagnostic laparoscopy, possible exploratory laparotomy to ensure there is no intestinal necrosis or perforation. I discussed with her and her family that she is high risk given her current state and her comorbidities. We disscussed the possibility that she could have a negative laparotomy but a missed diagnosis of ischemia or perforation could result in . Operative risks including bleeding infection, damage to surrounding structures, need for ostomy, hernia formation, , heart attack, prolonged intubation following the operation, stroke. Her questions have been answered and she is in agreement with this plan.
--- NOTE | 2020-06-17 18:25 | PC.NURSE ---
central line placed by Dr Harrington,assisted,labs drawn from central line.
[2020-06-17] MEDS: PIPERACILLIN-TAZO 3.375 GM/50 ML FROZ.PIGGY IV (18:34)
[2020-06-17] MEDS: SODIUM CHLORIDE 0.9% 1,000 ML 1000 ML IV (18:35)
[2020-06-17 19:00] LABS: Lactate (Lactic Acid) 4.1 mmol/L (0.7-2.1)
[2020-06-17 20:02] LABS: Creatine Kinase 37 U/L (30-135)
[2020-06-17 20:15] LABS: Troponin I 0.117 ng/mL (0.01-0.034)
--- NOTE | 2020-06-17 20:30 | SUR.OPER ---
Supine on padded OR bed, head on pillow, arms secured on padded arm boards at <90 degrees abduction, legs uncrossed, safety belt at thigh, tape over blanket over lower legs.
[2020-06-17 20:35] LABS: Reflexed Lactate in 2 Hours Y
--- NOTE | 2020-06-17 21:10 | SUR.OPER ---
abdominal packing of plastic,blue towel, kerlix, wound vac sponge
--- NOTE | 2020-06-17 22:04 | SUR.PHASEI ---
Patient to ICU directly from Operating room with OR nurse, Anesthesia, Surgeon and PACU nurse. Patient transported on ventilator and cardiac monitoring. Left femoral art line in place, dc catheter, wound vac in place. Report given to ICU nurse previously by Anesthesia.
--- NOTE | 2020-06-17 22:15 | PM.OP.1 ---
Operative Date/Time/Diagnoses Date of procedure: 06/17/20 Time of procedure: 22:15 Pre-op diagnosis: Acute abdomen Post-op diagnosis: same Procedure & Clinicians Procedure: Exploratory laparotomy Small-bowel resection Temporary abdominal closure Same procedure as scheduled: Yes Indications: This is a 75-year-old woman who presented to the emergency room in septic shock with peritonitis and an abdominal CT scan demonstrating ascites and several foci of pneumatosis intestinalis Surgeon: [employer] Tester: Ronda Rivera Anesthesia Type: General Operative Notes Findings: 2cm enterotomy within the 4th portion of the duodenum. 2mm enterotomy in the proximal jejunum. Ischemic 4cm portion of mid jejunum. Feculent peritonitis Specimen(s): other (small bowel ) Estimated Blood Loss (mL): 100 Procedure in detail: Patient was brought to the operating room placed supine on the table. Bilateral lower extremity compression devices were applied. She received Zosyn prior to skin incision. General anesthesia was induced and she was intubated with an endotracheal tube. At this point she became progressively hypotensive an arterial catheter was placed in the right groin and with fluid and phenylephrine her blood pressure improved. She was prepped and draped a Butcher catheter was sterilely placed. A time out was performed. Midline laparotomy was made the abdomen was entered. There was feculent peritonitis upon entry. The small bowel was eviscerated. Small bowel was run from the ligament Treitz to the cecum. There was a 2 cm hole in the 4th portion of the duodenum just distal to the ligament of Treitz. The enterotomy was closed with interrupted silk suture for control of contamination. A 2nd 2 mm enterotomy was observed in the proximal jejunum which was closed in similar fashion. The lesser sac was entered the stomach both anterior and posterior portions were viable as well the distal duodenum. The areas of perforation were clearly ischemic there was also a portion of small bowel in the mid jejunum of approximately 4 cm that was resected with the REED stapler given its ischemia. Given her current hemodynamic instability the bowel was left in discontinuity. An inspection of of the colon was made there was no obvious ischemia or perforation within it. I suspect that her intestinal perforations were secondary to ischemic unclear if it was a cardiac output issue given her CHF or if she had an embolic event. A 19 Serbian Arpan drain was placed near the distal duodenal perforation brought out through the left side of the abdomen. A temporary abdominal dressing was then fashioned using sterile plastic sheet, blue towel and black foam attached to a wound vac. She was transfered directly to the ICU intubated on phenelphrine in critical condition for resusciation with the plan to return to the operating room when her hemodynamics improve. Complications: none Post-operative Condition: critical Disposition: ICU
--- NOTE | 2020-06-17 22:29 | SUR.PHASEI ---
Arterial blood pressure 73/42. Nursing staff waiting on Pharmacy to provide levophed drip.
--- NOTE | 2020-06-17 22:33 | SUR.PHASEI ---
Anesthesiology at bedside setting up phenylephrine drip. 200 mcg IV push given.
--- NOTE | 2020-06-17 22:36 | SUR.PHASEI ---
Family at beside and informed of progress.
[2020-06-17 22:38] LABS: HCO3 ABG 22 mmol/L (22-26); Oxygen Saturation ABG 100 % (95-100); PCO2 ABG 50.2 mmHg (35-45); PO2 ABG 435 mmHg (80-100); TCO2 ABG 24 mmol/L (21-31); pH ABG 7.26 (7.35-7.45)
[2020-06-17 22:39] LABS: Lactate 2HR (Lactic Acid Rflx) 2.1 mmol/L (0.7-2.1)
[2020-06-17 22:40] LABS: Fractionated Inspired Oxygen 100
--- NOTE | 2020-06-17 22:43 | SUR.PHASEI ---
BP 62/46 with MAP of 51. Arterial line measurement 79/45; still no levophed sent from pharmacy. Phenylephrine drip started by Anesthesiology.
--- NOTE | 2020-06-17 22:48 | SUR.PHASEI ---
Report handed off to ICU nursing staff. Patient stable but remains in critical condition. Family at bedside and supportive. Arterial pressure 92/51, map 63.
[2020-06-17] MEDS: NOREPINEPHRINE 4 MG in DEXTROSE 5% IN WATER 250 ML 30.48 ML IV (23:00)
[2020-06-17 23:10] LABS: Add Manual Diff / Slide Review NO; Basophils Absolute Auto 0 /uL (0-100); Basophils Percent Auto 0.2 % (0-2); Eosinophils Absolute Auto 0 /uL (0-450); Eosinophils Percent Auto 0.1 % (2-4); Hematocrit 37.7 % (36-46); Hemoglobin 11.9 g/dL (12.0-16.0); Lymphocytes Absolute Auto 900 /uL (1100-4500); Mean Corpuscular HGB Conc 31.6 % (30-36); Mean Corpuscular Hemoglobin 24.4 PG (26-34); Mean Corpuscular Volume 77.4 fL (80-100); Monocytes Absolute Auto 700 /uL (0-900); Monocytes Percent Auto 5.3 % (3-14); Neutrophils Absolute Auto 11300 /uL (1500-7000); Neutrophils Percent Auto 87.4 % (50-75); Platelet Count 306 X10^3/uL (150-400); Red Blood Cell Count 4.87 X10^6/uL (4.0-5.2); Red Cell Distribution Width 17.3 % (11.6-14.8); White Blood Cell Count 12.9 X10^3/uL (4.5-11.0)
[2020-06-17 23:14] LABS: Blood Urea Nitrogen 16 mg/dL (7-17); Calcium 7.9 mg/dL (8.4-10.2); Carbon Dioxide 24 mmol/L (22-32); Chloride 103 mmol/L (98-107); Estimated Glomerular Filt Rate > 60.0 mL/min (>60); Glucose 163 mg/dL (80-110); HEMOLYSIS 24 (0-50); Potassium 3.9 mmol/L (3.4-5.1); Sodium 131 mmol/L (137-145)
[2020-06-17] MEDS: SODIUM CHLORIDE 0.9% 1,000 ML 125 ML IV (23:15)
--- NOTE | 2020-06-17 23:16 | PC.NURSE ---
9- Patient arrived from OR to room 227. Patient is vented and sedated. BP is low see PACU charting. Family is at bedside. Patient has a Femoral Art line and a Triple Lumen in the right IJ. Patient had some uop in OR but none present at this time. Abdomen is open with a large wound vac in place. Vent is set at 35% FiO2, peep of 5, rate of 12 and Tidal Volume of 400. Anesthesia and PACU nurse in room for formal recovery.
--- NOTE | 2020-06-17 23:25 | PM.CN ---
History of Present Illness Consult details Date Patient Seen: 06/17/20 Time Patient Seen: 22:00 Chief complaint: Nausea/vomiting Reason for consult: Post-op critical care Requesting provider: Vince Felix Narrative: Janette Waldron is a patient of Dr. Cruz of [facility] and was admitted through the emergency department under the care of Dr. Felix for operative management of what appeared to be air and gas in her lower abdomen. Per the operative report and discussions with Dr. Felix he found that she had multiple perforations in portions of her distal duodenum as well as a small-bowel. Areas of the surgical site were found to be contaminated upon entry and upon exposure to the affected tissue, portions of the distal duodenum and small bowel were found to be ischemic. Decision was made to do initial repairs but due to the patient's falling blood pressures, it was decided to do temporary repairs and closure and transfer her to the ICU for continued ventilation management and pressure support. We will requested by both surgery and the patient's primary on-call provider, Dr. Cruz to manage the patient in the ICU. They did a temporary wound closure with packing and a wound VAC. Dr. Felix plans to take her back into the OR when she stabilizes her blood pressures and respiratory status. Dr. Felix requested the hospitalist service admit this patient to our service for further management of this unstable patient. The patient has had multiple hospitalizations over the past year the most recent being on June 12 where she was admitted and found to have a urinary tract infection and was discharged on June 17. Apparently she was to have started to take antibiotics and throughout that hospitalization and afterwards she remained nauseous to the point of not being able to take anything by mouth. She was not able to complete an antibiotic course that was prescribed for her post discharge. The patient was initiated on fluid resuscitation in the emergency department and given several boluses of phenylephrine to support her blood pressure which had fallen into the 70s systolic. Her lactate was 4+. Her white count was 12.9 improved from 15.08, she is in uncompensated respiratory acidosis with a pH of 7.26 with hypercapnia with a pCO2 of 50.2 and a PO2 of 435. Sodium is low at 131, glucose is 163, lactate pre-surgery was 4.1 and repeat was 2.1, magnesium is 1.5, she does have an elevated troponin [place] 0.117 [place] [address]. UA was negative and COVID-19 PCR was negative. Currently her vitals are a temperature of 97.4?, blood pressure 110/66, heart rate of 93, respiratory rate 13. Due to the hpercapnia, RT reduced her PEEP from 8 and her rate down from 16. Vent settings are now: PEEP of 5, Rate of 12, tidal volume 400 and an FiO2 of 25%. She had a echocardiogram done in March which indicated a normal EF of 65-70% but had a severely dilated right ventricle with mild to moderately reduced right ventricular systolic function. During her previous hospitalization she was given IV Lasix which apparently significantly reduced her symptoms of dyspnea. She is a well-controlled diabetic. Meds Home Medications and Allergies Home Medications Medication Instructions Recorded Confirmed Type aspirin 81 mg tablet,delayed 81 mg PO QDAY #90 tab 07/05/19 06/12/20 Rx release sertraline 50 mg tablet 50 mg PO QDAY #90 tab 03/31/20 06/12/20 Rx ferrous sulfate 325 mg (65 mg 325 mg PO BIDWM #60 tab 04/02/20 06/12/20 Rx iron) tablet ciprofloxacin HCl [Cipro] 250 mg PO BID #14 tab 06/15/20 Rx hydrocodone-acetaminophen 1 tab PO Q4HR PRN #100 tab 06/15/20 Rx levetiracetam 1,500 mg PO DAILY #100 tab 06/15/20 06/12/20 Rx losartan 25 mg PO BID #180 tab 06/15/20 Rx promethazine 12.5 mg tablet 12.5 mg PO Q6H PRN #20 tab 06/15/20 Rx simvastatin 10 mg PO HS #100 tab 06/15/20 06/12/20 Rx Allergies Allergy/AdvReac Type Severity Reaction Status Date / Time No Known Drug Allergies Allergy Verified 06/17/20 11:40 Review of Systems Review of Systems ROS: Yes unobtainable due to endotracheal tube Exam Vital Signs (past 8 hours): - 06/17/20 16:30 06/17/20 16:31 06/17/20 16:36 Temperature Pulse Rate 129 H 131 H 132 H Respiratory Rate Blood Pressure 95/65 102/67 Pulse Oximetry 92 96 94 06/17/20 17:00 06/17/20 17:01 06/17/20 17:03 Temperature Pulse Rate 130 H 132 H 130 H Respiratory Rate 33 H 30 H 35 H Blood Pressure 94/51 L 92/59 L Pulse Oximetry 97 97 100 06/17/20 17:19 06/17/20 17:30 06/17/20 17:31 Temperature Pulse Rate 133 H 133 H 132 H Respiratory Rate 48 H 26 H Blood Pressure 90/61 84/60 L Pulse Oximetry 99 100 100 06/17/20 18:00 06/17/20 18:30 06/17/20 18:35 Temperature Pulse Rate 130 H 138 H 125 H Respiratory Rate 31 H 29 H 28 H Blood Pressure 102/66 76/53 L 91/65 Pulse Oximetry 100 98 97 06/17/20 18:40 06/17/20 18:45 06/17/20 18:50 Temperature Pulse Rate 122 H 119 H 119 H Respiratory Rate 31 H 28 H 33 H Blood Pressure 98/62 98/65 96/62 Pulse Oximetry 98 98 99 06/17/20 19:28 06/17/20 21:59 06/17/20 22:06 Temperature 98.3 F Pulse Rate 125 H 117 H 107 H Respiratory Rate 29 H 10 L 8 L Blood Pressure 94/63 105/60 105/60 Pulse Oximetry 98 95 06/17/20 22:10 06/17/20 22:13 06/17/20 22:18 Temperature 96.5 F L Pulse Rate 116 H 112 H Respiratory Rate 23 8 L Blood Pressure 105/60 105/60 Pulse Oximetry 06/17/20 22:25 06/17/20 22:30 06/17/20 22:34 Temperature Pulse Rate 102 H 100 H 97 H Respiratory Rate 8 L 8 L 8 L Blood Pressure 88/52 L 58/43 L 63/45 L Pulse Oximetry 100 98 100 06/17/20 22:41 06/17/20 22:45 06/17/20 22:55 Temperature 97.4 F L Pulse Rate 94 H 97 H 92 H Respiratory Rate 8 L 16 13 Blood Pressure 60/43 L 78/39 L 66/43 L Pulse Oximetry 98 97 100 06/17/20 23:00 06/17/20 23:05 06/17/20 23:12 Temperature Pulse Rate 90 89 93 H Respiratory Rate 12 14 13 Blood Pressure 75/50 L 78/52 L Pulse Oximetry 100 100 100 06/17/20 23:13 Temperature Pulse Rate Respiratory Rate Blood Pressure 110/66 Pulse Oximetry Oxygen Delivery Method Mechanical Ventilation Oxygen Flow Rate 5 Narrative Exam Narrative: Gen: Sedated, normally nourished appearing 75 y.o. female, obtunded and appearing older than stated age HEENT: normocephalic, atraumatic, conjunctiva clear, sclera non-icteric, oral mucosa pink and moist Neck: supple, full ROM, no JVD, trachea is midline Resp: Lungs w/bilateral rhonchi, on a ventilator CV: RRR, no murmur or rubs Abd: soft, non-tender, normoactive BTs Skin: no lesions or rashes, dry and intact Neuro: Sedated on a ventilator, responds to painful stimuli, GCS 6, RASS -4 Extremities: Bilateral LE cyanosis and mottleing Psyche: unable to assess but understand from daughter, she is strong willed Objective Labs Result Diagrams: 06/17/20 22:20 06/17/20 22:20 Labs: Laboratory Results - last 24 hr 06/17/20 06/17/20 06/17/20 11:42 11:42 11:42 WBC 15.8 H RBC 4.30 Hgb 10.6 L Hct 32.6 L MCV 75.9 L MCH 24.7 L MCHC 32.5 RDW 17.4 H Plt Count 306 Neut % (Auto) 87.7 H Lymph % (Auto) 7.6 L [place] % (Auto) 4.2 Eos % (Auto) 0.1 L Baso % (Auto) 0.4 Neut # (Auto) 38348 H Lymph # (Auto) 1200 [place] # (Auto) 700 Eos # (Auto) 0 Baso # (Auto) 100 PT 15.0 H INR 1.3 ABG pH ABG pCO2 ABG pO2 ABG HCO3 ABG Total CO2 ABG O2 Saturation ABG Base Excess FiO2 Sodium 133 L Potassium 3.7 Chloride 96 L Carbon Dioxide 30 BUN 12 Creatinine 0.57 Estimated GFR > 60.0 BUN/Creatinine Ratio 21.1 Glucose 158 H Lactate Calcium 9.0 Magnesium 1.5 L Total Bilirubin 0.5 AST 24 ALT 13 Alkaline Phosphatase 95 Total Creatine Kinase CK-MB (CK-2) CK-MB (CK-2) Rel Index Troponin I NT-Pro-B Natriuret Pep Total Protein 6.9 Albumin 3.5 Globulin 3.4 Albumin/Globulin Ratio 1.0 Lipase Procalcitonin Urine Color Urine Appearance Urine pH Ur Specific [place] Urine Protein Urine Glucose (UA) Urine Ketones Urine Occult Blood Urine Nitrate Urine Bilirubin Ur Bilirubin Confirm Urine Urobilinogen Ur Leukocyte Esterase Urine RBC Urine WBC Urine Bacteria Ur Culture Indicated? COVID-19 PCR 06/17/20 06/17/20 06/17/20 11:42 11:42 11:42 WBC RBC Hgb Hct MCV MCH MCHC RDW Plt Count Neut % (Auto) Lymph % (Auto) [place] % (Auto) Eos % (Auto) Baso % (Auto) Neut # (Auto) Lymph # (Auto) [place] # (Auto) Eos # (Auto) Baso # (Auto) PT INR ABG pH ABG pCO2 ABG pO2 ABG HCO3 ABG Total CO2 ABG O2 Saturation ABG Base Excess FiO2 Sodium Potassium Chloride Carbon Dioxide BUN Creatinine Estimated GFR BUN/Creatinine Ratio Glucose Lactate 1.6 Calcium Magnesium Total Bilirubin AST ALT Alkaline Phosphatase Total Creatine Kinase CK-MB (CK-2) CK-MB (CK-2) Rel Index Troponin I NT-Pro-B Natriuret Pep 52196 H Total Protein Albumin Globulin Albumin/Globulin Ratio Lipase Procalcitonin 0.05 Urine Color Urine Appearance Urine pH Ur Specific [place] Urine Protein Urine Glucose (UA) Urine Ketones Urine Occult Blood Urine Nitrate Urine Bilirubin Ur Bilirubin Confirm Urine Urobilinogen Ur Leukocyte Esterase Urine RBC Urine WBC Urine Bacteria Ur Culture Indicated? COVID-19 PCR 06/17/20 06/17/20 06/17/20 11:42 11:42 12:40 WBC RBC Hgb Hct MCV MCH MCHC RDW Plt Count Neut % (Auto) Lymph % (Auto) [place] % (Auto) Eos % (Auto) Baso % (Auto) Neut # (Auto) Lymph # (Auto) [place] # (Auto) Eos # (Auto) Baso # (Auto) PT INR ABG pH ABG pCO2 ABG pO2 ABG HCO3 ABG Total CO2 ABG O2 Saturation ABG Base Excess FiO2 Sodium Potassium Chloride Carbon Dioxide BUN Creatinine Estimated GFR BUN/Creatinine Ratio Glucose Lactate Calcium Magnesium Total Bilirubin AST ALT Alkaline Phosphatase Total Creatine Kinase 37 CK-MB (CK-2) TNP CK-MB (CK-2) Rel Index TNP Troponin I 0.117 H NT-Pro-B Natriuret Pep Total Protein Albumin Globulin Albumin/Globulin Ratio Lipase 66 Procalcitonin Urine Color Urine Appearance Urine pH Ur Specific [place] Urine Protein Urine Glucose (UA) Urine Ketones Urine Occult Blood Urine Nitrate Urine Bilirubin Ur Bilirubin Confirm Urine Urobilinogen Ur Leukocyte Esterase Urine RBC Urine WBC Urine Bacteria Ur Culture Indicated? COVID-19 PCR Negative 06/17/20 06/17/20 06/17/20 16:15 18:22 22:20 WBC RBC Hgb Hct MCV MCH MCHC RDW Plt Count Neut % (Auto) Lymph % (Auto) [place] % (Auto) Eos % (Auto) Baso % (Auto) Neut # (Auto) Lymph # (Auto) [place] # (Auto) Eos # (Auto) Baso # (Auto) PT INR ABG pH ABG pCO2 ABG pO2 ABG HCO3 ABG Total CO2 ABG O2 Saturation ABG Base Excess FiO2 Sodium Potassium Chloride Carbon Dioxide BUN Creatinine Estimated GFR BUN/Creatinine Ratio Glucose Lactate 4.1 H* 2.1 Calcium Magnesium Total Bilirubin AST ALT Alkaline Phosphatase Total Creatine Kinase CK-MB (CK-2) CK-MB (CK-2) Rel Index Troponin I NT-Pro-B Natriuret Pep Total Protein Albumin Globulin Albumin/Globulin Ratio Lipase Procalcitonin Urine Color Yellow Urine Appearance Clear Urine pH 7.0 Ur Specific [place] <=1.005 Urine Protein 2+ H Urine Glucose (UA) Negative Urine Ketones Trace H Urine Occult Blood Trace-lysed Urine Nitrate Negative Urine Bilirubin 1+ H Ur Bilirubin Confirm Negative Urine Urobilinogen 0.2 Ur Leukocyte Esterase Negative Urine RBC None seen Urine WBC None seen Urine Bacteria None seen Ur Culture Indicated? Cult not indicated COVID-19 PCR 06/17/20 06/17/20 06/17/20 22:20 22:20 22:30 WBC 12.9 H RBC 4.87 Hgb 11.9 L Hct 37.7 MCV 77.4 L MCH 24.4 L MCHC 31.6 RDW 17.3 H Plt Count 306 Neut % (Auto) 87.4 H Lymph % (Auto) 7.0 L [place] % (Auto) 5.3 Eos % (Auto) 0.1 L Baso % (Auto) 0.2 Neut # (Auto) 28736 H Lymph # (Auto) 900 L [place] # (Auto) 700 Eos # (Auto) 0 Baso # (Auto) 0 PT INR ABG pH 7.26 L* ABG pCO2 50.2 H ABG pO2 435 H* ABG HCO3 22 ABG Total CO2 24 ABG O2 Saturation 100 ABG Base Excess -5.0 L FiO2 100 Sodium 131 L Potassium 3.9 Chloride 103 Carbon Dioxide 24 BUN 16 Creatinine 0.84 Estimated GFR > 60.0 BUN/Creatinine Ratio 19.0 Glucose 163 H Lactate Calcium 7.9 L Magnesium Total Bilirubin AST ALT Alkaline Phosphatase Total Creatine Kinase CK-MB (CK-2) CK-MB (CK-2) Rel Index Troponin I NT-Pro-B Natriuret Pep Total Protein Albumin Globulin Albumin/Globulin Ratio Lipase Procalcitonin Urine Color Urine Appearance Urine pH Ur Specific [place] Urine Protein Urine Glucose (UA) Urine Ketones Urine Occult Blood Urine Nitrate Urine Bilirubin Ur Bilirubin Confirm Urine Urobilinogen Ur Leukocyte Esterase Urine RBC Urine WBC Urine Bacteria Ur Culture Indicated? COVID-19 PCR Assessment & Plan Assessment & Plan narrative: Janette Waldron is transferred from the operating room to the ICU for further stabilization of her blood pressures and will remain on a ventilator. The hospitalist service is happy to serve as a category consultant to Dr. Felix and Dr. Cruz in the complex medical management of the her respiratory and cardiac issues. Septic peritonitis, acute, present on admission -Dr. Felix is the surgeon on this case -He plans to take her back into the OR to complete repair multiple duodenal and small bowel perforations. Hypotension in the setting of severe sepsis, acute, present on admission -patient was given 6988-6075 mL normal saline boluses in the ED -She is started on norepinephrine and apparently maxed out. She will be started on vasopressin per new pharmacy protocol Abnormal troponin, acute and present on admission -Troponin is 0.117 and will be repeated at 5:00 a.m. -Recommend echocardiogram in the morning to assess structural function with possible cardiology consult -Admission EKG indicated sinus tachycardia and right ventricular hypertrophy, priors indicated an incomplete right bundle 5 days ago and in December of 2016 Acute respiratory failure, currently unable to come off of ventilator -She had a uncompensated respiratory acidosis with a pH is 7.26, pCO2 of 50.2, ABG P O2 of 435, bicarb 22, with a base excess of -5 to the hypercapnia, RT reduced her PEEP from 8 and her rate down from 16. Vent settings are now: PEEP of 5, respiratory rate of 12, tidal volume 400 and an FiO2 of 25%. Hypomagnemesia with a magnesium level of 1.5, acute -She is ordered for IV mag sulfate 2 grams, recheck in the am Elevated proBNP of 25,700 secondary either to an acute exacerbation of congestive heart failure versus PE, acute and present on admission -patient has a history of mild congestive heart failure with a normal ejection fraction but has a severely dilated right ventricle -recommend CTA of the chest to rule out PE when she is more stable -recommend echocardiogram in the morning to assess structural function with possible cardiology consult Diabetes type 2 well controlled -A1c was 5.9 -Q6 hour glucose checks w/low dose correctional insulin VTE prophylaxis: Wells risk score: 2 Bilateral SCDs Consults: We appreciate the opportunity to consult w/Drs. Cruz and Elvira. We will follow as long as she requires ventilation and complex medical management FEN: Saline lock, CBC, BMP, lactate, troponin and procalcitonin, and magnesium in the am. Dispo: Unknown at this time. I have advised Dr. Felix that if she decompensates, would recommend air flight transfer to a tertiary facility with a surgical ICU. Discussed this with patient's daughter and she is accepting this as a possibility. Code Status: Full Code as discussed with her daughter, Lacey Critical care time: 105 minutes COVID-19 COVID-19 status: Negative Result date/Date tested (Pos, Neg/Pending): 06/17/20
[2020-06-18] VITALS (101 sets, daily range): BP systolic 69–142; BP diastolic 40–70; PULSE 64–108; RESP 0–19; TEMP 36.3–36.6; O2SAT 98–100
[2020-06-18] MEDS: FLUCONAZOLE 400 MG/200 ML PIGGYBACK 100 MG IV (00:34)
[2020-06-18] MEDS: PIPERACILLIN-TAZO 4.5 GM/100 ML FROZ.PIGGY IV (00:41)
[2020-06-18] MEDS: MAGNESIUM SULFATE 2 GM/50 ML PIGGYBACK IV (00:45)
[2020-06-18] MEDS: VASOPRESSIN 40 UNIT in SODIUM CHLORIDE 0.9% 100 ML IV (01:00)
[2020-06-18] MEDS: metroNIDAZOLE 500 MG/100 ML PIGGYBACK 100 MG IV (01:49)
[2020-06-18] MEDS: NOREPINEPHRINE 4 MG in DEXTROSE 5% IN WATER 250 ML 76.2 ML IV ×2 (02:05→05:53)
[2020-06-18] MEDS: MIDAZOLAM 50 MG in DEXTROSE 5% IN WATER 240 ML 5.897 ML IV (02:13)
[2020-06-18] MEDS: fentaNYL 1,000 MCG in DEXTROSE 5% IN WATER 230 ML 17 ML IV (02:14)
[2020-06-18] MEDS: SODIUM CHLORIDE 0.9% 1,000 ML 125 ML IV (02:46)
--- NOTE | 2020-06-18 03:09 | PC.ADMIT ---
Addendum entered by Dona Saenz R.N. 06/18/20 06:53: Patient status remains tenuous. Hemodynamically sensitive - multiple attempts to wean down at all on levophed GTT unsuccessful. Currently infusing at 18 mcg/min with variable MAP 55-70. Pain controlled and well sedated on versed and fentanyl combo. Dr. Felix and Karrie Gonzalez updated on overnight events and labs. Plans for transfer to higher level of care. NADEGE Mattson attempted to contact daughter to notify of change. Original Note: [address] Admission Note: The patient,Janette Waldron,75 y/o, was given written information regarding hospital policies, unit procedures and contact persons. Patient's smoking status: Former smoker. Vital Signs - 8 hr 06/17/20 19:28 06/17/20 21:59 06/17/20 22:06 Temperature 98.3 F Pulse Rate 125 H 117 H 107 H Respiratory Rate 29 H 10 L 8 L Blood Pressure 94/63 105/60 105/60 Pulse Oximetry 98 95 06/17/20 22:10 06/17/20 22:13 06/17/20 22:18 Temperature 96.5 F L Pulse Rate 116 H 112 H Respiratory Rate 23 8 L Blood Pressure 105/60 105/60 Pulse Oximetry 06/17/20 22:25 06/17/20 22:30 06/17/20 22:34 Temperature Pulse Rate 102 H 100 H 97 H Respiratory Rate 8 L 8 L 8 L Blood Pressure 88/52 L 58/43 L 63/45 L Pulse Oximetry 100 98 100 06/17/20 22:41 06/17/20 22:45 06/17/20 22:55 Temperature 97.4 F L Pulse Rate 94 H 97 H 92 H Respiratory Rate 8 L 16 13 Blood Pressure 60/43 L 78/39 L 66/43 L Pulse Oximetry 98 97 100 06/17/20 23:00 06/17/20 23:05 06/17/20 23:10 Temperature Pulse Rate 90 89 95 H Respiratory Rate 12 14 18 Blood Pressure 75/50 L 78/52 L Pulse Oximetry 100 100 100 06/17/20 23:12 06/17/20 23:13 06/17/20 23:15 Temperature Pulse Rate 93 H 92 H 94 H Respiratory Rate 13 13 15 Blood Pressure 110/66 119/76 Pulse Oximetry 100 100 100 06/17/20 23:20 06/17/20 23:21 06/17/20 23:23 Temperature Pulse Rate 93 H 93 H 93 H Respiratory Rate 11 L 13 14 Blood Pressure 74/50 L 73/53 L Pulse Oximetry 100 100 100 06/17/20 23:26 06/17/20 23:30 06/17/20 23:36 Temperature Pulse Rate 97 H 95 H 92 H Respiratory Rate 14 12 12 Blood Pressure 79/53 L 72/54 L 70/51 L Pulse Oximetry 100 100 100 06/17/20 23:40 06/17/20 23:41 06/17/20 23:45 Temperature Pulse Rate 91 H 98 H 92 H Respiratory Rate 12 14 11 L Blood Pressure 86/45 L 80/52 L Pulse Oximetry 100 100 100 06/17/20 23:50 06/17/20 23:57 06/18/20 00:00 Temperature Pulse Rate 91 H 104 H 104 H Respiratory Rate 11 L 17 12 Blood Pressure 77/54 L 89/56 L Pulse Oximetry 100 100 100 06/18/20 00:06 06/18/20 00:10 06/18/20 00:15 Temperature 97.8 F Pulse Rate 108 H 104 H 102 H Respiratory Rate 13 12 12 Blood Pressure 105/58 L 81/51 L 83/55 L Pulse Oximetry 99 100 100 06/18/20 00:20 06/18/20 00:30 06/18/20 00:35 Temperature Pulse Rate 98 H 98 H 106 H Respiratory Rate 12 12 12 Blood Pressure 79/53 L 91/53 L 88/50 L Pulse Oximetry 100 100 100 06/18/20 00:40 06/18/20 00:45 06/18/20 00:50 Temperature Pulse Rate 101 H 100 H 97 H Respiratory Rate 12 12 12 Blood Pressure 78/62 L 87/63 L 94/61 Pulse Oximetry 100 100 100 06/18/20 00:55 06/18/20 01:00 06/18/20 01:05 Temperature Pulse Rate 101 H 94 H 91 H Respiratory Rate 12 12 12 Blood Pressure 96/58 L 101/57 L 95/56 L Pulse Oximetry 99 100 100 06/18/20 01:10 06/18/20 01:12 06/18/20 01:15 Temperature Pulse Rate 86 84 83 Respiratory Rate 12 12 12 Blood Pressure 104/62 104/62 108/59 L Pulse Oximetry 100 100 100 06/18/20 01:20 06/18/20 01:25 06/18/20 01:30 Temperature Pulse Rate 91 H 83 80 Respiratory Rate 12 12 12 Blood Pressure 107/58 L 103/57 L 99/54 L Pulse Oximetry 100 100 100 06/18/20 01:35 06/18/20 01:40 06/18/20 01:45 Temperature Pulse Rate 84 79 76 Respiratory Rate 12 12 12 Blood Pressure 104/57 L 108/59 L 101/56 L Pulse Oximetry 100 100 100 06/18/20 01:48 06/18/20 01:50 06/18/20 01:55 Temperature Pulse Rate 77 76 96 H Respiratory Rate 12 12 13 Blood Pressure 101/59 L 93/51 L 122/62 Pulse Oximetry 100 100 100 06/18/20 01:59 06/18/20 02:00 06/18/20 02:05 Temperature Pulse Rate 85 83 85 Respiratory Rate 12 06 18 Blood Pressure 121/65 133/68 Pulse Oximetry 99 100 99 06/18/20 02:10 06/18/20 02:15 06/18/20 02:20 Temperature Pulse Rate 97 H 92 H 83 Respiratory Rate 19 15 12 Blood Pressure 133/70 129/69 98/56 L Pulse Oximetry 99 100 100 06/18/20 02:25 06/18/20 02:30 06/18/20 02:38 Temperature Pulse Rate 85 81 78 Respiratory Rate 12 12 12 Blood Pressure 100/58 L 106/60 88/50 L Pulse Oximetry 100 100 100 06/18/20 02:40 06/18/20 02:45 06/18/20 02:50 Temperature Pulse Rate 77 75 73 Respiratory Rate 12 12 12 Blood Pressure 83/55 L 87/59 L 91/60 Pulse Oximetry 100 100 100 06/18/20 02:55 06/18/20 03:00 06/18/20 03:04 Temperature Pulse Rate 72 74 74 Respiratory Rate 12 12 12 Blood Pressure 90/56 L 92/54 L Pulse Oximetry 100 100 100 06/18/20 03:05 Temperature Pulse Rate Respiratory Rate Blood Pressure 94/53 L Pulse Oximetry Assumed care of patient at 2315 after bedside report completed. Patient intubated on vent - tolerating settings. Hypotensive on levophed GTT with little to no improvement. Levophed was titrated up per protocol (see eMar documentation for titration). Highest dose of 35 mcg/min - MD aware. Dr. Felix updated on patient status and lab results. Vasopressin GTT added as adjunct with improvement. Able to titrate Levophed down to 18 mcg/min. Versed and Fentanyl GTT initiated per orders. Patient awakens to voice and is able to follow simple commands. ABD with large wound vac and miguel drain - WNL, maintained. Femoral arterial line WNL, correlating well with automatic BP via cuff.
[2020-06-18 05:00] LABS: Add Manual Diff / Slide Review NO; Basophils Absolute Auto 0 /uL (0-100); Basophils Percent Auto 0.3 % (0-2); Eosinophils Absolute Auto 0 /uL (0-450); Eosinophils Percent Auto 0.3 % (2-4); Hematocrit 34.2 % (36-46); Hemoglobin 10.9 g/dL (12.0-16.0); Lymphocytes Absolute Auto 2000 /uL (1100-4500); Lymphocytes Percent Auto 11.8 % (25-40); Mean Corpuscular HGB Conc 31.7 % (30-36); Mean Corpuscular Hemoglobin 24.5 PG (26-34); Mean Corpuscular Volume 77.3 fL (80-100); Monocytes Absolute Auto 600 /uL (0-900); Monocytes Percent Auto 3.7 % (3-14); Neutrophils Absolute Auto 14500 /uL (1500-7000); Neutrophils Percent Auto 83.9 % (50-75); Platelet Count 345 X10^3/uL (150-400); Red Blood Cell Count 4.43 X10^6/uL (4.0-5.2); Red Cell Distribution Width 17.4 % (11.6-14.8); White Blood Cell Count 17.2 X10^3/uL (4.5-11.0)
[2020-06-18 05:30] LABS: INR 1.6 (0.9-1.3); Prothrombin Time 18.8 SECONDS (10.1-12.7)
[2020-06-18 05:34] LABS: Lactate (Lactic Acid) 1.6 mmol/L (0.7-2.1)
[2020-06-18 05:35] LABS: BUN Creatinine Ratio 17.9 (6-22); Blood Urea Nitrogen 17 mg/dL (7-17); Calcium 7.5 mg/dL (8.4-10.2); Carbon Dioxide 21 mmol/L (22-32); Chloride 104 mmol/L (98-107); Estimated Glomerular Filt Rate 57.7 mL/min (>60); Glucose 275 mg/dL (80-110); HEMOLYSIS < 15 (0-50); Magnesium 2.5 mg/dL (1.6-2.3); Phosphorous 4.1 mg/dL (2.8-4.1); Potassium 3.8 mmol/L (3.4-5.1); Sodium 128 mmol/L (137-145)
[2020-06-18] MEDS: SODIUM BICARB 8.4% VIAL 100 MEQ in DEXTROSE 5% WATER 1,000 ML 150 MEQ IV (05:38)
[2020-06-18 05:44] LABS: NT-proBNP (BNP-Adult 18+) 32800 pg/mL (<125)
[2020-06-18 05:48] LABS: Troponin I 0.118 ng/mL (0.01-0.034)
[2020-06-18] MEDS: ERTAPENEM 1 GM in SODIUM CHLORIDE 0.9% 100 ML 200 ML IV (06:26)
[2020-06-18] MEDS: INSULIN ASPART 100 UNIT/ML INSULN PEN SUBCUT (06:34)
[2020-06-18 06:35] LABS: Procalcitonin 21.33 ng/mL (<0.5)
[2020-06-18 06:37] LABS: HCO3 ABG 17 mmol/L (22-26); Oxygen Saturation ABG 93 % (95-100); PO2 ABG 72 mmHg (80-100); TCO2 ABG 18 mmol/L (21-31)
[2020-06-18 06:38] LABS: Fractionated Inspired Oxygen 25
--- NOTE | 2020-06-18 08:28 | P.DS_ITS ---
History of Present Illness History of Present Illness Date Patient Seen: 06/18/20 Time Patient Seen: 08:28 Chief complaint: Nausea/vomiting Narrative: 75-year-old woman with right-sided congestive heart failure who presented to the emergency room with abdominal pain. She became hypotensive and tachycardic, CT abdomen pelvis demonstrates new abdominal ascites small-bowel thickening and small foci of extraluminal air. She was taken to the operating room for exploratory laparotomy for presumed intestinal perforation. Discharge Providers Provider Date of admission: 06/17/20 18:49 Discharge Date: 06/18/20 Primary care physician: John Montiel MD Consults: 06/17/20 21:12 Consult to Dietitian, Adult Routine Comment: Reason For Exam: Patient on Ventilator and NPO Discharge provider: Vince Felix MD Summary Hospital Course Discharge Diagnosis: Small-bowel ischemia Hollow viscus perforation Septic shock Congestive heart failure Myocardial infarction Acute respiratory failure Hospital Course: Patient was taken to the operative 06/17/2020 for an exploratory laparotomy. Perforations at the 4th portion of the duodenum and mid jejunum were noted as well as several areas of small bowel ischemia. A small- bowel resection of the mid jejunum was done the enterotomies were closed she was left in discontinuity secondary to her hemodynamic instability. Temporary abdominal closure was done she was taken to the Intensive care unit for resuscitation with plan for a second-look operation after her hemodynamics improved. Over the course of the evening she was maintained on Levophed and Vasopressin but was unable to wean. Given the combination of septic shock, worsening congestive heart failure with demand ischemia she was transferred to a tertiary care facility for a higher level of care. Exam Vital Signs (past 8 hours): - 06/18/20 00:30 06/18/20 00:35 06/18/20 00:40 Temperature Pulse Rate 98 H 106 H 101 H Respiratory Rate 12 12 12 Blood Pressure 91/53 L 88/50 L 78/62 L Pulse Oximetry 100 100 100 06/18/20 00:45 06/18/20 00:50 06/18/20 00:55 Temperature Pulse Rate 100 H 97 H 101 H Respiratory Rate 12 12 12 Blood Pressure 87/63 L 94/61 96/58 L Pulse Oximetry 100 100 99 06/18/20 01:00 06/18/20 01:05 06/18/20 01:10 Temperature Pulse Rate 94 H 91 H 86 Respiratory Rate 12 12 12 Blood Pressure 101/57 L 95/56 L 104/62 Pulse Oximetry 100 100 100 06/18/20 01:12 06/18/20 01:15 06/18/20 01:20 Temperature Pulse Rate 84 83 91 H Respiratory Rate 12 12 12 Blood Pressure 104/62 108/59 L 107/58 L Pulse Oximetry 100 100 100 06/18/20 01:25 06/18/20 01:30 06/18/20 01:35 Temperature Pulse Rate 83 80 84 Respiratory Rate 12 12 12 Blood Pressure 103/57 L 99/54 L 104/57 L Pulse Oximetry 100 100 100 06/18/20 01:40 06/18/20 01:45 06/18/20 01:48 Temperature Pulse Rate 79 76 77 Respiratory Rate 12 12 12 Blood Pressure 108/59 L 101/56 L 101/59 L Pulse Oximetry 100 100 100 06/18/20 01:50 06/18/20 01:55 06/18/20 01:59 Temperature Pulse Rate 76 96 H 85 Respiratory Rate 12 13 12 Blood Pressure 93/51 L 122/62 Pulse Oximetry 100 100 99 06/18/20 02:00 06/18/20 02:05 06/18/20 02:10 Temperature Pulse Rate 83 85 97 H Respiratory Rate 12 13 19 Blood Pressure 121/65 133/68 133/70 Pulse Oximetry 100 99 99 06/18/20 02:15 06/18/20 02:20 06/18/20 02:25 Temperature Pulse Rate 92 H 83 85 Respiratory Rate 15 12 12 Blood Pressure 129/69 98/56 L 100/58 L Pulse Oximetry 100 100 100 06/18/20 02:30 06/18/20 02:38 06/18/20 02:40 Temperature Pulse Rate 81 78 77 Respiratory Rate 12 12 12 Blood Pressure 106/60 88/50 L 83/55 L Pulse Oximetry 100 100 100 06/18/20 02:45 06/18/20 02:50 06/18/20 02:55 Temperature Pulse Rate 75 73 72 Respiratory Rate 12 12 12 Blood Pressure 87/59 L 91/60 90/56 L Pulse Oximetry 100 100 100 06/18/20 03:00 06/18/20 03:04 06/18/20 03:05 Temperature Pulse Rate 74 74 72 Respiratory Rate 12 12 12 Blood Pressure 92/54 L 94/53 L Pulse Oximetry 100 100 100 06/18/20 03:10 06/18/20 03:15 06/18/20 03:20 Temperature Pulse Rate 71 71 70 Respiratory Rate 12 12 12 Blood Pressure 93/53 L 88/54 L 86/52 L Pulse Oximetry 100 100 100 06/18/20 03:25 06/18/20 03:30 06/18/20 03:35 Temperature Pulse Rate 76 70 68 Respiratory Rate 12 12 12 Blood Pressure 112/57 L 106/57 L 100/55 L Pulse Oximetry 100 100 100 06/18/20 03:40 06/18/20 03:45 06/18/20 03:50 Temperature Pulse Rate 68 72 67 Respiratory Rate 12 12 12 Blood Pressure 100/56 L 109/59 L 109/60 Pulse Oximetry 100 100 100 06/18/20 03:55 06/18/20 04:00 06/18/20 04:05 Temperature Pulse Rate 67 66 66 Respiratory Rate 12 12 12 Blood Pressure 102/57 L 101/59 L 101/55 L Pulse Oximetry 100 100 100 06/18/20 04:10 06/18/20 04:15 06/18/20 04:20 Temperature Pulse Rate 66 76 68 Respiratory Rate 12 12 12 Blood Pressure 102/58 L 96/56 L 111/56 L Pulse Oximetry 100 100 100 06/18/20 04:25 06/18/20 04:30 06/18/20 04:35 Temperature Pulse Rate 67 65 64 Respiratory Rate 12 12 12 Blood Pressure 101/58 L 103/56 L 103/55 L Pulse Oximetry 100 100 100 06/18/20 04:40 06/18/20 04:45 06/18/20 04:50 Temperature Pulse Rate 77 72 69 Respiratory Rate 12 13 12 Blood Pressure 94/54 L 93/52 L 94/56 L Pulse Oximetry 100 100 100 06/18/20 04:55 06/18/20 05:00 06/18/20 05:04 Temperature Pulse Rate 70 71 73 Respiratory Rate 12 12 12 Blood Pressure 98/56 L 98/57 L 88/52 L Pulse Oximetry 100 100 100 06/18/20 05:05 06/18/20 05:10 06/18/20 05:15 Temperature Pulse Rate 78 70 70 Respiratory Rate 13 12 12 Blood Pressure 91/50 L 103/56 L 102/59 L Pulse Oximetry 100 100 100 06/18/20 05:20 06/18/20 05:25 06/18/20 05:30 Temperature Pulse Rate 76 70 71 Respiratory Rate 12 12 12 Blood Pressure 103/56 L 107/59 L 101/59 L Pulse Oximetry 100 100 100 06/18/20 05:35 06/18/20 05:40 06/18/20 05:45 Temperature Pulse Rate 70 70 69 Respiratory Rate 12 12 12 Blood Pressure 101/56 L 100/59 L 101/57 L Pulse Oximetry 100 100 100 06/18/20 05:50 06/18/20 05:56 06/18/20 05:57 Temperature Pulse Rate 70 73 71 Respiratory Rate 12 12 12 Blood Pressure 106/56 L 69/40 L 78/50 L Pulse Oximetry 100 99 98 06/18/20 06:00 06/18/20 06:05 06/18/20 06:10 Temperature Pulse Rate 69 69 91 H Respiratory Rate 12 12 17 Blood Pressure 132/64 120/58 L 119/51 L Pulse Oximetry 100 100 99 06/18/20 06:15 06/18/20 06:20 06/18/20 06:25 Temperature Pulse Rate 71 68 68 Respiratory Rate 12 12 12 Blood Pressure 117/58 L 119/58 L 118/63 Pulse Oximetry 100 100 100 06/18/20 06:30 06/18/20 06:35 06/18/20 06:40 Temperature Pulse Rate 68 69 72 Respiratory Rate 12 12 12 Blood Pressure 115/62 125/62 114/55 L Pulse Oximetry 100 100 100 06/18/20 06:45 06/18/20 06:50 06/18/20 06:55 Temperature Pulse Rate 68 68 68 Respiratory Rate 12 12 12 Blood Pressure 113/58 L 121/60 123/60 Pulse Oximetry 100 100 100 06/18/20 07:00 06/18/20 07:05 06/18/20 07:10 Temperature Pulse Rate 68 67 69 Respiratory Rate 12 12 12 Blood Pressure 142/54 H 124/59 L 91/55 L Pulse Oximetry 100 100 100 06/18/20 07:15 06/18/20 07:20 06/18/20 07:25 Temperature Pulse Rate 68 68 67 Respiratory Rate 12 12 12 Blood Pressure 126/59 L 118/55 L 104/57 L Pulse Oximetry 100 100 100 06/18/20 07:30 06/18/20 07:34 06/18/20 07:35 Temperature 97.3 F L Pulse Rate 67 68 Respiratory Rate 12 12 Blood Pressure 133/50 L 118/60 Pulse Oximetry 100 100 06/18/20 08:00 Temperature Pulse Rate 67 Respiratory Rate 12 Blood Pressure 139/53 L Pulse Oximetry 100 Fraction of Inspired Oxygen 0.25 Oxygen Delivery Method Mechanical Ventilation Oxygen Flow Rate 5 Narrative Exam Narrative: Gen-elderly woman sedated for mechanical ventilation, no acute distress Chest-Grossly clear to ascutation bilaterally Cardiac-sinus on monitor Abdomen-temporary abdominal dressing in place holding suction Extremities-cool Objective Labs Result Diagrams: 06/18/20 04:46 06/18/20 04:46 Labs: Laboratory Results - last 24 hr 06/17/20 06/17/20 06/17/20 11:42 11:42 11:42 WBC 15.8 H RBC 4.30 Hgb 10.6 L Hct 32.6 L MCV 75.9 L MCH 24.7 L MCHC 32.5 RDW 17.4 H Plt Count 306 Neut % (Auto) 87.7 H Lymph % (Auto) 7.6 L Jennings % (Auto) 4.2 Eos % (Auto) 0.1 L Baso % (Auto) 0.4 Neut # (Auto) 42071 H Lymph # (Auto) 1200 Jennings # (Auto) 700 Eos # (Auto) 0 Baso # (Auto) 100 PT 15.0 H INR 1.3 ABG pH ABG pCO2 ABG pO2 ABG HCO3 ABG Total CO2 ABG O2 Saturation ABG Base Excess FiO2 Sodium 133 L Potassium 3.7 Chloride 96 L Carbon Dioxide 30 BUN 12 Creatinine 0.57 Estimated GFR > 60.0 BUN/Creatinine Ratio 21.1 Glucose 158 H Lactate Calcium 9.0 Phosphorus Magnesium 1.5 L Total Bilirubin 0.5 AST 24 ALT 13 Alkaline Phosphatase 95 Total Creatine Kinase CK-MB (CK-2) CK-MB (CK-2) Rel Index Troponin I NT-Pro-B Natriuret Pep Total Protein 6.9 Albumin 3.5 Globulin 3.4 Albumin/Globulin Ratio 1.0 Lipase Procalcitonin Urine Color Urine Appearance Urine pH Ur Specific [place] Urine Protein Urine Glucose (UA) Urine Ketones Urine Occult Blood Urine Nitrate Urine Bilirubin Ur Bilirubin Confirm Urine Urobilinogen Ur Leukocyte Esterase Urine RBC Urine WBC Urine Bacteria Ur Culture Indicated? COVID-19 PCR 06/17/20 06/17/20 06/17/20 11:42 11:42 11:42 WBC RBC Hgb Hct MCV MCH MCHC RDW Plt Count Neut % (Auto) Lymph % (Auto) Jennings % (Auto) Eos % (Auto) Baso % (Auto) Neut # (Auto) Lymph # (Auto) Jennings # (Auto) Eos # (Auto) Baso # (Auto) PT INR ABG pH ABG pCO2 ABG pO2 ABG HCO3 ABG Total CO2 ABG O2 Saturation ABG Base Excess FiO2 Sodium Potassium Chloride Carbon Dioxide BUN Creatinine Estimated GFR BUN/Creatinine Ratio Glucose Lactate 1.6 Calcium Phosphorus Magnesium Total Bilirubin AST ALT Alkaline Phosphatase Total Creatine Kinase CK-MB (CK-2) CK-MB (CK-2) Rel Index Troponin I NT-Pro-B Natriuret Pep 78728 H Total Protein Albumin Globulin Albumin/Globulin Ratio Lipase Procalcitonin 0.05 Urine Color Urine Appearance Urine pH Ur Specific [place] Urine Protein Urine Glucose (UA) Urine Ketones Urine Occult Blood Urine Nitrate Urine Bilirubin Ur Bilirubin Confirm Urine Urobilinogen Ur Leukocyte Esterase Urine RBC Urine WBC Urine Bacteria Ur Culture Indicated? COVID-19 PCR 06/17/20 06/17/20 06/17/20 11:42 11:42 12:40 WBC RBC Hgb Hct MCV MCH MCHC RDW Plt Count Neut % (Auto) Lymph % (Auto) Jennings % (Auto) Eos % (Auto) Baso % (Auto) Neut # (Auto) Lymph # (Auto) Jennings # (Auto) Eos # (Auto) Baso # (Auto) PT INR ABG pH ABG pCO2 ABG pO2 ABG HCO3 ABG Total CO2 ABG O2 Saturation ABG Base Excess FiO2 Sodium Potassium Chloride Carbon Dioxide BUN Creatinine Estimated GFR BUN/Creatinine Ratio Glucose Lactate Calcium Phosphorus Magnesium Total Bilirubin AST ALT Alkaline Phosphatase Total Creatine Kinase 37 CK-MB (CK-2) TNP CK-MB (CK-2) Rel Index TNP Troponin I 0.117 H NT-Pro-B Natriuret Pep Total Protein Albumin Globulin Albumin/Globulin Ratio Lipase 66 Procalcitonin Urine Color Urine Appearance Urine pH Ur Specific [place] Urine Protein Urine Glucose (UA) Urine Ketones Urine Occult Blood Urine Nitrate Urine Bilirubin Ur Bilirubin Confirm Urine Urobilinogen Ur Leukocyte Esterase Urine RBC Urine WBC Urine Bacteria Ur Culture Indicated? COVID-19 PCR Negative 06/17/20 06/17/20 06/17/20 16:15 18:22 22:20 WBC RBC Hgb Hct MCV MCH MCHC RDW Plt Count Neut % (Auto) Lymph % (Auto) Jennings % (Auto) Eos % (Auto) Baso % (Auto) Neut # (Auto) Lymph # (Auto) Jennings # (Auto) Eos # (Auto) Baso # (Auto) PT INR ABG pH ABG pCO2 ABG pO2 ABG HCO3 ABG Total CO2 ABG O2 Saturation ABG Base Excess FiO2 Sodium Potassium Chloride Carbon Dioxide BUN Creatinine Estimated GFR BUN/Creatinine Ratio Glucose Lactate 4.1 H* 2.1 Calcium Phosphorus Magnesium Total Bilirubin AST ALT Alkaline Phosphatase Total Creatine Kinase CK-MB (CK-2) CK-MB (CK-2) Rel Index Troponin I NT-Pro-B Natriuret Pep Total Protein Albumin Globulin Albumin/Globulin Ratio Lipase Procalcitonin Urine Color Yellow Urine Appearance Clear Urine pH 7.0 Ur Specific Florence <=1.005 Urine Protein 2+ H Urine Glucose (UA) Negative Urine Ketones Trace H Urine Occult Blood Trace-lysed Urine Nitrate Negative Urine Bilirubin 1+ H Ur Bilirubin Confirm Negative Urine Urobilinogen 0.2 Ur Leukocyte Esterase Negative Urine RBC None seen Urine WBC None seen Urine Bacteria None seen Ur Culture Indicated? Cult not indicated COVID-19 PCR 06/17/20 06/17/20 06/17/20 22:20 22:20 22:30 WBC 12.9 H RBC 4.87 Hgb 11.9 L Hct 37.7 MCV 77.4 L MCH 24.4 L MCHC 31.6 RDW 17.3 H Plt Count 306 Neut % (Auto) 87.4 H Lymph % (Auto) 7.0 L Jennings % (Auto) 5.3 Eos % (Auto) 0.1 L Baso % (Auto) 0.2 Neut # (Auto) 71316 H Lymph # (Auto) 900 L Jennings # (Auto) 700 Eos # (Auto) 0 Baso # (Auto) 0 PT INR ABG pH 7.26 L* ABG pCO2 50.2 H ABG pO2 435 H* ABG HCO3 22 ABG Total CO2 24 ABG O2 Saturation 100 ABG Base Excess -5.0 L FiO2 100 Sodium 131 L Potassium 3.9 Chloride 103 Carbon Dioxide 24 BUN 16 Creatinine 0.84 Estimated GFR > 60.0 BUN/Creatinine Ratio 19.0 Glucose 163 H Lactate Calcium 7.9 L Phosphorus Magnesium Total Bilirubin AST ALT Alkaline Phosphatase Total Creatine Kinase CK-MB (CK-2) CK-MB (CK-2) Rel Index Troponin I NT-Pro-B Natriuret Pep Total Protein Albumin Globulin Albumin/Globulin Ratio Lipase Procalcitonin Urine Color Urine Appearance Urine pH Ur Specific [place] Urine Protein Urine Glucose (UA) Urine Ketones Urine Occult Blood Urine Nitrate Urine Bilirubin Ur Bilirubin Confirm Urine Urobilinogen Ur Leukocyte Esterase Urine RBC Urine WBC Urine Bacteria Ur Culture Indicated? COVID-19 06/18/20 06/18/20 06/18/20 04:20 04:46 04:46 WBC 17.2 H RBC 4.43 Hgb 10.9 L Hct 34.2 L MCV 77.3 L MCH 24.5 L MCHC 31.7 RDW 17.4 H Plt Count 345 Neut % (Auto) 83.9 H Lymph % (Auto) 11.8 L Jennings % (Auto) 3.7 Eos % (Auto) 0.3 L Baso % (Auto) 0.3 Neut # (Auto) 32705 H Lymph # (Auto) 2000 Jennings # (Auto) 600 Eos # (Auto) 0 Baso # (Auto) 0 PT INR ABG pH 7.30 L ABG pCO2 35.0 ABG pO2 72 L ABG HCO3 17 L ABG Total CO2 18 L ABG O2 Saturation 93 L ABG Base Excess -9.0 L FiO2 25 Sodium 128 L Potassium 3.8 Chloride 104 Carbon Dioxide 21 L BUN 17 Creatinine 0.95 Estimated GFR 57.7 L BUN/Creatinine Ratio 17.9 Glucose 275 H D Lactate Calcium 7.5 L Phosphorus 4.1 Magnesium 2.5 H Total Bilirubin AST ALT Alkaline Phosphatase Total Creatine Kinase CK-MB (CK-2) CK-MB (CK-2) Rel Index Troponin I NT-Pro-B Natriuret Pep Total Protein Albumin Globulin Albumin/Globulin Ratio Lipase Procalcitonin Urine Color Urine Appearance Urine pH Ur Specific [place] Urine Protein Urine Glucose (UA) Urine Ketones Urine Occult Blood Urine Nitrate Urine Bilirubin Ur Bilirubin Confirm Urine Urobilinogen Ur Leukocyte Esterase Urine RBC Urine WBC Urine Bacteria Ur Culture Indicated? COVID-19 PCR 06/18/20 06/18/20 06/18/20 04:46 04:46 04:46 WBC RBC Hgb Hct MCV MCH MCHC RDW Plt Count Neut % (Auto) Lymph % (Auto) Jennings % (Auto) Eos % (Auto) Baso % (Auto) Neut # (Auto) Lymph # (Auto) Jennings # (Auto) Eos # (Auto) Baso # (Auto) PT 18.8 H INR 1.6 H ABG pH ABG pCO2 ABG pO2 ABG HCO3 ABG Total CO2 ABG O2 Saturation ABG Base Excess FiO2 Sodium Potassium Chloride Carbon Dioxide BUN Creatinine Estimated GFR BUN/Creatinine Ratio Glucose Lactate Calcium Phosphorus Magnesium Total Bilirubin AST ALT Alkaline Phosphatase Total Creatine Kinase CK-MB (CK-2) CK-MB (CK-2) Rel Index Troponin I 0.118 H NT-Pro-B Natriuret Pep 49631 H Total Protein Albumin Globulin Albumin/Globulin Ratio Lipase Procalcitonin 21.33 H Urine Color Urine Appearance Urine pH Ur Specific [place] Urine Protein Urine Glucose (UA) Urine Ketones Urine Occult Blood Urine Nitrate Urine Bilirubin Ur Bilirubin Confirm Urine Urobilinogen Ur Leukocyte Esterase Urine RBC Urine WBC Urine Bacteria Ur Culture Indicated? COVID-19 PCR 06/18/20 04:46 WBC RBC Hgb Hct MCV MCH MCHC RDW Plt Count Neut % (Auto) Lymph % (Auto) Jennings % (Auto) Eos % (Auto) Baso % (Auto) Neut # (Auto) Lymph # (Auto) Jennings # (Auto) Eos # (Auto) Baso # (Auto) PT INR ABG pH ABG pCO2 ABG pO2 ABG HCO3 ABG Total CO2 ABG O2 Saturation ABG Base Excess FiO2 Sodium Potassium Chloride Carbon Dioxide BUN Creatinine Estimated GFR BUN/Creatinine Ratio Glucose Lactate 1.6 Calcium Phosphorus Magnesium Total Bilirubin AST ALT Alkaline Phosphatase Total Creatine Kinase CK-MB (CK-2) CK-MB (CK-2) Rel Index Troponin I NT-Pro-B Natriuret Pep Total Protein Albumin Globulin Albumin/Globulin Ratio Lipase Procalcitonin Urine Color Urine Appearance Urine pH Ur Specific [place] Urine Protein Urine Glucose (UA) Urine Ketones Urine Occult Blood Urine Nitrate Urine Bilirubin Ur Bilirubin Confirm Urine Urobilinogen Ur Leukocyte Esterase Urine RBC Urine WBC Urine Bacteria Ur Culture Indicated? COVID-19 PCR [facility] Medical History Alopecia Anxiety Asthma Back pain Carpal tunnel syndrome Chicken pox Chronic back pain Foot pain Headache Hearing loss History of recurrent ear infection Hypertension Measles Mumps Recurrent sinusitis Right ventricular hypertrophy Seasonal allergies Shoulder pain Sleep apnea Vertigo Vision disorder Surgical History H/O: hysterectomy History of bilateral knee replacement Family History Child Age: 48 Cancer Heart disease Hypertension High cholesterol Diabetes mellitus Father Stroke Mother Heart disease Hypertension High cholesterol Diabetes mellitus Brother No problems noted. Brother No problems noted. Social History household members: family Smoking Status: Former smoker alcohol intake: former Discharge Plan Discharge Plan Patient Disposition: [facility] Other facility: [place] Discharge Data Primary Care Provider: John Montiel
--- NOTE | 2020-06-18 09:12 | PC.NURSE ---
Rec'd pt in bed resting. Appears comfortable. FLACC 0-2. Easily awakens to verbal and follows commands. Tolerating vent. Requiring pressor support to keep MAP >60. Unable to wean due to significant decreased in BP with downward titration, per NOC report. Lungs CTA. SPO2 100% on current vent settings. Wound vac on continuous therapy. NGT to LIS. Arpan drain compressed with scant sero sang drainage. Butcher draining to gravity. Central line patent with multiple gtts infusing. A line patent with good wave form. Plan is to dc to [facility] ED. Rec'd call from transfer center with notice of accepting physician- Dr. Zapata, general surgeon. [facility] transport set up. Daughter (Lacey Mulligan) signed consent to transport. Daughter, Jaelyn Foss, was contacted by [facility], [place] hospitalist [place] regarding transport. Both daughters are agreeable to plan. Written report worksheet faxed to [facility] ED. Report given to [facility] team by Yue WHEAT. Pt left in critical but stable condition at 0905.
== END 2020-06-18 09:05 | disposition short-term general hospital (02) | DRG 853 ==
LOC: ED 18:21 → AC 18:49 → ICU 18:58 → AC 06-19 08:34
PROVIDERS: Emergency Medicine; Nurse Practitioner Family; Surgery; Admitting Provider Surgery; Emergency Provider Nurse Practitioner Family; PCP Family Medicine; Referring Provider Nurse Practitioner Family; Visit Provider Surgery
PROC: 0DL90ZZ Occlusion of Duodenum, Open Approach (ICD-10-PCS; CPT 49320; principal; 2020-06-17 18:30)
DX: A41.9 Sepsis, unspecified organism (principal); R65.21 Severe sepsis with septic shock; J96.02 Acute respiratory failure with hypercapnia; K65.9 Peritonitis, unspecified; K63.1 Perforation of intestine (nontraumatic); I21.9 Acute myocardial infarction, unspecified; I50.33 Acute on chronic diastolic (congestive) heart failure; I26.99 Other pulmonary embolism without acute cor pulmonale; R18.8 Other ascites; E86.0 Dehydration; E11.9 Type 2 diabetes mellitus without complications; I11.0 Hypertensive heart disease with heart failure; G89.29 Other chronic pain; R10.0 Acute abdomen; Z20.828 Contact with and (suspected) exposure to other viral communicable diseases
CPT/HCPCS: 36415; 36592; 36600; 71045; 74177; 80048; 80053; 81001; 82550; 82805; 82962; 83605; 83690; 83735; 83880; 84100; 84145; 84484; 85025; 85610; 87040; 87635; 93005; 93010; 94002; 94003; 94770; 94799; 96361; 96365; 96375; 96376; 99283; 99285; J1335; J1450; J2250; J2270; J2405; J2543; J2765; J3010; Q9967